=== PATIENT | female | born 1985 | race Caucasian/White ===

== ENCOUNTER → 2016-08-14 | Outpatient (CLI) | payer OTHER ==
[2016-08-14 07:10] LABS: Basophils # (A) 0.1 k/uL (0-0.2); Basophils % (A) 2 %; CH 30.2; CHCM 34.1; Eosinophils # (A) 0.1 k/uL (0-0.7); Eosinophils % (A) 2 %; HCT 41.4 % (34.0-46.0); HDW 2.63; HGB 13.7 gm/dL (11.4-16.0); Luc # (Auto) 0.15; Luc % (Auto) 3; Lymphocytes # (A) 2.1 k/uL (1.0-4.8); Lymphocytes % (A) 38 %; MCH 29.5 pg (25.0-35.0); MCHC 33.1 g/dL (31.0-37.0); Mean Platelet Volume 7.2; Monocytes # (A) 0.2 k/uL (0-1.0); Monocytes % (A) 4 %; Neutrophils # (A) 2.9 k/uL (1.3-7.7); Neutrophils % (A) 52 %; RBC 4.65 m/uL (3.80-5.40); RDW 12.5 % (11.5-15.5); WBC 5.5 k/uL (3.8-10.6); WBC (Perox) 5.61
[2016-08-14 07:45] LABS: ALT 35 U/L (9-52); AST 43 U/L (14-36); Alkaline Phosphatase 61 U/L (38-126); Anion Gap 7 mmol/L; Blood Urea Nitrogen 12 mg/dL (7-17); Calcium 8.6 mg/dL (8.4-10.2); Carbon Dioxide 29 mmol/L (22-30); Chloride 105 mmol/L (98-107); Cholesterol 153 mg/dL (<200); Glucose 92 mg/dL (74-99); HDL Cholesterol 48 mg/dL (40-60); Non-African American GFR(MDRD) >60 (>60 ml/min/1.73 sqM); Sodium 141 mmol/L (137-145); Total Bilirubin 0.7 mg/dL (0.2-1.3); Total Protein 6.1 g/dL (6.3-8.2); Triglycerides 324 mg/dL (<150)
== END | disposition home or self-care (01) ==
LOC: LABWHC1 06:42
PROVIDERS: ATTEND Family Medicine
DX: E03.9 Hypothyroidism, unspecified (principal)
CPT/HCPCS: 36415; 80053; 80061; 84439; 84443; 84481; 85025

== ENCOUNTER → 2016-08-15 | Outpatient (CLI) | payer OTHER ==
--- NOTE | 2016-08-15 15:07 | US ---
EXAMINATION TYPE: US thyroid st tissue head/neck DATE OF EXAM: 08/15/2016 2:54 PM COMPARISON: NONE CLINICAL HISTORY: Multinodular Goiter E04.2. Pt states h/o goiter/ pt previously on thyroid meds, cur rently not on them GLAND SIZE: Right Lobe: 4.5 x 1.3 x 1.7 cm Overall Parenchyma: heterogenous Left Lobe: 4.3 x 1.5 x 1.6 cm Overall Parenchyma: heterogeneous Isthmus Thickness: 0.3 cm NODULES RIGHT: # of nodules measured on right: 0 LEFT: # of nodules measured on left: 0 ISTHMUS: # of nodules measured in the isthmus: 0 TECHNOLOGIST IMPRESSION: Bilateral neck scanned, no abnormal lymphadenopathy noted/ Bilateral thyroi d gland grossly heterogeneous with increased blood flow/ No definite nodules visualized IMPRESSION: Thyroid goiter with increased vascularity. Discrete suspicious nodule is not otherwise identified.
== END | disposition home or self-care (01) ==
LOC: RADUSWWP 14:42
PROVIDERS: ATTEND Family Medicine
DX: E04.2 Nontoxic multinodular goiter (principal); Z88.1 Allergy status to other antibiotic agents
CPT/HCPCS: 76536

== ENCOUNTER → 2017-10-09 | Outpatient (CLI) | payer OTHER ==
--- NOTE | 2017-10-09 12:46 | US ---
EXAMINATION TYPE: US gallbladder DATE OF EXAM: 10/09/2017 COMPARISON: NONE CLINICAL HISTORY: 32-year-old female R10.9 ABD Pain. RUQ pain and diarrhea x 6-9 months TECHNIQUE: Multiple sonographic images of the right upper quadrant were obtained. FINDINGS: EXAM MEASUREMENTS: Liver Length: 18.5 cm Gallbladder Wall: 0.2 cm CBD: 0.5 cm Right Kidney: 10.2 x 4.7 x 5.1 cm Pancreas: wnl, tail obscured by overlying bowel gas Liver: Enlarged, heterogeneous Gallbladder: No abnormal gallbladder distention, wall thickening, pericholecystic fluid, or shadowin g calculi. Evidence for sonographic Borden's sign: No CBD: wnl Right Kidney: No hydronephrosis. Lower pole gassed out IMPRESSION: Mild hepatomegaly (18.5 cm). There is heterogeneous and echogenic appearance to the liver which could reflect hepatic steatosis or other nonspecific hepatocellular disease. Correlate with LFTs, profile, and patient risk factors.
== END | disposition home or self-care (01) ==
LOC: RADUSWWP 09:02
PROVIDERS: ATTEND Family Medicine
DX: R16.0 Hepatomegaly, not elsewhere classified (principal); Z88.1 Allergy status to other antibiotic agents
CPT/HCPCS: 76705

== ENCOUNTER 2018-12-12 16:35 | Emergency (ER) | payer OTHER ==
[2018-12-12 17:03] VITALS: BP 145/94; PULSE 112; RESP 18; TEMP 98.4
--- NOTE | 2018-12-12 17:42 | ED ---
General Adult HPI - General Chief complaint: Recheck/Abnormal Lab/Rx Stated complaint: Chest Pain, Anxiety Time Seen by Provider: 12/12/18 17:06 Source: patient Mode of arrival: ambulatory Limitations: no limitations - History of Present Illness Initial comments: She is a 33-year-old female presenting to emergency Department with anxiety. Patient reports a history of anxiety but over the past year she has developed increased symptoms along with occasional panic attacks that occur approximately 2-3 days prior to her menstrual periods. Patient reports these have been constant and only occurred during this period. Patient reports taking Xanax and smoked marijuana with mixed improvement. Patient reports over the last 6 months she also noticed intermittent chest pain that does not radiate. Patient reports chest pain is not exacerbated or alleviated with rest. Patient reports the anxiety symptoms last for approximately 2-3 days and resolve with the onset of the menstrual cycle. Patient denies taking any other medication to alleviate the symptoms. Patient reports that she has an appointment scheduled for an PAYROLL TAX ANALYST on Saturday. Patient also reports nausea, vomiting, and personality changes during this period. Patient is not currently taking Tian at this. Patient reports she is not . Patient has no previous cardiac history. - Related Data Previous Rx's Medication Instructions Recorded Clindamycin [Cleocin] 150 mg PO Q6H 7 Days capsule 05/21/16 HYDROcodone/APAP 5-325MG [[place] 1 tab PO Q6HR #12 tab 05/21/16 5-325] Allergies Allergy/AdvReac Type Severity Reaction Status Date / Time cefaclor [From Ceclor] Allergy Rash/Hives Verified 12/12/18 17:03 Iodinated Contrast- Oral and Allergy Rash/Hives Verified 12/12/18 17:04 IV Dye shellfish derived [Shellfish] Allergy Rash/Hives Verified 12/12/18 17:04 Review of Systems ROS Statement: Those systems with pertinent positive or pertinent negative responses have been documented in the HPI. ROS Other: All systems not noted in ROS Statement are negative. Past Medical History Past Medical History: No Reported History History of Any Multi-Drug Resistant Organisms: None Reported Additional Past Surgical History / Comment(s): ANKLE, ARM Past Psychological History: No Psychological Hx Reported Smoking Status: Never smoker Past Alcohol Use History: Daily Past Drug Use History: Marijuana General Exam Limitations: no limitations General appearance: alert, in no apparent distress Head exam: Present: atraumatic, normocephalic, normal inspection Eye exam: Present: normal appearance, PERRL, EOMI Pupils: Present: normal accommodation ENT exam: Present: normal exam, mucous membranes moist, normal external ear exam Neck exam: Present: normal inspection, full ROM Respiratory exam: Present: normal lung sounds bilaterally Cardiovascular Exam: Present: regular rate, normal rhythm, normal heart sounds GI/Abdominal exam: Present: soft. Absent: tenderness, guarding, rebound Extremities exam: Present: normal inspection, full ROM Back exam: Present: normal inspection, full ROM Neurological exam: Present: alert, oriented X3 Psychiatric exam: Present: normal affect, normal mood, anxious (Mild) Skin exam: Present: warm, intact, normal color Course Vital Signs 12/12/18 17:00 Temperature 98.4 F Pulse Rate 112 H Respiratory 18 Rate Blood Pressure 145/94 O2 Sat by Pulse 99 Oximetry EKG Findings - EKG Comments: EKG Findings:: Sinus tachycardia. Ventricular rate 106, TX interval 136, QRS duration 66, QT/QTc 334/456, PRT axes 49 44 -23 Medical Decision Making - Medical Decision Making Patient is a 33-year-old female presents emergency Department with anxiety. Based on history and physical examination and suspect the patient to be experiencing premenstrual symptoms which are consistent with the timing of onset prior to her menstrual cycle. Due to the previous history of anxiety, the patient appears to have exacerbated his symptoms. EKG is negative for an acute infarct. Patient advised to follow with PAY[employer] TAX ANALYST and psychiatrist would be able to better control her symptoms. Strict return parameters were thoroughly discussed with patient who is understanding and agreeable with the treatment plan. Case discussed with physician. Disposition Clinical Impression: Anxiety Disposition: HOME SELF-CARE Condition: Stable Instructions (If sedation given, give patient instructions): Premenstrual Syndrome (ED) Additional Instructions: Please follow-up with PAYROLL TAX ANALYST. Please return to emergency department if symptoms worsen. Is patient prescribed a controlled substance at d/c from ED?: No Referrals: Reynaldo Bateman MD [Primary Care Provider] - 1-2 days Time of Disposition: 17:41
== END 2018-12-12 18:22 | disposition home or self-care (01) ==
LOC: EC 16:35
DX: F41.9 Anxiety disorder, unspecified (principal); R07.9 Chest pain, unspecified; R11.2 Nausea with vomiting, unspecified; Z88.1 Allergy status to other antibiotic agents; Z91.041 Radiographic dye allergy status; Z91.013 Allergy to seafood
CPT/HCPCS: 99284

== ENCOUNTER 2019-04-29 17:30 | Emergency (ER) | payer OTHER ==
[2019-04-29 17:35] VITALS: RESP 18
[2019-04-29] MEDS ORDERED: LORazepam 1 MG TAB PO STA (18:17)
--- NOTE | 2019-04-29 19:06 | ED ---
General Adult HPI - General Chief complaint: Anxiety Stated complaint: PMDD/anxiety Time Seen by Provider: 04/29/19 17:41 Source: patient, RN notes reviewed Mode of arrival: ambulatory Limitations: no limitations - History of Present Illness Initial comments: 33-year-old female presents to the emergency department for a chief complaint of anxiety. Patient has a past medical history of PMD D. States that she gets very anxious during this time. Patient states that today her anxiety was causing her heart rate to be elevated and this in turn was causing more anxiety. States that she was feeling like her heart was beating quickly and it was scaring her. Patient denies any other symptoms. Denies chest pain or shortness of breath. Denies any radiating pain. States she has had these symptoms before with PMDD.Patient has no other complaints at this time including shortness of breath, chest pain, abdominal pain, nausea or vomiting, headache, or visual changes. - Related Data Previous Rx's Medication Instructions Recorded HYDROcodone/APAP 5-325MG [[place] 1 tab PO Q6HR #12 tab 05/21/16 5-325] RX: Clindamycin [Cleocin] 150 mg PO Q6H 7 Days capsule 05/21/16 Allergies Allergy/AdvReac Type Severity Reaction Status Date / Time cefaclor [From Ceclor] Allergy Rash/Hives Verified 04/29/19 17:34 Iodinated Contrast Media Allergy Rash/Hives Verified 04/29/19 17:34 [Iodinated Contrast- Oral and IV Dye] shellfish derived [Shellfish] Allergy Rash/Hives Verified 04/29/19 17:34 Review of Systems ROS Statement: Those systems with pertinent positive or pertinent negative responses have been documented in the HPI. ROS Other: All systems not noted in ROS Statement are negative. Past Medical History Past Medical History: Thyroid Disorder Additional Past Medical History / Comment(s): PMDD History of Any Multi-Drug Resistant Organisms: None Reported Past Surgical History: Orthopedic Surgery Additional Past Surgical History / Comment(s): ANKLE, ARM Past Psychological History: No Psychological Hx Reported Smoking Status: Never smoker Past Alcohol Use History: Occasional Past Drug Use History: Marijuana General Exam Limitations: no limitations General appearance: alert, in no apparent distress Head exam: Present: atraumatic, normocephalic, normal inspection Eye exam: Present: normal appearance, PERRL, EOMI. Absent: scleral icterus, conjunctival injection, periorbital swelling ENT exam: Present: normal exam, mucous membranes moist Neck exam: Present: normal inspection, full ROM. Absent: tenderness, meningismus, lymphadenopathy Respiratory exam: Present: normal lung sounds bilaterally. Absent: respiratory distress, wheezes, rales, rhonchi, stridor Cardiovascular Exam: Present: regular rate, normal rhythm, normal heart sounds. Absent: systolic murmur, diastolic murmur, rubs, gallop, clicks GI/Abdominal exam: Present: soft, normal bowel sounds. Absent: distended, tenderness, guarding, rebound, rigid Neurological exam: Present: alert Psychiatric exam: Present: normal affect, normal mood Course Vital Signs 04/29/19 17:32 Temperature 98.3 F Pulse Rate 102 H Respiratory 18 Rate Blood Pressure 144/102 O2 Sat by Pulse 96 Oximetry EKG Findings - EKG Comments: EKG Findings:: Normal sinus rhythm, ventricular rate 80, MS interval 126, QTc 470 Medical Decision Making - Medical Decision Making Patient has mild sinus tachycardia with a ventricular rate of 102. Negative hCG was verified. Patient was given Ativan and EKG was obtained. EKG shows a normal sinus rhythm with a ventricular rate of 80. Patient was reevaluated, feeling much better. States she just needed piece of mind and Ativan helped her anxiety. States she is ready to go home. Again she denies any suicidal thoughts or thoughts of harming herself. Patient will return if she has any worsening symptoms. - Lab Data Lab Results 04/29/19 Range/Units 18:15 Urine HCG, Qual Not Detected (Not Detectd) Disposition Clinical Impression: Acute anxiety Disposition: HOME SELF-CARE Condition: Good Instructions (If sedation given, give patient instructions): Generalized Anxiety Disorder (ED) Additional Instructions: Please follow up with primary care in 1-2 days. Return here to the emergency Department if you're having any worsening symptoms. Is patient prescribed a controlled substance at d/c from ED?: No Referrals: Reynaldo Bateman MD [Primary Care Provider] - 1-2 days Time of Disposition: 19:16
[2019-04-29 19:31] VITALS: BP 141/94; PULSE 88; TEMP 98.7
== END 2019-04-29 19:30 | disposition home or self-care (01) ==
LOC: EC 17:30
DX: F41.9 Anxiety disorder, unspecified (principal); Z88.1 Allergy status to other antibiotic agents; Z91.013 Allergy to seafood; Z91.041 Radiographic dye allergy status
CPT/HCPCS: 81025; 93005; 99283

== ENCOUNTER 2019-04-30 03:43 | Emergency (ER) | payer OTHER ==
[2019-04-30 03:50] VITALS: RESP 18
[2019-04-30] MEDS ORDERED: SODIUM CHLORIDE 0.9% 1,000 ML IV ONE (04:32)
--- NOTE | 2019-04-30 04:32 | ED ---
General Adult HPI - General Chief complaint: Anxiety Stated complaint: recheck PMDD/anxiety Time Seen by Provider: 04/30/19 03:45 Source: patient Mode of arrival: ambulatory Limitations: no limitations - History of Present Illness Initial comments: Riri is a 33-year-old female who presents to the ER today for reevaluation of persistent anxiety. Patient states that she suffers from PMDD, she states that approximately 1-2 weeks to months she feels very anxious and is unable to attend to her normal activities of daily living. She states that she is currently suffering from PMDD. She has been following with her enrobing machine operator about this and has been prescribed Prozac since November. 2 weeks ago for Prozac was increased. In addition she is followed with her primary care physician and found that her thyroid levels were low and her Synthroid dose was increased. She is scheduled to see an [employer] law clerk tomorrow for this. Patient states that she came to the ER yesterday evening feeling very anxious she was given Ativan and felt much better her heart rate improved is able to sleep. Patient reports that she woke from sleep feeling very anxious, her heart was racing. Patient states that she hasn't been able sleep lately, she is concerned that she has some type of cancer going to kill her. She states she just feels that something is wrong inside of her body and she is going to . Patient states she is overwhelmed by these thoughts. Patient denies any history of anxiety or depression she doesn't have any outpatient mental health care. She does state that sheneeds to see a mental health provider however she's been unable to do so. Patient states that in the 1-2 weeks a month that she suffers from PMDD she is unable to 10 to activities of daily living her to keep up with her cabin agent so the 2 weeks that she is functional she's always playing catch of therefore she hasn't had much time to establish care with a mental health provider. - Related Data Home Medications Medication Instructions Recorded Confirmed FLUoxetine HCL [PROzac] 40 mg PO DAILY 04/29/19 04/29/19 Ibuprofen [Advil] 400 mg PO Q6HR PRN 04/29/19 04/29/19 Levothyroxine Sodium [Synthroid] 75 mcg PO DAILY 04/29/19 04/29/19 Allergies Allergy/AdvReac Type Severity Reaction Status Date / Time cefaclor [From Ceclor] Allergy Rash/Hives Verified 04/30/19 03:50 Iodinated Contrast Media Allergy Rash/Hives Verified 04/30/19 03:50 [Iodinated Contrast- Oral and IV Dye] shellfish derived [Shellfish] Allergy Rash/Hives Verified 04/30/19 03:50 Review of Systems ROS Statement: Those systems with pertinent positive or pertinent negative responses have been documented in the HPI. ROS Other: All systems not noted in ROS Statement are negative. Past Medical History Past Medical History: Thyroid Disorder Additional Past Medical History / Comment(s): PMDD, History of Any Multi-Drug Resistant Organisms: None Reported Past Surgical History: Orthopedic Surgery Additional Past Surgical History / Comment(s): ANKLE, ARM, Past Psychological History: Anxiety Smoking Status: Former smoker Past Alcohol Use History: Occasional Past Drug Use History: Marijuana General Exam - General Exam Comments Initial Comments: Physical Exam GENERAL: Patient is well-developed and well-nourished. Patient is nontoxic and well-hydrated and is in no distress. HENT: Normocephalic, Atraumatic. EYES: PERRL, EOMI PULMONARY: Unlabored respirations. CARDIOVASCULAR: RRR Warm and well perfused extremities ABDOMEN: Non-distended SKIN: No rashes or bruising : Deferred NEUROLOGIC: Alert and oriented Normal speech Normal gait MUSCULOSKELETAL: Moving all extremities with no apparent injury PSYCHIATRIC: No SI/HI Limitations: no limitations Course Vital Signs 04/30/19 03:46 Temperature 97.7 F Pulse Rate 125 H Respiratory 18 Rate Blood Pressure 171/102 O2 Sat by Pulse 95 Oximetry Medical Decision Making - Medical Decision Making The patient was seen and evaluated, history is obtained from the patient and review of medical record History and physical exam are relatively unremarkable. Patient is very anxious. Patient is noted be tachycardic and hypertensive however she is not hypoxic has no shortness of breath. Given the patient's history of hyperthyroid and her recent visit we will obtained IV access, check labs and give her IV fluids. Labs resulted with a relatively low bicarb which is consistent with patient hyperventilating. Labs are otherwise unremarkable - Lab Data Result diagrams: 04/30/19 04:47 04/30/19 04:47 Lab Results 04/30/19 04/30/19 04/30/19 Range/Units 04:47 04:47 04:47 WBC 6.1 (3.8-10.6) k/uL RBC 4.57 (3.80-5.40) m/uL Hgb 14.5 (11.4-16.0) gm/dL Hct 41.3 (34.0-46.0) % MCV 90.4 (80.0-100.0) fL MCH 31.8 (25.0-35.0) pg MCHC 35.2 (31.0-37.0) g/dL RDW 12.8 (11.5-15.5) % Plt Count 163 (150-450) k/uL Neutrophils % 77 % Lymphocytes % 18 % Monocytes % 3 % Eosinophils % 1 % Basophils % 0 % Neutrophils # 4.7 (1.3-7.7) k/uL Lymphocytes # 1.1 (1.0-4.8) k/uL Monocytes # 0.2 (0-1.0) k/uL Eosinophils # 0.0 (0-0.7) k/uL Basophils # 0.0 (0-0.2) k/uL D-Dimer 0.30 (<0.60) mg/L FEU Sodium 139 (137-145) mmol/L Potassium 3.5 (3.5-5.1) mmol/L Chloride 103 (98-107) mmol/L Carbon Dioxide 21 L (22-30) mmol/L Anion Gap 15 mmol/L BUN 14 (7-17) mg/dL Creatinine 0.67 (0.52-1.04) mg/dL Est GFR (CKD-EPI)AfAm >90 (>60 ml/min/1.73 sqM) Est GFR (CKD-EPI)NonAf >90 (>60 ml/min/1.73 sqM) Glucose 89 (74-99) mg/dL Calcium 8.5 (8.4-10.2) mg/dL Total Bilirubin 1.5 H (0.2-1.3) mg/dL AST 84 H (14-36) U/L ALT 46 (9-52) U/L Alkaline Phosphatase 111 (38-126) U/L Total Protein 8.0 (6.3-8.2) g/dL Albumin 4.6 (3.5-5.0) g/dL TSH 4.920 H (0.465-4.680) mIU/L Disposition Clinical Impression: Acute anxiety Disposition: HOME SELF-CARE Condition: Stable Instructions (If sedation given, give patient instructions): Generalized Anxiety Disorder (ED) Additional Instructions: Contact community mental health to establish care with a counselor Is patient prescribed a controlled substance at d/c from ED?: No Referrals: Reynaldo Bateman MD [Primary Care Provider] - 1-2 days
[2019-04-30 04:52] LABS: Basophils % (A) 0 %; Eosinophils % (A) 1 %; HCT 41.3 % (34.0-46.0); HGB 14.5 gm/dL (11.4-16.0); Lymphocytes # (A) 1.1 k/uL (1.0-4.8); Lymphocytes % (A) 18 %; MCH 31.8 pg (25.0-35.0); MCHC 35.2 g/dL (31.0-37.0); MCV 90.4 fL (80.0-100.0); Mean Platelet Volume 5.6; Monocytes # (A) 0.2 k/uL (0-1.0); Monocytes % (A) 3 %; Neutrophils # (A) 4.7 k/uL (1.3-7.7); Neutrophils % (A) 77 %; Platelet Count 163 k/uL (150-450); RBC 4.57 m/uL (3.80-5.40); RDW 12.8 % (11.5-15.5); WBC 6.1 k/uL (3.8-10.6)
[2019-04-30 05:05] LABS: ALT 46 U/L (9-52); AST 84 U/L (14-36); African American GFR (CKD) >90 (>60 ml/min/1.73 sqM); Albumin 4.6 g/dL (3.5-5.0); Alkaline Phosphatase 111 U/L (38-126); Anion Gap 15 mmol/L; Blood Urea Nitrogen 14 mg/dL (7-17); Calcium 8.5 mg/dL (8.4-10.2); Carbon Dioxide 21 mmol/L (22-30); Chloride 103 mmol/L (98-107); Glucose 89 mg/dL (74-99); Non-African American GFR(CKD) >90 (>60 ml/min/1.73 sqM); Potassium 3.5 mmol/L (3.5-5.1); Sodium 139 mmol/L (137-145); Total Bilirubin 1.5 mg/dL (0.2-1.3)
[2019-04-30 05:59] VITALS: BP 129/74; PULSE 111; TEMP 98.4
[2019-04-30 06:45] LABS: T4, Free (Free Thyroxine) 1.21 ng/dL (0.78-2.19)
== END 2019-04-30 06:08 | disposition home or self-care (01) ==
LOC: EC 03:43
DX: F41.9 Anxiety disorder, unspecified (principal); F32.81 Premenstrual dysphoric disorder; E05.90 Thyrotoxicosis, unspecified without thyrotoxic crisis or storm; Z87.891 Personal history of nicotine dependence; Z88.1 Allergy status to other antibiotic agents; Z91.013 Allergy to seafood; Z91.041 Radiographic dye allergy status; Z79.890 Hormone replacement therapy; Z79.899 Other long term (current) drug therapy
CPT/HCPCS: 36415; 80053; 84439; 84443; 85025; 85379; 96360; 99283

== ENCOUNTER 2019-05-11 17:42 | Emergency (ER) | payer OTHER ==
[2019-05-11 17:51] VITALS: BP 142/88; PULSE 85; RESP 18; TEMP 98
[2019-05-11] MEDS ORDERED: ONDANSETRON ODT 4 MG TAB PO STA (18:02)
[2019-05-11] MEDS ORDERED: LORazepam 1 MG TAB PO STA (18:02)
--- NOTE | 2019-05-11 18:13 | ED ---
Anxiety HPI - General Chief Complaint: Anxiety Stated Complaint: PMDD Time Seen by Provider: 05/11/19 17:57 Source: patient, RN notes reviewed, old records reviewed Mode of arrival: ambulatory - History of Present Illness Initial Comments: Physical therapy 3-year-old female who admits to history of PMDD. Patient has history of depression related to her menstrual cycle. She states she just finished her menstrual cycle she gets feels coming out of them began to have anxiety. AR, and ended up into a situation of having severe stress and panic. Denies drugs or alcohol today. She occasionally does smoke marijuana occasionally drinks nothing significant. She does take psychiatric Lexapro as needed for the PMDD but does not take it daily. No other significant issues in the event in the house of the family. No Ki suicidal Complaint: anxiety, heart racing -: hour(s) Symptoms: dyspnea, palpitations Previous History of Same: Yes Severity: mild Quality: intermittent Provoking factors: emotional stress Improves With: medication Worsens With: thinking about event Associated symptoms: palpitations, diaphoresis, weakness - Related Data Home Medications: Home Medications Medication Instructions Recorded Confirmed FLUoxetine HCL [PROzac] 40 mg PO DAILY 04/29/19 04/29/19 Ibuprofen [Advil] 400 mg PO Q6HR PRN 04/29/19 04/29/19 Levothyroxine Sodium [Synthroid] 75 mcg PO DAILY 04/29/19 04/29/19 Allergies/Adverse Reactions: Allergies Allergy/AdvReac Type Severity Reaction Status Date / Time cefaclor [From Ceclor] Allergy Rash/Hives Verified 05/11/19 17:47 Iodinated Contrast Media Allergy Rash/Hives Verified 05/11/19 17:47 [Iodinated Contrast- Oral and IV Dye] shellfish derived [Shellfish] Allergy Rash/Hives Verified 05/11/19 17:47 Review of Systems ROS Statement: Those systems with pertinent positive or pertinent negative responses have been documented in the HPI. ROS Other: All systems not noted in ROS Statement are negative. Past Medical History Past Medical History: Thyroid Disorder Additional Past Medical History / Comment(s): PMDD, History of Any Multi-Drug Resistant Organisms: None Reported Past Surgical History: Orthopedic Surgery Additional Past Surgical History / Comment(s): ANKLE, ARM, Past Psychological History: Anxiety Smoking Status: Never smoker Past Alcohol Use History: Occasional Past Drug Use History: Marijuana General Exam Limitations: no limitations General appearance: alert, in no apparent distress, anxious Head exam: Present: atraumatic, normocephalic, normal inspection Eye exam: Present: normal appearance, PERRL, EOMI. Absent: scleral icterus, conjunctival injection, periorbital swelling ENT exam: Present: normal exam, mucous membranes moist Neck exam: Present: normal inspection. Absent: tenderness, meningismus, lymphadenopathy Respiratory exam: Present: normal lung sounds bilaterally. Absent: respiratory distress, wheezes, rales, rhonchi, stridor Cardiovascular Exam: Present: regular rate, normal rhythm, normal heart sounds. Absent: systolic murmur, diastolic murmur, rubs, gallop, clicks GI/Abdominal exam: Present: soft, normal bowel sounds. Absent: distended, tenderness, guarding, rebound, rigid Extremities exam: Present: normal inspection, full ROM, normal capillary refill. Absent: tenderness, pedal edema, joint swelling, calf tenderness Back exam: Present: normal inspection Neurological exam: Present: alert, oriented X3, CN II-XII intact Psychiatric exam: Present: normal affect, normal mood Skin exam: Present: warm, dry, intact, normal color. Absent: rash Course Vital Signs 05/11/19 17:47 Temperature 98 F Pulse Rate 85 Respiratory 18 Rate Blood Pressure 142/88 O2 Sat by Pulse 97 Oximetry - Reevaluation(s) Reevaluation #1: 05/11/19 18:45 Records reviewed Reevaluation #2: 05/11/19 18:45 Patient significantly improved Medical Decision Making - Medical Decision Making Form female here for evaluation of stress reaction examination PMD D. This time feeling better and can be discharged home Disposition Clinical Impression: Acute anxiety, Panic attack Disposition: HOME SELF-CARE Condition: Good Instructions (If sedation given, give patient instructions): Generalized Anxiety Disorder (ED) Is patient prescribed a controlled substance at d/c from ED?: No Referrals: Reynaldo Bateman MD [Primary Care Provider] - 1-2 days
[2019-05-11] MEDS ORDERED: DIAZEPAM 5 MG TAB PO STA (19:13)
== END 2019-05-11 19:35 | disposition home or self-care (01) ==
LOC: EC 17:42
DX: F41.0 Panic disorder [episodic paroxysmal anxiety] (principal); F32.81 Premenstrual dysphoric disorder; R53.1 Weakness; E07.9 Disorder of thyroid, unspecified; Z88.1 Allergy status to other antibiotic agents; Z91.013 Allergy to seafood; Z91.041 Radiographic dye allergy status; Z79.890 Hormone replacement therapy; Z79.899 Other long term (current) drug therapy
CPT/HCPCS: 99283

== ENCOUNTER 2019-06-05 06:27 | Emergency (ER) | payer OTHER ==
[2019-06-05 06:40] VITALS: RESP 20; TEMP 98
[2019-06-05] MEDS ORDERED: SODIUM CHLORIDE 0.9% 500 ML 500 ML IV ONE (06:40)
[2019-06-05] MEDS ORDERED: LORazepam 2 MG/ML INJ IV STA (06:40)
[2019-06-05] MEDS ORDERED: SODIUM CHLORIDE 0.9% 1,000 ML IV ONE (06:40)
--- NOTE | 2019-06-05 07:01 | ED ---
Nausea/Vomiting/Diarrhea HPI - General Chief complaint: Nausea/Vomiting/Diarrhea Stated complaint: near syncope Time Seen by Provider: 06/05/19 06:33 Source: patient Mode of arrival: ambulatory Limitations: no limitations - History of Present Illness Initial comments: 33-year-old female history of PMD D anxiety presents emergency department today for chief complaint of presyncopal episode. Patient states that with her PMDD she frequently has high anxiety that causes her to vomit. Patient states that she also has loose stools. Patient states this happens frequently. She states is been ongoing for the past few days and today when she went to wake up and sit up from her bed she felt as though she was going to pass out. Patient states she also has anxiety bedtime denies any chest pain shortness of breath fever, abdominal pain, back pain, pain with deep inspiration or leg swelling. Remaining ROS (-). Upon arrival patient appears well but anxious - Related Data Home Medications Medication Instructions Recorded Confirmed Albuterol Inhaler [Ventolin Hfa 1 - 2 puff INHALATION RT-Q6H PRN 06/05/19 06/05/19 Inhaler] Levothyroxine Sodium [Synthroid] 88 mcg PO DAILY 06/05/19 06/05/19 Seasonale 1 tab PO DAILY 06/05/19 06/05/19 Sertraline HCl [Zoloft] 50 mg PO DAILY@0900 06/05/19 06/05/19 Previous Rx's Medication Instructions Recorded LORazepam [Ativan] 1 mg PO HS 3 Days #3 tab 06/05/19 Ondansetron Odt [Zofran Odt] 4 mg PO Q8HR PRN 5 Days #15 tab 06/05/19 Allergies Allergy/AdvReac Type Severity Reaction Status Date / Time cefaclor [From Ceclor] Allergy Rash/Hives Verified 06/05/19 07:32 Iodinated Contrast Media Allergy Rash/Hives Verified 06/05/19 07:32 [Iodinated Contrast- Oral and IV Dye] shellfish derived [Shellfish] Allergy Rash/Hives Verified 06/05/19 07:32 Review of Systems ROS Statement: Those systems with pertinent positive or pertinent negative responses have been documented in the HPI. ROS Other: All systems not noted in ROS Statement are negative. Past Medical History Past Medical History: Thyroid Disorder Additional Past Medical History / Comment(s): PMDD, History of Any Multi-Drug Resistant Organisms: None Reported Past Surgical History: Orthopedic Surgery Additional Past Surgical History / Comment(s): ANKLE, ARM, Past Psychological History: Anxiety Smoking Status: Never smoker Past Alcohol Use History: Occasional Past Drug Use History: Marijuana General Exam - General Exam Comments Initial Comments: General: The patient is awake and alert, in no distress Eye: +3 mm pupils are equal, round and reactive to light, extra-ocular movements are intact. No nystagmus. There is normal conjunctiva bilaterally. No signs of icterus. Ears, nose, mouth and throat: There are moist mucous membranes and no oral lesions. Neck: The neck is supple, there is no tenderness or JVD. Cardiovascular: There is a regular rate and rhythm. No murmur, rub or gallop is appreciated. Respiratory: Lungs are clear to auscultation, respirations are non-labored, breath sounds are equal. No wheezes, stridor, rales, or rhonchi. Gastrointestinal: Soft, non-distended, non-tender abdomen without masses or organomegaly noted. There is no rebound or guarding present. Musculoskeletal: Normal ROM, no tenderness. Strength 5/5. Sensation intact. Radial and DP pulses equal bilaterally 2+. Neurological: A&O x 3. CN II-XII intact grossly, There are no obvious motor or sensory deficits. Coordination appears grossly intact. Speech is normal. Skin: Skin is warm and dry and no rashes or lesions are noted. No LE edema. Psychiatric: Cooperative, appropriate mood & affect, normal judgment. Limitations: no limitations Course Vital Signs 06/05/19 06/05/19 06/05/19 06:37 07:40 07:47 Temperature 98 F Pulse Rate 114 H Pulse Rate [ 80 Right Sitting Pulse Oximetery ] Pulse Rate [ 89 Right Standing Pulse Oximetery ] Pulse Rate [ 89 Right Supine Pulse Oximetery ] Respiratory 20 20 Rate Blood Pressure 130/91 Blood Pressure 126/84 [Left Arm Sitting] Blood Pressure 129/92 [Left Arm Standing] Blood Pressure 112/75 [Left Arm Supine] O2 Sat by Pulse 97 Oximetry 06/05/19 08:01 Temperature Pulse Rate Pulse Rate [ Right Sitting Pulse Oximetery ] Pulse Rate [ Right Standing Pulse Oximetery ] Pulse Rate [ Right Supine Pulse Oximetery ] Respiratory 20 Rate Blood Pressure Blood Pressure [Left Arm Sitting] Blood Pressure [Left Arm Standing] Blood Pressure [Left Arm Supine] O2 Sat by Pulse Oximetry Medical Decision Making - Medical Decision Making 33-year-old female presenting today for chief complaint of anxiety lack of sleep vomiting diarrhea. Patient states sterile symptoms or PMDD that she has been previously diagnosed. Patient states she felt presyncopal. Orthostatics negative patient states she believes she is dehydrated given IV hydration. Patient's EKG revealed no acute findings significant artifact. Laboratory studies stable patient appears well improvement after Ativan antibiotics. Patient requesting discharge at this time patient will be discharged with a [place] prescription for Ativan at night for anxiety and sleep aid. Return parameters and for the primary care follow-up were discussed patient was understanding of discharge. While discussing the case might any provider Dr. Cannon Ventricular rate 91 pad per minute [place] interval 124 ms due to administration 70 ms, QT/QTC 382/469 ms. Normal sinus. No ST elevation or depression noted. Significant artifact noted otherwise no acute findings. EKG personal interpr eted reviewed them attending provider - Lab Data Result diagrams: 06/05/19 06:52 06/05/19 06:52 Lab Results 06/05/19 06/05/19 Range/Units 06:52 06:52 WBC 5.2 (3.8-10.6) k/uL RBC 4.63 (3.80-5.40) m/uL Hgb 14.2 (11.4-16.0) gm/dL Hct 42.5 (34.0-46.0) % MCV 91.8 (80.0-100.0) fL MCH 30.6 (25.0-35.0) pg MCHC 33.3 (31.0-37.0) g/dL RDW 12.6 (11.5-15.5) % Plt Count 271 (150-450) k/uL Neutrophils % 69 % Lymphocytes % 23 % Monocytes % 5 % Eosinophils % 1 % Basophils % 1 % Neutrophils # 3.6 (1.3-7.7) k/uL Lymphocytes # 1.2 (1.0-4.8) k/uL Monocytes # 0.3 (0-1.0) k/uL Eosinophils # 0.1 (0-0.7) k/uL Basophils # 0.0 (0-0.2) k/uL Sodium 142 (137-145) mmol/L Potassium 4.0 (3.5-5.1) mmol/L Chloride 108 H (98-107) mmol/L Carbon Dioxide 18 L (22-30) mmol/L Anion Gap 16 mmol/L BUN 14 (7-17) mg/dL Creatinine 0.75 (0.52-1.04) mg/dL Est GFR (CKD-EPI)AfAm >90 (>60 ml/min/1.73 sqM) Est GFR (CKD-EPI)NonAf >90 (>60 ml/min/1.73 sqM) Glucose 110 H (74-99) mg/dL Calcium 8.6 (8.4-10.2) mg/dL Total Bilirubin 1.4 H (0.2-1.3) mg/dL AST 44 H (14-36) U/L ALT 23 (4-34) U/L Alkaline Phosphatase 67 (38-126) U/L Total Protein 7.5 (6.3-8.2) g/dL Albumin 4.4 (3.5-5.0) g/dL Disposition Clinical Impression: Diarrhea, Vomiting, Pre-syncope Disposition: HOME SELF-CARE Condition: Good Instructions (If sedation given, give patient instructions): Acute Nausea and Vomiting (ED), Acute Diarrhea (ED) Additional Instructions: Please use medication as discussed. Please follow-up with family doctor in the next 2 days, recommend holter monitor. Please return to emergency room if the symptoms increase or worsen or for any other concerns. Prescriptions: LORazepam [Ativan] 1 mg PO HS 3 Days #3 tab Ondansetron Odt [Zofran Odt] 4 mg PO Q8HR PRN 5 Days #15 tab PRN Reason: Nausea Is patient prescribed a controlled substance at d/c from ED?: No Referrals: Reynaldo Bateman MD [Primary Care Provider] - 1-2 days Time of Disposition: 07:37
[2019-06-05 07:10] LABS: Basophils % (A) 1 %; Eosinophils # (A) 0.1 k/uL (0-0.7); Eosinophils % (A) 1 %; HCT 42.5 % (34.0-46.0); HGB 14.2 gm/dL (11.4-16.0); Lymphocytes # (A) 1.2 k/uL (1.0-4.8); Lymphocytes % (A) 23 %; MCH 30.6 pg (25.0-35.0); MCHC 33.3 g/dL (31.0-37.0); MCV 91.8 fL (80.0-100.0); Mean Platelet Volume 7.2; Monocytes # (A) 0.3 k/uL (0-1.0); Monocytes % (A) 5 %; Neutrophils # (A) 3.6 k/uL (1.3-7.7); Neutrophils % (A) 69 %; Platelet Count 271 k/uL (150-450); RBC 4.63 m/uL (3.80-5.40); RDW 12.6 % (11.5-15.5); WBC 5.2 k/uL (3.8-10.6)
--- NOTE | 2019-06-05 07:12 | XR ---
EXAMINATION TYPE: XR chest 2V DATE OF EXAM: 06/05/2019 COMPARISON: NONE HISTORY: Syncope, weakness, and anxiety. TECHNIQUE: Frontal and lateral views of the chest are obtained. FINDINGS: There is no focal air space opacity, pleural effusion, or pneumothorax seen. The cardiac silhouette size is within normal limits. The osseous structures are intact. IMPRESSION: No acute cardiopulmonary process.
[2019-06-05 07:21] LABS: ALT 23 U/L (4-34); AST 44 U/L (14-36); African American GFR (CKD) >90 (>60 ml/min/1.73 sqM); Albumin 4.4 g/dL (3.5-5.0); Alkaline Phosphatase 67 U/L (38-126); Anion Gap 16 mmol/L; Blood Urea Nitrogen 14 mg/dL (7-17); Calcium 8.6 mg/dL (8.4-10.2); Carbon Dioxide 18 mmol/L (22-30); Chloride 108 mmol/L (98-107); Glucose 110 mg/dL (74-99); Non-African American GFR(CKD) >90 (>60 ml/min/1.73 sqM); Sodium 142 mmol/L (137-145); Total Bilirubin 1.4 mg/dL (0.2-1.3); Total Protein 7.5 g/dL (6.3-8.2)
[2019-06-05 07:49] VITALS: BP 112/75; PULSE 89
== END 2019-06-05 08:06 | disposition home or self-care (01) ==
LOC: EC 06:27
DX: R19.7 Diarrhea, unspecified (principal); R11.10 Vomiting, unspecified; R55 Syncope and collapse; F41.9 Anxiety disorder, unspecified; G47.30 Sleep apnea, unspecified; F32.81 Premenstrual dysphoric disorder; E07.9 Disorder of thyroid, unspecified; Z88.1 Allergy status to other antibiotic agents; Z91.013 Allergy to seafood; Z91.041 Radiographic dye allergy status; Z79.3 Long term (current) use of hormonal contraceptives; Z79.890 Hormone replacement therapy; Z79.899 Other long term (current) drug therapy
CPT/HCPCS: 36415; 93005; 80053; 85025; 71046; 99284; 96374; 96361; J2060

== ENCOUNTER 2019-06-16 18:48 | Emergency (ER) | payer OTHER ==
[2019-06-16] MEDS ORDERED: MORPHINE SULFATE 2 MG/ML SYRINGE IVP STA (20:51)
[2019-06-16] MEDS ORDERED: SODIUM CHLORIDE 0.9% 1,000 ML IV STA (20:51)
[2019-06-16] MEDS ORDERED: KETOROLAC 30 MG/ML 1 ML VIAL IVP STA (20:51)
[2019-06-16] MEDS ORDERED: ONDANSETRON 4 MG/2 ML VIAL IVP STA (20:51)
[2019-06-16 21:33] LABS: Basophils # (A) 0.1 k/uL (0-0.2); Basophils % (A) 1 %; Eosinophils # (A) 0.1 k/uL (0-0.7); Eosinophils % (A) 1 %; HCT 41.3 % (34.0-46.0); HGB 13.8 gm/dL (11.4-16.0); Lymphocytes # (A) 2.1 k/uL (1.0-4.8); Lymphocytes % (A) 22 %; MCH 30.8 pg (25.0-35.0); MCHC 33.5 g/dL (31.0-37.0); MCV 91.8 fL (80.0-100.0); Monocytes # (A) 0.3 k/uL (0-1.0); Monocytes % (A) 3 %; Neutrophils # (A) 6.8 k/uL (1.3-7.7); Neutrophils % (A) 72 %; Platelet Count 220 k/uL (150-450); RDW 12.5 % (11.5-15.5); WBC 9.4 k/uL (3.8-10.6)
[2019-06-16] MEDS ORDERED: methylPREDNISolone SOD SUCCI 125 MG/2 ML VIAL IV STA (21:37)
[2019-06-16] MEDS ORDERED: diphenhydrAMINE 50 MG/ML 1 ML VIAL IVP STA (21:37)
[2019-06-16] MEDS ORDERED: FAMOTIDINE 20 MG/2 ML VIAL IV STA (21:37)
[2019-06-16 21:48] LABS: Partial Thromboplastin Time 23.9 sec (22.0-30.0); Prothrombin Time 10.6 sec (9.0-12.0)
[2019-06-16 21:50] LABS: Amorphous Sediment,Urine Occasional /hpf; Appearance,Urine Turbid (Clear); Bilirubin,Urine Negative (Negative); Blood,Urine Negative (Negative); Calcium Oxalate Crystals,Urine Rare /hpf; Color,Urine Light Orange; Glucose,Urine (UA) Negative (Negative); Ketones,Urine Trace (Negative); Leukocyte Esterase,Urine Negative (Negative); Mucus,Urine Many /hpf; Nitrite,Urine Negative (Negative); PH, Urine 5.5 (5.0-8.0); Protein,Urine 1+ (Negative); RBC,Urine 1 /hpf (0-5); Squamous Epithelial Cell,Urine 2 /hpf (0-4); Urobilinogen,Urine <2.0 mg/dL (<2.0); WBC,Urine 2 /hpf (0-5)
[2019-06-16 22:06] LABS: ALT 23 U/L (4-34); AST 50 U/L (14-36); African American GFR (CKD) >90 (>60 ml/min/1.73 sqM); Albumin 4.3 g/dL (3.5-5.0); Alkaline Phosphatase 67 U/L (38-126); Amylase 60 U/L (30-110); Anion Gap 12 mmol/L; Blood Urea Nitrogen 10 mg/dL (7-17); Calcium 8.5 mg/dL (8.4-10.2); Carbon Dioxide 21 mmol/L (22-30); Chloride 104 mmol/L (98-107); Glucose 96 mg/dL (74-99); Non-African American GFR(CKD) >90 (>60 ml/min/1.73 sqM); Potassium 3.9 mmol/L (3.5-5.1); Sodium 137 mmol/L (137-145); Total Bilirubin 1.1 mg/dL (0.2-1.3); Total Protein 7.5 g/dL (6.3-8.2)
--- NOTE | 2019-06-16 22:24 | CT ---
EXAMINATION TYPE: CT abdomen pelvis w con DATE OF EXAM: 06/16/2019 COMPARISON: None HISTORY: RLQ pain CT DLP: 1140.6 mGycm Automated exposure control for dose reduction was used. CONTRAST: Performed with IV Contrast, patient injected with 100 mL of Isovue 300. Multiple axial sections were obtained from the diaphragm to the floor the pelvis with intravenous con trast. Lung bases are clear. There is no pleural effusion. Heart size is normal. Liver spleen stomach pancreas gallbladder appear normal. Bile ducts are not dilated. There is no adrenal mass. Kidneys show satisfactory contrast opacification. There is no hydronephrosi s. There is no retroperitoneal adenopathy. Bladder distends smoothly. There is no free fluid in the p vanessa. There is no inguinal hernia. There is no evidence of pelvic mass. The appendix is medial and appears normal. Lumbar spine is intact. Bony pelvis is intact. There is no mesenteric edema. There is no ascites or free air. There is no sign of a bowel obstructio n. IMPRESSION: Negative CT scan abdomen and pelvis.
--- NOTE | 2019-06-16 22:39 | ED ---
Abdominal Pain HPI - General Chief Complaint: Abdominal Pain Stated Complaint: poss appendicitis Time Seen by Provider: 06/16/19 20:30 Source: patient, RN notes reviewed, old records reviewed Mode of arrival: ambulatory Limitations: no limitations - History of Present Illness Initial Comments: 33 year old female presents with Right abdominal pain for 1 day. She went to [facility] whom sent her here to rule out appendicitis. She complains of nausea, d enies vomiting or fever. She has no sugical history. Patient reports history of ovarian cysts. She reports she is on depoprovera, and has started bleeding today. She denies flank pain. Denies dysuria. - Related Data Home Medications Medication Instructions Recorded Confirmed Albuterol Inhaler [Ventolin Hfa 1 - 2 puff INHALATION RT-Q6H PRN 06/05/19 06/05/19 Inhaler] Levothyroxine Sodium [Synthroid] 88 mcg PO DAILY 06/05/19 06/05/19 Seasonale 1 tab PO DAILY 06/05/19 06/05/19 Sertraline HCl [Zoloft] 50 mg PO DAILY@0900 06/05/19 06/05/19 Previous Rx's Medication Instructions Recorded LORazepam [Ativan] 1 mg PO HS 3 Days #3 tab 06/05/19 Ondansetron Odt [Zofran Odt] 4 mg PO Q8HR PRN 5 Days #15 tab 06/05/19 Allergies Allergy/AdvReac Type Severity Reaction Status Date / Time cefaclor [From Ceclor] Allergy Rash/Hives Verified 06/16/19 19:33 Iodinated Contrast Media Allergy Rash/Hives Verified 06/16/19 19:33 [Iodinated Contrast- Oral and IV Dye] shellfish derived [Shellfish] Allergy Rash/Hives Verified 06/16/19 19:33 Review of Systems ROS Statement: Those systems with pertinent positive or pertinent negative responses have been documented in the HPI. ROS Other: All systems not noted in ROS Statement are negative. Past Medical History Past Medical History: Thyroid Disorder Additional Past Medical History / Comment(s): PMDD, History of Any Multi-Drug Resistant Organisms: None Reported Past Surgical History: Orthopedic Surgery Additional Past Surgical History / Comment(s): ANKLE, ARM, Past Psychological History: Anxiety Smoking Status: Never smoker Past Alcohol Use History: Occasional Past Drug Use History: Marijuana General Exam - General Exam Comments Initial Comments: 33 year old female, no distress. Limitations: no limitations General appearance: alert, in no apparent distress Head exam: Present: atraumatic, normocephalic, normal inspection Eye exam: Present: normal appearance, PERRL, EOMI. Absent: scleral icterus, conjunctival injection, periorbital swelling ENT exam: Present: normal exam, mucous membranes moist Neck exam: Present: normal inspection. Absent: tenderness, meningismus, lymphadenopathy Respiratory exam: Present: normal lung sounds bilaterally. Absent: respiratory distress, wheezes, rales, rhonchi, stridor Cardiovascular Exam: Present: regular rate, normal rhythm, normal heart sounds. Absent: systolic murmur, diastolic murmur, rubs, gallop, clicks Extremities exam: Present: normal inspection, full ROM, normal capillary refill. Absent: tenderness, pedal edema, joint swelling, calf tenderness Back exam: Present: normal inspection Neurological exam: Present: alert (d), oriented X3, CN II-XII intact Psychiatric exam: Present: normal affect, normal mood Skin exam: Present: warm, dry, intact, normal color. Absent: rash Course Vital Signs 06/16/19 06/16/19 19:31 22:54 Temperature 98.6 F 98.0 F Pulse Rate 89 86 Respiratory 20 18 Rate Blood Pressure 152/100 130/89 O2 Sat by Pulse 97 98 Oximetry Medical Decision Making - Medical Decision Making 33 year female with abdominal pain. She denies fevers or chills. She has abdominal tendenress. Denies and on birthcontrol. She labs were normal. PAtient CT abdomen is negative for acute process. Labs were reviewed and unremarkable. Discussed follow up with PCP and return parameters discussed. - Lab Data Result diagrams: 06/16/19 21:22 06/16/19 21:22 Lab Results 06/16/19 06/16/19 06/16/19 Range/Units 21:22 21:22 21:22 WBC 9.4 (3.8-10.6) k/uL RBC 4.50 (3.80-5.40) m/uL Hgb 13.8 (11.4-16.0) gm/dL Hct 41.3 (34.0-46.0) % MCV 91.8 (80.0-100.0) fL MCH 30.8 (25.0-35.0) pg MCHC 33.5 (31.0-37.0) g/dL RDW 12.5 (11.5-15.5) % Plt Count 220 (150-450) k/uL Neutrophils % 72 % Lymphocytes % 22 % Monocytes % 3 % Eosinophils % 1 % Basophils % 1 % Neutrophils # 6.8 (1.3-7.7) k/uL Lymphocytes # 2.1 (1.0-4.8) k/uL Monocytes # 0.3 (0-1.0) k/uL Eosinophils # 0.1 (0-0.7) k/uL Basophils # 0.1 (0-0.2) k/uL PT (9.0-12.0) sec INR (<1.2) APTT (22.0-30.0) sec Sodium 137 (137-145) mmol/L Potassium 3.9 (3.5-5.1) mmol/L Chloride 104 (98-107) mmol/L Carbon Dioxide 21 L (22-30) mmol/L Anion Gap 12 mmol/L BUN 10 (7-17) mg/dL Creatinine 0.60 (0.52-1.04) mg/dL Est GFR (CKD-EPI)AfAm >90 (>60 ml/min/1.73 sqM) Est GFR (CKD-EPI)NonAf >90 (>60 ml/min/1.73 sqM) Glucose 96 (74-99) mg/dL Lactic Ac Sepsis Rflx Plasma Lactic Acid Shane 2.7 H* (0.7-2.0) mmol/L Calcium 8.5 (8.4-10.2) mg/dL Total Bilirubin 1.1 (0.2-1.3) mg/dL AST 50 H (14-36) U/L ALT 23 (4-34) U/L Alkaline Phosphatase 67 (38-126) U/L Total Protein 7.5 (6.3-8.2) g/dL Albumin 4.3 (3.5-5.0) g/dL Amylase 60 (30-110) U/L Lipase 101 (23-300) U/L Urine Color Urine Appearance (Clear) Urine pH (5.0-8.0) Ur Specific [place] (1.001-1.035) Urine Protein (Negative) Urine Glucose (UA) (Negative) Urine Ketones (Negative) Urine Blood (Negative) Urine Nitrite (Negative) Urine Bilirubin (Negative) Urine Urobilinogen (<2.0) mg/dL Ur Leukocyte Esterase (Negative) Urine RBC (0-5) /hpf Urine WBC (0-5) /hpf Ur Squamous Epith Cells (0-4) /hpf Calcium Oxalate Crystal (None) /hpf Amorphous Sediment (None) /hpf Urine Mucus (None) /hpf Blood Type Blood Type Confirm Blood Type Recheck Bld Type Recheck Status Antibody Screen Spec Expiration Date 06/16/19 06/16/19 06/16/19 Range/Units 21:22 21:22 21:22 WBC (3.8-10.6) k/uL RBC (3.80-5.40) m/uL Hgb (11.4-16.0) gm/dL Hct (34.0-46.0) % MCV (80.0-100.0) fL MCH (25.0-35.0) pg MCHC (31.0-37.0) g/dL RDW (11.5-15.5) % Plt Count (150-450) k/uL Neutrophils % % Lymphocytes % % Monocytes % % Eosinophils % % Basophils % % Neutrophils # (1.3-7.7) k/uL Lymphocytes # (1.0-4.8) k/uL Monocytes # (0-1.0) k/uL Eosinophils # (0-0.7) k/uL Basophils # (0-0.2) k/uL PT 10.6 (9.0-12.0) sec INR 1.0 (<1.2) APTT 23.9 (22.0-30.0) sec Sodium (137-145) mmol/L Potassium (3.5-5.1) mmol/L Chloride (98-107) mmol/L Carbon Dioxide (22-30) mmol/L Anion Gap mmol/L BUN (7-17) mg/dL Creatinine (0.52-1.04) mg/dL Est GFR (CKD-EPI)AfAm (>60 ml/min/1.73 sqM) Est GFR (CKD-EPI)NonAf (>60 ml/min/1.73 sqM) Glucose (74-99) mg/dL Lactic Ac Sepsis Rflx Plasma Lactic Acid Shane (0.7-2.0) mmol/L Calcium (8.4-10.2) mg/dL Total Bilirubin (0.2-1.3) mg/dL AST (14-36) U/L ALT (4-34) U/L Alkaline Phosphatase (38-126) U/L Total Protein (6.3-8.2) g/dL Albumin (3.5-5.0) g/dL Amylase (30-110) U/L Lipase (23-300) U/L Urine Color Light [place] Urine Appearance Turbid H (Clear) Urine pH 5.5 (5.0-8.0) Ur Specific [place] 1.030 (1.001-1.035) Urine Protein 1+ H (Negative) Urine Glucose (UA) Negative (Negative) Urine Ketones Trace H (Negative) Urine Blood Negative (Negative) Urine Nitrite Negative (Negative) Urine Bilirubin Negative (Negative) Urine Urobilinogen <2.0 (<2.0) mg/dL Ur Leukocyte Esterase Negative (Negative) Urine RBC 1 (0-5) /hpf Urine WBC 2 (0-5) /hpf Ur Squamous Epith Cells 2 (0-4) /hpf Calcium Oxalate Crystal Rare H (None) /hpf Amorphous Sediment Occasional H (None) /hpf Urine Mucus Many H (None) /hpf Blood Type O Positive Blood Type Confirm Blood Type Recheck No Previous Record Bld Type Recheck Status CABO Indicated Antibody Screen NEGATIVE Spec Expiration Date 06/19/2019 - 232306/16/19 06/16/19 Range/Units 21:23 22:16 WBC (3.8-10.6) k/uL RBC (3.80-5.40) m/uL Hgb (11.4-16.0) gm/dL Hct (34.0-46.0) % MCV (80.0-100.0) fL MCH (25.0-35.0) pg MCHC (31.0-37.0) g/dL RDW (11.5-15.5) % Plt Count (150-450) k/uL Neutrophils % % Lymphocytes % % Monocytes % % Eosinophils % % Basophils % % Neutrophils # (1.3-7.7) k/uL Lymphocytes # (1.0-4.8) k/uL Monocytes # (0-1.0) k/uL Eosinophils # (0-0.7) k/uL Basophils # (0-0.2) k/uL PT (9.0-12.0) sec INR (<1.2) APTT (22.0-30.0) sec Sodium (137-145) mmol/L Potassium (3.5-5.1) mmol/L Chloride (98-107) mmol/L Carbon Dioxide (22-30) mmol/L Anion Gap mmol/L BUN (7-17) mg/dL Creatinine (0.52-1.04) mg/dL Est GFR (CKD-EPI)AfAm (>60 ml/min/1.73 sqM) Est GFR (CKD-EPI)NonAf (>60 ml/min/1.73 sqM) Glucose (74-99) mg/dL Lactic Ac Sepsis Rflx Y Plasma Lactic Acid Shane (0.7-2.0) mmol/L Calcium (8.4-10.2) mg/dL Total Bilirubin (0.2-1.3) mg/dL AST (14-36) U/L ALT (4-34) U/L Alkaline Phosphatase (38-126) U/L Total Protein (6.3-8.2) g/dL Albumin (3.5-5.0) g/dL Amylase (30-110) U/L Lipase (23-300) U/L Urine Color Urine Appearance (Clear) Urine pH (5.0-8.0) Ur Specific [place] (1.001-1.035) Urine Protein (Negative) Urine Glucose (UA) (Negative) Urine Ketones (Negative) Urine Blood (Negative) Urine Nitrite (Negative) Urine Bilirubin (Negative) Urine Urobilinogen (<2.0) mg/dL Ur Leukocyte Esterase (Negative) Urine RBC (0-5) /hpf Urine WBC (0-5) /hpf Ur Squamous Epith Cells (0-4) /hpf Calcium Oxalate Crystal (None) /hpf Amorphous Sediment (None) /hpf Urine Mucus (None) /hpf Blood Type Blood Type Confirm O Positive Blood Type Recheck Bld Type Recheck Status Antibody Screen Spec Expiration Date - Radiology Data Radiology results: report reviewed CT is negative for acute process. Disposition Clinical Impression: Abdominal pain Disposition: HOME SELF-CARE Condition: Good Instructions (If sedation given, give patient instructions): Abdominal Pain (ED) Additional Instructions: Please use medication as discussed such as motrin or tylenol for pain. . Please follow up with family doctor if symptoms have not improved over the next two days. Please return to the emergency room if your symptoms increase or worsen or for any other concerns. Is patient prescribed a controlled substance at d/c from ED?: No Referrals: Reynaldo Bateman MD [Primary Care Provider] - 1-2 days Time of Disposition: 22:39
[2019-06-16 22:56] VITALS: BP 130/89; PULSE 86; RESP 18; TEMP 98
== END 2019-06-16 22:56 | disposition home or self-care (01) ==
LOC: EC 18:48
DX: R10.9 Unspecified abdominal pain (principal); R11.0 Nausea; E07.9 Disorder of thyroid, unspecified; F41.9 Anxiety disorder, unspecified; Z88.1 Allergy status to other antibiotic agents; Z91.013 Allergy to seafood; Z91.041 Radiographic dye allergy status; Z79.3 Long term (current) use of hormonal contraceptives; Z79.890 Hormone replacement therapy; Z79.899 Other long term (current) drug therapy; Z87.42 Personal history of other diseases of the female genital tract
CPT/HCPCS: 36415; 86900; 86901; 80053; 82150; 83605; 83690; 85025; 85610; 85730; 86850; 81001; 74177; 99285; 96374; 96375 ×5; 96361; J1200; J2930; J2405; J1885; J2270; Q9967

== ENCOUNTER 2019-06-19 09:26 | Emergency (ER) | payer OTHER ==
[2019-06-19 09:33] VITALS: TEMP 97.9
[2019-06-19] MEDS ORDERED: ONDANSETRON 4 MG/2 ML VIAL IVP STA (10:18)
[2019-06-19] MEDS ORDERED: KETOROLAC 30 MG/ML 1 ML VIAL IVP STA (10:18)
[2019-06-19] MEDS ORDERED: SODIUM CHLORIDE 0.9% 1,000 ML IV STA (10:18)
[2019-06-19] MEDS ORDERED: PANTOPRAZOLE 40 MG/10 ML VIAL IVP STA (10:18)
[2019-06-19] MEDS ORDERED: DICYCLOMINE 10 MG/ML 2 ML AMP IM STA (10:18)
--- NOTE | 2019-06-19 10:23 | ED ---
Abdominal Pain HPI - General Chief Complaint: Abdominal Pain Stated Complaint: Flank pain Source: patient Mode of arrival: ambulatory Limitations: no limitations - History of Present Illness Initial Comments: Patient is a 33-year-old female presenting to emergency Department with chief complaint of abdominal pain. She is states that she was in the ED 2 days ago with the same symptoms which have not resolved. Patient reports she went to her primary care this morning who advised her to come to the ED for recheck after she had right lower quadrant tenderness along with intermittent nausea and vomiting. Patient reports no changes in her appetite. She reports the pain is now sharp and rather than dull compared to last time. She states the pain comes and goes and is not related to by mouth intake. Denies any chest pain or back pain. She does report blood in the urine but states she is currently on her period. Denies constipation or diarrhea. Denies night sweats fever chills. - Related Data Home Medications Medication Instructions Recorded Confirmed Albuterol Inhaler [Ventolin Hfa 1 - 2 puff INHALATION RT-Q6H PRN 06/05/19 Inhaler] Levothyroxine Sodium [Synthroid] 88 mcg PO DAILY 06/05/19 06/19/19 Seasonale 1 tab PO DAILY 06/05/19 06/19/19 Sertraline HCl [Zoloft] 50 mg PO DAILY@0900 06/05/19 06/19/19 Previous Rx's Medication Instructions Recorded Ondansetron Odt [Zofran Odt] 4 mg PO Q8HR PRN 5 Days #15 tab 06/05/19 Allergies Allergy/AdvReac Type Severity Reaction Status Date / Time cefaclor [From Ceclor] Allergy Rash/Hives Verified 06/19/19 10:40 Iodinated Contrast Media Allergy Rash/Hives Verified 06/19/19 10:40 [Iodinated Contrast- Oral and IV Dye] shellfish derived [Shellfish] Allergy Rash/Hives Verified 06/19/19 10:40 Review of Systems ROS Statement: Those systems with pertinent positive or pertinent negative responses have been documented in the HPI. ROS Other: All systems not noted in ROS Statement are negative. Past Medical History Past Medical History: Thyroid Disorder Additional Past Medical History / Comment(s): PMDD, History of Any Multi-Drug Resistant Organisms: None Reported Past Surgical History: Orthopedic Surgery Additional Past Surgical History / Comment(s): ANKLE, ARM, Past Psychological History: Anxiety Smoking Status: Never smoker Past Alcohol Use History: Occasional Past Drug Use History: Marijuana General Exam Limitations: no limitations General appearance: alert, in no apparent distress Head exam: Present: atraumatic, normocephalic Eye exam: Present: normal appearance, PERRL, EOMI Pupils: Present: normal accommodation ENT exam: Present: normal exam, mucous membranes moist Neck exam: Present: normal inspection, full ROM Respiratory exam: Present: normal lung sounds bilaterally Cardiovascular Exam: Present: regular rate, normal rhythm, normal heart sounds GI/Abdominal exam: Present: soft, tenderness (Right lower quadrant tenderness. Positive McBurney point tenderness. Negative Rovsing, negative obturator, negative psoas.). Absent: distended, guarding, rebound, rigid, mass, bruit, p ulsatile mass, hernia Extremities exam: Present: normal inspection, full ROM Back exam: Present: normal inspection, full ROM Neurological exam: Present: alert, oriented X3 Psychiatric exam: Present: normal affect, normal mood Skin exam: Present: warm, dry, intact, normal color Course Vital Signs 06/19/19 09:30 Temperature 97.9 F Pulse Rate 74 Respiratory 18 Rate Blood Pressure 150/99 O2 Sat by Pulse 100 Oximetry Medical Decision Making - Medical Decision Making Patient is a 33-year-old female presenting to emergency Department with a chief complaint abdominal pain. Patient was sent to the ED from the primary care. Exam patient has right lower quadrant abdominal tenderness but negative Rovsing negative obturator negative so was. Pain is only mild to moderate. No acute abdomen. Patient's vitals are stable. No nausea vomiting at this time. No changes in appetite. Patient was given fluids, Bentyl, Protonix and Toradol. On reevaluation patient reports that she feels better. CBC CMP and UA are unremarkable. Patient had a right-sided ovarian cyst that is not able to visualize at this time with an ultrasound or 2 days ago with a CAT scan. I suspicion patient had a ruptured cyst which is causing her to symptoms. Otherwise there is very low suspicion for appendicitis considering no white count, no changes in appetite, all negative physical examination signs aside from right lower quadrant tenderness. Patient was offered a CAT scan but she declined. She states there is no probability for . Patient advised to alternate between Tylenol and ibuprofen for pain control. Strict return parameters were thoroughly discussed with patient was understanding and agreeable. Case discussed with physician. - Lab Data Result diagrams: 06/19/19 10:40 06/19/19 10:40 Lab Results 06/19/19 06/19/19 06/19/19 Range/Units 10:15 10:40 10:40 WBC 7.9 (3.8-10.6) k/uL RBC 4.26 (3.80-5.40) m/uL Hgb 13.1 (11.4-16.0) gm/dL Hct 39.3 (34.0-46.0) % MCV 92.2 (80.0-100.0) fL MCH 30.7 (25.0-35.0) pg MCHC 33.3 (31.0-37.0) g/dL RDW 12.4 (11.5-15.5) % Plt Count 198 (150-450) k/uL Neutrophils % 71 % Lymphocytes % 24 % Monocytes % 3 % Eosinophils % 1 % Basophils % 0 % Neutrophils # 5.5 (1.3-7.7) k/uL Lymphocytes # 1.9 (1.0-4.8) k/uL Monocytes # 0.2 (0-1.0) k/uL Eosinophils # 0.1 (0-0.7) k/uL Basophils # 0.0 (0-0.2) k/uL Sodium 137 (137-145) mmol/L Potassium 3.7 (3.5-5.1) mmol/L Chloride 103 (98-107) mmol/L Carbon Dioxide 24 (22-30) mmol/L Anion Gap 10 mmol/L BUN 14 (7-17) mg/dL Creatinine 0.67 (0.52-1.04) mg/dL Est GFR (CKD-EPI)AfAm >90 (>60 ml/min/1.73 sqM) Est GFR (CKD-EPI)NonAf >90 (>60 ml/min/1.73 sqM) Glucose 92 (74-99) mg/dL Calcium 9.3 (8.4-10.2) mg/dL Total Bilirubin 0.8 (0.2-1.3) mg/dL AST 27 (14-36) U/L ALT 15 (4-34) U/L Alkaline Phosphatase 64 (38-126) U/L Total Protein 7.4 (6.3-8.2) g/dL Albumin 4.3 (3.5-5.0) g/dL Amylase 62 (30-110) U/L Lipase 128 (23-300) U/L Urine Color Yellow Urine Appearance Clear (Clear) Urine pH 6.5 (5.0-8.0) Ur Specific [place] 1.010 (1.001-1.035) Urine Protein Negative (Negative) Urine Glucose (UA) Negative (Negative) Urine Ketones Negative (Negative) Urine Blood Negative (Negative) Urine Nitrite Negative (Negative) Urine Bilirubin Negative (Negative) Urine Urobilinogen <2.0 (<2.0) mg/dL Ur Leukocyte Esterase Negative (Negative) Disposition Clinical Impression: Abdominal pain, Nausea and vomiting Disposition: HOME SELF-CARE Condition: Stable Instructions (If sedation given, give patient instructions): Abdominal Pain (ED) Additional Instructions: Please follow up with primary care. Please return to emergency department if symptoms worsen. Alternate between Tylenol and ibuprofen for pain control. Is patient prescribed a controlled substance at d/c from ED?: No Referrals: Reynaldo Bateman MD [Primary Care Provider] - 1-2 days Time of Disposition: 12:01
[2019-06-19 10:49] LABS: Appearance,Urine Clear (Clear); Bilirubin,Urine Negative (Negative); Blood,Urine Negative (Negative); Color,Urine Yellow; Glucose,Urine (UA) Negative (Negative); Ketones,Urine Negative (Negative); Leukocyte Esterase,Urine Negative (Negative); Nitrite,Urine Negative (Negative); PH, Urine 6.5 (5.0-8.0); Protein,Urine Negative (Negative); Urobilinogen,Urine <2.0 mg/dL (<2.0)
[2019-06-19 10:56] LABS: Basophils % (A) 0 %; Eosinophils # (A) 0.1 k/uL (0-0.7); Eosinophils % (A) 1 %; HCT 39.3 % (34.0-46.0); HGB 13.1 gm/dL (11.4-16.0); Lymphocytes # (A) 1.9 k/uL (1.0-4.8); Lymphocytes % (A) 24 %; MCH 30.7 pg (25.0-35.0); MCHC 33.3 g/dL (31.0-37.0); MCV 92.2 fL (80.0-100.0); Mean Platelet Volume 7.1; Monocytes # (A) 0.2 k/uL (0-1.0); Monocytes % (A) 3 %; Neutrophils # (A) 5.5 k/uL (1.3-7.7); Neutrophils % (A) 71 %; Platelet Count 198 k/uL (150-450); RBC 4.26 m/uL (3.80-5.40); RDW 12.4 % (11.5-15.5); WBC 7.9 k/uL (3.8-10.6)
[2019-06-19 11:17] LABS: ALT 15 U/L (4-34); AST 27 U/L (14-36); African American GFR (CKD) >90 (>60 ml/min/1.73 sqM); Albumin 4.3 g/dL (3.5-5.0); Alkaline Phosphatase 64 U/L (38-126); Amylase 62 U/L (30-110); Anion Gap 10 mmol/L; Blood Urea Nitrogen 14 mg/dL (7-17); Calcium 9.3 mg/dL (8.4-10.2); Carbon Dioxide 24 mmol/L (22-30); Chloride 103 mmol/L (98-107); Glucose 92 mg/dL (74-99); Non-African American GFR(CKD) >90 (>60 ml/min/1.73 sqM); Potassium 3.7 mmol/L (3.5-5.1); Sodium 137 mmol/L (137-145); Total Bilirubin 0.8 mg/dL (0.2-1.3); Total Protein 7.4 g/dL (6.3-8.2)
--- NOTE | 2019-06-19 11:21 | US ---
EXAMINATION TYPE: US transvaginal DATE OF EXAM: 06/19/2019 COMPARISON: CT 3 days ago. CLINICAL HISTORY: rlq pain, poss ovarian cyst rupture. Pt states pelvic pain TECHNIQUE: Transvaginal (TV). Transvaginal sonographic images of the pelvis were acquired. Date of LMP: 06/15/2019 EXAM MEASUREMENTS: Uterus: 9.3 x 5.1 x 6.3 cm Endometrial Stripe: /cm Right Ovary: 2.5 x 1.1 x 1.9 cm Left Ovary: 2.4 x 1.5 x 2.5 cm 1. Uterus: Retroverted wnl 2. Endometrium: Heterogeneous ?thickened 3. Right Ovary: wnl 4. Left Ovary: wnl Spectral, color and waveform doppler imaging shows good arterial and venous flow within the ovaries ; . 5. Bilateral Adnexa: wnl 6. Posterior cul-de-sac: wnl Heterogeneous somewhat prominent uterus redemonstrated. Endometrium poorly defined, SuspecT thickened for active menstruation but this could reflect intraluminal blood products. No free fluid in pelvic cul-de-sac. Both ovaries seen with peripheral follicles throughout the right ovary. No concerning adnexal lesions bilaterally. IMPRESSION: No suspicious adnexal lesions or free fluid in pelvis, source of right pelvic pain not id entified.
[2019-06-19 12:07] VITALS: BP 124/76; PULSE 83; RESP 16
== END 2019-06-19 12:03 | disposition home or self-care (01) ==
LOC: EC 09:26
DX: R10.9 Unspecified abdominal pain (principal); R11.2 Nausea with vomiting, unspecified; E07.9 Disorder of thyroid, unspecified; F41.9 Anxiety disorder, unspecified; Z88.1 Allergy status to other antibiotic agents; Z91.013 Allergy to seafood; Z91.041 Radiographic dye allergy status; Z79.3 Long term (current) use of hormonal contraceptives; Z79.890 Hormone replacement therapy; Z79.899 Other long term (current) drug therapy; Z53.20 Procedure and treatment not carried out because of patient's decision for unspecified reasons
CPT/HCPCS: 36415; 80053; 82150; 83690; 85025; 81003; 93975; 76830; 99284; 96374; 96375 ×2; 96361 ×2; 96372; J0500; J2405; J1885; C9113

== ENCOUNTER 2019-07-07 19:00 | Emergency (ER) | payer OTHER ==
[2019-07-07 19:26] VITALS: RESP 18; TEMP 98.4
[2019-07-07] MEDS ORDERED: diphenhydrAMINE 25 MG CAP PO STA (20:36)
[2019-07-07] MEDS ORDERED: METOCLOPRAMIDE 5 MG/ML 2 ML VIAL IVP STA (20:36)
[2019-07-07] MEDS ORDERED: SODIUM CHLORIDE 0.9% 1,000 ML IV STA ×2 (20:36→22:27)
--- NOTE | 2019-07-07 20:39 | ED ---
General Adult HPI - General Chief complaint: Anxiety Stated complaint: PMDD Time Seen by Provider: 07/07/19 20:28 Source: patient Mode of arrival: ambulatory Limitations: no limitations - History of Present Illness Initial comments: 33-year-old female presents emergency room today for evaluation of nausea vomiting diarrhea and anxiety. Patient has diagnosis of PMDD. She relates the symptoms occur at the time of her menses each month. Patient states that she has had increased amount of symptoms over the past 3 days. She states she is unable to tolerate any food or fluids at home. She does report that she took 0.5 mg Ativan prior to coming into the emergency room today as well as Zofran without any relief. Patient denies any abdominal pain. She denies any fever chills sweats. She denies any headache dizziness or lightheadedness. No vision changes changes. No urinary symptoms. Denies . Nothing seems to make symptoms better or worse. Denies any vaginal discharge. Has seen doctors for this in the past. No other complaints or concerns. Additionally, patient does smoke marijuana occasionally. - Related Data Home Medications Medication Instructions Recorded Confirmed Albuterol Inhaler [Ventolin Hfa 1 - 2 puff INHALATION RT-Q6H PRN 06/05/19 06/19/19 Inhaler] Levothyroxine Sodium [Synthroid] 88 mcg PO DAILY 06/05/19 06/19/19 Seasonale 1 tab PO DAILY 06/05/19 06/19/19 Sertraline HCl [Zoloft] 50 mg PO DAILY@0900 06/05/19 06/19/19 Previous Rx's Medication Instructions Recorded Ondansetron Odt [Zofran Odt] 4 mg PO Q8HR PRN 5 Days #15 tab 06/05/19 Allergies Allergy/AdvReac Type Severity Reaction Status Date / Time cefaclor [From Ceclor] Allergy Rash/Hives Verified 06/19/19 10:40 Iodinated Contrast Media Allergy Rash/Hives Verified 06/19/19 10:40 [Iodinated Contrast- Oral and IV Dye] shellfish derived [Shellfish] Allergy Rash/Hives Verified 06/19/19 10:40 Review of Systems ROS Statement: Those systems with pertinent positive or pertinent negative responses have been documented in the HPI. ROS Other: All systems not noted in ROS Statement are negative. Past Medical History Past Medical History: Thyroid Disorder Additional Past Medical History / Comment(s): PMDD, History of Any Multi-Drug Resistant Organisms: None Reported Past Surgical History: Orthopedic Surgery Additional Past Surgical History / Comment(s): ANKLE, ARM, Past Psychological History: Anxiety Smoking Status: Never smoker Past Alcohol Use History: Occasional Past Drug Use History: Marijuana General Exam Limitations: no limitations General appearance: alert, in no apparent distress Head exam: Present: atraumatic, normocephalic Eye exam: Present: normal appearance ENT exam: Present: mucous membranes dry Respiratory exam: Present: normal lung sounds bilaterally. Absent: respiratory distress, wheezes, rhonchi Cardiovascular Exam: Present: regular rate, normal rhythm, normal heart sounds GI/Abdominal exam: Present: soft, distended, normal bowel sounds. Absent: tenderness, guarding Extremities exam: Present: normal inspection, full ROM Back exam: Present: full ROM Neurological exam: Present: alert, oriented X3 Psychiatric exam: Present: normal affect, normal mood Skin exam: Present: warm, dry, intact, normal color Course Vital Signs 07/07/19 07/07/19 07/07/19 19:24 22:16 23:17 Temperature 98.4 F Pulse Rate 102 H 79 87 Respiratory 18 18 18 Rate Blood Pressure 156/93 134/78 134/86 O2 Sat by Pulse 98 98 100 Oximetry - Reevaluation(s) Time: 20:40 (Patient up to the bathroom.) Time: 21:20 (Patient feeling improved. Waiting for labs.) Time: 22:30 (Second bolus infusing. Nausea remains controlled.) Time: 23:10 (Patient is feeling much improved. She states that she would like to go home. We discussed treatment plan a care at home. Discussed follow-up. Verbalized understanding and agreement) Medical Decision Making - Medical Decision Making 33-year-old female with PMD D the present emergency room today for evaluation nausea vomiting diarrhea. Unable to tolerate orals over the past couple of days. Was feeling increasingly anxious at home. Patient did take Ativan prior to arrival. Patient had laboratory completed. She does have 2+ ketones in the urine and a CO2 of 18. She is certainly dehydrated. Patient was given 2 L of fluids here in the emergency room. She is tolerating popsicles by mouth. I advised her to continue a clear liquid diet such as this or Jell-O. I discussed this will help to try ketones away. I advised Zofran as well as Phenergan suppositories as needed for nausea. I discussed follow-up care and return precautions. She verbalized understanding and agreement - Lab Data Result diagrams: 07/07/19 22:02 Lab Results 07/07/19 07/07/19 07/07/19 Range/Units 21:06 21:06 22:02 Sodium 136 L (137-145) mmol/L Potassium 3.8 (3.5-5.1) mmol/L Chloride 109 H (98-107) mmol/L Carbon Dioxide 18 L (22-30) mmol/L Anion Gap 9 mmol/L BUN 14 (7-17) mg/dL Creatinine 0.58 (0.52-1.04) mg/dL Est GFR (CKD-EPI)AfAm >90 (>60 ml/min/1.73 sqM) Est GFR (CKD-EPI)NonAf >90 (>60 ml/min/1.73 sqM) Glucose 88 (74-99) mg/dL Calcium 7.1 L (8.4-10.2) mg/dL Urine Color Yellow Urine Appearance Cloudy H (Clear) Urine pH 5.5 (5.0-8.0) Ur Specific [place] 1.030 (1.001-1.035) Urine Protein Trace H (Negative) Urine Glucose (UA) Negative (Negative) Urine Ketones 2+ H (Negative) Urine Blood Trace H (Negative) Urine Nitrite Negative (Negative) Urine Bilirubin Negative (Negative) Urine Urobilinogen <2.0 (<2.0) mg/dL Ur Leukocyte Esterase Negative (Negative) Urine RBC 2 (0-5) /hpf Urine WBC 1 (0-5) /hpf Ur Squamous Epith Cells 5 H (0-4) /hpf Urine Bacteria Rare H (None) /hpf Urine Mucus Many H (None) /hpf Urine HCG, Qual Not Detected (Not Detectd) Disposition Clinical Impression: Nausea and vomiting, Dehydration Disposition: HOME SELF-CARE Condition: Stable Instructions (If sedation given, give patient instructions): Dehydration (ED), Acute Nausea and Vomiting (ED) Additional Instructions: Rest and fluids. Clear liquid diet, advance as tolerated to bananas rice applesauce and toast. Zofran as needed for nausea. If The Zofran does not wor k, try Phenergan suppositories. Return to emergency room for any worsening or changing symptoms, including managed to fever greater than 101, abdominal pain, increasing nausea and vomiting, inability to tolerate fluids, or other concerns. Is patient prescribed a controlled substance at d/c from ED?: No When asked, does pt state using other controlled substances?: No Referrals: Reynaldo Bateman MD [Primary Care Provider] - 1-2 days
[2019-07-07 21:30] LABS: Appearance,Urine Cloudy (Clear); Bacteria,Urine Rare /hpf; Bilirubin,Urine Negative (Negative); Blood,Urine Trace (Negative); Color,Urine Yellow; Glucose,Urine (UA) Negative (Negative); Ketones,Urine 2+ (Negative); Leukocyte Esterase,Urine Negative (Negative); Mucus,Urine Many /hpf; Nitrite,Urine Negative (Negative); PH, Urine 5.5 (5.0-8.0); Protein,Urine Trace (Negative); RBC,Urine 2 /hpf (0-5); Squamous Epithelial Cell,Urine 5 /hpf (0-4); Urobilinogen,Urine <2.0 mg/dL (<2.0); WBC,Urine 1 /hpf (0-5)
[2019-07-07 22:21] LABS: African American GFR (CKD) >90 (>60 ml/min/1.73 sqM); Anion Gap 9 mmol/L; Blood Urea Nitrogen 14 mg/dL (7-17); Calcium 7.1 mg/dL (8.4-10.2); Carbon Dioxide 18 mmol/L (22-30); Chloride 109 mmol/L (98-107); Glucose 88 mg/dL (74-99); Non-African American GFR(CKD) >90 (>60 ml/min/1.73 sqM); Sodium 136 mmol/L (137-145)
[2019-07-07 22:23] LABS: Potassium 3.8 mmol/L (3.5-5.1)
[2019-07-07 23:17] VITALS: BP 134/86; PULSE 87
== END 2019-07-07 23:34 | disposition home or self-care (01) ==
LOC: EC 19:00
DX: E86.0 Dehydration (principal); R11.2 Nausea with vomiting, unspecified; R19.7 Diarrhea, unspecified; F41.9 Anxiety disorder, unspecified; F32.81 Premenstrual dysphoric disorder; E07.9 Disorder of thyroid, unspecified; Z79.890 Hormone replacement therapy; Z79.899 Other long term (current) drug therapy; Z88.1 Allergy status to other antibiotic agents; Z91.041 Radiographic dye allergy status; Z91.013 Allergy to seafood
CPT/HCPCS: 36415; 80048; 81001; 81025; 96374; 96361 ×2; 99284; J2765

== ENCOUNTER 2019-08-03 16:59 | Emergency (ER) | payer OTHER ==
[2019-08-03 17:11] VITALS: TEMP 97.8
[2019-08-03] MEDS ORDERED: PANTOPRAZOLE 40 MG/10 ML VIAL IVP STA (18:01)
[2019-08-03] MEDS ORDERED: SODIUM CHLORIDE 0.9% 2,000 ML IV STA (18:01)
[2019-08-03] MEDS ORDERED: ONDANSETRON 4 MG/2 ML VIAL IVP STA (18:01)
--- NOTE | 2019-08-03 18:05 | ED ---
Anxiety HPI - General Chief Complaint: Anxiety Stated Complaint: panic attack/vomiting Time Seen by Provider: 08/03/19 17:15 Source: patient Mode of arrival: ambulatory - History of Present Illness Initial Comments: Patient a 34-year-old female presenting to emergency Department with a chief complaint of nausea vomiting and diarrhea. States symptoms started yesterday with nonbloody diarrhea that has been persistent. Patient states she is also developed nausea with multiple episodes of nonbilious, nonbloody vomiting. Patient states she has not eaten any solid foods in 2 days. States she only Small amounts of fluids down. Denies any fever or chills. Denies any interna tional travels. Denies eating any food that has been sitting at at room temperature prolonged periods of time. Denies any abdominal pain, chest pain, back pain. States she developed slight anxiety due to dehydration. States typically takes Zofran for nausea but did not have any home. Denies any urinary or vaginal symptoms. Denies hematuria, hematochezia or melena. - Related Data Home Medications: Home Medications Medication Instructions Recorded Confirmed Albuterol Inhaler [Ventolin Hfa 1 - 2 puff INHALATION RT-Q6H PRN 06/05/19 06/19/19 Inhaler] Levothyroxine Sodium [Synthroid] 88 mcg PO DAILY 06/05/19 06/19/19 Seasonale 1 tab PO DAILY 06/05/19 06/19/19 Sertraline HCl [Zoloft] 50 mg PO DAILY@0900 06/05/19 06/19/19 Previous Rx's Medication Instructions Recorded Ondansetron Odt [Zofran Odt] 4 mg PO Q8HR PRN 5 Days #15 tab 06/05/19 Allergies/Adverse Reactions: Allergies Allergy/AdvReac Type Severity Reaction Status Date / Time cefaclor [From Ceclor] Allergy Rash/Hives Verified 08/03/19 17:11 Iodinated Contrast Media Allergy Rash/Hives Verified 08/03/19 17:11 [Iodinated Contrast- Oral and IV Dye] shellfish derived [Shellfish] Allergy Rash/Hives Verified 08/03/19 17:11 Review of Systems ROS Statement: Those systems with pertinent positive or pertinent negative responses have been documented in the HPI. ROS Other: All systems not noted in ROS Statement are negative. Past Medical History Past Medical History: Thyroid Disorder Additional Past Medical History / Comment(s): PMDD, History of Any Multi-Drug Resistant Organisms: None Reported Past Surgical History: Orthopedic Surgery Additional Past Surgical History / Comment(s): ANKLE, ARM, Past Psychological History: Anxiety Smoking Status: Never smoker Past Alcohol Use History: Occasional Past Drug Use History: Marijuana General Exam Limitations: no limitations General appearance: alert, in no apparent distress Head exam: Present: atraumatic, normocephalic, normal inspection Eye exam: Present: normal appearance Pupils: Present: normal accommodation ENT exam: Present: normal exam Neck exam: Present: normal inspection, full ROM Respiratory exam: Present: normal lung sounds bilaterally Cardiovascular Exam: Present: regular rate, normal rhythm, normal heart sounds GI/Abdominal exam: Present: soft. Absent: distended, tenderness, guarding Extremities exam: Present: normal inspection, full ROM Back exam: Present: normal inspection, full ROM Neurological exam: Present: alert, oriented X3 Psychiatric exam: Present: normal affect, normal mood Skin exam: Present: warm, dry, intact, normal color Course Vital Signs 08/03/19 17:05 Temperature 97.8 F Pulse Rate 103 H Respiratory 20 Rate Blood Pressure 151/98 O2 Sat by Pulse 97 Oximetry Medical Decision Making - Medical Decision Making Patient is a 34-year-old female presenting to the emergency room with a chief complaint of nausea vomiting diarrhea. Symptoms ongoing for the past 2 days. CBC CMP UA unremarkable. Patient given 2 L of IVF. Patient also given 4 mg Zofran. On reevaluation patient reports complete resolution of symptoms. She did not have any abdominal pain chest pain or back pain. Patient given a Zofran starter pack. Patient given a prescription for Zofran. I suspect the patient has fasciitis. Patient reports improvement of symptoms and is ready go home. Patient denies any anxiety. She was advised to follow with primary care. Return parameters thoroughly discussed the patient was understanding and agreeable. Case discussed with physician. - Lab Data Result diagrams: 08/03/19 18:26 08/03/19 18:26 Lab Results 08/03/19 08/03/19 08/03/19 Range/Units 18:26 18:26 18:45 WBC 4.8 (3.8-10.6) k/uL RBC 4.68 (3.80-5.40) m/uL Hgb 14.0 (11.4-16.0) gm/dL Hct 41.9 (34.0-46.0) % MCV 89.6 (80.0-100.0) fL MCH 29.9 (25.0-35.0) pg MCHC 33.3 (31.0-37.0) g/dL RDW 12.3 (11.5-15.5) % Plt Count 217 (150-450) k/uL Neutrophils % 53 % Lymphocytes % 38 % Monocytes % 6 % Eosinophils % 1 % Basophils % 1 % Neutrophils # 2.6 (1.3-7.7) k/uL Lymphocytes # 1.8 (1.0-4.8) k/uL Monocytes # 0.3 (0-1.0) k/uL Eosinophils # 0.1 (0-0.7) k/uL Basophils # 0.0 (0-0.2) k/uL Sodium 137 (137-145) mmol/L Potassium 4.0 (3.5-5.1) mmol/L Chloride 103 (98-107) mmol/L Carbon Dioxide 24 (22-30) mmol/L Anion Gap 10 mmol/L BUN 16 (7-17) mg/dL Creatinine 0.65 (0.52-1.04) mg/dL Est GFR (CKD-EPI)AfAm >90 (>60 ml/min/1.73 sqM) Est GFR (CKD-EPI)NonAf >90 (>60 ml/min/1.73 sqM) Glucose 97 (74-99) mg/dL Calcium 8.5 (8.4-10.2) mg/dL Total Bilirubin 0.7 (0.2-1.3) mg/dL AST 93 H (14-36) U/L ALT 62 H (4-34) U/L Alkaline Phosphatase 79 (38-126) U/L Total Protein 7.5 (6.3-8.2) g/dL Albumin 4.5 (3.5-5.0) g/dL Amylase 48 (30-110) U/L Lipase 68 (23-300) U/L Urine Color Yellow Urine Appearance Clear (Clear) Urine pH 8.5 H (5.0-8.0) Ur Specific [place] 1.032 (1.001-1.035) Urine Protein 1+ H (Negative) Urine Glucose (UA) Negative (Negative) Urine Ketones Negative (Negative) Urine Blood Negative (Negative) Urine Nitrite Negative (Negative) Urine Bilirubin Negative (Negative) Urine Urobilinogen <2.0 (<2.0) mg/dL Ur Leukocyte Esterase Small H (Negative) Urine RBC 3 (0-5) /hpf Urine WBC 6 H (0-5) /hpf Ur Squamous Epith Cells 7 H (0-4) /hpf Urine Bacteria Rare H (None) /hpf Urine Mucus Few H (None) /hpf Urine HCG, Qual (Not Detectd) 08/03/19 Range/Units 18:45 WBC (3.8-10.6) k/uL RBC (3.80-5.40) m/uL Hgb (11.4-16.0) gm/dL Hct (34.0-46.0) % MCV (80.0-100.0) fL MCH (25.0-35.0) pg MCHC (31.0-37.0) g/dL RDW (11.5-15.5) % Plt Count (150-450) k/uL Neutrophils % % Lymphocytes % % Monocytes % % Eosinophils % % Basophils % % Neutrophils # (1.3-7.7) k/uL Lymphocytes # (1.0-4.8) k/uL Monocytes # (0-1.0) k/uL Eosinophils # (0-0.7) k/uL Basophils # (0-0.2) k/uL Sodium (137-145) mmol/L Potassium (3.5-5.1) mmol/L Chloride (98-107) mmol/L Carbon Dioxide (22-30) mmol/L Anion Gap mmol/L BUN (7-17) mg/dL Creatinine (0.52-1.04) mg/dL Est GFR (CKD-EPI)AfAm (>60 ml/min/1.73 sqM) Est GFR (CKD-EPI)NonAf (>60 ml/min/1.73 sqM) Glucose (74-99) mg/dL Calcium (8.4-10.2) mg/dL Total Bilirubin (0.2-1.3) mg/dL AST (14-36) U/L ALT (4-34) U/L Alkaline Phosphatase (38-126) U/L Total Protein (6.3-8.2) g/dL Albumin (3.5-5.0) g/dL Amylase (30-110) U/L Lipase (23-300) U/L Urine Color Urine Appearance (Clear) Urine pH (5.0-8.0) Ur Specific [place] (1.001-1.035) Urine Protein (Negative) Urine Glucose (UA) (Negative) Urine Ketones (Negative) Urine Blood (Negative) Urine Nitrite (Negative) Urine Bilirubin (Negative) Urine Urobilinogen (<2.0) mg/dL Ur Leukocyte Esterase (Negative) Urine RBC (0-5) /hpf Urine WBC (0-5) /hpf Ur Squamous Epith Cells (0-4) /hpf Urine Bacteria (None) /hpf Urine Mucus (None) /hpf Urine HCG, Qual Not Detected (Not Detectd) Disposition Clinical Impression: Gastroenteritis Disposition: HOME SELF-CARE Condition: Stable Instructions (If sedation given, give patient instructions): Gastroenteritis (DC) Additional Instructions: Please see day bananas, rice, applesauce and toast diet. Take prescribed medication as directed. Follow with primary care. Return to emergency departm ent if symptoms worsen. Is patient prescribed a controlled substance at d/c from ED?: No Referrals: Reynaldo Bateman MD [Primary Care Provider] - 1-2 days Time of Disposition: 20:21
[2019-08-03 18:40] LABS: Basophils % (A) 1 %; Eosinophils # (A) 0.1 k/uL (0-0.7); Eosinophils % (A) 1 %; HCT 41.9 % (34.0-46.0); Lymphocytes # (A) 1.8 k/uL (1.0-4.8); Lymphocytes % (A) 38 %; MCH 29.9 pg (25.0-35.0); MCHC 33.3 g/dL (31.0-37.0); MCV 89.6 fL (80.0-100.0); Mean Platelet Volume 6.7; Monocytes # (A) 0.3 k/uL (0-1.0); Monocytes % (A) 6 %; Neutrophils # (A) 2.6 k/uL (1.3-7.7); Neutrophils % (A) 53 %; Platelet Count 217 k/uL (150-450); RBC 4.68 m/uL (3.80-5.40); RDW 12.3 % (11.5-15.5); WBC 4.8 k/uL (3.8-10.6)
[2019-08-03 18:49] LABS: ALT 62 U/L (4-34); AST 93 U/L (14-36); African American GFR (CKD) >90 (>60 ml/min/1.73 sqM); Albumin 4.5 g/dL (3.5-5.0); Alkaline Phosphatase 79 U/L (38-126); Amylase 48 U/L (30-110); Anion Gap 10 mmol/L; Blood Urea Nitrogen 16 mg/dL (7-17); Calcium 8.5 mg/dL (8.4-10.2); Carbon Dioxide 24 mmol/L (22-30); Chloride 103 mmol/L (98-107); Glucose 97 mg/dL (74-99); Non-African American GFR(CKD) >90 (>60 ml/min/1.73 sqM); Sodium 137 mmol/L (137-145); Total Bilirubin 0.7 mg/dL (0.2-1.3); Total Protein 7.5 g/dL (6.3-8.2)
[2019-08-03 19:53] LABS: Appearance,Urine Clear (Clear); Bacteria,Urine Rare /hpf; Bilirubin,Urine Negative (Negative); Blood,Urine Negative (Negative); Color,Urine Yellow; Glucose,Urine (UA) Negative (Negative); Ketones,Urine Negative (Negative); Leukocyte Esterase,Urine Small (Negative); Mucus,Urine Few /hpf; Nitrite,Urine Negative (Negative); PH, Urine 8.5 (5.0-8.0); Protein,Urine 1+ (Negative); RBC,Urine 3 /hpf (0-5); Specific Gravity,Urine 1.032 (1.001-1.035); Squamous Epithelial Cell,Urine 7 /hpf (0-4); Urobilinogen,Urine <2.0 mg/dL (<2.0); WBC,Urine 6 /hpf (0-5)
[2019-08-03] MEDS ORDERED: ONDANSETRON 4 MG ODT STARTER PACK 2 TAB BTL PO STA (20:21)
[2019-08-03 23:04] VITALS: BP 150/93; PULSE 77; RESP 18
== END 2019-08-03 20:35 | disposition home or self-care (01) ==
LOC: EC 16:59
DX: K52.9 Noninfective gastroenteritis and colitis, unspecified (principal); E07.9 Disorder of thyroid, unspecified; F41.9 Anxiety disorder, unspecified; Z88.1 Allergy status to other antibiotic agents; Z91.013 Allergy to seafood; Z91.041 Radiographic dye allergy status; Z79.3 Long term (current) use of hormonal contraceptives; Z79.890 Hormone replacement therapy; Z79.899 Other long term (current) drug therapy
CPT/HCPCS: 36415; 80053; 82150; 83690; 85025; 81001; 81025; 99283; 96374; 96375; 96361 ×2; J2405; C9113

== ENCOUNTER 2019-08-11 12:36 | Emergency (ER) | payer OTHER ==
[2019-08-11 12:45] VITALS: TEMP 97.9
[2019-08-11] MEDS ORDERED: diphenhydrAMINE 50 MG/ML 1 ML VIAL IVP STA (13:01)
[2019-08-11] MEDS ORDERED: METOCLOPRAMIDE 5 MG/ML 2 ML VIAL IVP STA (13:01)
[2019-08-11] MEDS ORDERED: SODIUM CHLORIDE 0.9% 2,000 ML IV STA (13:01)
[2019-08-11] MEDS ORDERED: SODIUM CHLORIDE 0.9% 1,000 ML IV STA (13:01)
[2019-08-11] MEDS ORDERED: LORazepam 2 MG/ML INJ IV STA (13:03)
--- NOTE | 2019-08-11 13:37 | ED ---
General Adult HPI - General Chief complaint: Nausea/Vomiting/Diarrhea Stated complaint: Vomiting Time Seen by Provider: 08/11/19 12:51 Source: patient, RN notes reviewed, old records reviewed Mode of arrival: ambulatory Limitations: no limitations - History of Present Illness Initial comments: Riri is a 34-year-old female presents emergency department today for evaluation for nausea and vomiting. Patient reports that she has a history of cyclic vomi ting syndrome. She states that she was seen in the emergency department one week ago for nausea vomiting anxiety. Patient states that she uses Zofran to help with her nausea at home. Patient reports that she's had no recent fevers or chills. She denies any specific abdominal pain. She does not see a GI doctor at this time. - Related Data Home Medications Medication Instructions Recorded Confirmed Albuterol Inhaler [Ventolin Hfa 1 - 2 puff INHALATION RT-Q6H PRN 06/05/19 08/03/19 Inhaler] Levothyroxine Sodium [Synthroid] 88 mcg PO DAILY 06/05/19 08/03/19 Sertraline HCl [Zoloft] 50 mg PO DAILY@0900 06/05/19 08/03/19 l-Norgest/E.estradiol-E.estrad 1 tab PO DAILY 08/03/19 08/03/19 [Seasonique 0.15-0.03-0.01 Tab] Previous Rx's Medication Instructions Recorded Ondansetron Odt [Zofran Odt] 4 mg PO Q8HR PRN #30 tab 08/03/19 Metoclopramide [Reglan] 10 mg PO ACHS #20 tab 08/11/19 Allergies Allergy/AdvReac Type Severity Reaction Status Date / Time cefaclor [From Ceclor] Allergy Rash/Hives Verified 08/11/19 12:41 Iodinated Contrast Media Allergy Anaphylaxis Verified 08/11/19 12:41 [Iodinated Contrast- Oral and IV Dye] shellfish derived [Shellfish] Allergy Anaphylaxis Verified 08/11/19 12:41 Review of Systems ROS Statement: Those systems with pertinent positive or pertinent negative responses have been documented in the HPI. ROS Other: All systems not noted in ROS Statement are negative. Past Medical History Past Medical History: Thyroid Disorder Additional Past Medical History / Comment(s): PMDD, History of Any Multi-Drug Resistant Organisms: None Reported Past Surgical History: Orthopedic Surgery Additional Past Surgical History / Comment(s): ANKLE, ARM, Past Psychological History: Anxiety Smoking Status: Never smoker Past Alcohol Use History: Occasional Past Drug Use History: Marijuana General Exam - General Exam Comments Initial Comments: 34 year old female, no distress. Limitations: no limitations General appearance: alert, in no apparent distress, anxious Head exam: Present: atraumatic, normocephalic, normal inspection Eye exam: Present: normal appearance, PERRL, EOMI. Absent: scleral icterus, conjunctival injection, periorbital swelling ENT exam: Present: normal exam, mucous membranes moist Neck exam: Present: normal inspection. Absent: tenderness, meningismus, lymphadenopathy Respiratory exam: Present: normal lung sounds bilaterally. Absent: respiratory distress, wheezes, rales, rhonchi, stridor Cardiovascular Exam: Present: regular rate, normal rhythm, normal heart sounds. Absent: systolic murmur, diastolic murmur, rubs, gallop, clicks GI/Abdominal exam: Present: soft, normal bowel sounds. Absent: distended, tenderness, guarding, rebound, rigid Extremities exam: Present: normal inspection, full ROM, normal capillary refill. Absent: tenderness, pedal edema, joint swelling, calf tenderness Back exam: Present: normal inspection Neurological exam: Present: alert, oriented X3, CN II-XII intact Psychiatric exam: Present: normal affect, normal mood Skin exam: Present: warm, dry, intact, normal color. Absent: rash Course Vital Signs 08/11/19 08/11/19 12:42 14:20 Temperature 97.9 F Pulse Rate 98 89 Respiratory 16 18 Rate Blood Pressure 156/102 146/89 O2 Sat by Pulse 97 100 Oximetry Medical Decision Making - Medical Decision Making 34 year old female with anxiety, nausea and vomiting. PAtient reports history of cyclic vomiting syndrome. Patient has no tenderness on exam. Patient labs are negative. Patient reelvaluated and resting in bed, reports feeling better with reglan. Discussed return parameters discussed. - Lab Data Result diagrams: 08/11/19 13:07 08/11/19 13:07 Lab Results 08/11/19 08/11/19 08/11/19 Range/Units 13:07 13:07 13:07 WBC 3.9 (3.8-10.6) k/uL RBC 4.30 (3.80-5.40) m/uL Hgb 13.3 (11.4-16.0) gm/dL Hct 38.5 (34.0-46.0) % MCV 89.5 (80.0-100.0) fL MCH 30.8 (25.0-35.0) pg MCHC 34.4 (31.0-37.0) g/dL RDW 12.5 (11.5-15.5) % Plt Count 193 (150-450) k/uL Neutrophils % 57 % Lymphocytes % 36 % Monocytes % 5 % Eosinophils % 1 % Basophils % 0 % Neutrophils # 2.2 (1.3-7.7) k/uL Lymphocytes # 1.4 (1.0-4.8) k/uL Monocytes # 0.2 (0-1.0) k/uL Eosinophils # 0.0 (0-0.7) k/uL Basophils # 0.0 (0-0.2) k/uL Sodium 138 (137-145) mmol/L Potassium 4.1 (3.5-5.1) mmol/L Chloride 104 (98-107) mmol/L Carbon Dioxide 20 L (22-30) mmol/L Anion Gap 14 mmol/L BUN 15 (7-17) mg/dL Creatinine 0.70 (0.52-1.04) mg/dL Est GFR (CKD-EPI)AfAm >90 (>60 ml/min/1.73 sqM) Est GFR (CKD-EPI)NonAf >90 (>60 ml/min/1.73 sqM) Glucose 101 H (74-99) mg/dL Calcium 8.7 (8.4-10.2) mg/dL Total Bilirubin 0.7 (0.2-1.3) mg/dL AST 74 H (14-36) U/L ALT 42 H (4-34) U/L Alkaline Phosphatase 75 (38-126) U/L Total Protein 7.6 (6.3-8.2) g/dL Albumin 4.5 (3.5-5.0) g/dL Amylase 54 (30-110) U/L Lipase 92 (23-300) U/L Urine Color Yellow Urine Appearance Cloudy H (Clear) Urine pH 6.0 (5.0-8.0) Ur Specific [place] 1.033 (1.001-1.035) Urine Protein 1+ H (Negative) Urine Glucose (UA) Negative (Negative) Urine Ketones 1+ H (Negative) Urine Blood Negative (Negative) Urine Nitrite Negative (Negative) Urine Bilirubin Negative (Negative) Urine Urobilinogen <2.0 (<2.0) mg/dL Ur Leukocyte Esterase Negative (Negative) Urine RBC 3 (0-5) /hpf Urine WBC 2 (0-5) /hpf Ur Squamous Epith Cells 8 H (0-4) /hpf Urine Bacteria Rare H (None) /hpf Urine Mucus Many H (None) /hpf Disposition Clinical Impression: Nausea & vomiting, Cyclical vomiting Disposition: HOME SELF-CARE Condition: Good Instructions (If sedation given, give patient instructions): Acute Nausea and Vomiting (ED) Additional Instructions: Patient advised to use Reglan as well as Zofran helped with nausea. Follow-up with your PCP. Return to the ED if any alarming signs or symptoms occur. Prescriptions: Metoclopramide [Reglan] 10 mg PO ACHS #20 tab Is patient prescribed a controlled substance at d/c from ED?: No Referrals: Reynaldo Bateman MD [Primary Care Provider] - 1-2 days Time of Disposition: 14:42
[2019-08-11 13:44] LABS: Basophils % (A) 0 %; Eosinophils % (A) 1 %; HCT 38.5 % (34.0-46.0); HGB 13.3 gm/dL (11.4-16.0); Lymphocytes # (A) 1.4 k/uL (1.0-4.8); Lymphocytes % (A) 36 %; MCH 30.8 pg (25.0-35.0); MCHC 34.4 g/dL (31.0-37.0); MCV 89.5 fL (80.0-100.0); Mean Platelet Volume 7.6; Monocytes # (A) 0.2 k/uL (0-1.0); Monocytes % (A) 5 %; Neutrophils # (A) 2.2 k/uL (1.3-7.7); Neutrophils % (A) 57 %; Platelet Count 193 k/uL (150-450); RDW 12.5 % (11.5-15.5); WBC 3.9 k/uL (3.8-10.6)
[2019-08-11 13:49] LABS: ALT 42 U/L (4-34); AST 74 U/L (14-36); African American GFR (CKD) >90 (>60 ml/min/1.73 sqM); Albumin 4.5 g/dL (3.5-5.0); Alkaline Phosphatase 75 U/L (38-126); Amylase 54 U/L (30-110); Anion Gap 14 mmol/L; Blood Urea Nitrogen 15 mg/dL (7-17); Calcium 8.7 mg/dL (8.4-10.2); Carbon Dioxide 20 mmol/L (22-30); Chloride 104 mmol/L (98-107); Glucose 101 mg/dL (74-99); Non-African American GFR(CKD) >90 (>60 ml/min/1.73 sqM); Potassium 4.1 mmol/L (3.5-5.1); Sodium 138 mmol/L (137-145); Total Bilirubin 0.7 mg/dL (0.2-1.3); Total Protein 7.6 g/dL (6.3-8.2)
[2019-08-11 13:57] LABS: Appearance,Urine Cloudy (Clear); Bacteria,Urine Rare /hpf; Bilirubin,Urine Negative (Negative); Blood,Urine Negative (Negative); Color,Urine Yellow; Glucose,Urine (UA) Negative (Negative); Ketones,Urine 1+ (Negative); Leukocyte Esterase,Urine Negative (Negative); Mucus,Urine Many /hpf; Nitrite,Urine Negative (Negative); Protein,Urine 1+ (Negative); RBC,Urine 3 /hpf (0-5); Specific Gravity,Urine 1.033 (1.001-1.035); Squamous Epithelial Cell,Urine 8 /hpf (0-4); Urobilinogen,Urine <2.0 mg/dL (<2.0); WBC,Urine 2 /hpf (0-5)
[2019-08-11 14:21] VITALS: BP 146/89; PULSE 89; RESP 18
== END 2019-08-11 14:58 | disposition home or self-care (01) ==
LOC: EC 12:36
DX: R11.15 Cyclical vomiting syndrome unrelated to migraine (principal); F41.9 Anxiety disorder, unspecified; E07.9 Disorder of thyroid, unspecified; F32.81 Premenstrual dysphoric disorder; Z79.890 Hormone replacement therapy; Z79.899 Other long term (current) drug therapy; Z79.3 Long term (current) use of hormonal contraceptives; Z91.041 Radiographic dye allergy status; Z88.1 Allergy status to other antibiotic agents; Z91.013 Allergy to seafood
CPT/HCPCS: 36415; 80053; 82150; 83690; 85025; 81001; 99284; 96374; 96375 ×2; 96361 ×2; J2060; J1200; J2765

== ENCOUNTER 2019-09-05 13:24 | Emergency (ER) | payer OTHER ==
[2019-09-05] MEDS ORDERED: SODIUM CHLORIDE 0.9% 2,000 ML IV STA (13:33)
[2019-09-05] MEDS ORDERED: KETOROLAC 30 MG/ML 1 ML VIAL IVP STA (13:33)
[2019-09-05] MEDS ORDERED: diphenhydrAMINE 50 MG/ML 1 ML VIAL IVP STA (13:33)
[2019-09-05] MEDS ORDERED: METOCLOPRAMIDE 5 MG/ML 2 ML VIAL IVP STA (13:33)
[2019-09-05] MEDS ORDERED: LORazepam 2 MG/ML INJ IV STA (13:34)
[2019-09-05 13:58] LABS: Basophils % (A) 0 %; Eosinophils % (A) 1 %; HCT 40.7 % (34.0-46.0); HGB 13.8 gm/dL (11.4-16.0); Lymphocytes # (A) 1.2 k/uL (1.0-4.8); Lymphocytes % (A) 25 %; MCH 30.6 pg (25.0-35.0); MCHC 33.8 g/dL (31.0-37.0); MCV 90.3 fL (80.0-100.0); Mean Platelet Volume 7.1; Monocytes # (A) 0.3 k/uL (0-1.0); Monocytes % (A) 5 %; Neutrophils # (A) 3.1 k/uL (1.3-7.7); Neutrophils % (A) 67 %; Platelet Count 212 k/uL (150-450); RBC 4.51 m/uL (3.80-5.40); WBC 4.7 k/uL (3.8-10.6)
--- NOTE | 2019-09-05 14:02 | ED ---
General Adult HPI - General Chief complaint: Nausea/Vomiting/Diarrhea Stated complaint: Vomiting Time Seen by Provider: 09/05/19 13:31 Source: patient, RN notes reviewed Mode of arrival: ambulatory Limitations: no limitations - History of Present Illness Initial comments: This a 34-year-old female presents emergency Department with chief complaint of nausea vomiting anxiety. Patient states she has associated cyclic vomiting with her anxiety. She states she's had increased stress, anxiety related to current situation with the patient family, her kids at home. Patient denies any significant pain. She denies fevers or chills she states that she has been having on and off symptoms since Saturday but states that symptoms have progressed. Patient denies any chest pain, shortness breath, headache or dizziness. - Related Data Home Medications Medication Instructions Recorded Confirmed Albuterol Inhaler [Ventolin Hfa 1 - 2 puff INHALATION RT-Q6H PRN 06/05/19 08/03/19 Inhaler] Levothyroxine Sodium [Synthroid] 88 mcg PO DAILY 06/05/19 08/03/19 Sertraline HCl [Zoloft] 50 mg PO DAILY@0900 06/05/19 08/03/19 l-Norgest/E.estradiol-E.estrad 1 tab PO DAILY 08/03/19 08/03/19 [Seasonique 0.15-0.03-0.01 Tab] Previous Rx's Medication Instructions Recorded Ondansetron Odt [Zofran Odt] 4 mg PO Q8HR PRN #30 tab 08/03/19 Metoclopramide [Reglan] 10 mg PO ACHS #20 tab 08/11/19 Prochlorperazine [Compazine] 10 mg PO Q8H #15 tab 09/05/19 Allergies Allergy/AdvReac Type Severity Reaction Status Date / Time cefaclor [From Ceclor] Allergy Rash/Hives Verified 09/05/19 13:31 Iodinated Contrast Media Allergy Anaphylaxis Verified 09/05/19 13:31 [Iodinated Contrast- Oral and IV Dye] shellfish derived [Shellfish] Allergy Anaphylaxis Verified 09/05/19 13:31 Review of Systems ROS Statement: Those systems with pertinent positive or pertinent negative responses have been documented in the HPI. ROS Other: All systems not noted in ROS Statement are negative. Past Medical History Past Medical History: Thyroid Disorder Additional Past Medical History / Comment(s): PMDD, History of Any Multi-Drug Resistant Organisms: None Reported Past Surgical History: Orthopedic Surgery Additional Past Surgical History / Comment(s): ANKLE, ARM, Past Psychological History: Anxiety Smoking Status: Never smoker Past Alcohol Use History: Occasional Past Drug Use History: Marijuana General Exam Limitations: no limitations General appearance: alert, in no apparent distress, anxious Head exam: Present: atraumatic, normocephalic, normal inspection Eye exam: Present: normal appearance, PERRL, EOMI. Absent: scleral icterus, conjunctival injection, periorbital swelling ENT exam: Present: normal oropharynx, mucous membranes dry. Absent: normal exam, mucous membranes moist Neck exam: Present: normal inspection, full ROM. Absent: tenderness, meningismus, lymphadenopathy Respiratory exam: Present: normal lung sounds bilaterally. Absent: respiratory distress, wheezes, rales, rhonchi, stridor Cardiovascular Exam: Present: normal rhythm, tachycardia, normal heart sounds. Absent: systolic murmur, diastolic murmur, rubs, gallop, clicks Neurological exam: Present: alert, oriented X3 Psychiatric exam: Present: anxious Skin exam: Present: warm, dry, intact, normal color. Absent: rash Course Vital Signs 09/05/19 09/05/19 13:28 14:50 Temperature 98.4 F Pulse Rate 103 H 87 Respiratory 18 20 Rate Blood Pressure 150/99 117/77 O2 Sat by Pulse 96 98 Oximetry Medical Decision Making - Medical Decision Making Patient presented for nausea vomiting she's greatly improved after antiemetics, IV fluids labs show mild transaminitis is chronic in nature she will follow-up with GI. Return parameters were discussed. - Lab Data Result diagrams: 09/05/19 13:45 09/05/19 13:45 Lab Results 09/05/19 09/05/19 09/05/19 Range/Units 13:45 13:45 14:00 WBC 4.7 (3.8-10.6) k/uL RBC 4.51 (3.80-5.40) m/uL Hgb 13.8 (11.4-16.0) gm/dL Hct 40.7 (34.0-46.0) % MCV 90.3 (80.0-100.0) fL MCH 30.6 (25.0-35.0) pg MCHC 33.8 (31.0-37.0) g/dL RDW 13.0 (11.5-15.5) % Plt Count 212 (150-450) k/uL Neutrophils % 67 % Lymphocytes % 25 % Monocytes % 5 % Eosinophils % 1 % Basophils % 0 % Neutrophils # 3.1 (1.3-7.7) k/uL Lymphocytes # 1.2 (1.0-4.8) k/uL Monocytes # 0.3 (0-1.0) k/uL Eosinophils # 0.0 (0-0.7) k/uL Basophils # 0.0 (0-0.2) k/uL Sodium 136 L (137-145) mmol/L Potassium 3.9 (3.5-5.1) mmol/L Chloride 102 (98-107) mmol/L Carbon Dioxide 21 L (22-30) mmol/L Anion Gap 13 mmol/L BUN 16 (7-17) mg/dL Creatinine 0.76 (0.52-1.04) mg/dL Est GFR (CKD-EPI)AfAm >90 (>60 ml/min/1.73 sqM) Est GFR (CKD-EPI)NonAf >90 (>60 ml/min/1.73 sqM) Glucose 99 (74-99) mg/dL Calcium 8.4 (8.4-10.2) mg/dL Total Bilirubin 1.5 H (0.2-1.3) mg/dL AST 79 H (14-36) U/L ALT 38 H (4-34) U/L Alkaline Phosphatase 74 (38-126) U/L Total Protein 7.5 (6.3-8.2) g/dL Albumin 4.6 (3.5-5.0) g/dL Lipase 107 (23-300) U/L Urine Color Yellow Urine Appearance Cloudy H (Clear) Urine pH 6.0 (5.0-8.0) Ur Specific [place] 1.037 H (1.001-1.035) Urine Protein 1+ H (Negative) Urine Glucose (UA) Negative (Negative) Urine Ketones 2+ H (Negative) Urine Blood Negative (Negative) Urine Nitrite Negative (Negative) Urine Bilirubin Negative (Negative) Urine Urobilinogen <2.0 (<2.0) mg/dL Ur Leukocyte Esterase Negative (Negative) Urine RBC 3 (0-5) /hpf Urine WBC 2 (0-5) /hpf Ur Squamous Epith Cells 4 (0-4) /hpf Urine Mucus Many H (None) /hpf Urine HCG, Qual (Not Detectd) 09/05/19 Range/Units 14:00 WBC (3.8-10.6) k/uL RBC (3.80-5.40) m/uL Hgb (11.4-16.0) gm/dL Hct (34.0-46.0) % MCV (80.0-100.0) fL MCH (25.0-35.0) pg MCHC (31.0-37.0) g/dL RDW (11.5-15.5) % Plt Count (150-450) k/uL Neutrophils % % Lymphocytes % % Monocytes % % Eosinophils % % Basophils % % Neutrophils # (1.3-7.7) k/uL Lymphocytes # (1.0-4.8) k/uL Monocytes # (0-1.0) k/uL Eosinophils # (0-0.7) k/uL Basophils # (0-0.2) k/uL Sodium (137-145) mmol/L Potassium (3.5-5.1) mmol/L Chloride (98-107) mmol/L Carbon Dioxide (22-30) mmol/L Anion Gap mmol/L BUN (7-17) mg/dL Creatinine (0.52-1.04) mg/dL Est GFR (CKD-EPI)AfAm (>60 ml/min/1.73 sqM) Est GFR (CKD-EPI)NonAf (>60 ml/min/1.73 sqM) Glucose (74-99) mg/dL Calcium (8.4-10.2) mg/dL Total Bilirubin (0.2-1.3) mg/dL AST (14-36) U/L ALT (4-34) U/L Alkaline Phosphatase (38-126) U/L Total Protein (6.3-8.2) g/dL Albumin (3.5-5.0) g/dL Lipase (23-300) U/L Urine Color Urine Appearance (Clear) Urine pH (5.0-8.0) Ur Specific [place] (1.001-1.035) Urine Protein (Negative) Urine Glucose (UA) (Negative) Urine Ketones (Negative) Urine Blood (Negative) Urine Nitrite (Negative) Urine Bilirubin (Negative) Urine Urobilinogen (<2.0) mg/dL Ur Leukocyte Esterase (Negative) Urine RBC (0-5) /hpf Urine WBC (0-5) /hpf Ur Squamous Epith Cells (0-4) /hpf Urine Mucus (None) /hpf Urine HCG, Qual Not Detected (Not Detectd) Disposition Clinical Impression: Nausea & vomiting Disposition: HOME SELF-CARE Condition: Stable Instructions (If sedation given, give patient instructions): Acute Nausea and Vomiting (ED) Additional Instructions: Please return to the Emergency Department if symptoms worsen or any other concerns. Prescriptions: Prochlorperazine [Compazine] 10 mg PO Q8H #15 tab Is patient prescribed a controlled substance at d/c from ED?: No Referrals: Reynaldo Bateman MD [Primary Care Provider] - 1-2 days Palma Nguyen MD [STAFF PHYSICIAN] - 1-2 days Time of Disposition: 15:02
[2019-09-05 14:07] LABS: ALT 38 U/L (4-34); AST 79 U/L (14-36); African American GFR (CKD) >90 (>60 ml/min/1.73 sqM); Albumin 4.6 g/dL (3.5-5.0); Alkaline Phosphatase 74 U/L (38-126); Anion Gap 13 mmol/L; Blood Urea Nitrogen 16 mg/dL (7-17); Calcium 8.4 mg/dL (8.4-10.2); Carbon Dioxide 21 mmol/L (22-30); Chloride 102 mmol/L (98-107); Glucose 99 mg/dL (74-99); Non-African American GFR(CKD) >90 (>60 ml/min/1.73 sqM); Potassium 3.9 mmol/L (3.5-5.1); Sodium 136 mmol/L (137-145); Total Bilirubin 1.5 mg/dL (0.2-1.3); Total Protein 7.5 g/dL (6.3-8.2)
[2019-09-05 14:25] LABS: Appearance,Urine Cloudy (Clear); Bilirubin,Urine Negative (Negative); Blood,Urine Negative (Negative); Color,Urine Yellow; Glucose,Urine (UA) Negative (Negative); Ketones,Urine 2+ (Negative); Leukocyte Esterase,Urine Negative (Negative); Mucus,Urine Many /hpf; Nitrite,Urine Negative (Negative); Protein,Urine 1+ (Negative); RBC,Urine 3 /hpf (0-5); Specific Gravity,Urine 1.037 (1.001-1.035); Squamous Epithelial Cell,Urine 4 /hpf (0-4); Urobilinogen,Urine <2.0 mg/dL (<2.0); WBC,Urine 2 /hpf (0-5)
[2019-09-05 15:24] VITALS: BP 118/78; PULSE 84; RESP 16; TEMP 98.2
== END 2019-09-05 15:24 | disposition home or self-care (01) ==
LOC: EC 13:24
DX: R11.2 Nausea with vomiting, unspecified (principal); E07.9 Disorder of thyroid, unspecified; F41.9 Anxiety disorder, unspecified; Z79.890 Hormone replacement therapy; Z79.899 Other long term (current) drug therapy; Z88.1 Allergy status to other antibiotic agents; Z91.013 Allergy to seafood; Z91.041 Radiographic dye allergy status
CPT/HCPCS: 36415; 80053; 83690; 85025; 81001; 81025; 99284; 96374; 96375 ×3; 96361; J2060; J1200; J2765; J1885

== ENCOUNTER 2019-09-18 07:40 | Emergency (ER) | payer OTHER ==
[2019-09-18 07:50] VITALS: RESP 18; TEMP 98
[2019-09-18] MEDS ORDERED: SODIUM CHLORIDE 0.9% 500 ML 500 ML IV STA (07:57)
[2019-09-18] MEDS ORDERED: ONDANSETRON 4 MG/2 ML VIAL IVP STA (07:57)
[2019-09-18] MEDS ORDERED: SODIUM CHLORIDE 0.9% 1,000 ML IV STA (07:57)
--- NOTE | 2019-09-18 08:06 | ED ---
General Adult HPI - General Chief complaint: Nausea/Vomiting/Diarrhea Stated complaint: vomiting Time Seen by Provider: 09/18/19 07:50 Source: patient, RN notes reviewed, old records reviewed Mode of arrival: ambulatory Limitations: no limitations - History of Present Illness Initial comments: This is a 34-year-old female has a 2 year history of cyclic vomiting. Patient states she started vomiting yesterday she cannot stop. Patient unable to keep any food or fluids down. Patient also states she has diarrhea. Patient states anytime she has a cyclic vomiting she has diarrhea as well this is not unusual for her. Patient denies any abdominal pain. Patient denies fever chills per patient denies any chest pain difficulty breathing or shortness of breath. Patient denies any lightheadedness or dizziness. Patient states Zofran usually is enough to help her out. - Related Data Home Medications Medication Instructions Recorded Confirmed Albuterol Inhaler (Bulk) [Ventolin 1 - 2 puff INHALATION RT-Q6H PRN 06/05/19 08/03/19 Hfa Inhaler] Levothyroxine Sodium [Synthroid] 88 mcg PO DAILY 06/05/19 08/03/19 Sertraline HCl [Zoloft] 50 mg PO DAILY@0900 06/05/19 08/03/19 l-Norgest/E.estradiol-E.estrad 1 tab PO DAILY 08/03/19 08/03/19 [Seasonique 0.15-0.03-0.01 Tab] Previous Rx's Medication Instructions Recorded Ondansetron Odt [Zofran Odt] 4 mg PO Q8HR PRN #30 tab 08/03/19 Metoclopramide [Reglan] 10 mg PO ACHS #20 tab 08/11/19 Prochlorperazine [Compazine] 10 mg PO Q8H #15 tab 09/05/19 Allergies Allergy/AdvReac Type Severity Reaction Status Date / Time cefaclor [From Ceclor] Allergy Rash/Hives Verified 09/05/19 13:31 Iodinated Contrast Media Allergy Anaphylaxis Verified 09/05/19 13:31 [Iodinated Contrast- Oral and IV Dye] shellfish derived [Shellfish] Allergy Anaphylaxis Verified 09/05/19 13:31 Review of Systems ROS Statement: Those systems with pertinent positive or pertinent negative responses have been documented in the HPI. ROS Other: All systems not noted in ROS Statement are negative. Past Medical History Past Medical History: Thyroid Disorder Additional Past Medical History / Comment(s): PMDD, History of Any Multi-Drug Resistant Organisms: None Reported Past Surgical History: Orthopedic Surgery Additional Past Surgical History / Comment(s): ANKLE, ARM, Past Psychological History: Anxiety Smoking Status: Never smoker Past Alcohol Use History: Occasional Past Drug Use History: Marijuana General Exam - General Exam Comments Initial Comments: GENERAL: Patient is well-developed and well-nourished. Patient is nontoxic and well- hydrated and is in mild distress. ENT: Neck is soft and supple. No significant lymphadenopathy is noted. Oropharynx is clear. Moist mucous membranes. Neck has full range of motion without eliciting any pain. EYES: The sclera were anicteric and conjunctiva were pink and moist. Extraocular movements were intact and pupils were equal round and reactive to light. Eye lids were unremarkable. PULMONARY: Unlabored respirations. Good breath sounds bilaterally. No audible rales rhonchi or wheezing was noted. CARDIOVASCULAR: There is a regular rate and rhythm without any murmurs gallops or rubs. ABDOMEN: Soft and nontender with normal bowel sounds. SKIN: Skin is clear with no lesions or rashes and otherwise unremarkable. NEUROLOGIC: Patient is alert and oriented x3. Cranial nerves II through XII are grossly intact. Motor and sensory are also intact. Normal speech, volume and content. Symmetrical smile. MUSCULOSKELETAL: Normal extremities with adequate strength and full range of motion. LYMPHATICS: No significant lymphadenopathy is noted PSYCHIATRIC: Normal psychiatric evaluation. Limitations: no limitations Course Vital Signs 09/18/19 07:48 Temperature 98 F Pulse Rate 112 H Respiratory 18 Rate Blood Pressure 146/89 O2 Sat by Pulse 97 Oximetry Medical Decision Making - Medical Decision Making Patient did not vomit while in the emergency department. I went back in the room after the patient received capsaicin cream and Zofran. Patient stated she was no longer nauseated and was feeling good enough to go home. - Lab Data Result diagrams: 09/18/19 08:03 09/18/19 08:03 Lab Results 09/18/19 09/18/19 Range/Units 08:03 08:03 WBC 6.0 (3.8-10.6) k/uL RBC 4.80 (3.80-5.40) m/uL Hgb 14.3 (11.4-16.0) gm/dL Hct 43.1 (34.0-46.0) % MCV 89.7 (80.0-100.0) fL MCH 29.8 (25.0-35.0) pg MCHC 33.2 (31.0-37.0) g/dL RDW 12.9 (11.5-15.5) % Plt Count 336 (150-450) k/uL Neutrophils % 70 % Lymphocytes % 24 % Monocytes % 3 % Eosinophils % 1 % Basophils % 1 % Neutrophils # 4.2 (1.3-7.7) k/uL Lymphocytes # 1.4 (1.0-4.8) k/uL Monocytes # 0.2 (0-1.0) k/uL Eosinophils # 0.1 (0-0.7) k/uL Basophils # 0.0 (0-0.2) k/uL Sodium 137 (137-145) mmol/L Potassium 4.5 (3.5-5.1) mmol/L Chloride 107 (98-107) mmol/L Carbon Dioxide 16 L (22-30) mmol/L Anion Gap 14 mmol/L BUN 14 (7-17) mg/dL Creatinine 0.73 (0.52-1.04) mg/dL Est GFR (CKD-EPI)AfAm >90 (>60 ml/min/1.73 sqM) Est GFR (CKD-EPI)NonAf >90 (>60 ml/min/1.73 sqM) Glucose 97 (74-99) mg/dL Calcium 8.4 (8.4-10.2) mg/dL Total Bilirubin 1.2 (0.2-1.3) mg/dL AST 87 H (14-36) U/L ALT 45 H (4-34) U/L Alkaline Phosphatase 66 (38-126) U/L Total Protein 7.7 (6.3-8.2) g/dL Albumin 4.5 (3.5-5.0) g/dL Amylase 46 (30-110) U/L Lipase 88 (23-300) U/L Disposition Clinical Impression: Cyclic vomiting syndrome Disposition: HOME SELF-CARE Condition: Good Instructions (If sedation given, give patient instructions): Acute Nausea and Vomiting (ED) Additional Instructions: Patient should stop smoking marijuana. Patient should try hot showers or hot baths when she starts her cyclic vomiting. Patient should continue at home Zofran that she states urine he has. Patient should try capsaicin cream on abdomen. Every 4-6 hours. Is patient prescribed a controlled substance at d/c from ED?: No Referrals: Reynaldo Bateman MD [Primary Care Provider] - 1-2 days Time of Disposition: 09:01
[2019-09-18] MEDS ORDERED: CAPSAICIN 0.025% CREAM 60 GM TUBE TOPICAL STA (08:11)
[2019-09-18 08:18] LABS: Basophils % (A) 1 %; Eosinophils # (A) 0.1 k/uL (0-0.7); Eosinophils % (A) 1 %; HCT 43.1 % (34.0-46.0); HGB 14.3 gm/dL (11.4-16.0); Lymphocytes # (A) 1.4 k/uL (1.0-4.8); Lymphocytes % (A) 24 %; MCH 29.8 pg (25.0-35.0); MCHC 33.2 g/dL (31.0-37.0); MCV 89.7 fL (80.0-100.0); Mean Platelet Volume 6.9; Monocytes # (A) 0.2 k/uL (0-1.0); Monocytes % (A) 3 %; Neutrophils # (A) 4.2 k/uL (1.3-7.7); Neutrophils % (A) 70 %; Platelet Count 336 k/uL (150-450); RDW 12.9 % (11.5-15.5)
[2019-09-18 08:26] LABS: ALT 45 U/L (4-34); AST 87 U/L (14-36); African American GFR (CKD) >90 (>60 ml/min/1.73 sqM); Albumin 4.5 g/dL (3.5-5.0); Alkaline Phosphatase 66 U/L (38-126); Amylase 46 U/L (30-110); Anion Gap 14 mmol/L; Blood Urea Nitrogen 14 mg/dL (7-17); Calcium 8.4 mg/dL (8.4-10.2); Carbon Dioxide 16 mmol/L (22-30); Chloride 107 mmol/L (98-107); Glucose 97 mg/dL (74-99); Non-African American GFR(CKD) >90 (>60 ml/min/1.73 sqM); Sodium 137 mmol/L (137-145); Total Bilirubin 1.2 mg/dL (0.2-1.3); Total Protein 7.7 g/dL (6.3-8.2)
[2019-09-18 08:42] LABS: Potassium 4.5 mmol/L (3.5-5.1)
[2019-09-18 09:10] VITALS: BP 137/92; PULSE 98
== END 2019-09-18 09:09 | disposition home or self-care (01) ==
LOC: EC 07:40
DX: R11.15 Cyclical vomiting syndrome unrelated to migraine (principal); E07.9 Disorder of thyroid, unspecified; F41.9 Anxiety disorder, unspecified; Z79.890 Hormone replacement therapy; Z79.899 Other long term (current) drug therapy; Z88.1 Allergy status to other antibiotic agents; Z91.013 Allergy to seafood; Z91.041 Radiographic dye allergy status
CPT/HCPCS: 36415; 80053; 82150; 83690; 85025; 99284; 96374; 96361; J2405

== ENCOUNTER 2019-09-25 05:32 | Emergency (ER) | payer OTHER ==
[2019-09-25 05:39] VITALS: RESP 18; TEMP 98.7
[2019-09-25] MEDS ORDERED: METOCLOPRAMIDE 5 MG/ML 2 ML VIAL IVP STA (06:07)
[2019-09-25] MEDS ORDERED: SODIUM CHLORIDE 0.9% 1,000 ML IV STA (06:07)
[2019-09-25 06:19] LABS: Basophils % (A) 0 %; Eosinophils % (A) 1 %; HCT 42.1 % (34.0-46.0); HGB 13.9 gm/dL (11.4-16.0); Lymphocytes # (A) 1.3 k/uL (1.0-4.8); Lymphocytes % (A) 24 %; MCH 29.9 pg (25.0-35.0); MCV 90.7 fL (80.0-100.0); Mean Platelet Volume 7.4; Monocytes # (A) 0.2 k/uL (0-1.0); Monocytes % (A) 3 %; Neutrophils # (A) 3.8 k/uL (1.3-7.7); Neutrophils % (A) 71 %; Platelet Count 181 k/uL (150-450); RBC 4.65 m/uL (3.80-5.40); RDW 13.5 % (11.5-15.5); WBC 5.4 k/uL (3.8-10.6)
[2019-09-25 06:26] LABS: ALT 43 U/L (4-34); AST 101 U/L (14-36); African American GFR (CKD) >90 (>60 ml/min/1.73 sqM); Albumin 4.6 g/dL (3.5-5.0); Alkaline Phosphatase 75 U/L (38-126); Anion Gap 13 mmol/L; Blood Urea Nitrogen 12 mg/dL (7-17); Calcium 8.7 mg/dL (8.4-10.2); Carbon Dioxide 21 mmol/L (22-30); Chloride 102 mmol/L (98-107); Glucose 108 mg/dL (74-99); Non-African American GFR(CKD) >90 (>60 ml/min/1.73 sqM); Potassium 3.5 mmol/L (3.5-5.1); Sodium 136 mmol/L (137-145); Total Bilirubin 1.3 mg/dL (0.2-1.3); Total Protein 7.7 g/dL (6.3-8.2)
--- NOTE | 2019-09-25 06:58 | ED ---
Nausea/Vomiting/Diarrhea HPI - General Chief complaint: Nausea/Vomiting/Diarrhea Stated complaint: Panic Attack Time Seen by Provider: 09/25/19 06:00 Source: patient Mode of arrival: ambulatory Limitations: no limitations - History of Present Illness Initial comments: Patient is a 34-year-old female presenting to the emergency Department with complaints of nausea, vomiting 3 days. Patient has history of cyclic vomiting and states when her symptoms increase she is a history of anxiety attacks. Patient is currently seeing Dr. George for this. Patient states she try to take Zofran and Ativan last night for her symptoms but was unable to keep them down secondary to vomiting. Patient denies having any abdominal pain, fever, chills, chest pain, shortness of breath. She has no other complaints today. Patient states this feels like her normal episodes. Upon arrival to the ER, patient was slightly tachycardia, otherwise vitals were normal. - Related Data Home Medications Medication Instructions Recorded Confirmed Albuterol Inhaler (Bulk) [Ventolin 1 - 2 puff INHALATION RT-Q6H PRN 06/05/19 08/03/19 Hfa Inhaler] Levothyroxine Sodium [Synthroid] 88 mcg PO DAILY 06/05/19 08/03/19 Sertraline HCl [Zoloft] 50 mg PO DAILY@0900 06/05/19 08/03/19 l-Norgest/E.estradiol-E.estrad 1 tab PO DAILY 08/03/19 08/03/19 [Seasonique 0.15-0.03-0.01 Tab] Previous Rx's Medication Instructions Recorded Ondansetron Odt [Zofran Odt] 4 mg PO Q8HR PRN #30 tab 08/03/19 Metoclopramide [Reglan] 10 mg PO ACHS #20 tab 08/11/19 Prochlorperazine [Compazine] 10 mg PO Q8H #15 tab 09/05/19 Allergies Allergy/AdvReac Type Severity Reaction Status Date / Time cefaclor [From Ceclor] Allergy Rash/Hives Verified 09/25/19 05:39 Iodinated Contrast Media Allergy Anaphylaxis Verified 09/25/19 05:39 [Iodinated Contrast- Oral and IV Dye] shellfish derived [Shellfish] Allergy Anaphylaxis Verified 09/25/19 05:39 Review of Systems ROS Statement: Those systems with pertinent positive or pertinent negative responses have been documented in the HPI. ROS Other: All systems not noted in ROS Statement are negative. Past Medical History Past Medical History: Thyroid Disorder Additional Past Medical History / Comment(s): PMDD, CVS History of Any Multi-Drug Resistant Organisms: None Reported Past Surgical History: Orthopedic Surgery Additional Past Surgical History / Comment(s): ANKLE, ARM, Past Psychological History: Anxiety Smoking Status: Never smoker Past Alcohol Use History: Occasional Past Drug Use History: Marijuana General Exam - General Exam Comments Initial Comments: GENERAL: Well-appearing, well-nourished and in no acute distress. HEAD: Atraumatic, normocephalic. EYES: Pupils equal round and reactive to light, extraocular movements intact, sclera anicteric, conjunctiva are normal. ENT: TMs normal, nares patent, oropharynx clear without exudates. Moist mucous membranes. NECK: Normal range of motion, supple without lymphadenopathy or JVD. LUNGS: Breath sounds clear to auscultation bilaterally and equal. No wheezes rales or rhonchi. HEART: Sightly tachycardia rate and rhythm without murmurs, rubs or gallops. ABDOMEN: Soft, nontender, normoactive bowel sounds. No guarding, no rebound. No masses appreciated. : Deferred EXTREMITIES: Normal range of motion, no pitting or edema. No clubbing or cyanosis. NEUROLOGICAL: Normal speech, normal gait. PSYCH: Normal mood, normal affect. SKIN: Warm, Dry, normal turgor, no rashes or lesions noted. Limitations: no limitations Course Vital Signs 09/25/19 09/25/19 05:37 07:28 Temperature 98.7 F Pulse Rate 114 H 92 Respiratory 18 18 Rate Blood Pressure 152/90 124/90 O2 Sat by Pulse 96 98 Oximetry Medical Decision Making - Medical Decision Making Patient is a 34-year-old female with history of cyclic vomiting syndrome presenting with nausea and vomiting 3 days. She is unable to keep down her medications last night. Patient arrives slightly tachycardia otherwise normal vitals. Exam is unremarkable. No abdominal pain. Her lab work shows no acute abnormalities. Patient was given a liter of fluids as well as Reglan. She has been resting comfortably in the ER. She states she feels well now to go home. She is stable for discharge. Return parameters were discussed with the patient she verbalized understanding. Case discussed with Dr. Mendoza. - Lab Data Result diagrams: 09/25/19 06:00 09/25/19 06:00 Lab Results 09/25/19 09/25/19 Range/Units 06:00 06:00 WBC 5.4 (3.8-10.6) k/uL RBC 4.65 (3.80-5.40) m/uL Hgb 13.9 (11.4-16.0) gm/dL Hct 42.1 (34.0-46.0) % MCV 90.7 (80.0-100.0) fL MCH 29.9 (25.0-35.0) pg MCHC 33.0 (31.0-37.0) g/dL RDW 13.5 (11.5-15.5) % Plt Count 181 (150-450) k/uL Neutrophils % 71 % Lymphocytes % 24 % Monocytes % 3 % Eosinophils % 1 % Basophils % 0 % Neutrophils # 3.8 (1.3-7.7) k/uL Lymphocytes # 1.3 (1.0-4.8) k/uL Monocytes # 0.2 (0-1.0) k/uL Eosinophils # 0.0 (0-0.7) k/uL Basophils # 0.0 (0-0.2) k/uL Sodium 136 L (137-145) mmol/L Potassium 3.5 (3.5-5.1) mmol/L Chloride 102 (98-107) mmol/L Carbon Dioxide 21 L (22-30) mmol/L Anion Gap 13 mmol/L BUN 12 (7-17) mg/dL Creatinine 0.77 (0.52-1.04) mg/dL Est GFR (CKD-EPI)AfAm >90 (>60 ml/min/1.73 sqM) Est GFR (CKD-EPI)NonAf >90 (>60 ml/min/1.73 sqM) Glucose 108 H (74-99) mg/dL Calcium 8.7 (8.4-10.2) mg/dL Total Bilirubin 1.3 (0.2-1.3) mg/dL AST 101 H (14-36) U/L ALT 43 H (4-34) U/L Alkaline Phosphatase 75 (38-126) U/L Total Protein 7.7 (6.3-8.2) g/dL Albumin 4.6 (3.5-5.0) g/dL Disposition Clinical Impression: Cyclic vomiting syndrome, Dehydration Disposition: HOME SELF-CARE Condition: Stable Instructions (If sedation given, give patient instructions): Acute Nausea and Vomiting (ED) Additional Instructions: Please return to the Emergency Department if symptoms worsen or any other concerns. Follow-up with PCP as needed. Is patient prescribed a controlled substance at d/c from ED?: No Referrals: Reynaldo Bateman MD [Primary Care Provider] - 1-2 days
[2019-09-25 07:30] VITALS: BP 124/90; PULSE 92
== END 2019-09-25 07:25 | disposition home or self-care (01) ==
LOC: EC 05:32
DX: R11.15 Cyclical vomiting syndrome unrelated to migraine (principal); E86.0 Dehydration; R00.0 Tachycardia, unspecified; F41.9 Anxiety disorder, unspecified; E07.9 Disorder of thyroid, unspecified; Z79.890 Hormone replacement therapy; Z79.899 Other long term (current) drug therapy; Z79.3 Long term (current) use of hormonal contraceptives; Z91.041 Radiographic dye allergy status; Z91.013 Allergy to seafood; Z88.1 Allergy status to other antibiotic agents
CPT/HCPCS: 36415; 80053; 85025; 99284; 96374; 96361; J2765

== ENCOUNTER → 2019-12-01 | Day surgery (SDC) | payer OTHER ==
[2019-11-30 08:46] VITALS: BMI 30.7
[~2019-12-01] MED LIST: LACTATED RINGERS 1,000 ML IV SCH; LIDOCAINE 1% INJ 10MG/ML (20 ML MDV) ONE; MIDAZOLAM 2 MG/2 ML VIAL ONE; PROPOFOL 10 MG/ML 20 ML VIAL IV ONE; fentaNYL (PF) 50 MCG/ML 2 ML AMP ONE
[2019-12-01 09:10] VITALS: TEMP 97.1
--- NOTE | 2019-12-01 09:55 | P.GSHP ---
History of Present Illness H&P Date: 12/01/19 Chief Complaint: Frequent vomiting 34-year-old female with cyclical vomiting. Last episode 1 week ago. Aggravated by stress. She has required multiple ER visits because of this. No significant pain. Past Medical History Past Medical History: Asthma, Thyroid Disorder Additional Past Medical History / Comment(s): PMDD, CVS (cyclic vomiting disorder) History of Any Multi-Drug Resistant Organisms: None Reported Past Surgical History: Orthopedic Surgery, Tonsillectomy Additional Past Surgical History / Comment(s): ANKLE, ARM, Past Anesthesia/Blood Transfusion Reactions: No Reported Reaction Smoking Status: Never smoker - Past Family History Mother Family Medical History: No Reported History Medications and Allergies Home Medications Medication Instructions Recorded Confirmed Type Albuterol Inhaler (Mhu) [Ventolin 1 - 2 puff INHALATION RT-Q6H PRN 06/05/19 12/01/19 History Hfa Inhaler] Levothyroxine Sodium [Synthroid] 88 mcg PO DAILY 06/05/19 11/30/19 History Sertraline HCl [Zoloft] 50 mg PO DAILY@0900 06/05/19 11/30/19 History Ondansetron Odt [Zofran Odt] 4 mg PO Q8HR PRN #30 tab 08/03/19 12/01/19 Rx l-Norgest/E.estradiol-E.estrad 1 tab PO DAILY 08/03/19 11/30/19 History [Seasonique 0.15-0.03-0.01 Tab] Metoclopramide [Reglan] 10 mg PO ACHS #20 tab 08/11/19 12/01/19 Rx LORazepam [Ativan] 0.5 mg PO DAILY PRN 11/30/19 12/01/19 History Prochlorperazine [Compazine] 10 mg PO Q8H PRN 11/30/19 12/01/19 History Allergies Allergy/AdvReac Type Severity Reaction Status Date / Time cefaclor [From Ceclor] Allergy Rash/Hives Verified 12/01/19 09:10 Iodinated Contrast Media Allergy Anaphylaxis Verified 12/01/19 09:10 [Iodinated Contrast- Oral and IV Dye] shellfish derived [Shellfish] Allergy Anaphylaxis Verified 12/01/19 09:10 Surgical - Exam Vital Signs Temp Pulse Resp BP Pulse Ox 97.1 F L 94 16 143/83 99 12/01/19 09:08 12/01/19 09:08 12/01/19 09:08 12/01/19 09:08 12/01/19 09:08 Physical exam: General: Well-developed, well-nourished HEENT: Normocephalic, sclerae nonicteric Abdomen: Nontender, nondistended Extremities: No edema Neuro: Alert and oriented Assessment and Plan (1) Intractable vomiting Narrative/Plan: Will proceed with upper endoscopy at this time. Current Visit: Yes Status: Acute Code(s): R11.10 - VOMITING, UNSPECIFIED SNOMED Code(s): 579371011
--- NOTE | 2019-12-01 10:04 | P.PCN ---
Date of Procedure: 12/01/19 Procedure(s) Performed: Preoperative Dx: Chronic vomiting Postoperative Dx: Gastritis Procedure: EGD with Bx Anesthesia: Sedation Endoscopist: Dr. Childress Specimens: Duodenum, antrum Endoscopic Procedure: The patient was on the endoscopy table in the left decubitus position. The Olympus gastroscope was inserted into the oropharynx and passed under direct visualization to the region of the third portion of the duodenum. From that point the scope was slowly withdrawn inspecting all surfaces carefully. There were no neoplastic inflammatory or polypoid lesions throughout the duodenum. Biopsy of the duodenum took place to rule out celiac disease. The pylorus was widely patent. The stomach was carefully inspected. There was gastritis present without erosions. A biopsy of the antrum took place to rule out H. pylori. Retroflexion revealed a normal hiatus. The esophagus was then carefully examined. There were no neoplastic inflammatory or polypoid lesions throughout the visualized esophagus. The patient was then taken to the recovery room in stable condition per anesthesia guidelines. Recommendations: Await biopsy results. Consider gastrology consult for cyclical vomiting syndrome and elevated LFTs.
[2019-12-01 10:29] VITALS: BP 134/91; PULSE 81; RESP 17
== END ==
LOC: ORWHC2ENDO 08:44
PROVIDERS: ATTEND Surgery
DX: K29.50 Unspecified chronic gastritis without bleeding (principal); J45.909 Unspecified asthma, uncomplicated; E07.9 Disorder of thyroid, unspecified; F32.81 Premenstrual dysphoric disorder; K21.9 Gastro-esophageal reflux disease without esophagitis; Z98.890 Other specified postprocedural states; Z90.89 Acquired absence of other organs; Z79.899 Other long term (current) drug therapy; Z79.890 Hormone replacement therapy; Z88.1 Allergy status to other antibiotic agents; Z91.041 Radiographic dye allergy status; Z91.013 Allergy to seafood
CPT/HCPCS: 81025; 88305; 43239; J2250; J2001; J3010; J2704

== ENCOUNTER 2020-03-14 14:48 | Emergency (ER) | payer OTHER ==
[2020-03-14 15:02] VITALS: RESP 18
[2020-03-14] MEDS ORDERED: ONDANSETRON 4 MG/2 ML VIAL IVP STA (15:17)
[2020-03-14] MEDS ORDERED: PANTOPRAZOLE 40 MG/10 ML VIAL IVP STA (15:17)
[2020-03-14] MEDS ORDERED: SODIUM CHLORIDE 0.9% 1,000 ML IV STA (15:17)
--- NOTE | 2020-03-14 15:35 | ED ---
Nausea/Vomiting/Diarrhea HPI - General Chief complaint: Nausea/Vomiting/Diarrhea Stated complaint: fever/headache/vomiting blood Time Seen by Provider: 03/14/20 15:10 Source: patient Mode of arrival: ambulatory Limitations: no limitations - History of Present Illness Initial comments: Patient is a 34-year-old female presenting to the emergency department with nausea, vomiting, diarrhea, body aches and fever. Patient reports her symptoms started about 3 days ago along with nausea and multiple episodes of nonbilious vomiting. Patient states today she said 2 episodes of hematemesis. States she contacted her primary Care Physician who advised to go to emergency department for further evaluation. Patient denies any cough, chest pain or any shortness of breath. States she did have a fever today it was only up to 100.3. Does report taking [id number] Tylenol with some improvement in symptoms. States she was in contact with a person tested positive for Covid about 3 weeks ago but she was not symptomatic then. - Related Data Home Medications Medication Instructions Recorded Confirmed Albuterol Inhaler (Mhu) [Ventolin 1 - 2 puff INHALATION RT-Q6H PRN 06/05/19 12/01/19 Hfa Inhaler] Levothyroxine Sodium [Synthroid] 88 mcg PO DAILY 06/05/19 11/30/19 Sertraline HCl [Zoloft] 50 mg PO DAILY@0900 06/05/19 11/30/19 l-Norgest/E.estradiol-E.estrad 1 tab PO DAILY 08/03/19 11/30/19 [Seasonique 0.15-0.03-0.01 Tab] LORazepam [Ativan] 0.5 mg PO DAILY PRN 11/30/19 12/01/19 Prochlorperazine [Compazine] 10 mg PO Q8H PRN 11/30/19 12/01/19 Previous Rx's Medication Instructions Recorded Ondansetron Odt [Zofran Odt] 4 mg PO Q8HR PRN #30 tab 08/03/19 Metoclopramide [Reglan] 10 mg PO ACHS #20 tab 08/11/19 Allergies Allergy/AdvReac Type Severity Reaction Status Date / Time [facility] Allergy Rash/Hives Verified 03/14/20 15:02 Iodinated Contrast Media Allergy Anaphylaxis Verified 03/14/20 15:02 [Iodinated Contrast- Oral and IV Dye] shellfish derived [Shellfish] Allergy Anaphylaxis Verified 03/14/20 15:02 Review of Systems ROS Statement: Those systems with pertinent positive or pertinent negative responses have been documented in the HPI. ROS Other: All systems not noted in ROS Statement are negative. Past Medical History Past Medical History: Asthma, Thyroid Disorder Additional Past Medical History / Comment(s): PMDD, CVS (cyclic vomiting diso rder) History of Any Multi-Drug Resistant Organisms: None Reported Past Surgical History: Orthopedic Surgery, Tonsillectomy Additional Past Surgical History / Comment(s): ANKLE, ARM, Past Anesthesia/Blood Transfusion Reactions: No Reported Reaction Past Psychological History: Anxiety Smoking Status: Never smoker Past Alcohol Use History: Occasional Past Drug Use History: Marijuana - Past Family History Mother Family Medical History: No Reported History General Exam Limitations: no limitations Course Vital Signs 03/14/20 03/14/20 14:57 17:12 Temperature 98.2 F 98.0 F Pulse Rate 105 H 80 Respiratory 18 18 Rate Blood Pressure 153/98 130/82 O2 Sat by Pulse 96 97 Oximetry Medical Decision Making - Medical Decision Making Patient is a 34-year-old female presenting to the emergency department with nausea, vomiting, diarrhea, body aches and fever. Physical examination shows so me dry mucous membranes but is otherwise unremarkable. Patient is afebrile in the ED. Patient was given Protonix, antiemetics and IV fluids. UA reveals trace amount of ketones suggesting slight dehydration. CBC is a unremarkable. CMP reveals transaminitis which appears to be chronically elevated in this patient. On reevaluation, patient reports improvement in his symptoms and is comfortable going home. I suspect the 2 episodes of hematemesis or likely related to repeated vomiting episodes causing possible Gabrielle-Yee tears in the esophagus. Her vitals are stable. C covid-19i testing pending. She was advised to take, she develops a fever. She was advised to self quarantined until results are received of the c covid-19 testing. Strict return parameters were thoroughly discussed the patient is standing and agreeable. Case discussed with physician. - Lab Data Result diagrams: 03/14/20 15:37 03/14/20 15:37 Lab Results 03/14/20 03/14/20 03/14/20 Range/Units 15:37 15:37 15:37 WBC 4.5 (3.8-10.6) k/uL RBC 4.78 (3.80-5.40) m/uL Hgb 14.7 (11.4-16.0) gm/dL Hct 44.1 (34.0-46.0) % MCV 92.3 (80.0-100.0) fL MCH 30.8 (25.0-35.0) pg MCHC 33.4 (31.0-37.0) g/dL RDW 13.5 (11.5-15.5) % Plt Count 232 (150-450) k/uL Neutrophils % 38 % Lymphocytes % 55 % Monocytes % 3 % Eosinophils % 1 % Basophils % 1 % Neutrophils # 1.7 (1.3-7.7) k/uL Lymphocytes # 2.5 (1.0-4.8) k/uL Monocytes # 0.1 (0-1.0) k/uL Eosinophils # 0.1 (0-0.7) k/uL Basophils # 0.0 (0-0.2) k/uL Sodium (137-145) mmol/L Potassium (3.5-5.1) mmol/L Chloride (98-107) mmol/L Carbon Dioxide (22-30) mmol/L Anion Gap mmol/L BUN (7-17) mg/dL Creatinine (0.52-1.04) mg/dL Est GFR (CKD-EPI)AfAm (>60 ml/min/1.73 sqM) Est GFR (CKD-EPI)NonAf (>60 ml/min/1.73 sqM) Glucose (74-99) mg/dL Calcium (8.4-10.2) mg/dL Total Bilirubin (0.2-1.3) mg/dL AST (14-36) U/L ALT (4-34) U/L Alkaline Phosphatase (38-126) U/L Total Protein (6.3-8.2) g/dL Albumin (3.5-5.0) g/dL Lipase (23-300) U/L Urine Color Yellow Urine Appearance Clear (Clear) Urine pH 6.0 (5.0-8.0) Ur Specific [place] 1.020 (1.001-1.035) Urine Protein Trace H (Negative) Urine Glucose (UA) Negative (Negative) Urine Ketones Trace H (Negative) Urine Blood Negative (Negative) Urine Nitrite Negative (Negative) Urine Bilirubin Negative (Negative) Urine Urobilinogen <2.0 (<2.0) mg/dL Ur Leukocyte Esterase Negative (Negative) Urine HCG, Qual Not Detected (Not Detectd) 03/14/20 Range/Units 15:37 WBC (3.8-10.6) k/uL RBC (3.80-5.40) m/uL Hgb (11.4-16.0) gm/dL Hct (34.0-46.0) % MCV (80.0-100.0) fL MCH (25.0-35.0) pg MCHC (31.0-37.0) g/dL RDW (11.5-15.5) % Plt Count (150-450) k/uL Neutrophils % % Lymphocytes % % Monocytes % % Eosinophils % % Basophils % % Neutrophils # (1.3-7.7) k/uL Lymphocytes # (1.0-4.8) k/uL Monocytes # (0-1.0) k/uL Eosinophils # (0-0.7) k/uL Basophils # (0-0.2) k/uL Sodium 140 (137-145) mmol/L Potassium 4.0 (3.5-5.1) mmol/L Chloride 106 (98-107) mmol/L Carbon Dioxide 23 (22-30) mmol/L Anion Gap 11 mmol/L BUN 13 (7-17) mg/dL Creatinine 0.77 (0.52-1.04) mg/dL Est GFR (CKD-EPI)AfAm >90 (>60 ml/min/1.73 sqM) Est GFR (CKD-EPI)NonAf >90 (>60 ml/min/1.73 sqM) Glucose 98 (74-99) mg/dL Calcium 8.3 L (8.4-10.2) mg/dL Total Bilirubin 0.8 (0.2-1.3) mg/dL AST 133 H (14-36) U/L ALT 44 H (4-34) U/L Alkaline Phosphatase 88 (38-126) U/L Total Protein 7.5 (6.3-8.2) g/dL Albumin 4.5 (3.5-5.0) g/dL Lipase 104 (23-300) U/L Urine Color Urine Appearance (Clear) Urine pH (5.0-8.0) Ur Specific [place] (1.001-1.035) Urine Protein (Negative) Urine Glucose (UA) (Negative) Urine Ketones (Negative) Urine Blood (Negative) Urine Nitrite (Negative) Urine Bilirubin (Negative) Urine Urobilinogen (<2.0) mg/dL Ur Leukocyte Esterase (Negative) Urine HCG, Qual (Not Detectd) Disposition Clinical Impression: Nausea vomiting and diarrhea Disposition: HOME SELF-CARE Condition: Stable Instructions (If sedation given, give patient instructions): Acute Nausea and Vomiting (ED) Additional Instructions: Take Zofran as prescribed. Follow up with your primary care physician. Return to emergency department if symptoms worsen. Is patient prescribed a controlled substance at d/c from ED?: No Referrals: Reynaldo Bateman MD [Primary Care Provider] - 1-2 days Time of Disposition: 16:52
[2020-03-14 15:51] LABS: Appearance,Urine Clear (Clear); Basophils % (A) 1 %; Bilirubin,Urine Negative (Negative); Blood,Urine Negative (Negative); Color,Urine Yellow; Eosinophils # (A) 0.1 k/uL (0-0.7); Eosinophils % (A) 1 %; Glucose,Urine (UA) Negative (Negative); HCT 44.1 % (34.0-46.0); HGB 14.7 gm/dL (11.4-16.0); Ketones,Urine Trace (Negative); Leukocyte Esterase,Urine Negative (Negative); Lymphocytes # (A) 2.5 k/uL (1.0-4.8); Lymphocytes % (A) 55 %; MCH 30.8 pg (25.0-35.0); MCHC 33.4 g/dL (31.0-37.0); MCV 92.3 fL (80.0-100.0); Mean Platelet Volume 6.6; Monocytes # (A) 0.1 k/uL (0-1.0); Monocytes % (A) 3 %; Neutrophils # (A) 1.7 k/uL (1.3-7.7); Neutrophils % (A) 38 %; Nitrite,Urine Negative (Negative); Platelet Count 232 k/uL (150-450); Protein,Urine Trace (Negative); RBC 4.78 m/uL (3.80-5.40); RDW 13.5 % (11.5-15.5); Urobilinogen,Urine <2.0 mg/dL (<2.0); WBC 4.5 k/uL (3.8-10.6)
[2020-03-14 15:58] LABS: ALT 44 U/L (4-34); AST 133 U/L (14-36); African American GFR (CKD) >90 (>60 ml/min/1.73 sqM); Albumin 4.5 g/dL (3.5-5.0); Alkaline Phosphatase 88 U/L (38-126); Anion Gap 11 mmol/L; Blood Urea Nitrogen 13 mg/dL (7-17); Calcium 8.3 mg/dL (8.4-10.2); Carbon Dioxide 23 mmol/L (22-30); Chloride 106 mmol/L (98-107); Glucose 98 mg/dL (74-99); Lipase 104 U/L (23-300); Non-African American GFR(CKD) >90 (>60 ml/min/1.73 sqM); Sodium 140 mmol/L (137-145); Total Bilirubin 0.8 mg/dL (0.2-1.3); Total Protein 7.5 g/dL (6.3-8.2)
--- NOTE | 2020-03-14 16:11 | XR ---
EXAMINATION TYPE: XR chest 2V DATE OF EXAM: 03/14/2020 COMPARISON: 06/05/2019 HISTORY: Chest pain TECHNIQUE: Frontal and lateral views of the chest are obtained. FINDINGS: There is no focal air space opacity. No evidence for pneumothorax. No pleural effusion. The cardiac silhouette size is within normal limits. The osseous structures are grossly intact. IMPRESSION: 1. No acute cardiopulmonary process.
[2020-03-14 17:13] VITALS: BP 130/82; PULSE 80; TEMP 98
== END 2020-03-14 17:13 | disposition home or self-care (01) ==
LOC: EC 14:48
DX: R11.2 Nausea with vomiting, unspecified (principal); R19.7 Diarrhea, unspecified; J45.909 Unspecified asthma, uncomplicated; F41.9 Anxiety disorder, unspecified; E07.9 Disorder of thyroid, unspecified; Z79.890 Hormone replacement therapy; Z79.899 Other long term (current) drug therapy; Z88.1 Allergy status to other antibiotic agents; Z91.013 Allergy to seafood; Z91.041 Radiographic dye allergy status; Z20.828 Contact with and (suspected) exposure to other viral communicable diseases
CPT/HCPCS: 36415; 80053; 83690; 85025; 81003; 81025; 71046; 99284; 96374; 96375; 96361 ×2; J2405; C9113

== ENCOUNTER 2020-03-17 11:35 | Observation (INO) | payer OTHER ==
[2020-03-17] MEDS ORDERED: ASPIRIN 81 MG PO STA (12:29)
[2020-03-17] MEDS ORDERED: SODIUM CHLORIDE 0.9% 1,000 ML IV STA (12:29)
[2020-03-17] MEDS: SODIUM CHLORIDE 0.9% 1,000 ML IV STA ×2 (12:59→15:31)
--- NOTE | 2020-03-17 13:12 | ED ---
General Adult HPI - General Chief complaint: Chest Pain Stated complaint: revisit-blurry vision-arm tingling Time Seen by Provider: 03/17/20 12:08 Source: patient, RN notes reviewed, old records reviewed Mode of arrival: ambulatory Limitations: no limitations - History of Present Illness Initial comments: Riri Murillo is a 34-year-old female presents to the ER today for evaluation with complaints of chest pain,dehydration nausea, vomiting. is complaining that today chest pain started this morning and is now radiating towards her left arm. Patient reports she was seen emergency Department earlier this week for similar complaints. She states that she feels off, complains of blurred vision and has had palpitation periods. Patient fever or chills. She was seen a few weeks ago and instructed for Covid. She denies any cough. - Related Data Home Medications Medication Instructions Recorded Confirmed Albuterol Inhaler (Mhu) [Ventolin 1 - 2 puff INHALATION RT-Q6H PRN 06/05/19 12/01/19 Hfa Inhaler] Levothyroxine Sodium [Synthroid] 88 mcg PO DAILY 06/05/19 11/30/19 Sertraline HCl [Zoloft] 50 mg PO DAILY@0900 06/05/19 11/30/19 l-Norgest/E.estradiol-E.estrad 1 tab PO DAILY 08/03/19 11/30/19 [Seasonique 0.15-0.03-0.01 Tab] LORazepam [Ativan] 0.5 mg PO DAILY PRN 11/30/19 12/01/19 Prochlorperazine [Compazine] 10 mg PO Q8H PRN 11/30/19 12/01/19 Previous Rx's Medication Instructions Recorded Ondansetron Odt [Zofran Odt] 4 mg PO Q8HR PRN #30 tab 08/03/19 Metoclopramide [Reglan] 10 mg PO ACHS #20 tab 08/11/19 Allergies Allergy/AdvReac Type Severity Reaction Status Date / Time cefaclor [From Ceclor] Allergy Rash/Hives Verified 03/17/20 11:47 Iodinated Contrast Media Allergy Anaphylaxis Verified 03/17/20 11:47 [Iodinated Contrast- Oral and IV Dye] shellfish derived [Shellfish] Allergy Anaphylaxis Verified 03/17/20 11:47 Review of Systems ROS Statement: Those systems with pertinent positive or pertinent negative responses have been documented in the HPI. ROS Other: All systems not noted in ROS Statement are negative. Past Medical History Past Medical History: Asthma, Thyroid Disorder Additional Past Medical History / Comment(s): PMDD, CVS (cyclic vomiting disorder) History of Any Multi-Drug Resistant Organisms: None Reported Past Surgical History: Orthopedic Surgery, Tonsillectomy Additional Past Surgical History / Comment(s): ANKLE, ARM, Past Anesthesia/Blood Transfusion Reactions: No Reported Reaction Past Psychological History: Anxiety Smoking Status: Never smoker Past Alcohol Use History: Occasional Past Drug Use History: Marijuana - Past Family History Mother Family Medical History: No Reported History General Exam - General Exam Comments Initial Comments: Alert and oriented 34-year-old female. No distress. Limitations: no limitations General appearance: alert, in no apparent distress Head exam: Present: atraumatic, normocephalic, normal inspection Eye exam: Present: normal appearance, PERRL, EOMI. Absent: scleral icterus, conjunctival injection, periorbital swelling ENT exam: Present: normal exam, mucous membranes moist Neck exam: Present: normal inspection Respiratory exam: Present: normal lung sounds bilaterally. Absent: respiratory distress, wheezes, rales, rhonchi, stridor Cardiovascular Exam: Present: regular rate, normal rhythm, normal heart sounds. Absent: systolic murmur, diastolic murmur, rubs, gallop, clicks GI/Abdominal exam: Present: soft, normal bowel sounds. Absent: distended, tenderness, guarding, rebound, rigid Extremities exam: Present: normal inspection, full ROM, normal capillary refill. Absent: tenderness, pedal edema, joint swelling, calf tenderness Back exam: Present: normal inspection Neurological exam: Present: alert, oriented X3, CN II-XII intact Psychiatric exam: Present: normal affect, normal mood Course Vital Signs 03/17/20 03/17/20 11:41 14:00 Temperature 98.6 F 99.8 F H Pulse Rate 105 H 97 Respiratory 18 17 Rate Blood Pressure 160/103 141/94 O2 Sat by Pulse 96 100 Oximetry Medical Decision Making - Medical Decision Making 34-year-old feel presents the ER today for evaluation of complaints of chest pain rating on the left arm. She reports she's been having nausea and vomiting for the past 2 days as well. Patient main complaint today is chest discomfort. Patient is given IV fluids labwork obtained. EKG was reviewed and negative for any acute ST changes. This Patient second visit in the ER this week for similar complaints. Pt is found to have mild elevated bilirubin. Pt will have US gallbladder, but will be admitted for Chest pain obs. - Lab Data Result diagrams: 03/17/20 12:54 03/17/20 12:54 Lab Results 03/17/20 03/17/20 03/17/20 Range/Units 12:54 12:54 12:54 WBC 3.9 (3.8-10.6) k/uL RBC 4.44 (3.80-5.40) m/uL Hgb 14.3 (11.4-16.0) gm/dL Hct 42.9 (34.0-46.0) % MCV 96.7 (80.0-100.0) fL MCH 32.2 (25.0-35.0) pg MCHC 33.4 (31.0-37.0) g/dL RDW 13.3 (11.5-15.5) % Plt Count 139 L (150-450) k/uL Neutrophils % 63 % Lymphocytes % 30 % Monocytes % 4 % Eosinophils % 1 % Basophils % 1 % Neutrophils # 2.4 (1.3-7.7) k/uL Lymphocytes # 1.2 (1.0-4.8) k/uL Monocytes # 0.1 (0-1.0) k/uL Eosinophils # 0.0 (0-0.7) k/uL Basophils # 0.0 (0-0.2) k/uL PT 11.0 (9.0-12.0) sec INR 1.1 (<1.2) APTT 23.0 (22.0-30.0) sec Sodium 139 (137-145) mmol/L Potassium 4.0 (3.5-5.1) mmol/L Chloride 104 (98-107) mmol/L Carbon Dioxide 25 (22-30) mmol/L Anion Gap 10 mmol/L BUN 13 (7-17) mg/dL Creatinine 0.78 (0.52-1.04) mg/dL Est GFR (CKD-EPI)AfAm >90 (>60 ml/min/1.73 sqM) Est GFR (CKD-EPI)NonAf >90 (>60 ml/min/1.73 sqM) Glucose 103 H (74-99) mg/dL Calcium 8.4 (8.4-10.2) mg/dL Magnesium 1.6 (1.6-2.3) mg/dL Total Bilirubin 1.6 H (0.2-1.3) mg/dL AST 130 H (14-36) U/L ALT 48 H (4-34) U/L Alkaline Phosphatase 81 (38-126) U/L Troponin I (0.000-0.034) ng/mL NT-Pro-B Natriuret Pep pg/mL Total Protein 7.4 (6.3-8.2) g/dL Albumin 4.4 (3.5-5.0) g/dL Lipase 296 (23-300) U/L 03/17/20 03/17/20 Range/Units 12:54 12:54 WBC (3.8-10.6) k/uL RBC (3.80-5.40) m/uL Hgb (11.4-16.0) gm/dL Hct (34.0-46.0) % MCV (80.0-100.0) fL MCH (25.0-35.0) pg MCHC (31.0-37.0) g/dL RDW (11.5-15.5) % Plt Count (150-450) k/uL Neutrophils % % Lymphocytes % % Monocytes % % Eosinophils % % Basophils % % Neutrophils # (1.3-7.7) k/uL Lymphocytes # (1.0-4.8) k/uL Monocytes # (0-1.0) k/uL Eosinophils # (0-0.7) k/uL Basophils # (0-0.2) k/uL PT (9.0-12.0) sec INR (<1.2) APTT (22.0-30.0) sec Sodium (137-145) mmol/L Potassium (3.5-5.1) mmol/L Chloride (98-107) mmol/L Carbon Dioxide (22-30) mmol/L Anion Gap mmol/L BUN (7-17) mg/dL Creatinine (0.52-1.04) mg/dL Est GFR (CKD-EPI)AfAm (>60 ml/min/1.73 sqM) Est GFR (CKD-EPI)NonAf (>60 ml/min/1.73 sqM) Glucose (74-99) mg/dL Calcium (8.4-10.2) mg/dL Magnesium (1.6-2.3) mg/dL Total Bilirubin (0.2-1.3) mg/dL AST (14-36) U/L ALT (4-34) U/L Alkaline Phosphatase (38-126) U/L Troponin I <0.012 (0.000-0.034) ng/mL NT-Pro-B Natriuret Pep 27 pg/mL Total Protein (6.3-8.2) g/dL Albumin (3.5-5.0) g/dL Lipase (23-300) U/L 03/17/20 13:50 EKG shows normal sinus rhythm low voltage QRS. Septal infarct age and turning. Abnormal EKG. Ventricular rate 93 beats were minute. Intervals 120 ms. QS duration 64 ms. QT QTc is 358/445 ms. - Radiology Data Radiology results: report reviewed Chest x-ray shows no acute crit upon my process. No significant change from prior. Disposition Clinical Impression: Chest pain, Nausea Disposition: ADMITTED IP TO THIS HOSP Condition: Stable Is patient prescribed a controlled substance at d/c from ED?: No Referrals: Reynaldo Bateman MD [Primary Care Provider] - 1-2 days Time of Disposition: 15:02
[2020-03-17 13:13] LABS: Basophils % (A) 1 %; Eosinophils % (A) 1 %; HCT 42.9 % (34.0-46.0); HGB 14.3 gm/dL (11.4-16.0); Lymphocytes # (A) 1.2 k/uL (1.0-4.8); Lymphocytes % (A) 30 %; MCH 32.2 pg (25.0-35.0); MCHC 33.4 g/dL (31.0-37.0); MCV 96.7 fL (80.0-100.0); Mean Platelet Volume 7.3; Monocytes # (A) 0.1 k/uL (0-1.0); Monocytes % (A) 4 %; Neutrophils # (A) 2.4 k/uL (1.3-7.7); Neutrophils % (A) 63 %; Platelet Count 139 k/uL (150-450); RBC 4.44 m/uL (3.80-5.40); RDW 13.3 % (11.5-15.5); WBC 3.9 k/uL (3.8-10.6)
--- NOTE | 2020-03-17 13:17 | XR ---
EXAMINATION TYPE: XR chest 2V DATE OF EXAM: 03/17/2020 COMPARISON: Chest x-ray 3 days ago. HISTORY: Chest pain. TECHNIQUE: Frontal and lateral views of the chest are obtained. FINDINGS: There is no focal air space opacity, pleural effusion, or pneumothorax seen. The cardiac silhouette size is within normal limits. The osseous structures are intact. Overlying EKG leads on current study. IMPRESSION: No acute cardiopulmonary process. No significant change from prior.
[2020-03-17 13:24] LABS: ALT 48 U/L (4-34); AST 130 U/L (14-36); African American GFR (CKD) >90 (>60 ml/min/1.73 sqM); Albumin 4.4 g/dL (3.5-5.0); Alkaline Phosphatase 81 U/L (38-126); Anion Gap 10 mmol/L; Blood Urea Nitrogen 13 mg/dL (7-17); Calcium 8.4 mg/dL (8.4-10.2); Carbon Dioxide 25 mmol/L (22-30); Chloride 104 mmol/L (98-107); Glucose 103 mg/dL (74-99); Lipase 296 U/L (23-300); Magnesium 1.6 mg/dL (1.6-2.3); Non-African American GFR(CKD) >90 (>60 ml/min/1.73 sqM); Sodium 139 mmol/L (137-145); Total Bilirubin 1.6 mg/dL (0.2-1.3); Total Protein 7.4 g/dL (6.3-8.2)
[2020-03-17 13:30] LABS: INR 1.1 (<1.2)
[2020-03-17] MEDS ORDERED: ONDANSETRON 4 MG/2 ML VIAL IVP STA (14:54)
[2020-03-17] MEDS ORDERED: KETOROLAC 15 MG/ML 1 ML VIAL IVP STA (14:54)
[2020-03-17] MEDS ORDERED: PANTOPRAZOLE 40 MG/10 ML VIAL IVP STA (14:54)
[2020-03-17] MEDS ORDERED: ACETAMINOPHEN TAB 325 MG TAB PO PRN (15:02)
[2020-03-17] MEDS ORDERED: KETOROLAC 15 MG/ML 1 ML VIAL IVP PRN (15:02)
[2020-03-17] MEDS ORDERED: IBUPROFEN 400 MG TAB PO PRN (15:02)
[2020-03-17] MEDS ORDERED: NALOXONE 0.4 MG/ML 1 ML VIAL IV PRN (15:02)
[2020-03-17] MEDS ORDERED: MORPHINE SULFATE 4 MG/ML SYRINGE IV PRN (15:02)
[2020-03-17] MEDS ORDERED: ONDANSETRON 4 MG/2 ML VIAL IVP PRN (15:02)
[2020-03-17] MEDS ORDERED: SODIUM CHLORIDE 0.9% 1,000 ML IV SCH (15:15)
--- NOTE | 2020-03-17 16:00 | US ---
EXAMINATION TYPE: US gallbladder DATE OF EXAM: 03/17/2020 COMPARISON: NONE CLINICAL HISTORY: elevated bili. RUQ pain with vomiting EXAM MEASUREMENTS: Liver Length: 17.3 cm Gallbladder Wall: 0.2 cm CBD: 0.4 cm Right Kidney: 9.3 x 4.9 x 5.0 cm *bowel gas limits exam, patient vomiting just prior to exam Pancreas: wnl Liver: wnl Gallbladder: wnl Evidence for sonographic Borden's sign: no CBD: wnl Right Kidney: wnl IMPRESSION: 1. Normal right upper quadrant ultrasound
[2020-03-18 01:17] VITALS: RESP 18
[2020-03-18 08:14] VITALS: BP 143/91; PULSE 94; TEMP 98.8
[2020-03-18] MEDS ORDERED: PANTOPRAZOLE 40 MG/10 ML VIAL IV SCH (09:00)
--- NOTE | 2020-03-18 16:34 | P.HPIM ---
History of Present Illness This is a pleasant 34-year-old female came in with compensative nausea vomiting dehydration and the was also coming of some chest pain nonspecific and some radiation to the left arm no associated shortness of breath. Patient had a EKG that showed some nonspecific ST-T wave changes in the inferior leads. Patient has history of cyclical nausea vomiting syndrome. Patient has not certain of the gallbladder which did not show any significant abnormality. Patient was started on proton from inhibitor with improvement in symptoms and patient is insisting on discharge patient is hypomagnesemia and I wanted to give IV magnesium but patient wanted to go home because of which patient will be given oral magnesium supplementation. Patient denied any fever chills did as patient is insisting discharge patient will be referred to cardiology and will be discharged today Review of Systems REVIEW OF SYSTEMS: CONSTITUTIONAL: No fever, no malaise, no fatigue. HEENT: No recent visual problems or hearing problems. Denied any sore throat. CARDIOVASCULAR: No orthopnea, PND, no palpitations, no syncope. PULMONARY: No shortness of breath, no cough, no hemoptysis. GASTROINTESTINAL: As mentioned in HPI NEUROLOGICAL: No headaches, no weakness, no numbness. HEMATOLOGICAL: Denies any bleeding or petechiae. GENITOURINARY: Denies any burning micturition, frequency, or urgency. MUSCULOSKELETAL/RHEUMATOLOGICAL: Denies any joint pain, swelling, or any muscle pain. ENDOCRINE: Denies any polyuria or polydipsia. The rest of the 14-point review of systems is negative. Past Medical History Past Medical History: Asthma, Thyroid Disorder Additional Past Medical History / Comment(s): PMDD, CVS (cyclic vomiting disorder) History of Any Multi-Drug Resistant Organisms: None Reported Past Surgical History: Orthopedic Surgery, Tonsillectomy Additional Past Surgical History / Comment(s): ANKLE, ARM, Past Anesthesia/Blood Transfusion Reactions: No Reported Reaction Past Psychological History: Anxiety Smoking Status: Never smoker Past Alcohol Use History: Occasional Past Drug Use History: Marijuana - Past Family History Mother Family Medical History: No Reported History Medications and Allergies Home Medications Medication Instructions Recorded Confirmed Type Levothyroxine Sodium [Synthroid] 88 mcg PO DAILY@0845 06/05/19 03/17/20 History Sertraline HCl [Zoloft] 50 mg PO DAILY@0700 06/05/19 03/17/20 History LORazepam [Ativan] 0.5 mg PO DAILY PRN 11/30/19 03/17/20 History Albuterol Inhaler [Ventolin Hfa 2 puff INHALATION RT-Q6H PRN 03/17/20 03/17/20 History Inhaler] Camrese 0.15-0.03-0.01 1 tab PO DAILY@0845 03/17/20 03/17/20 History Ondansetron Odt [Zofran Odt] 8 mg PO DAILY PRN 03/17/20 03/17/20 History Magnesium Oxide 400 mg PO BID #10 tablet 03/18/20 Rx Omeprazole [PriLOSEC] 40 mg PO AC-BRKFST #14 capsule. 03/18/20 Rx Allergies Allergy/AdvReac Type Severity Reaction Status Date / Time cefaclor [From [facility]] Allergy Rash/Hives Verified 03/17/20 11:47 Iodinated Contrast Media Allergy Anaphylaxis Verified 03/17/20 11:47 [Iodinated Contrast- Oral and IV Dye] shellfish derived [Shellfish] Allergy Anaphylaxis Verified 03/17/20 11:47 Physical Exam Vitals: Vital Signs Temp Pulse Resp BP BP BP BP 03/18/20 08:07 98.8 F 94 16 143/91 03/18/20 02:58 98.7 F 65 18 139/88 03/17/20 20:38 97.6 F 84 18 149/72 151/95 138/87 153/97 03/17/20 16:48 99.1 F 84 16 133/87 Pulse Ox 03/18/20 08:07 94 L 03/18/20 02:58 97 03/17/20 20:38 97 03/17/20 16:48 98 Intake and Output 03/18/20 03/18/20 03/18/20 06:59 14:59 22:59 Output Total 0 Balance 0 Output: Urine 0 Other: Voiding Method Toilet Toilet # Voids 1 1 # Bowel Movements 2 1 # Emeses 0 PHYSICAL EXAMINATION: GENERAL: The patient is alert and oriented x3, not in any acute distress. Well developed, well nourished. HEENT: Pupils are round and equally reacting to light. EOMI. No scleral icterus. No conjunctival pallor. Normocephalic, atraumatic. No pharyngeal erythema. No thyromegaly. CARDIOVASCULAR: S1 and S2 present. No murmurs, rubs, or gallops. PULMONARY: Chest is clear to auscultation, no wheezing or crackles. ABDOMEN: Soft, nontender, nondistended, normoactive bowel sounds. No palpable organomegaly. MUSCULOSKELETAL: No joint swelling or deformity. EXTREMITIES: No cyanosis, clubbing, or pedal edema. NEUROLOGICAL: Gross neurological examination did not reveal any focal deficits. SKIN: No rashes. Results CBC & Chem 7: 03/17/20 12:54 03/17/20 12:54 Thrombosis Risk Factor Assmnt - Choose All That Apply Any of the Below Risk Factors Present?: No Other Risk Factors: No Other congenital or acquired thrombophilia - If yes, enter type in comment: No Thrombosis Risk Factor Assessment Level: Very Low Risk Assessment and Plan Plan: -Epigastric abdominal pain nausea vomiting: Rule out acute coronary syndromes patient will follow with cardiology as an outpatient this is secondary to gastritis or a cyclical vomiting syndrome patient the will be discharged on Protonix for 14 days patient can continue her present medications at uses cyclical vomiting syndrome Have an asthma without any acute exacerbation -hypothyroidism -Marijuana use patient uses marijuana for cyclical vomiting syndrome. Hypomagnesemia: Magnesium prescription will be provided Patient will be discharged today
--- NOTE | 2020-03-18 16:34 | P.DS ---
Providers Date of admission: 03/17/20 15:01 Attending physician: Abby Dominguez Primary care physician: Reynaldo Bateman [facility] Course: As mentioned in HPI Patient Condition at Discharge: Stable Plan - Discharge Summary New Discharge Prescriptions: New Magnesium Oxide 400 mg PO BID #10 tablet Omeprazole [PriLOSEC] 40 mg PO AC-BRKFST #14 capsule. No Action Sertraline HCl [Zoloft] 50 mg PO DAILY@0700 Levothyroxine Sodium [Synthroid] 88 mcg PO DAILY@0845 LORazepam [Ativan] 0.5 mg PO DAILY PRN PRN Reason: Anxiety Ondansetron Odt [Zofran Odt] 8 mg PO DAILY PRN PRN Reason: Nausea And Vomiting Camrese 0.15-0.03-0.01 1 tab PO DAILY@0845 Albuterol Inhaler [Ventolin Hfa Inhaler] 2 puff INHALATION RT-Q6H PRN PRN Reason: Shortness Of Breath Discharge Medication List Levothyroxine Sodium [Synthroid] 88 mcg PO DAILY@0845 06/05/19 [History] Sertraline HCl [Zoloft] 50 mg PO DAILY@0700 06/05/19 [History] LORazepam [Ativan] 0.5 mg PO DAILY PRN 11/30/19 [History] Albuterol Inhaler [Ventolin Hfa Inhaler] 2 puff INHALATION RT-Q6H PRN 03/17/20 [History] Camrese 0.15-0.03-0.01 1 tab PO DAILY@0845 03/17/20 [History] Ondansetron Odt [Zofran Odt] 8 mg PO DAILY PRN 03/17/20 [History] Magnesium Oxide 400 mg PO BID #10 tablet 03/18/20 [Rx] Omeprazole [PriLOSEC] 40 mg PO AC-BRKFST #14 capsule. 03/18/20 [Rx] Follow up Appointment(s)/Referral(s): Reynaldo Bateman MD [Primary Care Provider] - 03/21/20 9:00 am Sincere Garcai MD [STAFF PHYSICIAN] - 1 Week Ambulatory/Diagnostic Orders: Comprehensive Metabolic Panel [LAB.AMB] Time Frame: 3 Days, Location: None Selected Patient Instructions/Handouts: Chest Pain (DC), Acute Nausea and Vomiting (DC) Discharge Disposition: HOME SELF-CARE
== END 2020-03-18 11:10 | disposition home or self-care (01) ==
LOC: EC 11:35 → 3NCARDOBS 15:01
PROVIDERS: ADMIT Internal Medicine; ATTEND Internal Medicine
DX: R07.89 Other chest pain (principal); R10.13 Epigastric pain; E03.9 Hypothyroidism, unspecified; H53.8 Other visual disturbances; R00.2 Palpitations; R17 Unspecified jaundice; R94.31 Abnormal electrocardiogram [ECG] [EKG]; F41.9 Anxiety disorder, unspecified; R11.15 Cyclical vomiting syndrome unrelated to migraine; E83.42 Hypomagnesemia; J45.909 Unspecified asthma, uncomplicated; F32.81 Premenstrual dysphoric disorder; E86.0 Dehydration; Z79.890 Hormone replacement therapy; Z79.899 Other long term (current) drug therapy; Z88.1 Allergy status to other antibiotic agents; Z91.041 Radiographic dye allergy status; Z91.013 Allergy to seafood
CPT/HCPCS: 96376; 96361; 96374; 96375; 99285; 36415; 93005; 83880; 80053; 83690; 83735; 84484; 85025; 85610; 85730; 87324; 71046; 76705; G0378 ×2; J2405; J1885; C9113 ×2

== ENCOUNTER 2020-04-21 14:46 | Emergency (ER) | payer OTHER ==
[2020-04-21 15:01] VITALS: TEMP 98.2
[2020-04-21] MEDS ORDERED: METOCLOPRAMIDE 5 MG/ML 2 ML VIAL IVP STA (15:43)
[2020-04-21] MEDS ORDERED: diphenhydrAMINE 50 MG/ML 1 ML VIAL IVP STA (15:43)
[2020-04-21] MEDS ORDERED: SODIUM CHLORIDE 0.9% 2,000 ML IV STA (15:43)
--- NOTE | 2020-04-21 16:10 | ED ---
General Adult HPI - General Chief complaint: Nausea/Vomiting/Diarrhea Stated complaint: poss dehydration Time Seen by Provider: 04/21/20 15:27 Source: patient, RN notes reviewed Mode of arrival: ambulatory Limitations: no limitations - History of Present Illness Initial comments: 34-year-old female with a past medical history of cyclic vomiting syndrome Presents to the emergency department for nausea vomiting. Patient reports this has been ongoing for 4 days. States that it is actually improving by her doctor thought she would need fluids as it has not completely resolved. She is having difficulty keeping down liquids. She did try Zofran earlier today but threw it up. Patient denies any abdominal pain. Denies fevers or chills.Patient has no other complaints at this time including shortness of breath, chest pain, abdominal pain, headache, or visual changes. - Related Data Home Medications Medication Instructions Recorded Confirmed Levothyroxine Sodium [Synthroid] 88 mcg PO DAILY 06/05/19 04/21/20 Sertraline HCl [Zoloft] 50 mg PO DAILY 06/05/19 04/21/20 LORazepam [Ativan] 0.5 mg PO DAILY PRN 11/30/19 04/21/20 Albuterol Inhaler [Ventolin Hfa 2 puff INHALATION RT-Q6H PRN 03/17/20 04/21/20 Inhaler] Camrese 0.15-0.03-0.01 1 tab PO DAILY 03/17/20 04/21/20 Ondansetron Odt [Zofran Odt] 8 mg PO DAILY PRN 03/17/20 04/21/20 EPINEPHrine (Auto Inject) [Epipen] 0.3 mg IM ONCE PRN 04/21/20 04/21/20 Omeprazole [PriLOSEC] 40 mg PO AC-BRKFST PRN 04/21/20 04/21/20 Previous Rx's Medication Instructions Recorded Ondansetron [Zofran ODT] 4 mg PO Q8HR PRN #15 tab 04/21/20 Allergies Allergy/AdvReac Type Severity Reaction Status Date / Time cefaclor [From Ceclor] Allergy Rash/Hives Verified 04/21/20 17:14 Iodinated Contrast Media Allergy Anaphylaxis Verified 04/21/20 17:14 [Iodinated Contrast- Oral and IV Dye] shellfish derived [Shellfish] Allergy Anaphylaxis Verified 04/21/20 17:14 Review of Systems ROS Statement: Those systems with pertinent positive or pertinent negative responses have been documented in the HPI. ROS Other: All systems not noted in ROS Statement are negative. Past Medical History Past Medical History: Asthma, Thyroid Disorder Additional Past Medical History / Comment(s): PMDD, CVS (cyclic vomiting disorder) History of Any Multi-Drug Resistant Organisms: None Reported Past Surgical History: Orthopedic Surgery, Tonsillectomy Additional Past Surgical History / Comment(s): ANKLE, ARM, Past Anesthesia/Blood Transfusion Reactions: No Reported Reaction Past Psychological History: Anxiety Smoking Status: Never smoker Past Alcohol Use History: Occasional Past Drug Use History: Marijuana - Past Family History Mother Family Medical History: No Reported History General Exam Limitations: no limitations General appearance: alert, in no apparent distress Head exam: Present: atraumatic, normocephalic, normal inspection Eye exam: Present: normal appearance, PERRL, EOMI. Absent: scleral icterus, conjunctival injection, periorbital swelling ENT exam: Present: normal exam, mucous membranes moist Neck exam: Present: normal inspection, full ROM. Absent: tenderness, meningismus, lymphadenopathy Respiratory exam: Present: normal lung sounds bilaterally. Absent: respiratory distress, wheezes, rales, rhonchi, stridor Cardiovascular Exam: Present: regular rate, normal rhythm, normal heart sounds. Absent: systolic murmur, diastolic murmur, rubs, gallop, clicks GI/Abdominal exam: Present: soft, normal bowel sounds. Absent: distended, tenderness, guarding, rebound, rigid Neurological exam: Present: alert Course Vital Signs 04/21/20 14:58 Temperature 98.2 F Pulse Rate 97 Respiratory 18 Rate Blood Pressure 132/95 O2 Sat by Pulse 99 Oximetry Medical Decision Making - Medical Decision Making Vitals are stable. CBC CMP unremarkable. Patient does have some evidence of dehydration however and was given fluids. 2+ ketones are likely secondary to starvation ketosis as well. Patient denies any urinary symptoms, culture pending for 10 white blood cells in the urine. However 8 swimming cells likelier making this contaminated. Patient was given fluids and antiemetics and is feeling much better. At this time patient will be discharged home to follow up with primary care. She will return here for any worsening symptoms. - Lab Data Result diagrams: 04/21/20 15:43 04/21/20 15:43 Lab Results 04/21/20 04/21/20 04/21/20 Range/Units 15:43 15:43 15:43 WBC 5.3 (3.8-10.6) k/uL RBC 4.56 (3.80-5.40) m/uL Hgb 14.3 (11.4-16.0) gm/dL Hct 42.3 (34.0-46.0) % MCV 92.9 (80.0-100.0) fL MCH 31.5 (25.0-35.0) pg MCHC 33.9 (31.0-37.0) g/dL RDW 14.1 (11.5-15.5) % Plt Count 257 (150-450) k/uL MPV 7.0 Neutrophils % 64 % Lymphocytes % 29 % Monocytes % 4 % Eosinophils % 1 % Basophils % 1 % Neutrophils # 3.4 (1.3-7.7) k/uL Lymphocytes # 1.6 (1.0-4.8) k/uL Monocytes # 0.2 (0-1.0) k/uL Eosinophils # 0.1 (0-0.7) k/uL Basophils # 0.0 (0-0.2) k/uL Sodium (137-145) mmol/L Potassium (3.5-5.1) mmol/L Chloride (98-107) mmol/L Carbon Dioxide (22-30) mmol/L Anion Gap mmol/L BUN (7-17) mg/dL Creatinine (0.52-1.04) mg/dL Est GFR (CKD-EPI)AfAm (>60 ml/min/1.73 sqM) Est GFR (CKD-EPI)NonAf (>60 ml/min/1.73 sqM) Glucose (74-99) mg/dL Calcium (8.4-10.2) mg/dL Total Bilirubin (0.2-1.3) mg/dL AST (14-36) U/L ALT (4-34) U/L Alkaline Phosphatase (38-126) U/L Total Protein (6.3-8.2) g/dL Albumin (3.5-5.0) g/dL Lipase (23-300) U/L Urine Color Yellow Urine Appearance Cloudy H (Clear) Urine pH 5.5 (5.0-8.0) Ur Specific [place] 1.038 H (1.001-1.035) Urine Protein 1+ H (Negative) Urine Glucose (UA) Negative (Negative) Urine Ketones 2+ H (Negative) Urine Blood Small H (Negative) Urine Nitrite Negative (Negative) Urine Bilirubin Negative (Negative) Urine Urobilinogen <2.0 (<2.0) mg/dL Ur Leukocyte Esterase Negative (Negative) Urine RBC 4 (0-5) /hpf Urine WBC 10 H (0-5) /hpf Ur Squamous Epith Cells 8 H (0-4) /hpf Urine Bacteria Rare H (None) /hpf Urine Mucus Many H (None) /hpf Urine HCG, Qual Not Detected (Not Detectd) 04/21/20 Range/Units 15:43 WBC (3.8-10.6) k/uL RBC (3.80-5.40) m/uL Hgb (11.4-16.0) gm/dL Hct (34.0-46.0) % MCV (80.0-100.0) fL MCH (25.0-35.0) pg MCHC (31.0-37.0) g/dL RDW (11.5-15.5) % Plt Count (150-450) k/uL MPV Neutrophils % % Lymphocytes % % Monocytes % % Eosinophils % % Basophils % % Neutrophils # (1.3-7.7) k/uL Lymphocytes # (1.0-4.8) k/uL Monocytes # (0-1.0) k/uL Eosinophils # (0-0.7) k/uL Basophils # (0-0.2) k/uL Sodium 135 L (137-145) mmol/L Potassium 4.6 (3.5-5.1) mmol/L Chloride 104 (98-107) mmol/L Carbon Dioxide 17 L (22-30) mmol/L Anion Gap 14 mmol/L BUN 18 H (7-17) mg/dL Creatinine 0.80 (0.52-1.04) mg/dL Est GFR (CKD-EPI)AfAm >90 (>60 ml/min/1.73 sqM) Est GFR (CKD-EPI)NonAf >90 (>60 ml/min/1.73 sqM) Glucose 93 (74-99) mg/dL Calcium 8.2 L (8.4-10.2) mg/dL Total Bilirubin 1.3 (0.2-1.3) mg/dL AST 124 H (14-36) U/L ALT 54 H (4-34) U/L Alkaline Phosphatase 97 (38-126) U/L Total Protein 7.5 (6.3-8.2) g/dL Albumin 4.3 (3.5-5.0) g/dL Lipase 115 (23-300) U/L Urine Color Urine Appearance (Clear) Urine pH (5.0-8.0) Ur Specific [place] (1.001-1.035) Urine Protein (Negative) Urine Glucose (UA) (Negative) Urine Ketones (Negative) Urine Blood (Negative) Urine Nitrite (Negative) Urine Bilirubin (Negative) Urine Urobilinogen (<2.0) mg/dL Ur Leukocyte Esterase (Negative) Urine RBC (0-5) /hpf Urine WBC (0-5) /hpf Ur Squamous Epith Cells (0-4) /hpf Urine Bacteria (None) /hpf Urine Mucus (None) /hpf Urine HCG, Qual (Not Detectd) Disposition Clinical Impression: Nausea, Vomiting Disposition: HOME SELF-CARE Condition: Good Instructions (If sedation given, give patient instructions): Acute Nausea and Vomiting (ED) Additional Instructions: Please take Zofran as needed for nausea. Drink plenty of fluids. If you develop worsening symptoms such as fevers return to the emergency room. Prescriptions: Ondansetron [Zofran ODT] 4 mg PO Q8HR PRN #15 tab PRN Reason: Nausea Is patient prescribed a controlled substance at d/c from ED?: No Referrals: Reynaldo Bateman MD [Primary Care Provider] - 1-2 days Time of Disposition: 17:28
[2020-04-21 16:20] LABS: Basophils % (A) 1 %; Eosinophils # (A) 0.1 k/uL (0-0.7); Eosinophils % (A) 1 %; HCT 42.3 % (34.0-46.0); HGB 14.3 gm/dL (11.4-16.0); Lymphocytes # (A) 1.6 k/uL (1.0-4.8); Lymphocytes % (A) 29 %; MCH 31.5 pg (25.0-35.0); MCHC 33.9 g/dL (31.0-37.0); MCV 92.9 fL (80.0-100.0); Monocytes # (A) 0.2 k/uL (0-1.0); Monocytes % (A) 4 %; Neutrophils # (A) 3.4 k/uL (1.3-7.7); Neutrophils % (A) 64 %; Platelet Count 257 k/uL (150-450); RBC 4.56 m/uL (3.80-5.40); RDW 14.1 % (11.5-15.5); WBC 5.3 k/uL (3.8-10.6)
[2020-04-21 16:24] LABS: Appearance,Urine Cloudy (Clear); Bacteria,Urine Rare /hpf; Bilirubin,Urine Negative (Negative); Blood,Urine Small (Negative); Color,Urine Yellow; Glucose,Urine (UA) Negative (Negative); Ketones,Urine 2+ (Negative); Leukocyte Esterase,Urine Negative (Negative); Mucus,Urine Many /hpf; Nitrite,Urine Negative (Negative); PH, Urine 5.5 (5.0-8.0); Protein,Urine 1+ (Negative); RBC,Urine 4 /hpf (0-5); Specific Gravity,Urine 1.038 (1.001-1.035); Squamous Epithelial Cell,Urine 8 /hpf (0-4); Urobilinogen,Urine <2.0 mg/dL (<2.0); WBC,Urine 10 /hpf (0-5)
[2020-04-21 16:28] LABS: ALT 54 U/L (4-34); AST 124 U/L (14-36); African American GFR (CKD) >90 (>60 ml/min/1.73 sqM); Albumin 4.3 g/dL (3.5-5.0); Alkaline Phosphatase 97 U/L (38-126); Anion Gap 14 mmol/L; Blood Urea Nitrogen 18 mg/dL (7-17); Calcium 8.2 mg/dL (8.4-10.2); Carbon Dioxide 17 mmol/L (22-30); Chloride 104 mmol/L (98-107); Glucose 93 mg/dL (74-99); Lipase 115 U/L (23-300); Non-African American GFR(CKD) >90 (>60 ml/min/1.73 sqM); Sodium 135 mmol/L (137-145); Total Bilirubin 1.3 mg/dL (0.2-1.3); Total Protein 7.5 g/dL (6.3-8.2)
[2020-04-21 16:30] LABS: Potassium 4.6 mmol/L (3.5-5.1)
[2020-04-21 17:54] VITALS: BP 148/94; PULSE 101; RESP 16
== END 2020-04-21 17:55 | disposition home or self-care (01) ==
LOC: EC 14:46
DX: R11.2 Nausea with vomiting, unspecified (principal); F41.9 Anxiety disorder, unspecified; E07.9 Disorder of thyroid, unspecified; J45.909 Unspecified asthma, uncomplicated; Z79.890 Hormone replacement therapy; Z79.899 Other long term (current) drug therapy; Z88.8 Allergy status to other drugs, medicaments and biological substances; Z91.013 Allergy to seafood; Z91.041 Radiographic dye allergy status; Z20.828 Contact with and (suspected) exposure to other viral communicable diseases
CPT/HCPCS: 99284; 96374; 96375; 96361 ×2; 36415; 80053; 83690; 85025; 81001; 81025; U0003; J1200; J2765

== ENCOUNTER 2020-06-08 16:50 | Emergency (ER) | payer OTHER ==
[2020-06-08] MEDS ORDERED: METOCLOPRAMIDE 5 MG/ML 2 ML VIAL IVP STA (17:07)
[2020-06-08] MEDS ORDERED: diphenhydrAMINE 50 MG/ML 1 ML VIAL IVP STA (17:07)
[2020-06-08] MEDS: SODIUM CHLORIDE 0.9% 1,000 ML IV STA ×2 (17:30→18:02)
[2020-06-08 17:36] LABS: Basophils % (A) 1 %; Eosinophils % (A) 1 %; HCT 38.9 % (34.0-46.0); HGB 13.7 gm/dL (11.4-16.0); Lymphocytes # (A) 1.4 k/uL (1.0-4.8); Lymphocytes % (A) 27 %; MCH 33.2 pg (25.0-35.0); MCHC 35.3 g/dL (31.0-37.0); MCV 93.9 fL (80.0-100.0); Mean Platelet Volume 8.1; Monocytes # (A) 0.2 k/uL (0-1.0); Monocytes % (A) 4 %; Neutrophils # (A) 3.3 k/uL (1.3-7.7); Neutrophils % (A) 67 %; RBC 4.15 m/uL (3.80-5.40); RDW 14.6 % (11.5-15.5)
[2020-06-08 17:37] LABS: Platelet Count 73 k/uL (150-450)
[2020-06-08 17:39] LABS: Appearance,Urine Cloudy (Clear); Bacteria,Urine Rare /hpf; Bilirubin,Urine Negative (Negative); Blood,Urine Moderate (Negative); Color,Urine Light Orange; Glucose,Urine (UA) Negative (Negative); Hyaline Casts,Urine 3 /lpf (0-2); Ketones,Urine 1+ (Negative); Leukocyte Esterase,Urine Negative (Negative); Mucus,Urine Many /hpf; Nitrite,Urine Negative (Negative); Protein,Urine 2+ (Negative); RBC,Urine 6 /hpf (0-5); Specific Gravity,Urine 1.032 (1.001-1.035); Squamous Epithelial Cell,Urine 5 /hpf (0-4); Urobilinogen,Urine <2.0 mg/dL (<2.0); WBC,Urine 14 /hpf (0-5)
[2020-06-08 17:45] LABS: ALT 64 U/L (4-34); AST 226 U/L (14-36); African American GFR (CKD) >90 (>60 ml/min/1.73 sqM); Albumin 4.6 g/dL (3.5-5.0); Alkaline Phosphatase 86 U/L (38-126); Anion Gap 16 mmol/L; Blood Urea Nitrogen 12 mg/dL (7-17); Calcium 8.5 mg/dL (8.4-10.2); Carbon Dioxide 19 mmol/L (22-30); Chloride 102 mmol/L (98-107); Glucose 117 mg/dL (74-99); Non-African American GFR(CKD) >90 (>60 ml/min/1.73 sqM); Potassium 3.3 mmol/L (3.5-5.1); Sodium 137 mmol/L (137-145); Total Bilirubin 1.6 mg/dL (0.2-1.3); Total Protein 7.6 g/dL (6.3-8.2)
[2020-06-08] MEDS ORDERED: SODIUM CHLORIDE 0.9% 1,000 ML IV STA (17:59)
--- NOTE | 2020-06-08 18:27 | ED ---
Nausea/Vomiting/Diarrhea HPI - General Chief complaint: Nausea/Vomiting/Diarrhea Stated complaint: dehydration Time Seen by Provider: 06/08/20 16:58 Source: patient Mode of arrival: wheelchair Limitations: no limitations - History of Present Illness Initial comments: Patient is a 34-year-old female, with history of cyclic vomiting disorder, presenting to the emergency Department with complaints of vomiting and dehydration. Patient states she has been vomiting since yesterday and feels like she is dehydrated, she is admitting to some mild lightheadedness. Patient arrived to the ER actively vomiting. She admits to some abdominal cramping but no significant pain. She denies any chest pain or shortness of breath. She denies any recent fever or chills. Patient states she did try some Zofran at home without improvement in her symptoms. Patient states she gets this way a lot. She does have an appointment with her PCP on Saturday. She has no further complaints at this time. Upon arrival to the ER, her vitals are stable. - Related Data Home Medications Medication Instructions Recorded Confirmed Levothyroxine Sodium [Synthroid] 88 mcg PO DAILY 06/05/19 06/08/20 Sertraline HCl [Zoloft] 50 mg PO DAILY 06/05/19 06/08/20 LORazepam [Ativan] 0.5 mg PO DAILY PRN 11/30/19 06/08/20 Camrese 0.15-0.03-0.01 1 tab PO DAILY 03/17/20 06/08/20 Ondansetron Odt [Zofran Odt] 8 mg PO DAILY PRN 03/17/20 06/08/20 EPINEPHrine (Auto Inject) [Epipen] 0.3 mg IM ONCE PRN 04/21/20 06/08/20 Omeprazole [PriLOSEC] 40 mg PO AC-BRKFST 04/21/20 06/08/20 Previous Rx's Medication Instructions Recorded Ondansetron [Zofran ODT] 4 mg PO Q8HR PRN #15 tab 04/21/20 Allergies Allergy/AdvReac Type Severity Reaction Status Date / Time cefaclor [From Ceclor] Allergy Rash/Hives Verified 06/08/20 18:06 Iodinated Contrast Media Allergy Anaphylaxis Verified 06/08/20 18:06 [Iodinated Contrast- Oral and IV Dye] shellfish derived [Shellfish] Allergy Anaphylaxis Verified 06/08/20 18:06 Review of Systems ROS Statement: Those systems with pertinent positive or pertinent negative responses have been documented in the HPI. ROS Other: All systems not noted in ROS Statement are negative. Past Medical History Past Medical History: Asthma, Thyroid Disorder Additional Past Medical History / Comment(s): PMDD, CVS (cyclic vomiting disorder) History of Any Multi-Drug Resistant Organisms: None Reported Past Surgical History: Orthopedic Surgery, Tonsillectomy Additional Past Surgical History / Comment(s): ANKLE, ARM, Past Anesthesia/Blood Transfusion Reactions: No Reported Reaction Past Psychological History: Anxiety Smoking Status: Never smoker Past Alcohol Use History: Occasional Past Drug Use History: Marijuana - Past Family History Mother Family Medical History: No Reported History General Exam - General Exam Comments Initial Comments: GENERAL: Patient is well-developed and well-nourished. Patient is nontoxic, in mild distress, actively vomiting in the ER. HEAD: Atraumatic, normocephalic. EYES: Pupils equal round and reactive to light, extraocular movements intact, sclera anicteric, conjunctiva are normal. Eyelids were unremarkable. ENT: TMs normal, nares patent, oropharynx clear without exudates. Moist mucous membranes. NECK: Normal range of motion, supple without lymphadenopathy or JVD. LUNGS: Unlabored respirations. Breath sounds clear to auscultation bilaterally and equal. No wheezes rales or rhonchi. HEART: Regular rate and rhythm without murmurs, rubs or gallops. ABDOMEN: Soft, nontender, normoactive bowel sounds. No guarding, no rebound. No masses appreciated. : Deferred MUSCULOSKELETAL: Normal extremities with adequate strength and normal range of motion, no pitting or edema. No clubbing or cyanosis. NEUROLOGICAL: Patient is alert and oriented x 3. Motor and sensory are also intact. Cranial nerves II through XII grossly intact. Symmetrical smile. Normal speech, normal gait. PSYCH: Normal mood, normal affect. SKIN: Warm, Dry, normal turgor, no rashes or lesions noted. Limitations: no limitations Course Vital Signs 06/08/20 06/08/20 16:51 18:57 Temperature 98.2 F 98.3 F Pulse Rate 105 H 84 Respiratory 18 16 Rate Blood Pressure 163/107 140/90 O2 Sat by Pulse 98 99 Oximetry Procedures - [place] Protocol (Time Out) Nurse: Georgia Ornelas Medical Decision Making - Medical Decision Making Patient is a 34-year-old female with history of cyclical vomiting presenting with vomiting, dehydration 2 days. She did arrive slightly tachycardia, rest of vitals are normal. Abdomen showed normal white count, platelets are low at 73, lactic acid elevated at 4.4, this is most likely reactive, no signs of active infection. She does have some liver enzymes elevation. Urine shows no evidence of infection, hCG is negative. Patient was given 2 L of fluids as well as Reglan and has been resting completely the ER. No active vomiting. She is stable for discharge. She'll follow-up with her regular doctor. Return parameters were discussed with the patient she verbalized understanding. Case discussed Dr. Cannon. - Lab Data Result diagrams: 06/08/20 17:11 06/08/20 17:11 Lab Results 06/08/20 06/08/20 06/08/20 Range/Units 17:11 17:11 17:11 WBC 5.0 (3.8-10.6) k/uL RBC 4.15 (3.80-5.40) m/uL Hgb 13.7 (11.4-16.0) gm/dL Hct 38.9 (34.0-46.0) % MCV 93.9 (80.0-100.0) fL MCH 33.2 (25.0-35.0) pg MCHC 35.3 (31.0-37.0) g/dL RDW 14.6 (11.5-15.5) % Plt Count 73 L D (150-450) k/uL MPV 8.1 Neutrophils % 67 % Lymphocytes % 27 % Monocytes % 4 % Eosinophils % 1 % Basophils % 1 % Neutrophils # 3.3 (1.3-7.7) k/uL Lymphocytes # 1.4 (1.0-4.8) k/uL Monocytes # 0.2 (0-1.0) k/uL Eosinophils # 0.0 (0-0.7) k/uL Basophils # 0.0 (0-0.2) k/uL Sodium 137 (137-145) mmol/L Potassium 3.3 L (3.5-5.1) mmol/L Chloride 102 (98-107) mmol/L Carbon Dioxide 19 L (22-30) mmol/L Anion Gap 16 mmol/L BUN 12 (7-17) mg/dL Creatinine 0.67 (0.52-1.04) mg/dL Est GFR (CKD-EPI)AfAm >90 (>60 ml/min/1.73 sqM) Est GFR (CKD-EPI)NonAf >90 (>60 ml/min/1.73 sqM) Glucose 117 H (74-99) mg/dL Lactic Ac Sepsis Rflx Plasma Lactic Acid Shane (0.7-2.0) mmol/L Calcium 8.5 (8.4-10.2) mg/dL Total Bilirubin 1.6 H (0.2-1.3) mg/dL AST 226 H (14-36) U/L ALT 64 H (4-34) U/L Alkaline Phosphatase 86 (38-126) U/L Total Protein 7.6 (6.3-8.2) g/dL Albumin 4.6 (3.5-5.0) g/dL Urine Color Light [place] Urine Appearance Cloudy H (Clear) Urine pH 6.0 (5.0-8.0) Ur Specific [place] 1.032 (1.001-1.035) Urine Protein 2+ H (Negative) Urine Glucose (UA) Negative (Negative) Urine Ketones 1+ H (Negative) Urine Blood Moderate H (Negative) Urine Nitrite Negative (Negative) Urine Bilirubin Negative (Negative) Urine Urobilinogen <2.0 (<2.0) mg/dL Ur Leukocyte Esterase Negative (Negative) Urine RBC 6 H (0-5) /hpf Urine WBC 14 H (0-5) /hpf Ur Squamous Epith Cells 5 H (0-4) /hpf Urine Bacteria Rare H (None) /hpf Hyaline Casts 3 H (0-2) /lpf Urine Mucus Many H (None) /hpf Urine HCG, Qual (Not Detectd) 06/08/20 06/08/20 06/08/20 Range/Units 17:11 17:11 17:50 WBC (3.8-10.6) k/uL RBC (3.80-5.40) m/uL Hgb (11.4-16.0) gm/dL Hct (34.0-46.0) % MCV (80.0-100.0) fL MCH (25.0-35.0) pg MCHC (31.0-37.0) g/dL RDW (11.5-15.5) % Plt Count (150-450) k/uL MPV Neutrophils % % Lymphocytes % % Monocytes % % Eosinophils % % Basophils % % Neutrophils # (1.3-7.7) k/uL Lymphocytes # (1.0-4.8) k/uL Monocytes # (0-1.0) k/uL Eosinophils # (0-0.7) k/uL Basophils # (0-0.2) k/uL Sodium (137-145) mmol/L Potassium (3.5-5.1) mmol/L Chloride (98-107) mmol/L Carbon Dioxide (22-30) mmol/L Anion Gap mmol/L BUN (7-17) mg/dL Creatinine (0.52-1.04) mg/dL Est GFR (CKD-EPI)AfAm (>60 ml/min/1.73 sqM) Est GFR (CKD-EPI)NonAf (>60 ml/min/1.73 sqM) Glucose (74-99) mg/dL Lactic Ac Sepsis Rflx Y Plasma Lactic Acid Shane 4.4 H* (0.7-2.0) mmol/L Calcium (8.4-10.2) mg/dL Total Bilirubin (0.2-1.3) mg/dL AST (14-36) U/L ALT (4-34) U/L Alkaline Phosphatase (38-126) U/L Total Protein (6.3-8.2) g/dL Albumin (3.5-5.0) g/dL Urine Color Urine Appearance (Clear) Urine pH (5.0-8.0) Ur Specific [place] (1.001-1.035) Urine Protein (Negative) Urine Glucose (UA) (Negative) Urine Ketones (Negative) Urine Blood (Negative) Urine Nitrite (Negative) Urine Bilirubin (Negative) Urine Urobilinogen (<2.0) mg/dL Ur Leukocyte Esterase (Negative) Urine RBC (0-5) /hpf Urine WBC (0-5) /hpf Ur Squamous Epith Cells (0-4) /hpf Urine Bacteria (None) /hpf Hyaline Casts (0-2) /lpf Urine Mucus (None) /hpf Urine HCG, Qual Not Detected (Not Detectd) Disposition Clinical Impression: Cyclical vomiting, Dehydration Disposition: HOME SELF-CARE Condition: Stable Instructions (If sedation given, give patient instructions): Acute Nausea and Vomiting (ED) Additional Instructions: Please return to the Emergency Department if symptoms worsen or any other conc erns. Continue with her already prescribed medications. Please follow-up with your PCP regarding the low platelets, please have these rechecked. Is patient prescribed a controlled substance at d/c from ED?: No Referrals: Reynaldo Bateman MD [Primary Care Provider] - 1-2 days
[2020-06-08 18:58] VITALS: BP 140/90; PULSE 84; RESP 16; TEMP 98.3
== END 2020-06-08 20:06 | disposition home or self-care (01) ==
LOC: EC 16:50
DX: R11.15 Cyclical vomiting syndrome unrelated to migraine (principal); E86.0 Dehydration; R74.02 Elevation of levels of lactic acid dehydrogenase [LDH]; R00.0 Tachycardia, unspecified; Z88.1 Allergy status to other antibiotic agents; Z91.013 Allergy to seafood; Z91.041 Radiographic dye allergy status; E07.9 Disorder of thyroid, unspecified; F41.9 Anxiety disorder, unspecified; Z79.890 Hormone replacement therapy; Z79.899 Other long term (current) drug therapy
CPT/HCPCS: 36415; 80053; 83605; 85025; 81001; 81025; 87086; 99284; 96374; 96375; 96361 ×2; J1200; J2765

== ENCOUNTER 2020-06-10 09:49 | Emergency (ER) | payer OTHER ==
[2020-06-10] MEDS ORDERED: SODIUM CHLORIDE 0.9% 500 ML 500 ML IV STA (10:11)
[2020-06-10] MEDS ORDERED: LORazepam 2 MG/ML INJ IV STA (10:12)
--- NOTE | 2020-06-10 10:20 | ED ---
General Adult HPI - General Source: patient Mode of arrival: ambulatory Limitations: no limitations <Tish Freeman - Last Filed: 06/10/20 15:03> <Angelia Pablo - Last Filed: 06/11/20 12:16> - General Chief complaint: Seizure Stated complaint: ? seizure last night Time Seen by Provider: 06/10/20 10:02 - History of Present Illness Initial comments: 34yo female with history of anxiety, cyclic vomiting syndrome presenting today for cc of possible seizure. pt states yesterday evening she was inbed with her son who states she just started shaking while talking and couldnt wake her up. her kids called 911 and the neighbor who is EMT came over. She states she woke up to them calling her name. She denies headache, loss of bowel/bladder control, nausea, vomiting, visual changes, chest pain SOB or other symptoms prior. pt states she was drinking yesterday evening. pt states she refused to come to the hospital. pt states this morning she was concerned she possibly did have a seizure and thus came to the ER. Patient denies current symptoms. pt states that 3 days ago she did have some nausea vomiting. she states she had "brain fog' no headaches, no neck pain. No other identified symptoms. pt appear anxious on arrival, however nontoxic in no acute distress. no hx of seizures or familial history. (Tish Freeman) - Related Data Home Medications Medication Instructions Recorded Confirmed Levothyroxine Sodium [Synthroid] 88 mcg PO DAILY 06/05/19 06/10/20 Sertraline HCl [Zoloft] 50 mg PO DAILY 06/05/19 06/10/20 LORazepam [Ativan] 0.5 mg PO DAILY PRN 11/30/19 06/10/20 Camrese 0.15-0.03-0.01 1 tab PO DAILY 03/17/20 06/10/20 EPINEPHrine (Auto Inject) [Epipen] 0.3 mg IM ONCE PRN 04/21/20 06/10/20 Omeprazole [PriLOSEC] 40 mg PO AC-BRKFST 04/21/20 06/10/20 Previous Rx's Medication Instructions Recorded Ondansetron [Zofran ODT] 4 mg PO Q8HR PRN #15 tab 04/21/20 Allergies Allergy/AdvReac Type Severity Reaction Status Date / Time cefaclor [From Ceclor] Allergy Rash/Hives Verified 06/10/20 10:22 Iodinated Contrast Media Allergy Anaphylaxis Verified 06/10/20 10:22 [Iodinated Contrast- Oral and IV Dye] shellfish derived [Shellfish] Allergy Anaphylaxis Verified 06/10/20 10:22 Review of Systems ROS Other: All systems not noted in ROS Statement are negative. <Tish Freeman - Last Filed: 06/10/20 15:03> ROS Other: All systems not noted in ROS Statement are negative. <Angelia Pablo Jessie - Last Filed: 06/11/20 12:16> ROS Statement: Those systems with pertinent positive or pertinent negative responses have been documented in the HPI. Past Medical History Past Medical History: Asthma, Seizure Disorder, Thyroid Disorder Additional Past Medical History / Comment(s): PMDD, CVS (cyclic vomiting disorder) History of Any Multi-Drug Resistant Organisms: None Reported Past Surgical History: Orthopedic Surgery, Tonsillectomy Additional Past Surgical History / Comment(s): ANKLE, ARM, Past Anesthesia/Blood Transfusion Reactions: No Reported Reaction Past Psychological History: Anxiety Smoking Status: Never smoker Past Alcohol Use History: Occasional Past Drug Use History: Marijuana - Past Family History Mother Family Medical History: No Reported History <Tish Freeman - Last Filed: 06/10/20 15:03> General Exam Limitations: no limitations <Tish Freeman - Last Filed: 06/10/20 15:03> - General Exam Comments Initial Comments: General: The patient is awake and alert, in no distress Eye: +3 mm pupils are equal, round and reactive to light, extra-ocular movements are intact. No nystagmus. There is normal conjunctiva bilaterally. No signs of icterus. Ears, nose, mouth and throat: There are moist mucous membranes and no oral lesions. Neck: The neck is supple, there is no tenderness or JVD. Cardiovascular: There is a regular rate and rhythm. No murmur, rub or gallop is appreciated. Respiratory: Lungs are clear to auscultation, respirations are non-labored, breath sounds are equal. No wheezes, stridor, rales, or rhonchi. Gastrointestinal: Soft, non-distended, non-tender abdomen without masses or organomegaly noted. There is no rebound or guarding present. Musculoskeletal: Normal ROM, no tenderness. Strength 5/5. Sensation intact. Pulses equal bilaterally 2+. Neurological: A&O x 3. CN II-XII intact, memory intact to immediately, int ermediate and care home recall. Able to follow simple verbal. Able to name a common object. High quality, labial (pa) and lingual (la) speech. Low quality posterior pharynx/larynx (ga) voice sounds. Able to express general knowledge. No hemineglect or inattention noted. Finger agnosia (-) and spatially oriented. Light touch sensation present over the face, chest, abdomen, back, UE bilaterally, and LE bilaterally. Able to localize point during point localization b/l and extinction. No visible bulk atrophy, hypertrophy, fasciculations, or myoclonus of the UE or LE b/l. Full PROM in UE and LE b/l. Bilateral muscle strength 5/5 for the following muscles: deltoid, biceps, triceps, brachioradialis, wrist extensors/flexor, hip flexor, hip abductors/adductors, hamstrings, quadriceps, feet dorsiflexors/plantar flexors. Finger to nose, finger to the examiners finger, and heel to jacobsen coordinated and accurate b/l. Coordinated and even demonstration of hand flip, finger to thumb, and toe tap b/l.Gait is coordinated and even in stride. (-) pronator drift. No nuchal rigidity. Skin: Skin is warm and dry and no rashes or lesions are noted. Psychiatric: Cooperative, appropriate mood & affect, normal judgment. (Tish Freeman) Course Vital Signs 06/10/20 06/10/20 06/10/20 09:51 11:08 11:19 Temperature 98.4 F 98.1 F 98.2 F Pulse Rate 132 H 92 95 Respiratory 18 18 16 Rate Blood Pressure 147/100 137/99 137/99 O2 Sat by Pulse 99 99 99 Oximetry 06/10/20 06/10/20 13:02 14:48 Temperature 99.1 F Pulse Rate 86 100 Respiratory 18 18 Rate Blood Pressure 148/105 145/107 O2 Sat by Pulse 98 96 Oximetry Medical Decision Making - Lab Data Result diagrams: 06/10/20 10:39 06/10/20 10:39 <Tish Freeman - Last Filed: 06/10/20 15:03> - Lab Data Result diagrams: 06/10/20 10:39 06/10/20 10:39 <Angelia Pablo - Last Filed: 06/11/20 12:16> - Medical Decision Making Hx of possible seizure. CK increased could be from seizure activity. potassium low. replaced orally and IV. pt refused admission OR transfer to [facility] for neurological evaluation. discussed importance of EEG/MRI. Pt states that she does not want to stay. pt states she cannto stay secnodary to her children. I discussed potassium levels-risks of low potassium. pt denies vomiting after treatment yesterday. After discussing case with Dr. Pablo who advise patient to be transferred to [facility] or stay in this hospital for further monitoring/treatment. pt refused, left AMA after discussed of , disability. pt able to recite risks. pt states she will figure out someone to watch kids then return to the ER tomorrow or later today, (Tish Freeman) I was available for consultation in the emergency department. The history and physical exam were done by the midlevel provider. I was consulted for this patients care. I reviewed the case with the midlevel provider and based on their presentation of the patient, I agree with the assessment, medical decision making and plan of care as documented. Chart was dictated using [employer] dictation software. Attempts were made to correct any dictation errors however some typographical errors may persist. Patient was seen during a national state of emergency due to the Covid-19 pandemic. (Angelia Pablo) - Lab Data Lab Results 06/10/20 06/10/20 06/10/20 Range/Units 10:39 10:39 10:39 WBC 3.8 (3.8-10.6) k/uL RBC 4.02 (3.80-5.40) m/uL Hgb 12.6 (11.4-16.0) gm/dL Hct 37.9 (34.0-46.0) % MCV 94.3 (80.0-100.0) fL MCH 31.4 (25.0-35.0) pg MCHC 33.3 (31.0-37.0) g/dL RDW 15.5 (11.5-15.5) % Plt Count 83 L (150-450) k/uL MPV 8.1 Neutrophils % 66 % Lymphocytes % 27 % Monocytes % 4 % Eosinophils % 2 % Basophils % 0 % Neutrophils # 2.5 (1.3-7.7) k/uL Lymphocytes # 1.0 (1.0-4.8) k/uL Monocytes # 0.1 (0-1.0) k/uL Eosinophils # 0.1 (0-0.7) k/uL Basophils # 0.0 (0-0.2) k/uL Manual Slide Review Performed Sodium 133 L (137-145) mmol/L Potassium 2.6 L* (3.5-5.1) mmol/L Chloride 98 (98-107) mmol/L Carbon Dioxide 27 (22-30) mmol/L Anion Gap 8 mmol/L BUN 5 L (7-17) mg/dL Creatinine 0.68 (0.52-1.04) mg/dL Est GFR (CKD-EPI)AfAm >90 (>60 ml/min/1.73 sqM) Est GFR (CKD-EPI)NonAf >90 (>60 ml/min/1.73 sqM) Glucose 108 H (74-99) mg/dL Calcium 8.6 (8.4-10.2) mg/dL Magnesium (1.6-2.3) mg/dL Total Bilirubin 2.1 H (0.2-1.3) mg/dL AST 136 H (14-36) U/L ALT 48 H (4-34) U/L Alkaline Phosphatase 70 (38-126) U/L Creatine Kinase 987 H (30-135) U/L Total Protein 6.9 (6.3-8.2) g/dL Albumin 4.1 (3.5-5.0) g/dL Urine Color Light Yellow Urine Appearance Clear (Clear) Urine pH 6.5 (5.0-8.0) Ur Specific [place] 1.003 (1.001-1.035) Urine Protein Negative (Negative) Urine Glucose (UA) Negative (Negative) Urine Ketones Negative (Negative) Urine Blood Small H (Negative) Urine Nitrite Negative (Negative) Urine Bilirubin Negative (Negative) Urine Urobilinogen <2.0 (<2.0) mg/dL Ur Leukocyte Esterase Negative (Negative) Urine RBC 1 (0-5) /hpf Urine WBC 1 (0-5) /hpf Ur Squamous Epith Cells 1 (0-4) /hpf Urine Bacteria Rare H (None) /hpf Urine Opiates Screen Not Detected (NotDetected) Ur Oxycodone Screen Not Detected (NotDetected) Urine Methadone Screen Not Detected (NotDetected) Ur Propoxyphene Screen Not Detected (NotDetected) Ur Barbiturates Screen Not Detected (NotDetected) U Tricyclic Antidepress Not Detected (NotDetected) Ur Phencyclidine Scrn Not Detected (NotDetected) Ur Amphetamines Screen Not Detected (NotDetected) U Methamphetamines Scrn Not Detected (NotDetected) U Benzodiazepines Scrn Not Detected (NotDetected) Urine Cocaine Screen Not Detected (NotDetected) U Marijuana (THC) Screen Detected H (NotDetected) Serum Alcohol <10 mg/dL 06/10/20 Range/Units 14:22 WBC (3.8-10.6) k/uL RBC (3.80-5.40) m/uL Hgb (11.4-16.0) gm/dL Hct (34.0-46.0) % MCV (80.0-100.0) fL MCH (25.0-35.0) pg MCHC (31.0-37.0) g/dL RDW (11.5-15.5) % Plt Count (150-450) k/uL MPV Neutrophils % % Lymphocytes % % Monocytes % % Eosinophils % % Basophils % % Neutrophils # (1.3-7.7) k/uL Lymphocytes # (1.0-4.8) k/uL Monocytes # (0-1.0) k/uL Eosinophils # (0-0.7) k/uL Basophils # (0-0.2) k/uL Manual Slide Review Sodium (137-145) mmol/L Potassium (3.5-5.1) mmol/L Chloride (98-107) mmol/L Carbon Dioxide (22-30) mmol/L Anion Gap mmol/L BUN (7-17) mg/dL Creatinine (0.52-1.04) mg/dL Est GFR (CKD-EPI)AfAm (>60 ml/min/1.73 sqM) Est GFR (CKD-EPI)NonAf (>60 ml/min/1.73 sqM) Glucose (74-99) mg/dL Calcium (8.4-10.2) mg/dL Magnesium 1.4 L (1.6-2.3) mg/dL Total Bilirubin (0.2-1.3) mg/dL AST (14-36) U/L ALT (4-34) U/L Alkaline Phosphatase (38-126) U/L Creatine Kinase (30-135) U/L Total Protein (6.3-8.2) g/dL Albumin (3.5-5.0) g/dL Urine Color Urine Appearance (Clear) Urine pH (5.0-8.0) Ur Specific [place] (1.001-1.035) Urine Protein (Negative) Urine Glucose (UA) (Negative) Urine Ketones (Negative) Urine Blood (Negative) Urine Nitrite (Negative) Urine Bilirubin (Negative) Urine Urobilinogen (<2.0) mg/dL Ur Leukocyte Esterase (Negative) Urine RBC (0-5) /hpf Urine WBC (0-5) /hpf Ur Squamous Epith Cells (0-4) /hpf Urine Bacteria (None) /hpf Urine Opiates Screen (NotDetected) Ur Oxycodone Screen (NotDetected) Urine Methadone Screen (NotDetected) Ur Propoxyphene Screen (NotDetected) Ur Barbiturates Screen (NotDetected) U Tricyclic Antidepress (NotDetected) Ur Phencyclidine Scrn (NotDetected) Ur Amphetamines Screen (NotDetected) U Methamphetamines Scrn (NotDetected) U Benzodiazepines Scrn (NotDetected) Urine Cocaine Screen (NotDetected) U Marijuana (THC) Screen (NotDetected) Serum Alcohol mg/dL Disposition Is patient prescribed a controlled substance at d/c from ED?: No Time of Disposition: 15:12 <Tish Freeman - Last Filed: 06/10/20 15:03> <Angelia Pablo - Last Filed: 06/11/20 12:16> Clinical Impression: Hypokalemia, Hypomagnesemia, Seizure Disposition: Left Against Medical Advice Condition: Undetermined Referrals: Reynaldo Bateman MD [Primary Care Provider] - 1-2 days
[2020-06-10 11:01] LABS: Basophils % (A) 0 %; Eosinophils # (A) 0.1 k/uL (0-0.7); Eosinophils % (A) 2 %; HCT 37.9 % (34.0-46.0); HGB 12.6 gm/dL (11.4-16.0); Lymphocytes % (A) 27 %; MCH 31.4 pg (25.0-35.0); MCHC 33.3 g/dL (31.0-37.0); MCV 94.3 fL (80.0-100.0); Mean Platelet Volume 8.1; Monocytes # (A) 0.1 k/uL (0-1.0); Monocytes % (A) 4 %; Neutrophils # (A) 2.5 k/uL (1.3-7.7); Neutrophils % (A) 66 %; RBC 4.02 m/uL (3.80-5.40); RDW 15.5 % (11.5-15.5); WBC 3.8 k/uL (3.8-10.6)
[2020-06-10 11:02] LABS: Appearance,Urine Clear (Clear); Bacteria,Urine Rare /hpf; Bilirubin,Urine Negative (Negative); Blood,Urine Small (Negative); Color,Urine Light Yellow; Glucose,Urine (UA) Negative (Negative); Ketones,Urine Negative (Negative); Leukocyte Esterase,Urine Negative (Negative); Nitrite,Urine Negative (Negative); PH, Urine 6.5 (5.0-8.0); Protein,Urine Negative (Negative); RBC,Urine 1 /hpf (0-5); Specific Gravity,Urine 1.003 (1.001-1.035); Squamous Epithelial Cell,Urine 1 /hpf (0-4); Urobilinogen,Urine <2.0 mg/dL (<2.0); WBC,Urine 1 /hpf (0-5)
[2020-06-10 11:04] LABS: ALT 48 U/L (4-34); AST 136 U/L (14-36); African American GFR (CKD) >90 (>60 ml/min/1.73 sqM); Albumin 4.1 g/dL (3.5-5.0); Alcohol <10 mg/dL; Alkaline Phosphatase 70 U/L (38-126); Anion Gap 8 mmol/L; Blood Urea Nitrogen 5 mg/dL (7-17); Calcium 8.6 mg/dL (8.4-10.2); Carbon Dioxide 27 mmol/L (22-30); Chloride 98 mmol/L (98-107); Creatine Kinase 987 U/L (30-135); Glucose 108 mg/dL (74-99); Non-African American GFR(CKD) >90 (>60 ml/min/1.73 sqM); Sodium 133 mmol/L (137-145); Total Bilirubin 2.1 mg/dL (0.2-1.3); Total Protein 6.9 g/dL (6.3-8.2)
[2020-06-10 11:07] LABS: Amphetamine Screen,Urine Not Detected (NotDetected); Benzodiazepines Screen,Urine Not Detected (NotDetected); Cocaine Screen,Urine Not Detected (NotDetected); Methadone Screen, Urine Not Detected (NotDetected); Opiate Screen,Urine Not Detected (NotDetected); Phencyclidine Screen,Urine Not Detected (NotDetected); Tricyclic Antidepressant,Urine Not Detected (NotDetected); Urn Cannabinoid Scrn Detected (NotDetected)
[2020-06-10 11:08] LABS: Barbiturate Screen,Urine Not Detected (NotDetected); Oxycodone Screen, Urine Not Detected (NotDetected)
[2020-06-10 11:19] LABS: Potassium 2.6 mmol/L (3.5-5.1)
[2020-06-10] MEDS ORDERED: POTASSIUM CHLORIDE ER 20 MEQ TAB.ER PO STA (11:21)
[2020-06-10] MEDS ORDERED: POTASSIUM CHLORIDE 20 MEQ in WATER FOR INJECTION 1 100ML.BAG IVPB STA (11:21)
[2020-06-10 11:24] LABS: Platelet Count 83 k/uL (150-450)
--- NOTE | 2020-06-10 11:36 | CT ---
EXAMINATION TYPE: CT brain wo con DATE OF EXAM: 06/10/2020 COMPARISON: None. HISTORY: Seizure CT DLP: 1118.4 mGycm. Automated Exposure Control for Dose Reduction was Utilized. TECHNIQUE: CT scan of the head is performed without contrast. FINDINGS: There is no acute intracranial hemorrhage, mass effect, or midline shift identified. The ventricles and sulci are within normal limits in size. [place]-white matter differentiation is maintain ed. The globes are intact and the visualized sinuses are clear. IMPRESSION: No acute intracranial hemorrhage or midline shift is seen.
[2020-06-10 13:03] VITALS: RESP 18
[2020-06-10 14:49] VITALS: BP 145/107; PULSE 100; TEMP 99.1
== END 2020-06-10 14:49 | disposition left against medical advice (07) ==
LOC: EC 09:49
DX: R56.9 Unspecified convulsions (principal); E87.6 Hypokalemia; E83.42 Hypomagnesemia; E07.9 Disorder of thyroid, unspecified; J45.909 Unspecified asthma, uncomplicated; F41.9 Anxiety disorder, unspecified; Z79.3 Long term (current) use of hormonal contraceptives; Z79.899 Other long term (current) drug therapy; Z79.890 Hormone replacement therapy; Z88.1 Allergy status to other antibiotic agents; Z91.041 Radiographic dye allergy status; Z91.013 Allergy to seafood; Z53.29 Procedure and treatment not carried out because of patient's decision for other reasons
CPT/HCPCS: 36415; 93005; 80053; 82550; 83735; 85025; 81001; 80306; 70450; 99284; 96365; 96366; 96375; 96361; G0480; J2060; J3480; 80320

== ENCOUNTER 2020-06-12 10:28 | Emergency (ER) | payer OTHER ==
[2020-06-12 10:39] VITALS: TEMP 98.6
--- NOTE | 2020-06-12 10:49 | ED ---
Recheck HPI - General Chief Complaint: Recheck/Abnormal Lab/Rx Stated Complaint: revisit - abn labs Time Seen by Provider: 06/12/20 10:39 Source: patient Mode of arrival: ambulatory Limitations: no limitations - History of Present Illness Initial Comments: 34yo female presenting for lab recheck. pt states that her potassium was low last visit but she did not want to stay inpatient for neurological evaluation/potassium monitoring after initially presenting for new onset seizure. pt left against medical advice. pt states she came back to have her lab rechecked. denies additional seizure like activity, denies fatigue, weakness, nausea, vomiting, chest pain, palpitations or additional complaints. patient tearful during history stating she doesnt want to be admitted but only wants to make sure her labs are ok. patient other cole appears well nontoxic in no acute distress. - Related Data Home Medications Medication Instructions Recorded Confirmed Levothyroxine Sodium [Synthroid] 88 mcg PO DAILY 06/05/19 06/12/20 Sertraline HCl [Zoloft] 50 mg PO DAILY 06/05/19 06/12/20 LORazepam [Ativan] 0.5 mg PO DAILY PRN 11/30/19 06/12/20 Camrese 0.15-0.03-0.01 1 tab PO DAILY 03/17/20 06/12/20 EPINEPHrine (Auto Inject) [Epipen] 0.3 mg IM ONCE PRN 04/21/20 06/12/20 Omeprazole [PriLOSEC] 40 mg PO AC-BRKFST 04/21/20 06/12/20 Previous Rx's Medication Instructions Recorded Ondansetron [Zofran ODT] 4 mg PO Q8HR PRN #15 tab 04/21/20 Allergies Allergy/AdvReac Type Severity Reaction Status Date / Time cefaclor [From Ceclor] Allergy Rash/Hives Verified 06/12/20 11:34 Iodinated Contrast Media Allergy Anaphylaxis Verified 06/12/20 11:34 [Iodinated Contrast- Oral and IV Dye] shellfish derived [Shellfish] Allergy Anaphylaxis Verified 06/12/20 11:34 Review of Systems ROS Statement: Those systems with pertinent positive or pertinent negative responses have been documented in the HPI. ROS Other: All systems not noted in ROS Statement are negative. Past Medical History Past Medical History: Asthma, Seizure Disorder, Thyroid Disorder Additional Past Medical History / Comment(s): PMDD, CVS (cyclic vomiting disorder) History of Any Multi-Drug Resistant Organisms: None Reported Past Surgical History: Orthopedic Surgery, Tonsillectomy Additional Past Surgical History / Comment(s): ANKLE, ARM, Past Anesthesia/Blood Transfusion Reactions: No Reported Reaction Past Psychological History: Anxiety Smoking Status: Never smoker Past Alcohol Use History: Occasional Past Drug Use History: Marijuana - Past Family History Mother Family Medical History: No Reported History General Exam - General Exam Comments Initial Comments: General: The patient is awake and alert, in no distress Eye: Pupils are equal, round and reactive to light, extra-ocular movements are intact. No nystagmus. There is normal conjunctiva bilaterally. No signs of ic terus. Ears, nose, mouth and throat: There are moist mucous membranes and no oral lesions. Neck: The neck is supple, there is no tenderness or JVD. Cardiovascular: There is a regular rate and rhythm. No murmur, rub or gallop is appreciated. Respiratory: Lungs are clear to auscultation, respirations are non-labored, breath sounds are equal. No wheezes, stridor, rales, or rhonchi. Gastrointestinal: [Soft, non-distended, non-tender abdomen without masses or organomegaly noted. There is no rebound or guarding present. Musculoskeletal: Normal ROM, no tenderness. Strength 5/5. Sensation intact. Radial pulses equal bilaterally 2+. Neurological: A&O x 3. CN II-XII intact grossly, There are no obvious motor or sensory deficits. Coordination appears grossly intact. Speech is normal. Skin: Skin is warm and dry and no rashes or lesions are noted. Psychiatric: Cooperative, appropriate mood & affect, normal judgment. Limitations: no limitations Course Vital Signs 06/12/20 06/12/20 10:37 11:16 Temperature 98.6 F Pulse Rate 98 84 Respiratory 18 16 Rate Blood Pressure 143/99 144/97 O2 Sat by Pulse 99 99 Oximetry Medical Decision Making - Medical Decision Making K+ increased to 3. magnesium dropped .2 to 1.2. Magensium replaced orally as well as potassium. pt states she has no symptoms. pt denies additional seizures. pt states she has outpatient PCP appointment tomorrow. pt case discussed wtih > Davis. pt discharged appearing well Ventricular rate 81 bpm, MD interval 124 ms, QRS ration 74 ms, QT/QTC 390/453 ms. There is no ST elevation or depression. There is significant artifact. no QT prolongation. - Lab Data Result diagrams: 06/12/20 11:16 06/12/20 11:16 Lab Results 06/12/20 06/12/20 Range/Units 11:16 11:16 WBC 3.6 L (3.8-10.6) k/uL RBC 3.68 L (3.80-5.40) m/uL Hgb 11.9 (11.4-16.0) gm/dL Hct 35.3 (34.0-46.0) % MCV 95.9 (80.0-100.0) fL MCH 32.4 (25.0-35.0) pg MCHC 33.8 (31.0-37.0) g/dL RDW 16.2 H (11.5-15.5) % Plt Count 114 L (150-450) k/uL MPV 7.8 Neutrophils % 62 % Lymphocytes % 27 % Monocytes % 7 % Eosinophils % 2 % Basophils % 1 % Neutrophils # 2.2 (1.3-7.7) k/uL Lymphocytes # 1.0 (1.0-4.8) k/uL Monocytes # 0.3 (0-1.0) k/uL Eosinophils # 0.1 (0-0.7) k/uL Basophils # 0.0 (0-0.2) k/uL Anisocytosis Slight Sodium 137 (137-145) mmol/L Potassium 3.0 L (3.5-5.1) mmol/L Chloride 102 (98-107) mmol/L Carbon Dioxide 26 (22-30) mmol/L Anion Gap 9 mmol/L BUN 6 L (7-17) mg/dL Creatinine 0.64 (0.52-1.04) mg/dL Est GFR (CKD-EPI)AfAm >90 (>60 ml/min/1.73 sqM) Est GFR (CKD-EPI)NonAf >90 (>60 ml/min/1.73 sqM) Glucose 111 H (74-99) mg/dL Calcium 9.1 (8.4-10.2) mg/dL Magnesium 1.2 L (1.6-2.3) mg/dL Total Bilirubin 0.6 (0.2-1.3) mg/dL AST 89 H (14-36) U/L ALT 47 H (4-34) U/L Alkaline Phosphatase 46 (38-126) U/L Total Protein 6.7 (6.3-8.2) g/dL Albumin 4.0 (3.5-5.0) g/dL Disposition Clinical Impression: Hypomagnesemia, Hypokalemia, Asymptomatic Disposition: HOME SELF-CARE Condition: Good Instructions (If sedation given, give patient instructions): Hypokalemia (ED), Hypomagnesemia (ED) Additional Instructions: Please use medication as discussed. Please follow-up with family doctor on Saturday as scheduled. Take your magnesium supplements as prescribed. Have labs rechecked next week by primary care provider. Return to ER for palpitations, chest pain, fatigue, shortness of breath, muscle cramping. Please return to emergency room if the symptoms increase or worsen or for any other concerns. Is patient prescribed a controlled substance at d/c from ED?: No Referrals: Reynaldo Bateman MD [Primary Care Provider] - 1-2 days Time of Disposition: 11:44
[2020-06-12 11:17] VITALS: BP 144/97; PULSE 84; RESP 16
[2020-06-12 11:24] LABS: Anisocytosis Slight; Basophils % (A) 1 %; Eosinophils # (A) 0.1 k/uL (0-0.7); Eosinophils % (A) 2 %; HCT 35.3 % (34.0-46.0); HGB 11.9 gm/dL (11.4-16.0); Lymphocytes % (A) 27 %; MCH 32.4 pg (25.0-35.0); MCHC 33.8 g/dL (31.0-37.0); MCV 95.9 fL (80.0-100.0); Mean Platelet Volume 7.8; Monocytes # (A) 0.3 k/uL (0-1.0); Monocytes % (A) 7 %; Neutrophils # (A) 2.2 k/uL (1.3-7.7); Neutrophils % (A) 62 %; Platelet Count 114 k/uL (150-450); RBC 3.68 m/uL (3.80-5.40); RDW 16.2 % (11.5-15.5); WBC 3.6 k/uL (3.8-10.6)
[2020-06-12 11:33] LABS: ALT 47 U/L (4-34); AST 89 U/L (14-36); African American GFR (CKD) >90 (>60 ml/min/1.73 sqM); Alkaline Phosphatase 46 U/L (38-126); Anion Gap 9 mmol/L; Blood Urea Nitrogen 6 mg/dL (7-17); Calcium 9.1 mg/dL (8.4-10.2); Carbon Dioxide 26 mmol/L (22-30); Chloride 102 mmol/L (98-107); Glucose 111 mg/dL (74-99); Magnesium 1.2 mg/dL (1.6-2.3); Non-African American GFR(CKD) >90 (>60 ml/min/1.73 sqM); Sodium 137 mmol/L (137-145); Total Bilirubin 0.6 mg/dL (0.2-1.3); Total Protein 6.7 g/dL (6.3-8.2)
[2020-06-12] MEDS ORDERED: MAGNESIUM OXIDE 400 MG TAB PO STA (11:33)
[2020-06-12] MEDS ORDERED: POTASSIUM CHLORIDE ER 20 MEQ TAB.ER PO STA (11:37)
== END 2020-06-12 12:13 | disposition home or self-care (01) ==
LOC: EC 10:28
DX: E87.6 Hypokalemia (principal); E83.42 Hypomagnesemia; E07.9 Disorder of thyroid, unspecified; J45.909 Unspecified asthma, uncomplicated; F41.9 Anxiety disorder, unspecified; Z79.890 Hormone replacement therapy; Z79.899 Other long term (current) drug therapy; Z88.1 Allergy status to other antibiotic agents; Z91.013 Allergy to seafood; Z91.041 Radiographic dye allergy status
CPT/HCPCS: 36415; 80053; 83735; 85025; 93005; 99285

== ENCOUNTER → 2020-06-20 | Outpatient (CLI) | payer OTHER ==
--- NOTE | 2020-06-20 14:35 | MR ---
EXAMINATION TYPE: MR knee RT wo con DATE OF EXAM: 06/20/2020 COMPARISON: Outside right knee x-ray May 25, 2020 HISTORY: Right knee pain TECHNIQUE: Multiplanar, multisequence imaging of the right knee is performed without IV contrast. FINDINGS: MEDIAL MENISCUS: Anterior and posterior horns are intact without tear. LATERAL MENISCUS: Anterior and posterior horns are intact without tear. CRUCIATE LIGAMENTS: The anterior and posterior cruciate ligaments are intact and unremarkable. COLLATERAL LIGAMENTS: The lateral collateral ligament complex is intact and unremarkable. Medial shahla ateral ligament shows increased signal with areas of clearing and adjacent surrounding fluid, focal f ull-thickness defect mid substance seen axial image 13 EXTENSOR MECHANISM: Visualized quadriceps and patellar tendons are intact. EFFUSION: Eiohw-dw-ovjesorw size suprapatellar joint effusion. POPLITEAL CYST: No popliteal/pool cyst. TRICOMPARTMENT SPACES: Tricompartment joint space is maintained. No significant spurring. CARTILAGE: Tricompartment articular cartilage preserved. BONE MARROW SIGNAL: Focus of increased T2 signal measuring 1.6 cm AP diameter posterior aspect of the distal posterior lateral femoral condyle. OTHER: No additional significant abnormality is appreciated. IMPRESSION: 1. Significant partial tear/focal full-thickness tear of portion of the medial collateral ligament wi th surrounding sprain injury. 2. No meniscal tear. 3. Small to moderate-sized joint effusion. 4. Small focus of abnormal bone marrow edema involving posterior aspect of the distal lateral femoral condyle.
== END | disposition home or self-care (01) ==
LOC: RADMRIMAIN 13:35
PROVIDERS: ATTEND Orthopaedic Surgery
DX: S83.411A Sprain of medial collateral ligament of right knee, initial encounter (principal)

== ENCOUNTER 2020-06-30 16:33 | Emergency (ER) | payer OTHER ==
--- NOTE | 2020-06-30 17:36 | ED ---
General Adult HPI - General Chief complaint: Seizure Stated complaint: Syncope, LV Time Seen by Provider: 06/30/20 16:50 Source: patient, RN notes reviewed, old records reviewed Mode of arrival: wheelchair Limitations: no limitations - History of Present Illness Initial comments: This is a 34-year-old female who states she had her first seizure at the beginning of year. Patient states she had a CAT scan done and an MRI she's not sure what the MRI showed but she stated that the CAT scan was normal. Patient states she had another seizure today when she was just sitting with her son. Family states probably lasted about 5 minutes she was confused for about 5 minutes. Patient states she is not doing any alcohol denies any drug use. Patient denies any recent fever chills or cough per patient denies headache patient denies numbness weakness per patient denies abdominal pain patient denies nausea vomiting diarrhea. Patient states that she's feeling pretty much back to her baseline at this time. Patient states she's followed up with Dr. Alexander was not prescribed any antiseizure medication yet. - Related Data Home Medications Medication Instructions Recorded Confirmed Levothyroxine Sodium [Synthroid] 88 mcg PO DAILY 06/05/19 06/12/20 Sertraline HCl [Zoloft] 50 mg PO DAILY 06/05/19 06/12/20 LORazepam [Ativan] 0.5 mg PO DAILY PRN 11/30/19 06/12/20 Camrese 0.15-0.03-0.01 1 tab PO DAILY 03/17/20 06/12/20 EPINEPHrine (Auto Inject) [Epipen] 0.3 mg IM ONCE PRN 04/21/20 06/12/20 Omeprazole [PriLOSEC] 40 mg PO AC-BRKFST 04/21/20 06/12/20 Previous Rx's Medication Instructions Recorded Ondansetron [Zofran ODT] 4 mg PO Q8HR PRN #15 tab 04/21/20 Allergies Allergy/AdvReac Type Severity Reaction Status Date / Time cefaclor [From Ceclor] Allergy Rash/Hives Verified 06/30/20 16:54 Iodinated Contrast Media Allergy Anaphylaxis Verified 06/30/20 16:54 [Iodinated Contrast- Oral and IV Dye] shellfish derived [Shellfish] Allergy Anaphylaxis Verified 01/21/21 16:54 Review of Systems ROS Statement: Those systems with pertinent positive or pertinent negative responses have been documented in the HPI. ROS Other: All systems not noted in ROS Statement are negative. Past Medical History Past Medical History: Asthma, Seizure Disorder, Thyroid Disorder Additional Past Medical History / Comment(s): PMDD, CVS (cyclic vomiting disorder) History of Any Multi-Drug Resistant Organisms: None Reported Past Surgical History: Orthopedic Surgery, Tonsillectomy Additional Past Surgical History / Comment(s): ANKLE, ARM, Past Anesthesia/Blood Transfusion Reactions: No Reported Reaction Past Psychological History: Anxiety Smoking Status: Never smoker Past Alcohol Use History: None Reported Past Drug Use History: Marijuana - Past Family History Mother Family Medical History: No Reported History General Exam - General Exam Comments Initial Comments: GENERAL: Patient is well-developed and well-nourished. Patient is nontoxic and well- hydrated and is in mild distress. ENT: Neck is soft and supple. No significant lymphadenopathy is noted. Oropharynx is clear. Moist mucous membranes. Neck has full range of motion without eliciting any pain. EYES: The sclera were anicteric and conjunctiva were pink and moist. Extraocular movements were intact and pupils were equal round and reactive to light. Eyelids were unremarkable. PULMONARY: Unlabored respirations. Good breath sounds bilaterally. No audible rales rhonchi or wheezing was noted. CARDIOVASCULAR: There is a regular rate and rhythm without any murmurs gallops or rubs. ABDOMEN: Soft and nontender with normal bowel sounds. SKIN: Skin is clear with no lesions or rashes and otherwise unremarkable. NEUROLOGIC: Patient is alert and oriented x3. Cranial nerves II through XII are grossly intact. Motor and sensory are also intact. Normal speech, volume and content. Symmetrical smile. MUSCULOSKELETAL: Normal extremities with adequate strength and full range of motion. No lower extremity swelling or edema. No calf tenderness. LYMPHATICS: No significant lymphadenopathy is noted PSYCHIATRIC: Normal psychiatric evaluation. Limitations: no limitations Course Vital Signs 06/30/20 16:52 Temperature 98.2 F Pulse Rate 114 H Respiratory 18 Rate Blood Pressure 148/96 O2 Sat by Pulse 96 Oximetry Medical Decision Making - Medical Decision Making I reviewed the CT of the brain which showed no acute normalities. I had [facility], [place] MRI of the patient and neck showed no acute normalities. I try to contact Dr. Alexander but he did not respond. I told the patient to follow up Dr. Alexander tomorrow and return if he wanted her on any antiseizure medication. Patient was told not to drive or operate any heavy machinery - Lab Data Result diagrams: 06/30/20 17:48 06/30/20 17:48 Lab Results 06/30/20 06/30/20 06/30/20 Range/Units 17:48 17:48 17:48 WBC 5.4 (3.8-10.6) k/uL RBC 4.07 (3.80-5.40) m/uL Hgb 13.0 (11.4-16.0) gm/dL Hct 39.7 (34.0-46.0) % MCV 97.5 (80.0-100.0) fL MCH 31.9 (25.0-35.0) pg MCHC 32.7 (31.0-37.0) g/dL RDW 16.5 H (11.5-15.5) % Plt Count 98 L (150-450) k/uL MPV 8.1 Neutrophils % 86 % Lymphocytes % 11 % Monocytes % 2 % Eosinophils % 1 % Basophils % 0 % Neutrophils # 4.6 (1.3-7.7) k/uL Lymphocytes # 0.6 L (1.0-4.8) k/uL Monocytes # 0.1 (0-1.0) k/uL Eosinophils # 0.0 (0-0.7) k/uL Basophils # 0.0 (0-0.2) k/uL Manual Slide Review Performed Anisocytosis Slight Macrocytosis Slight Stomatocytes Present Sodium 136 L (137-145) mmol/L Potassium 3.6 (3.5-5.1) mmol/L Chloride 102 (98-107) mmol/L Carbon Dioxide 25 (22-30) mmol/L Anion Gap 9 mmol/L BUN 13 (7-17) mg/dL Creatinine 0.69 (0.52-1.04) mg/dL Est GFR (CKD-EPI)AfAm >90 (>60 ml/min/1.73 sqM) Est GFR (CKD-EPI)NonAf >90 (>60 ml/min/1.73 sqM) Glucose 165 H (74-99) mg/dL Calcium 9.2 (8.4-10.2) mg/dL Magnesium 1.6 (1.6-2.3) mg/dL Total Bilirubin 1.0 (0.2-1.3) mg/dL AST 67 H (14-36) U/L ALT 39 H (4-34) U/L Alkaline Phosphatase 76 (38-126) U/L Total Protein 7.5 (6.3-8.2) g/dL Albumin 4.4 (3.5-5.0) g/dL Urine Opiates Screen Not Detected (NotDetected) Ur Oxycodone Screen Not Detected (NotDetected) Urine Methadone Screen Not Detected (NotDetected) Ur Propoxyphene Screen Not Detected (NotDetected) Ur Barbiturates Screen Not Detected (NotDetected) U Tricyclic Antidepress Not Detected (NotDetected) Ur Phencyclidine Scrn Not Detected (NotDetected) Ur Amphetamines Screen Not Detected (NotDetected) U Methamphetamines Scrn Not Detected (NotDetected) U Benzodiazepines Scrn Detected H (NotDetected) Urine Cocaine Screen Not Detected (NotDetected) U Marijuana (THC) Screen Detected H (NotDetected) Disposition Clinical Impression: Generalized seizure Disposition: HOME SELF-CARE Condition: Good Instructions (If sedation given, give patient instructions): Recurrent Seizures in Adults (ED) Additional Instructions: Patient should contact her neurologist tomorrow. Patient should not drive or operate any heavy machinery. Patient should be with an adult who can observe her until she follows up. Is patient prescribed a controlled substance at d/c from ED?: No Referrals: Mishel Werner MD [REFERRING] - 1-2 days Time of Disposition: 18:35
[2020-06-30 17:57] LABS: Anisocytosis Slight; Basophils % (A) 0 %; Eosinophils % (A) 1 %; HCT 39.7 % (34.0-46.0); Lymphocytes # (A) 0.6 k/uL (1.0-4.8); Lymphocytes % (A) 11 %; MCH 31.9 pg (25.0-35.0); MCHC 32.7 g/dL (31.0-37.0); MCV 97.5 fL (80.0-100.0); Macrocytosis Slight; Mean Platelet Volume 8.1; Monocytes # (A) 0.1 k/uL (0-1.0); Monocytes % (A) 2 %; Neutrophils # (A) 4.6 k/uL (1.3-7.7); Neutrophils % (A) 86 %; RBC 4.07 m/uL (3.80-5.40); RDW 16.5 % (11.5-15.5); WBC 5.4 k/uL (3.8-10.6)
[2020-06-30 18:05] LABS: ALT 39 U/L (4-34); AST 67 U/L (14-36); African American GFR (CKD) >90 (>60 ml/min/1.73 sqM); Albumin 4.4 g/dL (3.5-5.0); Alkaline Phosphatase 76 U/L (38-126); Anion Gap 9 mmol/L; Blood Urea Nitrogen 13 mg/dL (7-17); Calcium 9.2 mg/dL (8.4-10.2); Carbon Dioxide 25 mmol/L (22-30); Chloride 102 mmol/L (98-107); Glucose 165 mg/dL (74-99); Magnesium 1.6 mg/dL (1.6-2.3); Non-African American GFR(CKD) >90 (>60 ml/min/1.73 sqM); Potassium 3.6 mmol/L (3.5-5.1); Sodium 136 mmol/L (137-145); Total Protein 7.5 g/dL (6.3-8.2)
[2020-06-30 18:12] LABS: Amphetamine Screen,Urine Not Detected (NotDetected); Barbiturate Screen,Urine Not Detected (NotDetected); Benzodiazepines Screen,Urine Detected (NotDetected); Cocaine Screen,Urine Not Detected (NotDetected); Methadone Screen, Urine Not Detected (NotDetected); Opiate Screen,Urine Not Detected (NotDetected); Oxycodone Screen, Urine Not Detected (NotDetected); Phencyclidine Screen,Urine Not Detected (NotDetected); Tricyclic Antidepressant,Urine Not Detected (NotDetected); Urn Cannabinoid Scrn Detected (NotDetected)
[2020-06-30 18:31] LABS: Platelet Count 98 k/uL (150-450); Stomatocytes Present
[2020-06-30 18:52] VITALS: BP 143/94; PULSE 90; RESP 16; TEMP 97.5
== END 2020-06-30 18:52 | disposition home or self-care (01) ==
LOC: EC 16:33
DX: G40.909 Epilepsy, unspecified, not intractable, without status epilepticus (principal); E07.9 Disorder of thyroid, unspecified; J45.909 Unspecified asthma, uncomplicated; F41.9 Anxiety disorder, unspecified; Z79.890 Hormone replacement therapy; Z79.899 Other long term (current) drug therapy; Z79.3 Long term (current) use of hormonal contraceptives; Z88.1 Allergy status to other antibiotic agents; Z91.041 Radiographic dye allergy status; Z91.013 Allergy to seafood
CPT/HCPCS: 36415; 80053; 80306; 83735; 85025; 99285

== ENCOUNTER 2020-07-19 12:47 | Observation (INO) | payer OTHER ==
--- NOTE | 2020-07-19 13:53 | ED ---
General Adult HPI - General Chief complaint: Neuro Symptoms/Deficit Stated complaint: seizure Time Seen by Provider: 07/19/20 13:00 Source: patient, RN notes reviewed, old records reviewed Mode of arrival: ambulatory Limitations: no limitations - History of Present Illness Initial comments: This is a 35-year-old female who has a recent history of seizures new onset about a month ago. Patient comes in today stating for about 5 days now she has had diarrhea and also been extremely off balance and has had some speech irregularities according to her father. Patient's been having a hard time finding the words to express himself and seems a little confused according to the dad. Patient denies any drug or alcohol use. Patient denies any headache patient denies numbness weakness. Patient states she doesn't feel dizzy or so pending patient states it's just her inability to walk without feeling like she is given a fall over. Patient denies any chest pain or palpitations. Patient denies any shortness of breath or difficulty breathing. Patient denies any recent fever chills or cough. Patient states these are new symptoms completely different than her previous symptoms of seizure. - Related Data Home Medications Medication Instructions Recorded Confirmed Levothyroxine Sodium [Synthroid] 88 mcg PO DAILY 06/05/19 06/12/20 Sertraline HCl [Zoloft] 50 mg PO DAILY 06/05/19 06/12/20 LORazepam [Ativan] 0.5 mg PO DAILY PRN 11/30/19 06/12/20 Camrese 0.15-0.03-0.01 1 tab PO DAILY 03/17/20 06/12/20 EPINEPHrine (Auto Inject) [Epipen] 0.3 mg IM ONCE PRN 04/21/20 06/12/20 Omeprazole [PriLOSEC] 40 mg PO AC-BRKFST 04/21/20 06/12/20 Previous Rx's Medication Instructions Recorded Ondansetron [Zofran ODT] 4 mg PO Q8HR PRN #15 tab 04/21/20 Allergies Allergy/AdvReac Type Severity Reaction Status Date / Time cefaclor [From Ceclor] Allergy Rash/Hives Verified 07/19/20 13:00 Iodinated Contrast Media Allergy Anaphylaxis Verified 07/19/20 13:00 [Iodinated Contrast- Oral and IV Dye] shellfish derived [Shellfish] Allergy Anaphylaxis Verified 07/19/20 13:00 Review of Systems ROS Statement: Those systems with pertinent positive or pertinent negative responses have been documented in the HPI. ROS Other: All systems not noted in ROS Statement are negative. Past Medical History Past Medical History: Asthma, Seizure Disorder, Thyroid Disorder Additional Past Medical History / Comment(s): PMDD, CVS (cyclic vomiting disorder) History of Any Multi-Drug Resistant Organisms: None Reported Past Surgical History: Orthopedic Surgery, Tonsillectomy Additional Past Surgical History / Comment(s): ANKLE, ARM, Past Anesthesia/Blood Transfusion Reactions: No Reported Reaction Past Psychological History: Anxiety Smoking Status: Never smoker Past Alcohol Use History: None Reported Past Drug Use History: Marijuana - Past Family History Mother Family Medical History: No Reported History General Exam - General Exam Comments Initial Comments: GENERAL: Patient is well-developed and well-nourished. Patient is nontoxic and well- hydrated and is in mild distress. ENT: Neck is soft and supple. No significant lymphadenopathy is noted. Oropharynx is clear. Moist mucous membranes. Neck has full range of motion without eliciting any pain. EYES: Patient has nystagmus when looking to the right. The sclera were anicteric and conjunctiva were pink and moist. Extraocular movements were intact and pupils were equal round and reactive to light. Eyelids were unremarkable. PULMONARY: Unlabored respirations. Good breath sounds bilaterally. No audible rales rh onchi or wheezing was noted. CARDIOVASCULAR: There is a regular rate and rhythm without any murmurs gallops or rubs. Femoral pulses are equal bilaterally ABDOMEN: Soft and nontender with normal bowel sounds. No palpable organomegaly was noted. There is no palpable pulsatile mass. SKIN: Skin is clear with no lesions or rashes and otherwise unremarkable. NEUROLOGIC: Patient is alert and oriented x3. Cranial nerves II through XII are grossly intact. Motor and sensory are also intact. Normal speech, volume and content. Symmetrical smile. Cerebellar testing finger to nose is normal bilaterally. MUSCULOSKELETAL: Normal extremities with adequate strength and full range of motion. LYMPHATICS: No significant lymphadenopathy is noted PSYCHIATRIC: Normal psychiatric evaluation. Limitations: no limitations Course Vital Signs 07/19/20 07/19/20 12:56 14:00 Temperature 98.5 F Pulse Rate 115 H 88 Respiratory 18 18 Rate Blood Pressure 145/116 142/88 O2 Sat by Pulse 97 96 Oximetry Medical Decision Making - Medical Decision Making EKG shows normal sinus rhythm at 90 bpm LA interval 128 QRS is 68 QT interval 380 QTC is 45 per patient's EKG shows no ST segment elevation or depression. CT of the brain showed no acute abnormality. Patient was still having some difficulty speaking she was able to get all her words out but she just seems slower than normal per the father. Patient also states when she tried to get up she still felt off-balance. I spoke with Zane from her Fransico's office Dr. Bateman's office and he agreed to admit the patient admitted the patient wrote admitting orders. - Lab Data Result diagrams: 07/19/20 14:05 07/19/20 14:05 Lab Results 07/19/20 07/19/20 07/19/20 Range/Units 14:04 14:05 14:05 WBC 3.9 (3.8-10.6) k/uL RBC 4.62 (3.80-5.40) m/uL Hgb 14.9 (11.4-16.0) gm/dL Hct 44.0 (34.0-46.0) % MCV 95.2 (80.0-100.0) fL MCH 32.4 (25.0-35.0) pg MCHC 34.0 (31.0-37.0) g/dL RDW 15.8 H (11.5-15.5) % Plt Count 179 D (150-450) k/uL MPV 6.9 Neutrophils % 37 % Lymphocytes % 55 % Monocytes % 3 % Eosinophils % 2 % Basophils % 1 % Neutrophils # 1.4 (1.3-7.7) k/uL Lymphocytes # 2.1 (1.0-4.8) k/uL Monocytes # 0.1 (0-1.0) k/uL Eosinophils # 0.1 (0-0.7) k/uL Basophils # 0.1 (0-0.2) k/uL PT 11.8 (9.0-12.0) sec INR 1.1 (<1.2) APTT 25.0 (22.0-30.0) sec Sodium (137-145) mmol/L Potassium (3.5-5.1) mmol/L Chloride (98-107) mmol/L Carbon Dioxide (22-30) mmol/L Anion Gap mmol/L BUN (7-17) mg/dL Creatinine (0.52-1.04) mg/dL Est GFR (CKD-EPI)AfAm (>60 ml/min/1.73 sqM) Est GFR (CKD-EPI)NonAf (>60 ml/min/1.73 sqM) Glucose (74-99) mg/dL POC Glucose (mg/dL) 126 H (75-99) mg/dL POC Glu Strike Plate Attacher ID Raquel Rincon Calcium (8.4-10.2) mg/dL Total Bilirubin (0.2-1.3) mg/dL AST (14-36) U/L ALT (4-34) U/L Alkaline Phosphatase (38-126) U/L Troponin I (0.000-0.034) ng/mL Total Protein (6.3-8.2) g/dL Albumin (3.5-5.0) g/dL Urine Color Urine Appearance (Clear) Urine pH (5.0-8.0) Ur Specific [place] (1.001-1.035) Urine Protein (Negative) Urine Glucose (UA) (Negative) Urine Ketones (Negative) Urine Blood (Negative) Urine Nitrite (Negative) Urine Bilirubin (Negative) Urine Urobilinogen (<2.0) mg/dL Ur Leukocyte Esterase (Negative) Urine Opiates Screen (NotDetected) Ur Oxycodone Screen (NotDetected) Urine Methadone Screen (NotDetected) Ur Propoxyphene Screen (NotDetected) Ur Barbiturates Screen (NotDetected) U Tricyclic Antidepress (NotDetected) Ur Phencyclidine Scrn (NotDetected) Ur Amphetamines Screen (NotDetected) U Methamphetamines Scrn (NotDetected) U Benzodiazepines Scrn (NotDetected) Urine Cocaine Screen (NotDetected) U Marijuana (THC) Screen (NotDetected) 07/19/20 07/19/20 07/19/20 Range/Units 14:05 14:05 14:05 WBC (3.8-10.6) k/uL RBC (3.80-5.40) m/uL Hgb (11.4-16.0) gm/dL Hct (34.0-46.0) % MCV (80.0-100.0) fL MCH (25.0-35.0) pg MCHC (31.0-37.0) g/dL RDW (11.5-15.5) % Plt Count (150-450) k/uL MPV Neutrophils % % Lymphocytes % % Monocytes % % Eosinophils % % Basophils % % Neutrophils # (1.3-7.7) k/uL Lymphocytes # (1.0-4.8) k/uL Monocytes # (0-1.0) k/uL Eosinophils # (0-0.7) k/uL Basophils # (0-0.2) k/uL PT (9.0-12.0) sec INR (<1.2) APTT (22.0-30.0) sec Sodium 143 (137-145) mmol/L Potassium 4.4 (3.5-5.1) mmol/L Chloride 105 (98-107) mmol/L Carbon Dioxide 25 (22-30) mmol/L Anion Gap 13 mmol/L BUN 9 (7-17) mg/dL Creatinine 0.76 (0.52-1.04) mg/dL Est GFR (CKD-EPI)AfAm >90 (>60 ml/min/1.73 sqM) Est GFR (CKD-EPI)NonAf >90 (>60 ml/min/1.73 sqM) Glucose 117 H (74-99) mg/dL POC Glucose (mg/dL) (75-99) mg/dL POC Glu Strike Plate Attacher ID Calcium 8.5 (8.4-10.2) mg/dL Total Bilirubin 0.7 (0.2-1.3) mg/dL AST 136 H (14-36) U/L ALT 72 H (4-34) U/L Alkaline Phosphatase 111 (38-126) U/L Troponin I <0.012 (0.000-0.034) ng/mL Total Protein 7.7 (6.3-8.2) g/dL Albumin 4.6 (3.5-5.0) g/dL Urine Color Yellow Urine Appearance Clear (Clear) Urine pH 6.5 (5.0-8.0) Ur Specific [place] 1.012 (1.001-1.035) Urine Protein Trace H (Negative) Urine Glucose (UA) Negative (Negative) Urine Ketones Negative (Negative) Urine Blood Negative (Negative) Urine Nitrite Negative (Negative) Urine Bilirubin Negative (Negative) Urine Urobilinogen <2.0 (<2.0) mg/dL Ur Leukocyte Esterase Negative (Negative) Urine Opiates Screen Not Detected (NotDetected) Ur Oxycodone Screen Not Detected (NotDetected) Urine Methadone Screen Not Detected (NotDetected) Ur Propoxyphene Screen Not Detected (NotDetected) Ur Barbiturates Screen Not Detected (NotDetected) U Tricyclic Antidepress Not Detected (NotDetected) Ur Phencyclidine Scrn Not Detected (NotDetected) Ur Amphetamines Screen Not Detected (NotDetected) U Methamphetamines Scrn Not Detected (NotDetected) U Benzodiazepines Scrn Not Detected (NotDetected) Urine Cocaine Screen Not Detected (NotDetected) U Marijuana (THC) Screen Not Detected (NotDetected) Disposition Clinical Impression: Ataxia, Slurred speech, Nystagmus Disposition: ADMITTED IP TO THIS [facility] Referrals: Reynaldo Bateman MD [Primary Care Provider] - 1-2 days Time of Disposition: 15:15
[2020-07-19 14:09] LABS: Glucose,Whole Blood 126 mg/dL (75-99)
[2020-07-19 14:21] LABS: Basophils # (A) 0.1 k/uL (0-0.2); Basophils % (A) 1 %; Eosinophils # (A) 0.1 k/uL (0-0.7); Eosinophils % (A) 2 %; HGB 14.9 gm/dL (11.4-16.0); Lymphocytes # (A) 2.1 k/uL (1.0-4.8); Lymphocytes % (A) 55 %; MCH 32.4 pg (25.0-35.0); MCV 95.2 fL (80.0-100.0); Mean Platelet Volume 6.9; Monocytes # (A) 0.1 k/uL (0-1.0); Monocytes % (A) 3 %; Neutrophils # (A) 1.4 k/uL (1.3-7.7); Neutrophils % (A) 37 %; RBC 4.62 m/uL (3.80-5.40); RDW 15.8 % (11.5-15.5); WBC 3.9 k/uL (3.8-10.6)
[2020-07-19 14:23] LABS: Appearance,Urine Clear (Clear); Bilirubin,Urine Negative (Negative); Blood,Urine Negative (Negative); Color,Urine Yellow; Glucose,Urine (UA) Negative (Negative); Ketones,Urine Negative (Negative); Leukocyte Esterase,Urine Negative (Negative); Nitrite,Urine Negative (Negative); PH, Urine 6.5 (5.0-8.0); Protein,Urine Trace (Negative); Specific Gravity,Urine 1.012 (1.001-1.035); Urobilinogen,Urine <2.0 mg/dL (<2.0)
[2020-07-19 14:26] LABS: Platelet Count 179 k/uL (150-450)
[2020-07-19 14:33] LABS: Amphetamine Screen,Urine Not Detected (NotDetected); Barbiturate Screen,Urine Not Detected (NotDetected); Benzodiazepines Screen,Urine Not Detected (NotDetected); Cocaine Screen,Urine Not Detected (NotDetected); Methadone Screen, Urine Not Detected (NotDetected); Opiate Screen,Urine Not Detected (NotDetected); Oxycodone Screen, Urine Not Detected (NotDetected); Phencyclidine Screen,Urine Not Detected (NotDetected); Tricyclic Antidepressant,Urine Not Detected (NotDetected); Urn Cannabinoid Scrn Not Detected (NotDetected)
[2020-07-19 14:35] LABS: INR 1.1 (<1.2); Prothrombin Time 11.8 sec (9.0-12.0)
[2020-07-19 14:40] LABS: ALT 72 U/L (4-34); AST 136 U/L (14-36); African American GFR (CKD) >90 (>60 ml/min/1.73 sqM); Albumin 4.6 g/dL (3.5-5.0); Alkaline Phosphatase 111 U/L (38-126); Anion Gap 13 mmol/L; Blood Urea Nitrogen 9 mg/dL (7-17); Calcium 8.5 mg/dL (8.4-10.2); Carbon Dioxide 25 mmol/L (22-30); Chloride 105 mmol/L (98-107); Glucose 117 mg/dL (74-99); Non-African American GFR(CKD) >90 (>60 ml/min/1.73 sqM); Potassium 4.4 mmol/L (3.5-5.1); Sodium 143 mmol/L (137-145); Total Bilirubin 0.7 mg/dL (0.2-1.3); Total Protein 7.7 g/dL (6.3-8.2)
--- NOTE | 2020-07-19 14:46 | XR ---
EXAMINATION TYPE: XR chest 2V DATE OF EXAM: 07/19/2020 COMPARISON: Chest x-ray March 17, 2020 HISTORY: History of asthma with weakness. TECHNIQUE: Frontal and lateral views of the chest are obtained. FINDINGS: Low lung volumes redemonstrated. There is no new suspicious focal air space opacity, pleura l effusion, or pneumothorax seen. The cardiac silhouette size is stable and within normal limits. The osseous structures are intact. IMPRESSION: No acute cardiopulmonary process. No significant change from prior.
--- NOTE | 2020-07-19 14:51 | CT ---
EXAMINATION TYPE: CT brain wo con DATE OF EXAM: 07/19/2020 COMPARISON: CT brain 06/10/2020 HISTORY: altered mental status post seizure CT DLP: 1098.4 mGycm. Automated Exposure Control for Dose Reduction was Utilized. TECHNIQUE: CT scan of the head is performed without contrast. FINDINGS: There is no acute intracranial hemorrhage, mass effect, or midline shift identified. The ventricles and sulci are within normal limits in size. The globes are intact and the visualized sin uses are clear. IMPRESSION: No acute intracranial hemorrhage, mass effect, or midline shift is seen.
[2020-07-19] MEDS ORDERED: ASPIRIN 325 MG TAB PO STA (15:16)
[2020-07-19] MEDS ORDERED: THIAMINE 100 MG/ML 2 ML VIAL IM STA (19:12)
[2020-07-19] MEDS ORDERED: LORazepam 2 MG/ML INJ IV PRN ×3 (19:12)
--- NOTE | 2020-07-19 19:37 | P.HPIM ---
History of Present Illness H&P Date: 07/19/20 Chief Complaint: Seizures 35-year-old female presented to the emergency department with possible seizure- like activity prior to arrival, per family. Extensive diagnostic workup was performed in emergency room revealing no acute signs of stroke or no obvious signs of seizure activity. Patient states over the last 5 days she's had intermittent diarrhea, extremely off-balance, and some slurred speech at times. Patient recently diagnosed with new-onset seizures within the last month patient placed on Lamictal per neurology. Patient denies headache, blurred vision, numbness, tingling, and no difficulty moving extremities. Patient denies fever, chills, chest discomfort, palpitations, shortness of breath, abdominal pain, nausea or vomiting. Patient endorses generalized weakness and intermittent diarrhea. Review of Systems Constitutional: Reports weakness Gastrointestinal: Reports diarrhea, Reports nausea Musculoskeletal: Reports frequent falls, Reports muscle weakness Neurological: Reports balance difficulties, Reports weakness Psychiatric: Reports anxiety Past Medical History Past Medical History: Asthma, Seizure Disorder, Thyroid Disorder Additional Past Medical History / Comment(s): PMDD, CVS (cyclic vomiting disorder), cortisone shots in knee History of Any Multi-Drug Resistant Organisms: None Reported Past Surgical History: Orthopedic Surgery, Tonsillectomy Additional Past Surgical History / Comment(s): ANKLE, ARM, Past Anesthesia/Blood Transfusion Reactions: No Reported Reaction Past Psychological History: Anxiety Smoking Status: Never smoker Past Alcohol Use History: Daily Additional Past Alcohol Use History / Comment(s): Patient states intermittent 1 pint a day of vodka Past Drug Use History: Marijuana Additional Drug Use History / Comment(s): past marijuana use - Past Family History Mother Family Medical History: No Reported History Medications and Allergies Home Medications and Allergies Comment(s): Medications and ALLERGIES reviewed Home Medications Medication Instructions Recorded Confirmed Type Levothyroxine Sodium [Synthroid] 88 mcg PO DAILY 06/05/19 07/19/20 History Sertraline HCl [Zoloft] 50 mg PO DAILY 06/05/19 07/19/20 History LORazepam [Ativan] 0.5 mg PO DAILY PRN 11/30/19 07/19/20 History Camrese 0.15-0.03-0.01 1 tab PO DAILY 03/17/20 07/19/20 History EPINEPHrine (Auto Inject) [Epipen] 0.3 mg IM ONCE PRN 04/21/20 07/19/20 History Omeprazole [PriLOSEC] 40 mg PO AC-BRKFST 04/21/20 07/19/20 History Ondansetron Odt [Zofran Odt] 8 mg PO DAILY PRN 07/19/20 07/19/20 History lamoTRIgine [LaMICtal] See Taper PO DIRECTED 07/19/20 07/19/20 History Allergies Allergy/AdvReac Type Severity Reaction Status Date / Time cefaclor [From Ceclor] Allergy Rash/Hives Verified 07/19/20 15:27 Iodinated Contrast Media Allergy Anaphylaxis Verified 07/19/20 15:27 [Iodinated Contrast- Oral and IV Dye] shellfish derived [Shellfish] Allergy Anaphylaxis Verified 07/19/20 15:27 Physical Exam Vitals: Vital Signs Temp Pulse Pulse Resp BP BP Pulse Ox 07/19/20 17:12 98.0 F 109 H 18 149/102 97 07/19/20 17:00 98.5 F 100 18 142/88 96 07/19/20 14:00 88 18 142/88 96 07/19/20 12:56 98.5 F 115 H 18 145/116 97 Intake and Output 07/19/20 07/19/20 07/19/20 06:59 14:59 22:59 Other: Weight 87.997 kg 87.997 kg - Constitutional General appearance: cooperative - EENT Eyes: EOMI, PERRLA ENT: normal oropharynx Ears: bilateral: normal - Neck Neck: normal ROM Carotids: bilateral: upstroke normal Thyroid: bilateral: normal size - Respiratory Respiratory: bilateral: CTA (Anterior and posterior lung marc) - Cardiovascular Sinus rhythm pattern Heart rate: 98 Rhythm: regular Heart sounds: normal: S1, S2 radial pulse Peripheral Pulses: bilateral: Normal dorsalis pedis Peripheral Pulses: bilateral: Normal - Gastrointestinal General gastrointestinal: normal bowel sounds - Integumentary Integumentary: normal - Neurologic Neurologic: CNII-XII intact - Musculoskeletal Musculoskeletal: generalized weakness - Psychiatric Psychiatric: A&O x's 3, appropriate affect, intact judgment & insight Results CBC & Chem 7: 07/19/20 14:05 07/19/20 14:05 Labs: Abnormal Lab Results - Last 24 Hours (Table) 02/02/2807/19/20 07/19/20 Range/Units 14:04 14:05 14:05 RDW 15.8 H (11.5-15.5) % Glucose (74-99) mg/dL POC Glucose (mg/dL) 126 H (75-99) mg/dL AST (14-36) U/L ALT (4-34) U/L Urine Protein Trace H (Negative) 07/19/20 Range/Units 14:05 RDW (11.5-15.5) % Glucose 117 H (74-99) mg/dL POC Glucose (mg/dL) (75-99) mg/dL AST 136 H (14-36) U/L ALT 72 H (4-34) U/L Urine Protein (Negative) Chest x-ray: report reviewed CT Scan - head: report reviewed Thrombosis Risk Factor Assmnt - Choose All That Apply Any of the Below Risk Factors Present?: No Other Risk Factors: No Other congenital or acquired thrombophilia - If yes, enter type in comment: No Thrombosis Risk Factor Assessment Level: Very Low Risk Assessment and Plan Assessment: Seizure disorder-unknown etiology, consultation with neurology for recommendations and treatment plan Mixed anxiety and depressioncontinue SSRI Hypothyroidismcontinue home medications Marijuana dependenceconsultation with social work Alcohol dependencealcohol withdrawal protocol, consult social work Seizure precautions Continue home medications Continue medical management Time with Patient: Greater than 30
[2020-07-19] MEDS: METOCLOPRAMIDE 5 MG/ML 2 ML VIAL IM PRN (23:01)
[2020-07-20] MEDS: LEVOTHYROXINE 88 MCG TAB PO SCH (06:22)
[2020-07-20] MEDS: PANTOPRAZOLE 40 MG TABLET PO SCH (06:22)
[2020-07-20] MEDS: THIAMINE 100 MG TAB PO SCH ×2 (06:23→15:03)
[2020-07-20 06:29] LABS: Folate, Serum 8.6 ng/mL
[2020-07-20] MEDS: ASPIRIN 325 MG TAB PO SCH (07:48)
[2020-07-20] MEDS: lamoTRIgine 25 MG TAB PO SCH (07:49)
[2020-07-20] MEDS: SERTRALINE 50 MG TAB PO SCH (07:49)
[2020-07-20] MEDS: METOCLOPRAMIDE 5 MG/ML 2 ML VIAL IM PRN ×2 (07:49→15:17)
[2020-07-20 10:44] LABS: Anisocytosis Slight; Basophils % (A) 1 %; Eosinophils % (A) 0 %; HCT 41.9 % (34.0-46.0); HGB 13.6 gm/dL (11.4-16.0); Lymphocytes # (A) 0.7 k/uL (1.0-4.8); Lymphocytes % (A) 15 %; MCH 31.5 pg (25.0-35.0); MCHC 32.6 g/dL (31.0-37.0); MCV 96.7 fL (80.0-100.0); Macrocytosis Slight; Mean Platelet Volume 7.7; Monocytes # (A) 0.1 k/uL (0-1.0); Monocytes % (A) 3 %; Neutrophils # (A) 3.6 k/uL (1.3-7.7); Neutrophils % (A) 80 %; Platelet Count 139 k/uL (150-450); RBC 4.34 m/uL (3.80-5.40); RDW 16.4 % (11.5-15.5); WBC 4.5 k/uL (3.8-10.6)
[2020-07-20 11:15] LABS: ALT 71 U/L (4-34); AST 140 U/L (14-36); African American GFR (CKD) >90 (>60 ml/min/1.73 sqM); Albumin 4.6 g/dL (3.5-5.0); Alkaline Phosphatase 109 U/L (38-126); Anion Gap 16 mmol/L; Blood Urea Nitrogen 14 mg/dL (7-17); Calcium 8.8 mg/dL (8.4-10.2); Carbon Dioxide 21 mmol/L (22-30); Chloride 99 mmol/L (98-107); Glucose 106 mg/dL (74-99); Magnesium 1.4 mg/dL (1.6-2.3); Non-African American GFR(CKD) >90 (>60 ml/min/1.73 sqM); Potassium 3.9 mmol/L (3.5-5.1); Sodium 136 mmol/L (137-145); Total Bilirubin 1.4 mg/dL (0.2-1.3); Total Protein 7.5 g/dL (6.3-8.2)
[2020-07-20] MEDS: amLODIPine 10 MG TAB PO SCH (11:50)
[2020-07-20 13:13] LABS: Cholesterol 158 mg/dL (<200); HDL Cholesterol 30 mg/dL (40-60)
[2020-07-20 13:29] LABS: Triglycerides 1100 mg/dL (<150)
[2020-07-20] MEDS ORDERED: Magnesium Replacement Protocol 1 EACH MISC MISCELLANE PRN (14:36)
[2020-07-20 14:56] VITALS: BMI 31.3
[2020-07-20] MEDS: MAGNESIUM SULFATE-D5W PMX 1 GM in DEXTROSE/WATER 1 100ML.BAG IVPB SCH ×2 (15:14→18:00)
[2020-07-20] MEDS ORDERED: CYANOCOBALAMIN 1,000 MCG/ML 1 ML VIAL IM ONE (17:36)
--- NOTE | 2020-07-20 17:36 | P.CNNES ---
History of Present Illness Consult date: 07/20/20 Requesting physician: Michael Cannon Reason for Consult: Ataxia, slurred speech History of Present Illness: Patient is a 35-year-old female with recent history of new onset seizure about a month ago, started on Lamictal came to the hospital yesterday at 12:47 PM for feeling "out of it", blurred vision, knees feeling weak, brain fog and some slurred speech. Patient states that symptoms started slightly the day before in the evening, but yesterday got worse therefore she came to the hospital. She was also having nausea and vomiting. Denied any facial droop. Denied any focal weakness. She also had history of diarrhea extremely off balance, sometimes slurred speech. Patient states that she has new onset seizure on 06/10/2020, when she came to [facility], but there was no neurologist available. She was recommended to go to [facility], but she declined, and signed out AGAINST MEDICAL ADVICE. Patient saw Dr. Werner but was not placed on any seizure medication. Patient had another seizure on 06/30/2020. After the second seizure Dr. Werner placed her on Lamictal 25 mg bedtime. Patient says that she had 2 MRIs performed at [facility], which according to her report was normal. CT head showed no acute intracranial hemorrhage mass effect or midline shift. EKG shows normal sinus rhythm. Septal infarct, age undetermined. Chest x-ray showed no acute card a process. CBC is normal. PT/PTT normal. Chem-20 with normal renal panel, but AST is elevated 136, ALT 72. Patient does have chronically elevated liver panel since 2017 UA negative, urine drug screen negative. Looney virus PCR negative. B12 is borderline 303, folate 8.6. Patient says that she has been given B12 injection last night and this morning. Patient takes Zoloft 50 mg, lorazepam 0.5 mg when necessary, Lamictal 25 mg at bedtime and Zofran. Patient does have history of alcoholism. She states that she quit drinking alcohol yesterday. She states that she drinks 1 pint of vodka a day about 3-4 days a week. He has been drinking like this not even for a year. Prior to that she is to drink only off and on. Patient denies tobacco use. Patient states that she has cyclic vomiting for a few years. It was diagnosed last year. She does get nausea vomiting diarrhea Review of Systems As above in detail. Patient complains of some shakiness. Denies any weight loss, abdominal pain nausea vomiting. She did have some diarrhea. Denies any double vision. She does have some blurred vision. No hoarseness, sore throat, dysphagia. Denies any problem with bowel or bladder control. All other review of systems noncontributory. Past Medical History Past Medical History: Asthma, Seizure Disorder, Thyroid Disorder Additional Past Medical History / Comment(s): PMDD, CVS (cyclic vomiting disorder), cortisone shots in knee History of Any Multi-Drug Resistant Organisms: None Reported Past Surgical History: Orthopedic Surgery, Tonsillectomy Additional Past Surgical History / Comment(s): ANKLE, ARM, Past Anesthesia/Blood Transfusion Reactions: No Reported Reaction Past Psychological History: Anxiety Smoking Status: Never smoker Past Alcohol Use History: Daily Additional Past Alcohol Use History / Comment(s): Patient states intermittent 1 pint a day of vodka Past Drug Use History: Marijuana Additional Drug Use History / Comment(s): past marijuana use - Past Family History Mother Family Medical History: No Reported History Medications and Allergies Home Medications Medication Instructions Recorded Confirmed Type Levothyroxine Sodium [Synthroid] 88 mcg PO DAILY 06/05/19 07/19/20 History Sertraline HCl [Zoloft] 50 mg PO DAILY 06/05/19 07/19/20 History LORazepam [Ativan] 0.5 mg PO DAILY PRN 11/30/19 07/19/20 History Camrese 0.15-0.03-0.01 1 tab PO DAILY 03/17/20 07/19/20 History EPINEPHrine (Auto Inject) [Epipen] 0.3 mg IM ONCE PRN 04/21/20 07/19/20 History Omeprazole [PriLOSEC] 40 mg PO AC-BRKFST 04/21/20 07/19/20 History Ondansetron Odt [Zofran Odt] 8 mg PO DAILY PRN 07/19/20 07/19/20 History lamoTRIgine [LaMICtal] See Taper PO DIRECTED 07/19/20 07/19/20 History Allergies Allergy/AdvReac Type Severity Reaction Status Date / Time cefaclor [From [facility]] Allergy Rash/Hives Verified 07/19/20 15:27 Iodinated Contrast Media Allergy Anaphylaxis Verified 07/19/20 15:27 [Iodinated Contrast- Oral and IV Dye] shellfish derived [Shellfish] Allergy Anaphylaxis Verified 07/19/20 15:27 Physical Examination - Vital Signs Vital Signs: Vital Signs Temp Pulse Pulse Resp BP BP Pulse Ox 07/20/20 11:05 98.4 F 112 H 18 166/109 97 07/20/20 07:48 98.1 F 103 H 18 154/109 96 07/20/20 03:37 98.6 F 112 H 18 139/90 96 07/20/20 00:00 98.1 F 103 H 20 140/100 97 07/19/20 20:00 97.6 F 116 H 19 144/104 96 07/19/20 17:12 98.0 F 109 H 18 149/102 97 07/19/20 17:00 98.5 F 100 18 142/88 96 07/19/20 14:00 88 18 142/88 96 Intake and Output 07/19/20 07/20/20 07/20/20 22:59 06:59 14:59 Intake Total 540 Balance 540 Intake: Oral 540 Other: Voiding Method Toilet Toilet # Voids 1 1 # Bowel Movements 1 Weight 87.997 kg 88.1 kg On examination patient is a young female, very pleasant, in no acute distress. Patient is alert awake oriented to time place and person. Speech and language functions are normal. Attention, concentration and fund of knowledge is adequate. On cranial nerve exam. Pupils are round and reactive to light, visual marc are full on confrontation, extraocular muscles are intact with no nystagmus. Face is symmetric, tongue protrudes to the midline. Palatal elevation and sensation normal, hearing and shoulder shrug normal. Facial sensation normal. On muscle strength testing there is no pronator drift and the strength is normal in arms and legs distally and proximally reflexes are 2 in the upper limbs, 3 at the knees to ankles and plantars downgoing. Patient has mild ataxia for [id number] and [id number] testing. Tone and bulk of muscles normal. Patient does appear slightly tremulous. Gait was normal, although patient appears slightly imbalance, but was able to perform tandem walking. On general exam she is no carotid bruit or murmur, chest is clear, abdomen soft nontender, peripheral pulses present, no edema. Results - Laboratory Findings CBC and BMP: 07/20/20 09:16 07/20/20 09:16 Abnormal Lab Findings: Abnormal Labs 07/19/20 07/19/20 07/19/20 14:04 14:05 14:05 RDW 15.8 H Plt Count Lymphocytes # Sodium Carbon Dioxide Glucose POC Glucose (mg/dL) 126 H Magnesium Total Bilirubin AST ALT Urine Protein Trace H 07/19/20 07/20/20 07/20/20 14:05 09:16 09:16 RDW 16.4 H Plt Count 139 L Lymphocytes # 0.7 L Sodium 136 L Carbon Dioxide 21 L Glucose 117 H 106 H POC Glucose (mg/dL) Magnesium 1.4 L Total Bilirubin 1.4 H AST 136 H 140 H ALT 72 H 71 H Urine Protein Assessment and Plan Assessment: * Altered mental status with blurred vision, brain fog, generalized weakness, possibly related to alcoholism versus withdrawals. Patient's mentation has much improved. Doubt side effect of Lamictal, as she is on very low-dose Lamictal 25 mg at bedtime. His examination is nonfocal. * History of alcoholism for the last several months. * New onset seizures since 06/09/2020. Patient states that she had 2 seizures, follows up with Dr. Alexander. * B12 deficiency * Folate deficiency Plan: * B12 1000 g IM now and then weekly for one month and then once a month. * Folic acid 1 mg daily. * Continue thiamine and multivitamins. * Patient counseled about abstinence from alcohol. * 2-D echo, rule out any embolic source. * Continue aspirin.
[2020-07-20] MEDS ORDERED: ONDANSETRON 4 MG/2 ML VIAL IVP PRN (17:51)
[2020-07-20] MEDS: FOLIC ACID 1 MG TAB PO SCH (18:04)
[2020-07-20] MEDS: IBUPROFEN 600 MG TAB PO PRN (18:05)
--- NOTE | 2020-07-20 19:04 | P.PN ---
Subjective Progress Note Date: 07/20/20 Principal diagnosis: Seizure with prolonged weakness and lethargy This pleasant 35 her old female is well known to the practice she descended emergency room after having possible seizure-like activity prior to arrival per family. She was admitted to the hospital for workup from the emergency department after complaints of the last 5 days feeling off balance since her speech at times and intermittent diarrhea. She had evaluation from neurology and she states she was drinking 1 pint of vodka a day 3-4 days a week and felt that she was able to stop drinking on her own she is a history of cyclical vomiting syndrome and she's had it for many years she had a recent bout of na usea, vomiting, and diarrhea. She reports some shakiness but feels some improvement from yesterday she did have a small amount of emesis after taking a bite of pineapple, she does reports lower back and tailbone pain from laying in bed and ibuprofen ordered for pain management, Lamictal continued for seizure prevention E 12 given her neurology recommendation she was counseled about absence from alcohol. Objective - Vital Signs Vital signs: Vital Signs Temp 97.9 F 07/20/20 15:18 Pulse 109 H 07/20/20 15:03 Resp 18 07/20/20 15:18 BP 165/109 07/20/20 15:03 Pulse Ox 99 07/20/20 15:18 Intake & Output 07/19/20 07/20/20 07/20/20 18:59 06:59 18:59 Intake Total 540 560 Balance 540 560 Weight 87.997 kg 88.1 kg 88.1 kg Intake: Oral 540 560 Other: Voiding Method Toilet # Voids 1 # Bowel Movements 1 - Constitutional General appearance: Present: average body habitus, cooperative, mild distress - EENT Eyes: Present: PERRLA ENT: Present: hearing grossly normal Ears: bilateral: normal - Neck Neck: Present: normal ROM - Respiratory Respiratory: bilateral: CTA - Cardiovascular Rhythm: regular Heart sounds: normal: S1, S2 - Gastrointestinal General gastrointestinal: Present: normal bowel sounds, soft - Psychiatric Psychiatric: Present: A&O x's 3, appropriate affect, intact judgment & insight - Labs CBC & Chem 7: 07/20/20 09:16 07/20/20 09:16 Labs: Abnormal Lab Results - Last 24 Hours (Table) 07/20/20 07/20/20 Range/Units 09:16 09:16 RDW 16.4 H (11.5-15.5) % Plt Count 139 L (150-450) k/uL Lymphocytes # 0.7 L (1.0-4.8) k/uL Sodium 136 L (137-145) mmol/L Carbon Dioxide 21 L (22-30) mmol/L Glucose 106 H (74-99) mg/dL Magnesium 1.4 L (1.6-2.3) mg/dL Total Bilirubin 1.4 H (0.2-1.3) mg/dL AST 140 H (14-36) U/L ALT 71 H (4-34) U/L Triglycerides 1100 H (<150) mg/dL HDL Cholesterol 30 L (40-60) mg/dL Assessment and Plan Assessment: Seizure disorder known etiology Next anxiety depression Hypothyroidism Marijuana use Alcohol use History of cyclic vomiting syndrome Plan: Continue consultation with neurology fragmentations and treatment plan Continue medications as prescribed Social work consultation for occult dependence and/or marijuana use Continue medical management Maintain seizure precautions Plan for discharge tomorrow after cleared by neurology Time with Patient: Greater than 30
[2020-07-21] MEDS: PANTOPRAZOLE 40 MG TABLET PO SCH (06:41)
[2020-07-21] MEDS: LEVOTHYROXINE 88 MCG TAB PO SCH (06:41)
[2020-07-21] MEDS: THIAMINE 100 MG TAB PO SCH (06:41)
[2020-07-21] MEDS: FOLIC ACID 1 MG TAB PO SCH (09:13)
[2020-07-21] MEDS: SERTRALINE 50 MG TAB PO SCH (09:13)
[2020-07-21] MEDS: lamoTRIgine 25 MG TAB PO SCH (09:13)
[2020-07-21] MEDS: ASPIRIN 325 MG TAB PO SCH (09:13)
[2020-07-21] MEDS: amLODIPine 10 MG TAB PO SCH (09:13)
[2020-07-21 10:04] LABS: Basophils % (A) 1 %; Eosinophils # (A) 0.1 k/uL (0-0.7); Eosinophils % (A) 3 %; HCT 42.7 % (34.0-46.0); HGB 14.1 gm/dL (11.4-16.0); Lymphocytes # (A) 0.6 k/uL (1.0-4.8); Lymphocytes % (A) 14 %; MCH 31.7 pg (25.0-35.0); MCHC 33.1 g/dL (31.0-37.0); MCV 95.9 fL (80.0-100.0); Mean Platelet Volume 9.1; Monocytes # (A) 0.1 k/uL (0-1.0); Monocytes % (A) 3 %; Neutrophils # (A) 3.1 k/uL (1.3-7.7); Neutrophils % (A) 78 %; RBC 4.45 m/uL (3.80-5.40); RDW 15.5 % (11.5-15.5)
[2020-07-21 10:23] LABS: ALT 70 U/L (4-34); AST 132 U/L (14-36); African American GFR (CKD) >90 (>60 ml/min/1.73 sqM); Albumin 4.6 g/dL (3.5-5.0); Alkaline Phosphatase 106 U/L (38-126); Anion Gap 12 mmol/L; Blood Urea Nitrogen 11 mg/dL (7-17); Calcium 8.9 mg/dL (8.4-10.2); Carbon Dioxide 25 mmol/L (22-30); Chloride 95 mmol/L (98-107); Glucose 119 mg/dL (74-99); Magnesium 2.4 mg/dL (1.6-2.3); Non-African American GFR(CKD) >90 (>60 ml/min/1.73 sqM); Potassium 3.6 mmol/L (3.5-5.1); Sodium 132 mmol/L (137-145); Total Protein 7.7 g/dL (6.3-8.2)
[2020-07-21 11:16] VITALS: PULSE 112; RESP 16; TEMP 98.1
[2020-07-21 11:59] LABS: Platelet Count 99 k/uL (150-450)
[2020-07-21 12:00] LABS: Poikilocytosis (M) Present
[2020-07-21] MEDS ORDERED: CYANOCOBALAMIN 1,000 MCG/ML 1 ML VIAL IM ONE (12:06)
[2020-07-21] MEDS: IBUPROFEN 600 MG TAB PO PRN (12:15)
--- NOTE | 2020-07-21 12:59 | ECHOF ---
Referral Reason:Blurred vision, weakness, rule out TIA MEASUREMENTS -------- HEIGHT: 167.6 cm WEIGHT: 87.5 kg BP: 151/103 RVIDd: 2.6 cm (< 3.3) IVSd: 1.1 cm (0.6 - 1.1) LVIDd: 4.5 cm (3.9 - 5.3) LVPWd: 1.2 cm (0.6 - 1.1) IVSs: 1.8 cm LVIDs: 2.6 cm LVPWs: 1.7 cm Ao Diam: 3.1 cm (2.0 - 3.7) AV Cusp: 2.1 cm (1.5 - 2.6) LA Diam: 2.9 cm (2.7 - 3.8) MV EXCURSION: 23.254 mm (> 18.000) MV EF SLOPE: 130 mm/s (70 - 150) EPSS: 0.8 cm MV E Doigo: 0.53 m/s MV DecT: 121 ms MV A Diogo: 0.48 m/s MV E/A Ratio: 1.09 AR PHT: 441 ms RAP: 5.00 mmHg RVSP: 15.39 mmHg FINDINGS -------- Sinus rhythm. This was a technically adequate study. The left ventricular size is normal. There is mild concentric left ventricular hypertrophy. Overa ll left ventricular systolic function is normal with, an EF between 55 - 60 %. The right ventricle is normal in size. The left atrial size is normal. The right atrial size is normal. The aortic valve is trileaflet and appears structurally normal. There is mild aortic regurgitation. The mitral valve is normal. There is trace mitral regurgitation. The tricuspid valve appears structurally normal. Trace tricuspid regurgitation present. Right aurelia tricular systolic pressure is normal at < 35 mmHg. There is no pulmonic regurgitation present. The aortic root size is normal. Normal inferior vena cava with normal inspiratory collapse consistent with estimated right atrial pre ssure of 5 mmHg. There is no pericardial effusion. CONCLUSIONS -------- 1. There is mild concentric left ventricular hypertrophy. 2. Overall left ventricular systolic function is normal with, an EF between 55 - 60 %. 3. There is mild aortic regurgitation. 4. There is trace mitral regurgitation. 5. Trace tricuspid regurgitation present. 6. There is no pericardial effusion. TUB PULLER: Uma Greenberg RDCS
[2020-07-21] MEDS ORDERED: PROPRANOLOL LA 80 MG CAP.SA.24H PO SCH (13:00)
[2020-07-21 15:25] VITALS: BP 149/104
--- NOTE | 2020-07-21 18:33 | P.DS ---
Providers Date of admission: 07/19/20 15:16 Expected date of discharge: 07/21/20 Attending physician: Reynaldo Bateman Consults: 07/19/20 15:17 Consult Physician Routine Consulting Provider: Jair Lobo Consult Reason/Comments: ATAXIA, SLURRED SPEECH Do you want consulting provider notified?: Yes Primary care physician: Reynaldo Bateman Hospital Course: 35-year-old female presented to the emergency department with possible seizure- like activity prior to arrival per family; extensive diagnostic workup was performed in the emergency department revealing no acute signs of stroke or obvious signs of seizure activity. Per patient over the last 5 days prior to hospital stay she had intermittent nausea vomiting and diarrhea and been extremely off-balance with slurred speech. Upon obtaining subjective data and objective data patient found to have suffering from alcoholism with 1 pint of vodka a daypatient was without alcohol consumption one day prior to presenting to the emergency room possible etiology of seizure event and confusion. Patient found to be elevated blood pressure started Norvasc 10 mg by mouth daily and Inderal 80 mg LA by mouth daily. for, alcohol withdrawal patient was given a 3 day dose of Librium for alcohol withdrawal symptomsclose follow-up with our services Saturday. Neurology was consulted recommendations and treatment plan were considered. Electrolytes were replaced, and essential vitamins due to chronic alcoholism.patient discharged on a guarded prognosis due to multiple comorbidities and poor compliance with medical treatment plan. Assessment: Seizure disorderunknown etiology, possibly induced by alcohol withdrawal Mixed anxiety and depressioncontinue SSRI Hypothyroidism continue home medications Marijuana dependenceeducated patient regarding illicit drug use with induced nausea and vomiting Alcohol dependencepatient sent home on a three-day dose of Librium for alcohol withdrawal symptoms, Inderal and Norvasc for blood pressure control and with alcohol withdrawal symptoms. Patient to follow-up in office Saturday to reassess Health Concerns: Significant health concerns with discharge Alcoholism Nicotine dependence Noncompliance with medical treatment plan Pertinent Studies: Chest x-rayno acute cardiopulmonary process noted on chest x-ray CT of the head without contrastno acute abnormalities noted\ Echocardiogramejection fraction noted to be 55-60% Procedures: No procedures performed during admission Patient Condition at Discharge: Fair Plan - Discharge Summary Discharge Rx Participant: No New Discharge Prescriptions: New Propranolol LA [Inderal LA] 80 mg PO DAILY #10 cap.sa.24h lamoTRIgine [LaMICtal] 25 mg PO DAILY #10 tab amLODIPine [Norvasc] 5 mg PO DAILY #10 tab Continue Sertraline HCl [Zoloft] 50 mg PO DAILY Levothyroxine Sodium [Synthroid] 88 mcg PO DAILY Camrese 0.15-0.03-0.01 1 tab PO DAILY EPINEPHrine (Auto Inject) [Epipen] 0.3 mg IM ONCE PRN PRN Reason: Anaphylaxis Omeprazole [PriLOSEC] 40 mg PO AC-BRKFST Discontinued LORazepam [Ativan] 0.5 mg PO DAILY PRN PRN Reason: Anxiety lamoTRIgine [LaMICtal] See Taper PO DIRECTED Ondansetron Odt [Zofran Odt] 8 mg PO DAILY PRN PRN Reason: Nausea Discharge Medication List Levothyroxine Sodium [Synthroid] 88 mcg PO DAILY 06/05/19 [History] Sertraline HCl [Zoloft] 50 mg PO DAILY 06/05/19 [History] Camrese 0.15-0.03-0.01 1 tab PO DAILY 03/17/20 [History] EPINEPHrine (Auto Inject) [Epipen] 0.3 mg IM ONCE PRN 04/21/20 [History] Omeprazole [PriLOSEC] 40 mg PO AC-KFST 04/21/20 [History] Propranolol LA [Inderal LA] 80 mg PO DAILY #10 cap.sa.24h 07/21/20 [Rx] amLODIPine [Norvasc] 5 mg PO DAILY #10 tab 07/21/20 [Rx] lamoTRIgine [LaMICtal] 25 mg PO DAILY #10 tab 07/21/20 [Rx] Follow up Appointment(s)/Referral(s): Reynaldo Bateman MD [Primary Care Provider] - 07/25/20 9:00 am (Appointment with Zane Ambrose NP ) Discharge Disposition: HOME SELF-CARE
--- NOTE | 2020-07-21 18:48 | P.PN ---
Subjective Progress Note Date: 07/21/20 Patient was seen earlier this morning, entry is late. Patient states she is feeling much better. Her tremors are gone. Her balance is better. Objective - Vital Signs Vital signs: Vital Signs Temp 98.1 F 07/21/20 09:00 Pulse 112 H 07/21/20 14:00 Resp 16 07/21/20 15:00 BP 149/104 07/21/20 12:00 Pulse Ox 99 07/21/20 12:00 Intake & Output 07/20/20 07/21/20 07/21/20 18:59 06:59 18:59 Intake Total 560 600 Balance 560 600 Weight 88.1 kg 87.7 kg Intake: Oral 560 600 Other: Voiding Method Toilet Toilet # Voids 1 1 - Exam Mental status, speech and language functions are normal. Muscle strength is normal. Patient has no ataxia for [id number] or bcnb-ge-mtal testing. No tremors noted of outstretched hands. Gait is normal. - Labs CBC & Chem 7: 07/21/20 08:33 07/21/20 08:33 Labs: Abnormal Lab Results - Last 24 Hours (Table) 07/19/20 07/21/20 07/21/20 Range/Units 14:05 08:33 08:33 Plt Count 99 L (150-450) k/uL Lymphocytes # 0.6 L (1.0-4.8) k/uL Sodium 132 L (137-145) mmol/L Chloride 95 L (98-107) mmol/L Glucose 119 H (74-99) mg/dL Magnesium 2.4 H (1.6-2.3) mg/dL Total Bilirubin 2.0 H (0.2-1.3) mg/dL AST 132 H (14-36) U/L ALT 70 H (4-34) U/L Lamotrigine 0.9 L (2.0-15.0) ug/mL Assessment and Plan Assessment: * Altered mental status with blurred vision, brain fog, generalized weakness, possibly related to alcoholism versus withdrawals. Patient's mentation has much improved. Doubt side effect of Lamictal, as she is on very low-dose Lamictal 25 mg at bedtime. Her examination is nonfocal. * History of alcoholism for the last several months. * New onset seizures since 06/09/2020. Patient states that she had 2 seizures, follows up with Dr. Alexander. * B12 deficiency * Folate deficiency Plan: * B12 1000 g IM yesterday and today. She should receive it weekly for one month and then once a month. * Folic acid 1 mg daily. * Continue thiamine and multivitamins. * Patient counseled about abstinence from alcohol. * 2-D echo revealed mild concentric LVH, EF is 55-60%. Mild aortic regurgitation. No embolic source. * Continue aspirin. * Neurologically clear for discharge.
== END 2020-07-21 17:11 | disposition home or self-care (01) ==
LOC: EC 12:47 → 3SCARD 15:16 → INTOOBSV 15:16 → 3SCARD 17:20 → UNDODISIN 07-21 17:11
PROVIDERS: ADMIT Family Medicine; ATTEND Family Medicine
DX: G40.909 Epilepsy, unspecified, not intractable, without status epilepticus (principal); F41.3 Other mixed anxiety disorders; E03.9 Hypothyroidism, unspecified; F12.20 Cannabis dependence, uncomplicated; Z91.19 Patient's noncompliance with other medical treatment and regimen; F10.239 Alcohol dependence with withdrawal, unspecified; H55.00 Unspecified nystagmus; R27.0 Ataxia, unspecified; R47.81 Slurred speech; J45.909 Unspecified asthma, uncomplicated; F17.210 Nicotine dependence, cigarettes, uncomplicated; R03.0 Elevated blood-pressure reading, without diagnosis of hypertension; F32.9 Major depressive disorder, single episode, unspecified; E53.8 Deficiency of other specified B group vitamins; R11.15 Cyclical vomiting syndrome unrelated to migraine; Z79.890 Hormone replacement therapy; Z79.899 Other long term (current) drug therapy; Z88.1 Allergy status to other antibiotic agents; Z91.041 Radiographic dye allergy status; Z91.013 Allergy to seafood; Z20.822 Contact with and (suspected) exposure to COVID-19; Z90.89 Acquired absence of other organs
CPT/HCPCS: 96365; 96366; 96372 ×3; 96375; 99285; 36415; 93005; 93306; 97161; 97530; 97535; 97166; 80061; 80053 ×3; 80175; 82607; 82746; 83735 ×3; 84484; 85025 ×3; 85610; 85730; 81003; 80306; 87635; 71046; 70450; G0378 ×3; J2060; J3420 ×2; J2765 ×2; J3411; J3475

== ENCOUNTER → 2020-08-12 | Outpatient (CLI) | payer OTHER | END | disposition home or self-care (01) | LOC: LABWHC1 15:39 | PROVIDERS: ATTEND Family Medicine | DX: Z20.822 Contact with and (suspected) exposure to COVID-19 (principal) | CPT/HCPCS: U0003; U0005 ==

== ENCOUNTER 2020-12-30 20:13 | Emergency (ER) | payer OTHER ==
[2020-12-30 20:40] VITALS: RESP 18; TEMP 98.6
[2020-12-30] MEDS ORDERED: SODIUM CHLORIDE 0.9% 1,000 ML IV STA (20:52)
[2020-12-30] MEDS ORDERED: ORPHENADRINE 30 MG/ML 2 ML VIAL IM STA (21:02)
[2020-12-30] MEDS ORDERED: IBUPROFEN 600 MG TAB PO STA (21:02)
--- NOTE | 2020-12-30 21:09 | ED ---
Seizure HPI - General Chief Complaint: Seizure Stated Complaint: Seizure Source: patient, family, RN notes reviewed, old records reviewed Mode of arrival: ambulatory Limitations: physical limitation - History of Present Illness Initial Comments: 35-year-old well-appearing, well-nourished white female, alert and oriented 4, presents to the emergency room with complaints of having a seizure today around 19:30. Patient's states that she was stopped at the drive through window at [employer], and her mother states that she had a seizure lasting probably 2 minutes. The mother states that she became very stiff and was pressing the gas peddle but the mother put the car in park so the car did not go anywhere. She states that when she awoke after the seizure she was able to drive the car over to a parking space on her own. Patient denies incontinence. She did not bite her tongue. She denies headache. She does have a known history of seizures and takes Lamictal. She states that she was recently released by her neurologist 6 months ago and allowed to drive since she was seizure free for 6 months. Patient states she has no complaints at this time but came to the ER because her mother made her come. She states that she did strain her back a couple of days ago and that's the only pain she has. Complaint: seizure -: minutes(s) (90) Description of Episode: tonic-clonic movement -: minutes(s) (2) Witnessed: yes - by bystander Trauma: No (Mother) Seizure History: known seizure disorder, compliant with medication Place: street/outdoors (While driving stopped at the drive through window) Associated Symptoms: denies other symptoms Treatments Prior to Arrival: none - Related Data Home Medications Medication Instructions Recorded Confirmed Levothyroxine Sodium [Synthroid] 88 mcg PO DAILY 06/05/19 07/19/20 Sertraline HCl [Zoloft] 50 mg PO DAILY 06/05/19 07/19/20 Camrese 0.15-0.03-0.01 1 tab PO DAILY 03/17/20 07/19/20 EPINEPHrine (Auto Inject) [Epipen] 0.3 mg IM ONCE PRN 04/21/20 07/19/20 Omeprazole [PriLOSEC] 40 mg PO AC-BRKFST 04/21/20 07/19/20 Previous Rx's Medication Instructions Recorded Propranolol LA [Inderal LA] 80 mg PO DAILY #10 cap.sa.24h 07/21/20 amLODIPine [Norvasc] 5 mg PO DAILY #10 tab 07/21/20 lamoTRIgine [LaMICtal] 25 mg PO DAILY #10 tab 07/21/20 Allergies Allergy/AdvReac Type Severity Reaction Status Date / Time cefaclor [From Ceclor] Allergy Rash/Hives Verified 12/30/20 20:40 Iodinated Contrast Media Allergy Anaphylaxis Verified 12/30/20 20:40 [Iodinated Contrast- Oral and IV Dye] shellfish derived [Shellfish] Allergy Anaphylaxis Verified 12/30/20 20:40 Review of Systems ROS Statement: Those systems with pertinent positive or pertinent negative responses have been documented in the HPI. ROS Other: All systems not noted in ROS Statement are negative. Past Medical History Past Medical History: Asthma, Seizure Disorder, Thyroid Disorder Additional Past Medical History / Comment(s): PMDD, CVS (cyclic vomiting disorder), cortisone shots in knee History of Any Multi-Drug Resistant Organisms: None Reported Past Surgical History: Orthopedic Surgery, Tonsillectomy Additional Past Surgical History / Comment(s): ANKLE, ARM, Past Anesthesia/Blood Transfusion Reactions: No Reported Reaction Past Psychological History: Anxiety Smoking Status: Never smoker Past Alcohol Use History: Daily Past Drug Use History: Marijuana - Past Family History Mother Family Medical History: No Reported History General Exam Limitations: physical limitation General appearance: alert, in no apparent distress Head exam: Present: atraumatic, normocephalic, normal inspection Eye exam: Present: normal appearance, PERRL, EOMI. Absent: scleral icterus, co njunctival injection, periorbital swelling Pupils: Present: normal accommodation ENT exam: Present: normal exam, normal oropharynx, mucous membranes moist Neck exam: Present: normal inspection, full ROM. Absent: tenderness, meningismus, lymphadenopathy, thyromegaly Respiratory exam: Present: normal lung sounds bilaterally. Absent: respiratory distress, wheezes, rales, rhonchi, stridor, chest wall tenderness, accessory muscle use, decreased breath sounds, prolonged expiratory Cardiovascular Exam: Present: tachycardia GI/Abdominal exam: Present: soft, normal bowel sounds. Absent: distended, tenderness, guarding, rebound, rigid Extremities exam: Present: normal inspection, full ROM, normal capillary refill. Absent: tenderness, pedal edema, joint swelling, calf tenderness Back exam: Present: normal inspection, full ROM, tenderness (Lumbar), paraspinal tenderness. Absent: CVA tenderness (R), CVA tenderness (L), muscle spasm, vertebral tenderness, rash noted Neurological exam: Present: alert, oriented X3, CN II-XII intact. Absent: motor sensory deficit Expanded Patient oriented to: Present: person, place, time Speech: Present: fluid speech Cranial nerves: EOM's Intact: Normal, Gag Reflex: Normal, Tongue Deviation: Normal Cerebellar function: Finger to Nose: Normal, Heel to Morales: Normal Motor strength exam: RUE: 5, LUE: 5, RLE: 5, LLE: 5 Eye Response: (4) open spontaneously Motor Response: (6) obeys commands Verbal Response: (5) oriented Trevor Total: 15 Psychiatric exam: Present: normal affect, normal mood. Absent: anxious Skin exam: Present: warm, dry, intact, normal color. Absent: rash, cyanosis, diaphoretic, erythema, petechiae, pallor, mottled Course Vital Signs 12/30/20 12/30/20 20:35 22:07 Temperature 98.6 F Pulse Rate 108 H 93 Respiratory 18 18 Rate Blood Pressure 143/94 110/79 O2 Sat by Pulse 100 99 Oximetry Medical Decision Making - Medical Decision Making Patient is well-appearing with a history of seizures. She is currently on Lamictal. Directed to follow up with her neurologist for continuation of care. She has no focal neurological deficits at this time. She denies any headache at this time. She is afebrile. Vital signs are stable, heart rate of 93, blood pressure 110/79, oxygen saturation 99%. Patient is with mother who will return patient with any worsening symptoms. Case discussed with Dr. Schumacher. Disposition Clinical Impression: Seizure Disposition: HOME SELF-CARE Condition: Good Instructions (If sedation given, give patient instructions): Recurrent Seizures in Adults (ED) Additional Instructions: Return if any complications including severe headache, high fever, persistent vomiting or changes in vision or any other new concerning symptoms. Follow-up with the primary care doctor this week. Do not drive until released by a neurologist. Is patient prescribed a controlled substance at d/c from ED?: No Referrals: Reynaldo Bateman MD [Primary Care Provider] - 1-2 days Time of Disposition: 22:19
[2020-12-30 22:10] VITALS: BP 110/79; PULSE 93
== END 2020-12-30 22:42 | disposition home or self-care (01) ==
LOC: EC 20:13
DX: R56.9 Unspecified convulsions (principal); J45.909 Unspecified asthma, uncomplicated; F41.9 Anxiety disorder, unspecified; F12.90 Cannabis use, unspecified, uncomplicated
CPT/HCPCS: 99283; 96360; 96372; J2360

== ENCOUNTER → 2021-04-14 | Outpatient (CLI) | payer OTHER ==
[2021-04-17 10:38] LABS: Aspergillus fumagatus IgE <0.10 kU/L; Birch IgE <0.10 kU/L; Cat Epith & Dander IgE <0.10 kU/L; Cladosporian herbarum IgE <0.10 kU/L; Ragweed,Common IgE <0.10 kU/L
[2021-04-17 10:39] LABS: Dermato. farinae IgE <0.10 kU/L
== END | disposition home or self-care (01) ==
LOC: LABWHC1 09:59
PROVIDERS: ATTEND Internal Medicine
DX: J30.9 Allergic rhinitis, unspecified (principal)
CPT/HCPCS: 36415; 86003

== ENCOUNTER 2021-05-20 07:56 | Emergency (ER) | payer OTHER ==
[2021-05-20 08:05] VITALS: RESP 18; TEMP 99.1
[2021-05-20] MEDS ORDERED: SODIUM CHLORIDE 0.9% 1,000 ML IV STA (08:12)
[2021-05-20] MEDS ORDERED: LORazepam 2 MG/ML INJ IV STA (08:12)
[2021-05-20] MEDS ORDERED: DIPH,PERTUS(ACELL)TETVAC-LF 0.5 ML VIAL IM ONE (08:13)
--- NOTE | 2021-05-20 08:15 | ED ---
General Adult HPI - General Chief complaint: Seizure Stated complaint: possible seizure Time Seen by Provider: 05/20/21 08:06 Source: patient, EMS, RN notes reviewed Mode of arrival: EMS Limitations: no limitations - History of Present Illness Initial comments: Patient is a pleasant 35-year-old female presenting to the emergency department with complaints of possible seizure. Patient has had 2 seizures previously. Patient has not been on any medication recently. Patient does have history of cyclic vomiting and has been vomiting some over the past couple of days however this seems to be improving. Patient previously was on Lamictal. Patient was confused however states this is resolving. Patient did sustain laceration to the scalp. No other area of injury or concern. - Related Data Home Medications Medication Instructions Recorded Confirmed Sertraline HCl [Zoloft] 50 mg PO DAILY 06/05/19 05/20/21 LORazepam [Ativan] 0.5 mg PO DAILY PRN 05/20/21 05/20/21 Ondansetron Odt [Zofran Odt] 8 mg PO DAILY PRN 05/20/21 05/20/21 norgestimate-ethinyl estradioL 1 tab PO DAILY 05/20/21 05/20/21 [Nymyo 0.25-0.035 mg (28) Tab] Previous Rx's Medication Instructions Recorded Magnesium Oxide [Mag-Ox] 400 mg PO BID #6 tablet 05/20/21 Ondansetron Odt [Zofran Odt] 4 mg PO Q8HR PRN #10 tab 05/20/21 Potassium Chloride ER [K-Dur 20] 20 meq PO TID #10 tab 05/20/21 lamoTRIgine [LaMICtal] 25 mg PO DAILY #7 tab 05/20/21 Allergies Allergy/AdvReac Type Severity Reaction Status Date / Time cefaclor [From Ceclor] Allergy Rash/Hives Verified 05/20/21 10:54 Iodinated Contrast Media Allergy Anaphylaxis Verified 05/20/21 10:54 [Iodinated Contrast- Oral and IV Dye] shellfish derived [Shellfish] Allergy Anaphylaxis Verified 05/20/21 10:54 Review of Systems ROS Statement: Those systems with pertinent positive or pertinent negative responses have been documented in the HPI. ROS Other: All systems not noted in ROS Statement are negative. Constitutional: Denies: fever Eyes: Denies: eye pain ENT: Denies: ear pain Respiratory: Denies: cough Cardiovascular: Denies: chest pain Endocrine: Denies: fatigue Gastrointestinal: Denies: abdominal pain Genitourinary: Denies: dysuria Musculoskeletal: Denies: back pain Skin: Denies: rash Neurological: Reports: as per HPI, headache, confusion Past Medical History Past Medical History: Asthma, Seizure Disorder, Thyroid Disorder Additional Past Medical History / Comment(s): PMDD, CVS (cyclic vomiting disorder), cortisone shots in knee History of Any Multi-Drug Resistant Organisms: None Reported Past Surgical History: Orthopedic Surgery, Tonsillectomy Additional Past Surgical History / Comment(s): ANKLE, ARM, Past Anesthesia/Blood Transfusion Reactions: No Reported Reaction Past Psychological History: Anxiety Smoking Status: Never smoker Past Alcohol Use History: Occasional Past Drug Use History: Marijuana - Past Family History Mother Family Medical History: No Reported History General Exam Limitations: no limitations General appearance: alert, in no apparent distress Head exam: Present: normocephalic Eye exam: Present: normal appearance, PERRL, EOMI ENT exam: Present: normal exam, normal oropharynx Neck exam: Present: normal inspection. Absent: tenderness Respiratory exam: Present: normal lung sounds bilaterally Cardiovascular Exam: Present: regular rate, normal rhythm GI/Abdominal exam: Present: soft. Absent: tenderness Extremities exam: Present: normal inspection Neurological exam: Present: alert, CN II-XII intact. Absent: motor sensory deficit Expanded Neurological exam: Present: protecting the airway Patient oriented to: Present: person, place. Absent: time Speech: Present: fluid speech Cranial nerves: EOM's Intact: Normal Sensory exam: Upper Extremity Light Touch: Normal, Lower Extremity Light Touch: Normal Motor strength exam: RUE: 5, LUE: 5, RLE: 5, LLE: 5 Eye Response: (4) open spontaneously Motor Response: (6) obeys commands Verbal Response: (4) confused conversation Psychiatric exam: Present: normal affect, normal mood Skin exam: Present: normal color Course Vital Signs 05/20/21 08:00 Temperature 99.1 F Pulse Rate 102 H Respiratory 18 Rate Blood Pressure 129/91 O2 Sat by Pulse 98 Oximetry EKG Findings - EKG Comments: EKG Findings:: Normal sinus rhythm with rate of 87. RI 126. QRS 84. QT 434. QTC 522. Normal axis. Q waves V1 and V2. No acute ST change. Procedures - Laceration Laceration #1 Consent Obtained: verbal consent Indication: laceration Site: scalp Size (cm): 2 Description: linear Depth: simple, single layer Pre-repair: wound explored, irrigated extensively Type of Sutures: other (micah) Number of Sutures: 5 Medical Decision Making - Medical Decision Making Patient reevaluated and resting comfortably in bed requesting discharge. Patient originally didn't vomit her medications and emergency department however feels it was secondary to trying to take them all at once. Patient was given Zofran and able to tolerate medications with the second try. Patient is feeling good at this time and would like to try to go home. Case was earlier discussed with Dr. rosales who felt the patient was tolerating medications could likely go home. Patient is offered recheck fluctuates prior to discharge however does not want to do that. Patient is agreeable to take prescription and follow-up being the week for repeat blood draw. - Lab Data Result diagrams: 05/20/21 08:27 05/20/21 08:27 Lab Results 05/20/21 05/20/21 05/20/21 Range/Units 08:27 08:27 08:30 WBC 7.0 (3.8-10.6) k/uL RBC 3.35 L (3.80-5.40) m/uL Hgb 12.0 (11.4-16.0) gm/dL Hct 34.4 (34.0-46.0) % MCV 102.6 H (80.0-100.0) fL MCH 35.7 H (25.0-35.0) pg MCHC 34.8 (31.0-37.0) g/dL RDW 15.8 H (11.5-15.5) % Plt Count 81 L (150-450) k/uL MPV 9.1 Neutrophils % 75 % Lymphocytes % 20 % Monocytes % 3 % Eosinophils % 1 % Basophils % 0 % Neutrophils # 5.2 (1.3-7.7) k/uL Lymphocytes # 1.4 (1.0-4.8) k/uL Monocytes # 0.2 (0-1.0) k/uL Eosinophils # 0.1 (0-0.7) k/uL Basophils # 0.0 (0-0.2) k/uL Manual Slide Review Performed Macrocytosis Slight Sodium 132 L (137-145) mmol/L Potassium 2.8 L (3.5-5.1) mmol/L Chloride 96 L (98-107) mmol/L Carbon Dioxide 23 (22-30) mmol/L Anion Gap 13 mmol/L BUN 14 (7-17) mg/dL Creatinine 0.70 (0.52-1.04) mg/dL Est GFR (CKD-EPI)AfAm >90 (>60 ml/min/1.73 sqM) Est GFR (CKD-EPI)NonAf >90 (>60 ml/min/1.73 sqM) Glucose 126 H (74-99) mg/dL Calcium 8.5 (8.4-10.2) mg/dL Magnesium 1.1 L (1.6-2.3) mg/dL Total Bilirubin 2.0 H (0.2-1.3) mg/dL AST 199 H (14-36) U/L ALT 45 H (4-34) U/L Alkaline Phosphatase 103 (38-126) U/L Total Protein 6.7 (6.3-8.2) g/dL Albumin 3.9 (3.5-5.0) g/dL Urine Color Light Brown Urine Appearance Cloudy H (Clear) Urine pH 6.0 (5.0-8.0) Ur Specific Carlton 1.028 (1.001-1.035) Urine Protein 1+ H (Negative) Urine Glucose (UA) Negative (Negative) Urine Ketones Negative (Negative) Urine Blood Small H (Negative) Urine Nitrite Negative (Negative) Urine Bilirubin 1+ H (Negative) Urine Urobilinogen 2.0 (<2.0) mg/dL Ur Leukocyte Esterase Moderate H (Negative) Urine RBC 1 (0-5) /hpf Urine WBC 9 H (0-5) /hpf Ur Squamous Epith Cells 16 H (0-4) /hpf Urine Bacteria Rare H (None) /hpf Hyaline Casts 2 (0-2) /lpf Urine Mucus Many H (None) /hpf Urine Opiates Screen Not Detected (NotDetected) Ur Oxycodone Screen Not Detected (NotDetected) Urine Methadone Screen Not Detected (NotDetected) Ur Propoxyphene Screen Not Detected (NotDetected) Ur Barbiturates Screen Not Detected (NotDetected) U Tricyclic Antidepress Not Detected (NotDetected) Ur Phencyclidine Scrn Not Detected (NotDetected) Ur Amphetamines Screen Not Detected (NotDetected) U Methamphetamines Scrn Not Detected (NotDetected) U Benzodiazepines Scrn Detected H (NotDetected) Urine Cocaine Screen Not Detected (NotDetected) U Marijuana (THC) Screen Not Detected (NotDetected) Serum Alcohol <10 mg/dL - Radiology Data Radiology results: report reviewed (Computed tomography scan of brain shows no acute process. Scalp laceration) Disposition Clinical Impression: Scalp laceration, Generalized seizure, Hypokalemia, Hypomagnesemia Disposition: HOME SELF-CARE Condition: Stable Instructions (If sedation given, give patient instructions): Seizure/Epilepsy Discharge Instructions & Follow-Up, Laceration (ED), Recurrent Seizures in Adults (ED) Additional Instructions: Staple removal in 7-10 days. Prescriptions have been sent to pharmacy. Start medications today. Please have electrolytes rechecked in the beginning of the week. Lamictal also restarted. This will need to be reevaluated through neurology or your primary care physician. Return for vomiting, not tolerating prescription medications, seizures, worsening symptoms or any other concerns. Prescriptions: Potassium Chloride ER [K-Dur 20] 20 meq PO TID #10 tab lamoTRIgine [LaMICtal] 25 mg PO DAILY #7 tab Magnesium Oxide [Mag-Ox] 400 mg PO BID #6 tablet Ondansetron Odt [Zofran Odt] 4 mg PO Q8HR PRN #10 tab PRN Reason: Nausea Is patient prescribed a controlled substance at d/c from ED?: No Referrals: Reynaldo Bateman MD [Primary Care Provider] - 1-2 days Time of Disposition: 11:55
[2021-05-20 08:41] LABS: Basophils % (A) 0 %; Eosinophils # (A) 0.1 k/uL (0-0.7); Eosinophils % (A) 1 %; HCT 34.4 % (34.0-46.0); Lymphocytes # (A) 1.4 k/uL (1.0-4.8); Lymphocytes % (A) 20 %; MCH 35.7 pg (25.0-35.0); MCHC 34.8 g/dL (31.0-37.0); MCV 102.6 fL (80.0-100.0); Macrocytosis Slight; Mean Platelet Volume 9.1; Monocytes # (A) 0.2 k/uL (0-1.0); Monocytes % (A) 3 %; Neutrophils # (A) 5.2 k/uL (1.3-7.7); Neutrophils % (A) 75 %; RBC 3.35 m/uL (3.80-5.40); RDW 15.8 % (11.5-15.5)
[2021-05-20 08:49] LABS: ALT 45 U/L (4-34); AST 199 U/L (14-36); African American GFR (CKD) >90 (>60 ml/min/1.73 sqM); Albumin 3.9 g/dL (3.5-5.0); Alcohol <10 mg/dL; Alkaline Phosphatase 103 U/L (38-126); Anion Gap 13 mmol/L; Blood Urea Nitrogen 14 mg/dL (7-17); Calcium 8.5 mg/dL (8.4-10.2); Carbon Dioxide 23 mmol/L (22-30); Chloride 96 mmol/L (98-107); Glucose 126 mg/dL (74-99); Magnesium 1.1 mg/dL (1.6-2.3); Non-African American GFR(CKD) >90 (>60 ml/min/1.73 sqM); Potassium 2.8 mmol/L (3.5-5.1); Sodium 132 mmol/L (137-145); Total Protein 6.7 g/dL (6.3-8.2)
[2021-05-20] MEDS ORDERED: POTASSIUM CHLORIDE 10 MEQ in WATER FOR INJECTION 1 100ML.BAG IVPB STA (08:50)
[2021-05-20] MEDS ORDERED: POTASSIUM CHLORIDE ER 20 MEQ TAB.ER PO STA ×2 (08:50→09:45)
[2021-05-20] MEDS ORDERED: MAGNESIUM SULFATE-D5W PMX 1 GM in DEXTROSE/WATER 1 100ML.BAG IVPB ONE (08:50)
[2021-05-20] MEDS ORDERED: MAGNESIUM OXIDE 400 MG TAB PO STA ×2 (08:50→09:45)
[2021-05-20] MEDS ORDERED: ONDANSETRON 4 MG/2 ML VIAL IVP STA (08:51)
[2021-05-20] MEDS ORDERED: FAMOTIDINE 20 MG/2 ML VIAL IV STA (08:51)
[2021-05-20 09:10] LABS: Appearance,Urine Cloudy (Clear); Bacteria,Urine Rare /hpf; Bilirubin,Urine 1+ (Negative); Blood,Urine Small (Negative); Color,Urine Light Brown; Glucose,Urine (UA) Negative (Negative); Hyaline Casts,Urine 2 /lpf (0-2); Ketones,Urine Negative (Negative); Leukocyte Esterase,Urine Moderate (Negative); Mucus,Urine Many /hpf; Nitrite,Urine Negative (Negative); Protein,Urine 1+ (Negative); RBC,Urine 1 /hpf (0-5); Specific Gravity,Urine 1.028 (1.001-1.035); Squamous Epithelial Cell,Urine 16 /hpf (0-4); WBC,Urine 9 /hpf (0-5)
[2021-05-20 09:16] LABS: Platelet Count 81 k/uL (150-450)
[2021-05-20 09:37] LABS: Amphetamine Screen,Urine Not Detected (NotDetected); Barbiturate Screen,Urine Not Detected (NotDetected); Benzodiazepines Screen,Urine Detected (NotDetected); Cocaine Screen,Urine Not Detected (NotDetected); Methadone Screen, Urine Not Detected (NotDetected); Opiate Screen,Urine Not Detected (NotDetected); Oxycodone Screen, Urine Not Detected (NotDetected); Phencyclidine Screen,Urine Not Detected (NotDetected); Tricyclic Antidepressant,Urine Not Detected (NotDetected); Urn Cannabinoid Scrn Not Detected (NotDetected)
--- NOTE | 2021-05-20 09:57 | CT ---
EXAMINATION TYPE: CT brain wo con DATE OF EXAM: 05/20/2021 COMPARISON: Head CT 07/19/2020 HISTORY: Fall, possible seizure, trauma and pain CT DLP: 1099.4 mGycm. Automated Exposure Control for Dose Reduction was Utilized. TECHNIQUE: CT scan of the head is performed without contrast. FINDINGS: There is no acute intracranial hemorrhage, mass effect, or midline shift identified. The ventricles and sulci are within normal limits in size. The globes are intact and the visualized sin uses are clear. Cephalohematoma is noted over the convexity on the left. Lucency in the soft tissues consistent with laceration. IMPRESSION: No acute intracranial hemorrhage, mass effect, or midline shift is seen. Scalp wound.
[2021-05-20 12:14] VITALS: BP 115/77; PULSE 82
== END 2021-05-20 12:24 | disposition home or self-care (01) ==
LOC: EC 07:56
DX: S01.01XA Laceration without foreign body of scalp, initial encounter (principal); G40.909 Epilepsy, unspecified, not intractable, without status epilepticus; E87.6 Hypokalemia; E83.42 Hypomagnesemia; J45.909 Unspecified asthma, uncomplicated; F41.9 Anxiety disorder, unspecified; F12.90 Cannabis use, unspecified, uncomplicated; Z79.899 Other long term (current) drug therapy; X58.XXXA Exposure to other specified factors, initial encounter
CPT/HCPCS: 36415; 93005; 80053; 83735; 85025; 81001; 80306; 70450; 90715; 12001; 99284; 96365; 96366; 96368; 96375 ×3; 96361; 90471; G0480; J2060; J2405; J3475; J3480; 80320

== ENCOUNTER 2021-10-08 08:36 | Emergency (ER) | payer OTHER ==
[2021-10-08 08:40] VITALS: RESP 18
[2021-10-08] MEDS ORDERED: SODIUM CHLORIDE 0.9% 1,000 ML IV STA (08:42)
[2021-10-08 08:45] LABS: Glucose,Whole Blood 135 mg/dL (75-99)
[2021-10-08] MEDS ORDERED: ONDANSETRON 4 MG/2 ML VIAL IVP STA (08:52)
--- NOTE | 2021-10-08 08:58 | ED ---
General Adult HPI - General Chief complaint: Seizure Stated complaint: Seizure Time Seen by Provider: 10/08/21 08:41 Source: patient, EMS Mode of arrival: EMS Limitations: no limitations - History of Present Illness Initial comments: Dictation was produced using avolution dictation software. please excuse any grammatical, word or spelling errors. Chief Complaint: 36-year-old female past history of seizure presents with seizure. History of Present Illness: 36-year-old female she has past medical history of seizures. She supposed be taking Lamictal. She does not know the doses. Has not had limited on several months. She is not follow-up with her seizure doctors in several months. Patient was at [facility] today where she started to feel little dizzy. Next thing she remembers is that she is with an open ambulance. Report from EMS was that patient suffered a seizure. EMS states that patient was postictal for several minutes. Unclear how long patients seizure lasted. Patient states she has some mild dizziness. She has no complaints today. She has some bruising around her eyes and her forehead from 4-5 days ago after she struck her head. The ROS documented in this emergency department record has been reviewed and co nfirmed by me. Those systems with pertinent positive or negative responses have been documented in the HPI. All other systems are other negative and/or noncontributory. PHYSICAL EXAM: General Impression: Alert and oriented x3, not in acute distress HEENT: Bilateral periorbital ecchymoses that appear old and Cerner resorb, extra-ocular movements intact, pupils equal and reactive to light bilaterally, mucous membranes moist. Cardiovascular: Heart regular rate and rhythm Chest: Able to complete full sentences, no retractions, no tachypnea Abdomen: abdomen soft, non-tender, non-distended, no organomegaly Musculoskeletal: Pulses present and equal in all extremities, no peripheral edema Motor: no focal deficits noted Neurological: CN II-XII grossly intact, no focal motor or sensory deficits noted Skin: Intact with no visualized rashes Psych: Normal affect and mood ED course: 36-year-old female presents to emergency department for seizure. She has history of seizure has not been compliant with seizure medications for several months. Vital signs upon arrival shows her to 118. EKG is unremarkable. Laboratory evaluation obtained. CBC unremarkable. Metabolic panel shows potassium 2.8., Magnesium 1.0. Mild gap in no acidosis. AST 389. EKG interpretation: Ventricular rate 106, sinus tachycardia,. Interval 127, care 89, QTc 439. No TX prolongation, no QTC prolongation, no ST or T-wave changes noted. Overall, this EKG is unremarkable Patient reevaluated at bedside states she does feel still a little nauseated. Family is also at the bedside. Patient reports that she is supposed to be on magnesium and potassium supplementation that she also has not been compliant with. Patient has been having intermittent episodes of vomiting for the last several days. Disposition options were discussed with patient. Patient did not want to be admitted to the hospital. Patient given parenterally potassium and magnesium. She is notified of her abnormal liver enzyme results. Still that is important that she follows up with her primary care doctor and neurologist for outpatient management of her seizures, electrolyte derangement and elevated liver enzymes. Return precautions discussed. Patient is agreeable to disposition. - Related Data Home Medications Medication Instructions Recorded Confirmed Sertraline HCl [Zoloft] 50 mg PO DAILY 06/05/19 05/20/21 LORazepam [Ativan] 0.5 mg PO DAILY PRN 05/20/21 05/20/21 Ondansetron Odt [Zofran Odt] 8 mg PO DAILY PRN 05/20/21 05/20/21 norgestimate-ethinyl estradioL 1 tab PO DAILY 05/20/21 05/20/21 [Nymyo 0.25-0.035 mg (28) Tab] Previous Rx's Medication Instructions Recorded Magnesium Oxide [Mag-Ox] 400 mg PO BID #6 tablet 05/20/21 Ondansetron Odt [Zofran Odt] 4 mg PO Q8HR PRN #10 tab 05/20/21 Potassium Chloride ER [K-Dur 20] 20 meq PO TID #10 tab 05/20/21 lamoTRIgine [LaMICtal] 25 mg PO DAILY #7 tab 05/20/21 Allergies Allergy/AdvReac Type Severity Reaction Status Date / Time cefaclor [From Ceclor] Allergy Rash/Hives Verified 10/08/21 08:56 Iodinated Contrast Media Allergy Anaphylaxis Verified 10/08/21 08:56 [Iodinated Contrast- Oral and IV Dye] shellfish derived [Shellfish] Allergy Anaphylaxis Verified 10/08/21 08:56 Review of Systems ROS Statement: Those systems with pertinent positive or pertinent negative responses have been documented in the HPI. ROS Other: All systems not noted in ROS Statement are negative. Past Medical History Past Medical History: Asthma, Seizure Disorder, Thyroid Disorder Additional Past Medical History / Comment(s): PMDD, CVS (cyclic vomiting disorder), cortisone shots in knee History of Any Multi-Drug Resistant Organisms: None Reported Past Surgical History: Orthopedic Surgery, Tonsillectomy Additional Past Surgical History / Comment(s): ANKLE, ARM, Past Anesthesia/Blood Transfusion Reactions: No Reported Reaction Past Psychological History: Anxiety Smoking Status: Never smoker Past Alcohol Use History: Occasional Past Drug Use History: Marijuana - Past Family History Mother Family Medical History: No Reported History General Exam Limitations: no limitations Course Vital Signs 10/08/21 08:37 Pulse Rate 118 H Respiratory 18 Rate Blood Pressure 129/93 O2 Sat by Pulse 98 Oximetry Medical Decision Making - Lab Data Result diagrams: 10/08/21 08:51 10/08/21 08:51 Lab Results 10/08/21 10/08/21 10/08/21 Range/Units 08:42 08:51 08:51 WBC 7.6 (3.8-10.6) k/uL RBC 4.22 (3.80-5.40) m/uL Hgb 13.1 (11.4-16.0) gm/dL Hct 40.7 (34.0-46.0) % MCV 96.6 (80.0-100.0) fL MCH 31.0 (25.0-35.0) pg MCHC 32.1 (31.0-37.0) g/dL RDW 18.5 H (11.5-15.5) % Plt Count 199 (150-450) k/uL MPV 8.2 Neutrophils % 71 % Lymphocytes % 22 % Monocytes % 4 % Eosinophils % 2 % Basophils % 1 % Neutrophils # 5.3 (1.3-7.7) k/uL Lymphocytes # 1.7 (1.0-4.8) k/uL Monocytes # 0.3 (0-1.0) k/uL Eosinophils # 0.1 (0-0.7) k/uL Basophils # 0.1 (0-0.2) k/uL Anisocytosis Slight Macrocytosis Slight Sodium 134 L (137-145) mmol/L Potassium 2.8 L (3.5-5.1) mmol/L Chloride 96 L (98-107) mmol/L Carbon Dioxide 22 (22-30) mmol/L Anion Gap 16 mmol/L BUN 11 (7-17) mg/dL Creatinine 0.77 (0.52-1.04) mg/dL Est GFR (CKD-EPI)AfAm >90 (>60 ml/min/1.73 sqM) Est GFR (CKD-EPI)NonAf >90 (>60 ml/min/1.73 sqM) Glucose 117 H (74-99) mg/dL POC Glucose (mg/dL) 135 H (75-99) mg/dL POC Glu [employer] ID Nina Aquino Calcium 9.1 (8.4-10.2) mg/dL Magnesium 1.0 L (1.6-2.3) mg/dL Total Bilirubin 2.8 H (0.2-1.3) mg/dL Conjugated Bilirubin (0.0-0.3) mg/dL Unconjugated Bilirubin (0.0-1.1) mg/dL Delta Bilirubin (0.0-0.2) mg/dL AST 389 H (14-36) U/L ALT 70 H (4-34) U/L Alkaline Phosphatase 197 H (38-126) U/L Total Protein 8.1 (6.3-8.2) g/dL Albumin 4.8 (3.5-5.0) g/dL HCG, Quant <2.4 mIU/mL 10/08/21 Range/Units 08:51 WBC (3.8-10.6) k/uL RBC (3.80-5.40) m/uL Hgb (11.4-16.0) gm/dL Hct (34.0-46.0) % MCV (80.0-100.0) fL MCH (25.0-35.0) pg MCHC (31.0-37.0) g/dL RDW (11.5-15.5) % Plt Count (150-450) k/uL MPV Neutrophils % % Lymphocytes % % Monocytes % % Eosinophils % % Basophils % % Neutrophils # (1.3-7.7) k/uL Lymphocytes # (1.0-4.8) k/uL Monocytes # (0-1.0) k/uL Eosinophils # (0-0.7) k/uL Basophils # (0-0.2) k/uL Anisocytosis Macrocytosis Sodium (137-145) mmol/L Potassium (3.5-5.1) mmol/L Chloride (98-107) mmol/L Carbon Dioxide (22-30) mmol/L Anion Gap mmol/L BUN (7-17) mg/dL Creatinine (0.52-1.04) mg/dL Est GFR (CKD-EPI)AfAm (>60 ml/min/1.73 sqM) Est GFR (CKD-EPI)NonAf (>60 ml/min/1.73 sqM) Glucose (74-99) mg/dL POC Glucose (mg/dL) (75-99) mg/dL POC Glu Marine Oiler ID Calcium (8.4-10.2) mg/dL Magnesium (1.6-2.3) mg/dL Total Bilirubin 2.8 H (0.2-1.3) mg/dL Conjugated Bilirubin 0.0 (0.0-0.3) mg/dL Unconjugated Bilirubin 2.1 H (0.0-1.1) mg/dL Delta Bilirubin 0.7 H (0.0-0.2) mg/dL AST (14-36) U/L ALT (4-34) U/L Alkaline Phosphatase (38-126) U/L Total Protein (6.3-8.2) g/dL Albumin (3.5-5.0) g/dL HCG, Quant mIU/mL Disposition Clinical Impression: Hepatitis, Electrolyte abnormality, Seizure Disposition: HOME SELF-CARE Condition: Fair Instructions (If sedation given, give patient instructions): Recurrent Seizures in Adults (ED), Hypokalemia (ED), Hypomagnesemia (ED) Additional Instructions: Is important that you follow-up with primary care doctor. We have low elec trolyte levels that if get worse could cause severe life-threatening issues. Furthermore, you had elevated liver enzymes that need to be monitored by primary care doctor. Also suggested you follow up with neurologist for outpatient management of seizures. Is patient prescribed a controlled substance at d/c from ED?: No Referrals: Reynaldo Bateman MD [Primary Care Provider] - 1-2 days Time of Disposition: 11:32
[2021-10-08 09:07] LABS: ALT 70 U/L (4-34); AST 389 U/L (14-36); African American GFR (CKD) >90 (>60 ml/min/1.73 sqM); Albumin 4.8 g/dL (3.5-5.0); Alkaline Phosphatase 197 U/L (38-126); Anion Gap 16 mmol/L; Blood Urea Nitrogen 11 mg/dL (7-17); Calcium 9.1 mg/dL (8.4-10.2); Carbon Dioxide 22 mmol/L (22-30); Chloride 96 mmol/L (98-107); Glucose 117 mg/dL (74-99); Non-African American GFR(CKD) >90 (>60 ml/min/1.73 sqM); Potassium 2.8 mmol/L (3.5-5.1); Sodium 134 mmol/L (137-145); Total Bilirubin 2.8 mg/dL (0.2-1.3); Total Protein 8.1 g/dL (6.3-8.2)
[2021-10-08 09:19] LABS: Anisocytosis Slight; Basophils # (A) 0.1 k/uL (0-0.2); Basophils % (A) 1 %; Eosinophils # (A) 0.1 k/uL (0-0.7); Eosinophils % (A) 2 %; HCT 40.7 % (34.0-46.0); HGB 13.1 gm/dL (11.4-16.0); Lymphocytes # (A) 1.7 k/uL (1.0-4.8); Lymphocytes % (A) 22 %; MCHC 32.1 g/dL (31.0-37.0); MCV 96.6 fL (80.0-100.0); Macrocytosis Slight; Mean Platelet Volume 8.2; Monocytes # (A) 0.3 k/uL (0-1.0); Monocytes % (A) 4 %; Neutrophils # (A) 5.3 k/uL (1.3-7.7); Neutrophils % (A) 71 %; Platelet Count 199 k/uL (150-450); RBC 4.22 m/uL (3.80-5.40); RDW 18.5 % (11.5-15.5); WBC 7.6 k/uL (3.8-10.6)
[2021-10-08 09:24] LABS: HCG,Quantitative Serum <2.4 mIU/mL
[2021-10-08] MEDS ORDERED: MAGNESIUM OXIDE 400 MG TAB PO STA (09:29)
[2021-10-08] MEDS ORDERED: POTASSIUM CHLORIDE ER 20 MEQ TAB.ER PO STA (09:29)
[2021-10-08] MEDS ORDERED: POTASSIUM CHLORIDE 20 MEQ in WATER FOR INJECTION 1 100ML.BAG IVPB STA (09:33)
[2021-10-08 09:41] LABS: Bilirubin, Delta 0.7 mg/dL (0.0-0.2); Bilirubin,Unconjugated 2.1 mg/dL (0.0-1.1); Total Bilirubin 2.8 mg/dL (0.2-1.3)
[2021-10-08] MEDS: MAGNESIUM SULFATE-D5W PMX 1 GM in DEXTROSE/WATER 1 100ML.BAG IVPB SCH ×2 (09:46→10:51)
[2021-10-08] MEDS ORDERED: KETOROLAC 15 MG/ML 1 ML VIAL IVP STA (10:25)
[2021-10-08 11:58] VITALS: BP 126/90; PULSE 83; TEMP 98.6
== END 2021-10-08 11:58 | disposition home or self-care (01) ==
LOC: EC 08:36
DX: G40.909 Epilepsy, unspecified, not intractable, without status epilepticus (principal); K75.9 Inflammatory liver disease, unspecified; E87.8 Other disorders of electrolyte and fluid balance, not elsewhere classified; S00.83XA Contusion of other part of head, initial encounter; J45.909 Unspecified asthma, uncomplicated; F41.9 Anxiety disorder, unspecified; F12.90 Cannabis use, unspecified, uncomplicated; Z79.899 Other long term (current) drug therapy; X58.XXXA Exposure to other specified factors, initial encounter
CPT/HCPCS: 36415; 93005; 80053; 82248; 83735; 85025; 84702; 99284; 96365; 96375 ×2; 96361 ×3; J3480; J2405; J3475; J1885

== ENCOUNTER 2022-02-21 19:40 | Emergency (ER) | payer OTHER ==
[2022-02-21] MEDS ORDERED: SODIUM CHLORIDE 0.9% 500 ML 500 ML IV STA (19:56)
[2022-02-21 20:06] VITALS: RESP 15; TEMP 98.5
[2022-02-21 20:12] LABS: Basophils # (A) 0.1 k/uL (0-0.2); Basophils % (A) 1 %; Eosinophils # (A) 0.1 k/uL (0-0.7); Eosinophils % (A) 1 %; HCT 39.8 % (34.0-46.0); Lymphocytes # (A) 1.5 k/uL (1.0-4.8); Lymphocytes % (A) 15 %; MCH 34.9 pg (25.0-35.0); MCHC 32.6 g/dL (31.0-37.0); Macrocytosis Moderate; Mean Platelet Volume 8.5; Monocytes # (A) 0.3 k/uL (0-1.0); Monocytes % (A) 3 %; Neutrophils # (A) 8.5 k/uL (1.3-7.7); Neutrophils % (A) 80 %; Platelet Count 149 k/uL (150-450); RBC 3.73 m/uL (3.80-5.40); RDW 14.4 % (11.5-15.5); WBC 10.6 k/uL (3.8-10.6)
[2022-02-21 20:24] LABS: ALT 36 U/L (4-34); AST 255 U/L (14-36); African American GFR (CKD) >90 (>60 ml/min/1.73 sqM); Albumin 4.1 g/dL (3.5-5.0); Alkaline Phosphatase 248 U/L (38-126); Anion Gap 16 mmol/L; Blood Urea Nitrogen 9 mg/dL (7-17); Calcium 8.5 mg/dL (8.4-10.2); Carbon Dioxide 22 mmol/L (22-30); Chloride 95 mmol/L (98-107); Glucose 132 mg/dL (74-99); Non-African American GFR(CKD) >90 (>60 ml/min/1.73 sqM); Potassium 3.3 mmol/L (3.5-5.1); Sodium 133 mmol/L (137-145); Total Bilirubin 3.3 mg/dL (0.2-1.3); Total Protein 7.1 g/dL (6.3-8.2)
--- NOTE | 2022-02-21 21:08 | ED ---
Seizure HPI - General Stated Complaint: Seizure Time Seen by Provider: 02/21/22 19:47 Source: EMS Mode of arrival: EMS Limitations: no limitations - History of Present Illness MD Complaint: seizure -: minutes(s) Description of Episode: loss of consciousness, tonic-clonic movement -: second(s) Trauma: No Seizure History: known seizure disorder Place: home Possible Precipitating Event: lack of sleep Associated Symptoms: denies other symptoms Treatments Prior to Arrival: none - Related Data Home Medications Medication Instructions Recorded Confirmed Sertraline HCl [Zoloft] 50 mg PO DAILY 06/05/19 05/20/21 LORazepam [Ativan] 0.5 mg PO DAILY PRN 05/20/21 05/20/21 Ondansetron Odt [Zofran Odt] 8 mg PO DAILY PRN 05/20/21 05/20/21 norgestimate-ethinyl estradioL 1 tab PO DAILY 05/20/21 05/20/21 [Nymyo 0.25-0.035 mg (28) Tab] Previous Rx's Medication Instructions Recorded Magnesium Oxide [Mag-Ox] 400 mg PO BID #6 tablet 05/20/21 Ondansetron Odt [Zofran Odt] 4 mg PO Q8HR PRN #10 tab 05/20/21 Potassium Chloride ER [K-Dur 20] 20 meq PO TID #10 tab 05/20/21 lamoTRIgine [LaMICtal] 25 mg PO DAILY #7 tab 05/20/21 Allergies Allergy/AdvReac Type Severity Reaction Status Date / Time cefaclor [From Ceclor] Allergy Rash/Hives Verified 02/21/22 20:00 Iodinated Contrast Media Allergy Anaphylaxis Verified 02/21/22 20:00 [Iodinated Contrast- Oral and IV Dye] shellfish derived [Shellfish] Allergy Anaphylaxis Verified 02/21/22 20:00 Review of Systems ROS Statement: Those systems with pertinent positive or pertinent negative responses have been documented in the HPI. ROS Other: All systems not noted in ROS Statement are negative. Constitutional: Denies: fever, chills Eyes: Denies: vision change Respiratory: Denies: cough, dyspnea Cardiovascular: Denies: chest pain, palpitations Gastrointestinal: Denies: abdominal pain, vomiting Genitourinary: Denies: dysuria Musculoskeletal: Denies: back pain Skin: Denies: rash Neurological: Denies: headache, weakness, numbness Past Medical History Past Medical History: Asthma, Seizure Disorder, Thyroid Disorder Additional Past Medical History / Comment(s): PMDD, CVS (cyclic vomiting disorder), cortisone shots in knee History of Any Multi-Drug Resistant Organisms: None Reported Past Surgical History: Orthopedic Surgery, Tonsillectomy Additional Past Surgical History / Comment(s): ANKLE, ARM, Past Anesthesia/Blood Transfusion Reactions: No Reported Reaction Past Psychological History: Anxiety Smoking Status: Never smoker Past Alcohol Use History: Occasional Past Drug Use History: Marijuana - Past Family History Mother Family Medical History: No Reported History General Exam General appearance: alert, in no apparent distress Head exam: Present: atraumatic, normocephalic Eye exam: Present: normal appearance, PERRL, EOMI. Absent: scleral icterus, conjunctival injection, nystagmus Neck exam: Present: normal inspection, full ROM. Absent: tenderness Respiratory exam: Present: normal lung sounds bilaterally. Absent: respiratory distress, wheezes, rales, rhonchi, stridor Cardiovascular Exam: Present: regular rate, normal rhythm, normal heart sounds. Absent: systolic murmur, diastolic murmur, rubs, gallop GI/Abdominal exam: Present: soft. Absent: distended, tenderness, guarding, rebound, rigid, mass Extremities exam: Present: normal inspection, normal capillary refill. Absent: pedal edema, calf tenderness Back exam: Present: normal inspection. Absent: CVA tenderness (R), CVA tenderness (L) Neurological exam: Present: alert, oriented X3, CN II-XII intact. Absent: motor sensory deficit Skin exam: Present: warm, dry, intact, normal color. Absent: rash Course Vital Signs 02/21/22 20:00 Temperature 98.5 F Pulse Rate 110 H Respiratory 15 Rate Blood Pressure 124/100 O2 Sat by Pulse 96 Oximetry Medical Decision Making - Lab Data Result diagrams: 02/21/22 19:42 02/21/22 19:42 Lab Results 02/21/22 02/21/22 Range/Units 19:42 19:42 WBC 10.6 (3.8-10.6) k/uL RBC 3.73 L (3.80-5.40) m/uL Hgb 13.0 (11.4-16.0) gm/dL Hct 39.8 (34.0-46.0) % MCV 107.0 H (80.0-100.0) fL MCH 34.9 (25.0-35.0) pg MCHC 32.6 (31.0-37.0) g/dL RDW 14.4 (11.5-15.5) % Plt Count 149 L (150-450) k/uL MPV 8.5 Neutrophils % 80 % Lymphocytes % 15 % Monocytes % 3 % Eosinophils % 1 % Basophils % 1 % Neutrophils # 8.5 H (1.3-7.7) k/uL Lymphocytes # 1.5 (1.0-4.8) k/uL Monocytes # 0.3 (0-1.0) k/uL Eosinophils # 0.1 (0-0.7) k/uL Basophils # 0.1 (0-0.2) k/uL Macrocytosis Moderate Sodium 133 L (137-145) mmol/L Potassium 3.3 L (3.5-5.1) mmol/L Chloride 95 L (98-107) mmol/L Carbon Dioxide 22 (22-30) mmol/L Anion Gap 16 mmol/L BUN 9 (7-17) mg/dL Creatinine 0.58 (0.52-1.04) mg/dL Est GFR (CKD-EPI)AfAm >90 (>60 ml/min/1.73 sqM) Est GFR (CKD-EPI)NonAf >90 (>60 ml/min/1.73 sqM) Glucose 132 H (74-99) mg/dL Calcium 8.5 (8.4-10.2) mg/dL Total Bilirubin 3.3 H (0.2-1.3) mg/dL AST 255 H (14-36) U/L ALT 36 H (4-34) U/L Alkaline Phosphatase 248 H (38-126) U/L Total Protein 7.1 (6.3-8.2) g/dL Albumin 4.1 (3.5-5.0) g/dL Disposition Clinical Impression: Seizure Disposition: HOME SELF-CARE Condition: Good Instructions (If sedation given, give patient instructions): Seizure/Epilepsy Discharge Instructions & Follow-Up Is patient prescribed a controlled substance at d/c from ED?: No Referrals: Reynaldo Bateman MD [Primary Care Provider] - 1-2 days
[2022-02-21 21:50] VITALS: BP 128/67; PULSE 77
== END 2022-02-21 21:54 | disposition home or self-care (01) ==
LOC: EC 19:40
DX: G40.909 Epilepsy, unspecified, not intractable, without status epilepticus (principal); Z88.8 Allergy status to other drugs, medicaments and biological substances; Z91.013 Allergy to seafood; Z91.041 Radiographic dye allergy status
CPT/HCPCS: 36415; 80053; 85025; 96360; 99284

== ENCOUNTER → 2022-03-15 | Outpatient (CLI) | payer OTHER ==
--- NOTE | 2022-03-16 04:09 | MR ---
EXAMINATION TYPE: MR brain wo con DATE OF EXAM: 03/15/2022 COMPARISON: None HISTORY: Hx of Epilepsy Multiplanar multiecho imaging of the brain performed without contrast. Diffusion images show no evidence of an acute infarct. Ventricles have normal size. There is no mass effect or midline shift. No sign of intracranial hemorrhage. The delvalle-white matter structures have fa irly normal signal pattern. No evidence of cerebral edema. Brainstem is intact. Corpus callosum is intact. Sella turcica appears normal. No evidence of orbital mass. IMPRESSION: Normal MRI scan of the brain.
== END | disposition home or self-care (01) ==
LOC: RADMRIMAIN 15:13
PROVIDERS: ATTEND Psychiatry & Neurology Neurology
DX: G40.909 Epilepsy, unspecified, not intractable, without status epilepticus (principal)
CPT/HCPCS: 70551

== ENCOUNTER 2022-06-10 17:34 | Emergency (ER) | payer OTHER ==
[2022-06-10 17:45] VITALS: RESP 18; TEMP 98.7
[2022-06-10 18:34] LABS: Basophils % (A) 1 %; Eosinophils % (A) 0 %; HGB 14.1 gm/dL (11.4-16.0); Lymphocytes # (A) 0.8 k/uL (1.0-4.8); Lymphocytes % (A) 19 %; MCH 33.2 pg (25.0-35.0); MCV 92.1 fL (80.0-100.0); Mean Platelet Volume 11.4; Monocytes # (A) 0.2 k/uL (0-1.0); Monocytes % (A) 4 %; Neutrophils # (A) 3.3 k/uL (1.3-7.7); Neutrophils % (A) 75 %; RBC 4.24 m/uL (3.80-5.40); RDW 14.7 % (11.5-15.5); WBC 4.4 k/uL (3.8-10.6)
[2022-06-10 18:41] LABS: Appearance,Urine Turbid (Clear); Bacteria,Urine Many /hpf; Bilirubin,Urine 2+ (Negative); Blood,Urine Small (Negative); Color,Urine Orange; Glucose,Urine (UA) Negative (Negative); Hyaline Casts,Urine 2 /lpf (0-2); Ketones,Urine Trace (Negative); Leukocyte Esterase,Urine Moderate (Negative); Mucus,Urine Rare /hpf; Nitrite,Urine Negative (Negative); PH, Urine 7.5 (5.0-8.0); Protein,Urine 2+ (Negative); RBC,Urine 3 /hpf (0-5); Specific Gravity,Urine 1.027 (1.001-1.035); Squamous Epithelial Cell,Urine 14 /hpf (0-4); WBC,Urine 19 /hpf (0-5)
--- NOTE | 2022-06-10 19:09 | ED ---
Seizure HPI - General Chief Complaint: Seizure Stated Complaint: seizure Time Seen by Provider: 06/10/22 17:45 Source: patient, EMS Mode of arrival: EMS Limitations: no limitations - History of Present Illness Initial Comments: 36-year-old female past mental history of cyclic vomiting syndrome, seizure disorder who presents to the emergency department reporting seizure. States that she has a breakthrough seizure approximately every 6 months. It has been 6 months since her last one. She states that she was sitting on the couch when she saw a red on the TV. She then looked down and looked at her phone and saw the same red discoloration on her phone. This is when she went into a full tonic-clonic seizure that lasted approximately 2 minutes and spontaneously stopped. She did not suffer any trauma. She did not bite her tongue. No urinary or bowel incontinence. She has been taking her medications as directed. Missed 2 doses last week. No recent medication changes. Follows with Dr. Alexander from neurology. She admits to occasional alcohol use to me. Reports to a recent upper respiratory infection with nausea and vomiting. States that her appetite has been significantly diminished. Denies concern for . No abdominal pain. She has had multiple sick contacts with similar symptoms. No other alleviating, precipitating or modifying factors - Related Data Home Medications Medication Instructions Recorded Confirmed Sertraline HCl [Zoloft] 50 mg PO DAILY 06/05/19 05/20/21 LORazepam [Ativan] 0.5 mg PO DAILY PRN 05/20/21 05/20/21 Ondansetron Odt [Zofran Odt] 8 mg PO DAILY PRN 05/20/21 05/20/21 norgestimate-ethinyl estradioL 1 tab PO DAILY 05/20/21 05/20/21 [Nymyo 0.25-0.035 mg (28) Tab] Previous Rx's Medication Instructions Recorded Magnesium Oxide [Mag-Ox] 400 mg PO BID #6 tablet 05/20/21 Ondansetron Odt [Zofran Odt] 4 mg PO Q8HR PRN #10 tab 05/20/21 Potassium Chloride ER [K-Dur 20] 20 meq PO TID #10 tab 05/20/21 lamoTRIgine [LaMICtal] 25 mg PO DAILY #7 tab 05/20/21 Allergies Allergy/AdvReac Type Severity Reaction Status Date / Time cefaclor [From [facility]] Allergy Rash/Hives Verified 02/21/22 20:00 Iodinated Contrast Media Allergy Anaphylaxis Verified 02/21/22 20:00 [Iodinated Contrast- Oral and IV Dye] shellfish derived [Shellfish] Allergy Anaphylaxis Verified 02/21/22 20:00 Review of Systems ROS Statement: Those systems with pertinent positive or pertinent negative responses have been documented in the HPI. ROS Other: All systems not noted in ROS Statement are negative. Past Medical History Past Medical History: Asthma, Seizure Disorder, Thyroid Disorder Additional Past Medical History / Comment(s): PMDD, CVS (cyclic vomiting disorder), cortisone shots in knee History of Any Multi-Drug Resistant Organisms: None Reported Past Surgical History: Orthopedic Surgery, Tonsillectomy Additional Past Surgical History / Comment(s): ANKLE, ARM, Past Anesthesia/Blood Transfusion Reactions: No Reported Reaction Past Psychological History: Anxiety Smoking Status: Never smoker Past Alcohol Use History: Occasional Past Drug Use History: Marijuana - Past Family History Mother Family Medical History: No Reported History General Exam Limitations: no limitations General appearance: alert, in no apparent distress Head exam: Present: atraumatic, normocephalic, normal inspection Eye exam: Present: normal appearance, PERRL, EOMI. Absent: scleral icterus, conjunctival injection, periorbital swelling ENT exam: Present: normal exam, mucous membranes moist Neck exam: Present: normal inspection. Absent: tenderness, meningismus, lymphadenopathy Respiratory exam: Present: normal lung sounds bilaterally. Absent: respiratory distress, wheezes, rales, rhonchi, stridor Cardiovascular Exam: Present: regular rate, normal rhythm, normal heart sounds. Absent: systolic murmur, diastolic murmur, rubs, gallop, clicks GI/Abdominal exam: Present: soft, normal bowel sounds. Absent: distended, tenderness, guarding, rebound, rigid Extremities exam: Present: normal inspection, full ROM, normal capillary refill. Absent: tenderness, pedal edema, joint swelling, calf tenderness Back exam: Present: normal inspection Neurological exam: Present: alert, oriented X3, CN II-XII intact Psychiatric exam: Present: normal affect, normal mood Skin exam: Present: warm, dry, intact, normal color. Absent: rash Course Vital Signs 06/10/22 06/10/22 17:37 22:36 Temperature 98.7 F Pulse Rate 94 83 Respiratory 18 18 Rate Blood Pressure 138/93 128/79 O2 Sat by Pulse 95 97 Oximetry Medical Decision Making - Medical Decision Making Was pt. sent in by a medical professional or institution? @ -No Did you speak to anyone other than the patient for history? @ -Patient's Did you review nursing and triage notes? @ Yes and I agree with note Were old charts reviewed? @ -No Differential Diagnosis? @ -Differential Seizure: Recurrent seizure disorder, febrile seizure, alcohol withdrawal, stimulants, meningitis, encephalitis, intercranial hemorrhage, intracranial tumor, stroke, eclampsia, thyrotoxicosis, hypocalcemia, hyponatremia, hypernatremia, hypomagnesemia, psychogenic, this is not meant to be an all-inclusive list. EKG interpreted by me (3pts min.)? @ -Yes X-rays interpreted by me (1pt min.)? @ -Not completed CT interpreted by me (1pt min.)? @ -Not completed U/S interpreted by me (1pt. min.)? @ -Not completed What testing was considered but not performed? (CT, X-rays, U/S, labs)? Why? @ CT brain however not completed as patient does have history of seizure disorder without trauma What meds were considered but not given? Why? @ -Benzodiazepines however patient has no further seizure-like activity in the emergency department Did you discuss the management of the patient with other professionals? @ -No Did you reconcile home meds? @ -No Was smoking cessation discussed for >3mins.? @ -No Was critical care preformed (if so, how long)? @ -No Were there social determinants of health that impacted care today? How? (Homelessness, low income, unemployed, alcoholism, drug addiction, transpor tation, low edu. Level, literacy, decrease access to med. care, residential, rehab)? @ -No social determinants Was there de-escalation of care discussed even if they declined? (Discuss DNR or withdrawal of care, Hospice)? @ -No What co-morbidities impacted this encounter? (DM, HTN, Smoking, COPD, CAD, Cancer, CVA, Hep., AIDS, mental health diagnosis, sleep apnea, morbid obesity)? @ -Cyclic vomiting Was patient admitted / discharged? @ -Discharged Undiagnosed new problem with uncertain prognosis? @ -No Drug Therapy requiring intensive monitoring for toxicity (Heparin, Nitro, Insulin, Cardizem)? @ -No Were any procedures done? @ -No Diagnosis/symptom? @ -Acute breakthrough seizure with history of seizure disorder. Upon arrival patient was placed into room 12. Thorough history and physical exam was performed. IV access was established and laboratory studies were conducted. Patient does provide a urine sample. I did review the patient's laboratory studies which demonstrated hypomagnesemia and hypokalemia. This is discussed with the patient. Did recommend admission for electrolyte replacement as they are significantly low. Patient refused. Stating that she wants to go home. She is aware of the risks of leaving without hospitalization. She is of sound mind and capable of making her own decision. She has returned to her baseline with no further seizure-like activity. Patient is informed that she needs to follow-up with her primary care doctor and have her laboratory studies redrawn. She is to continue taking her home replacement of magnesium and potassium. Patient has not cleared to drive. He is to follow-up with her neurologist for her seizures and return for any new or worsening symptoms. Acute, or Chronic, or Acute on Chronic? @ -Acute on chronic Uncomplicated (without systemic symptoms) or Complicated (systemic symptoms)? @ -Complicated Side effects of treatment? @ -None Exacerbation, Progression, Severe Exacerbation] @Exacerbation of chronic hypokalemia/hypomag Poses a threat to life or bodily function? @ Yes - Lab Data Result diagrams: 06/10/22 18:19 06/10/22 18:19 Lab Results 06/10/22 06/10/22 06/10/22 Range/Units 18:19 18:19 18:19 WBC 4.4 (3.8-10.6) k/uL RBC 4.24 (3.80-5.40) m/uL Hgb 14.1 (11.4-16.0) gm/dL Hct 39.0 (34.0-46.0) % MCV 92.1 (80.0-100.0) fL MCH 33.2 (25.0-35.0) pg MCHC 36.0 (31.0-37.0) g/dL RDW 14.7 (11.5-15.5) % Plt Count 55 L (150-450) k/uL MPV 11.4 Neutrophils % 75 % Lymphocytes % 19 % Monocytes % 4 % Eosinophils % 0 % Basophils % 1 % Neutrophils # 3.3 (1.3-7.7) k/uL Lymphocytes # 0.8 L (1.0-4.8) k/uL Monocytes # 0.2 (0-1.0) k/uL Eosinophils # 0.0 (0-0.7) k/uL Basophils # 0.0 (0-0.2) k/uL Manual Slide Review Performed Sodium 134 L (137-145) mmol/L Potassium 2.4 L* (3.5-5.1) mmol/L Chloride 88 L (98-107) mmol/L Carbon Dioxide 30 (22-30) mmol/L Anion Gap 16 mmol/L BUN 9 (7-17) mg/dL Creatinine 0.69 (0.52-1.04) mg/dL Est GFR (CKD-EPI)AfAm >90 (>60 ml/min/1.73 sqM) Est GFR (CKD-EPI)NonAf >90 (>60 ml/min/1.73 sqM) Glucose 163 H (74-99) mg/dL Calcium 8.9 (8.4-10.2) mg/dL Magnesium 1.2 L (1.6-2.3) mg/dL Total Bilirubin 4.5 H (0.2-1.3) mg/dL AST 283 H (14-36) U/L ALT 68 H (4-34) U/L Alkaline Phosphatase 239 H (38-126) U/L Total Protein 7.4 (6.3-8.2) g/dL Albumin 4.5 (3.5-5.0) g/dL Urine Color [place] Urine Appearance Turbid H (Clear) Urine pH 7.5 (5.0-8.0) Ur Specific [place] 1.027 (1.001-1.035) Urine Protein 2+ H (Negative) Urine Glucose (UA) Negative (Negative) Urine Ketones Trace H (Negative) Urine Blood Small H (Negative) Urine Nitrite Negative (Negative) Urine Bilirubin 2+ H (Negative) Urine Urobilinogen 12.0 (<2.0) mg/dL Ur Leukocyte Esterase Moderate H (Negative) Urine RBC 3 (0-5) /hpf Urine WBC 19 H (0-5) /hpf Ur Squamous Epith Cells 14 H (0-4) /hpf Urine Bacteria Many H (None) /hpf Hyaline Casts 2 (0-2) /lpf Urine Mucus Rare H (None) /hpf Urine HCG, Qual (Not Detectd) 06/10/22 Range/Units 18:19 WBC (3.8-10.6) k/uL RBC (3.80-5.40) m/uL Hgb (11.4-16.0) gm/dL Hct (34.0-46.0) % MCV (80.0-100.0) fL MCH (25.0-35.0) pg MCHC (31.0-37.0) g/dL RDW (11.5-15.5) % Plt Count (150-450) k/uL MPV Neutrophils % % Lymphocytes % % Monocytes % % Eosinophils % % Basophils % % Neutrophils # (1.3-7.7) k/uL Lymphocytes # (1.0-4.8) k/uL Monocytes # (0-1.0) k/uL Eosinophils # (0-0.7) k/uL Basophils # (0-0.2) k/uL Manual Slide Review Sodium (137-145) mmol/L Potassium (3.5-5.1) mmol/L Chloride (98-107) mmol/L Carbon Dioxide (22-30) mmol/L Anion Gap mmol/L BUN (7-17) mg/dL Creatinine (0.52-1.04) mg/dL Est GFR (CKD-EPI)AfAm (>60 ml/min/1.73 sqM) Est GFR (CKD-EPI)NonAf (>60 ml/min/1.73 sqM) Glucose (74-99) mg/dL Calcium (8.4-10.2) mg/dL Magnesium (1.6-2.3) mg/dL Total Bilirubin (0.2-1.3) mg/dL AST (14-36) U/L ALT (4-34) U/L Alkaline Phosphatase (38-126) U/L Total Protein (6.3-8.2) g/dL Albumin (3.5-5.0) g/dL Urine Color Urine Appearance (Clear) Urine pH (5.0-8.0) Ur Specific [place] (1.001-1.035) Urine Protein (Negative) Urine Glucose (UA) (Negative) Urine Ketones (Negative) Urine Blood (Negative) Urine Nitrite (Negative) Urine Bilirubin (Negative) Urine Urobilinogen (<2.0) mg/dL Ur Leukocyte Esterase (Negative) Urine RBC (0-5) /hpf Urine WBC (0-5) /hpf Ur Squamous Epith Cells (0-4) /hpf Urine Bacteria (None) /hpf Hyaline Casts (0-2) /lpf Urine Mucus (None) /hpf Urine HCG, Qual Not Detected (Not Detectd) - EKG Data EKG Comments: EKG demonstrates sinus tachycardia with a rate of 113. Pr interval 126. QRS 85. QTC of 416. No acute ST segment elevations or depressions. PVC present. EKG interpreted by myself Disposition Clinical Impression: Breakthrough seizure, Hypomagnesemia, Hypokalemia Disposition: HOME SELF-CARE Condition: Stable Instructions (If sedation given, give patient instructions): Seizure/Epilepsy Discharge Instructions & Follow-Up Additional Instructions: Please have your labs rechecked by her primary care doctor next week. Specifically this includes your potassium and magnesium levels. Follow-up with your neurologist. Return for any new or worsening symptoms Is patient prescribed a controlled substance at d/c from ED?: No Referrals: Reynaldo Bateman MD [Primary Care Provider] - 1-2 days Time of Disposition: 20:34
[2022-06-10 19:11] LABS: Platelet Count 55 k/uL (150-450)
[2022-06-10 19:18] LABS: AST 283 U/L (14-36); African American GFR (CKD) >90 (>60 ml/min/1.73 sqM); Albumin 4.5 g/dL (3.5-5.0); Alkaline Phosphatase 239 U/L (38-126); Anion Gap 16 mmol/L; Blood Urea Nitrogen 9 mg/dL (7-17); Calcium 8.9 mg/dL (8.4-10.2); Carbon Dioxide 30 mmol/L (22-30); Chloride 88 mmol/L (98-107); Glucose 163 mg/dL (74-99); Magnesium 1.2 mg/dL (1.6-2.3); Non-African American GFR(CKD) >90 (>60 ml/min/1.73 sqM); Sodium 134 mmol/L (137-145); Total Bilirubin 4.5 mg/dL (0.2-1.3); Total Protein 7.4 g/dL (6.3-8.2)
[2022-06-10 19:46] LABS: ALT 68 U/L (4-34); Potassium 2.4 mmol/L (3.5-5.1)
[2022-06-10] MEDS ORDERED: POTASSIUM CHLORIDE ER 20 MEQ TAB.ER PO STA (19:48)
[2022-06-10] MEDS ORDERED: POTASSIUM CHLORIDE 20 MEQ in WATER FOR INJECTION 1 100ML.BAG IVPB STA (19:48)
[2022-06-10] MEDS: MAGNESIUM SULFATE-D5W PMX 1 GM in DEXTROSE/WATER 1 100ML.BAG IVPB SCH ×2 (20:13→21:24)
[2022-06-10] MEDS ORDERED: NITROFURANTOIN MONOHYD/M-CRYST 100 MG CAP PO STA (20:31)
[2022-06-10 22:37] VITALS: BP 128/79; PULSE 83
== END 2022-06-10 22:37 | disposition home or self-care (01) ==
LOC: EC 17:34
DX: G40.909 Epilepsy, unspecified, not intractable, without status epilepticus (principal); E83.42 Hypomagnesemia; E87.6 Hypokalemia; J45.909 Unspecified asthma, uncomplicated; F41.9 Anxiety disorder, unspecified; F12.90 Cannabis use, unspecified, uncomplicated; Z91.013 Allergy to seafood; Z91.041 Radiographic dye allergy status; Z88.1 Allergy status to other antibiotic agents; Z79.899 Other long term (current) drug therapy
CPT/HCPCS: 99284; 96365; 96366; 96367; 36415; 93005; 80053; 80175; 83735; 85025; 81001; 81025; 87086; J3480; J3475; 87077; 87186

== ENCOUNTER 2022-06-11 04:45 | Emergency (ER) | payer OTHER ==
[2022-06-11 04:51] VITALS: TEMP 98
[2022-06-11] MEDS ORDERED: SODIUM CHLORIDE 0.9% 1,000 ML IV STA (05:05)
[2022-06-11] MEDS ORDERED: LORazepam 2 MG/ML INJ IV STA (05:05)
--- NOTE | 2022-06-11 05:15 | ED ---
Seizure HPI - General Chief Complaint: Seizure Stated Complaint: Seizure Time Seen by Provider: 06/11/22 05:06 Source: patient, RN notes reviewed, old records reviewed Mode of arrival: wheelchair - History of Present Illness Initial Comments: This is a 36-year-old female to the emergency department for evaluation of seizures is recurrent seizure versus patient recurrent seizure within this one day. Patient is taking no medication home denies head injury denies significant complaints states she feels well currently. Patient is preferring discharge home to follow-up with her own neurologist MD Complaint: seizure -: hour(s) Description of Episode: loss of consciousness -: second(s) Witnessed: yes - by bystander Trauma: Yes Seizure History: none, known seizure disorder Place: home Possible Precipitating Event: none Associated Symptoms: denies other symptoms Treatments Prior to Arrival: none, benzodiazepines - Related Data Home Medications Medication Instructions Recorded Confirmed Sertraline HCl [Zoloft] 50 mg PO DAILY 06/05/19 05/20/21 LORazepam [Ativan] 0.5 mg PO DAILY PRN 05/20/21 05/20/21 Ondansetron Odt [Zofran Odt] 8 mg PO DAILY PRN 05/20/21 05/20/21 norgestimate-ethinyl estradioL 1 tab PO DAILY 05/20/21 05/20/21 [Nymyo 0.25-0.035 mg (28) Tab] Previous Rx's Medication Instructions Recorded Magnesium Oxide [Mag-Ox] 400 mg PO BID #6 tablet 05/20/21 Ondansetron Odt [Zofran Odt] 4 mg PO Q8HR PRN #10 tab 05/20/21 Potassium Chloride ER [K-Dur 20] 20 meq PO TID #10 tab 05/20/21 lamoTRIgine [LaMICtal] 25 mg PO DAILY #7 tab 05/20/21 Allergies Allergy/AdvReac Type Severity Reaction Status Date / Time cefaclor [From Ceclor] Allergy Rash/Hives Verified 06/11/22 04:51 Iodinated Contrast Media Allergy Anaphylaxis Verified 06/11/22 04:51 [Iodinated Contrast- Oral and IV Dye] shellfish derived [Shellfish] Allergy Anaphylaxis Verified 06/11/22 04:51 Review of Systems ROS Statement: Those systems with pertinent positive or pertinent negative responses have been documented in the HPI. ROS Other: All systems not noted in ROS Statement are negative. Past Medical History Past Medical History: Asthma, Seizure Disorder, Thyroid Disorder Additional Past Medical History / Comment(s): PMDD, CVS (cyclic vomiting d isorder), cortisone shots in knee History of Any Multi-Drug Resistant Organisms: None Reported Past Surgical History: Orthopedic Surgery, Tonsillectomy Additional Past Surgical History / Comment(s): ANKLE, ARM, Past Anesthesia/Blood Transfusion Reactions: No Reported Reaction Past Psychological History: Anxiety Smoking Status: Never smoker Past Alcohol Use History: Occasional Past Drug Use History: Marijuana - Past Family History Mother Family Medical History: No Reported History General Exam General appearance: alert, in no apparent distress, anxious Head exam: Present: atraumatic, normocephalic, normal inspection Eye exam: Present: normal appearance, PERRL, EOMI. Absent: scleral icterus, conjunctival injection, periorbital swelling ENT exam: Present: normal exam, mucous membranes moist Neck exam: Present: normal inspection. Absent: tenderness, meningismus, lymphadenopathy Respiratory exam: Present: normal lung sounds bilaterally. Absent: respiratory distress, wheezes, rales, rhonchi, stridor Cardiovascular Exam: Present: normal rhythm, tachycardia, normal heart sounds. Absent: systolic murmur, diastolic murmur, rubs, gallop, clicks GI/Abdominal exam: Present: soft, normal bowel sounds. Absent: distended, tenderness, guarding, rebound, rigid Extremities exam: Present: normal inspection, full ROM, normal capillary refill. Absent: tenderness, pedal edema, joint swelling, calf tenderness Back exam: Present: normal inspection Neurological exam: Present: alert, oriented X3, CN II-XII intact Psychiatric exam: Present: normal affect, normal mood Skin exam: Present: warm, dry, intact, normal color. Absent: rash Course Vital Signs 06/11/22 06/11/22 06/11/22 04:47 05:30 07:41 Temperature 98 F Pulse Rate 115 H 98 88 Respiratory 18 18 17 Rate Blood Pressure 127/93 138/106 131/96 O2 Sat by Pulse 96 97 100 Oximetry - Reevaluation(s) Reevaluation #1: 06/11/22 06:55 Medical records reviewed Reevaluation #2: 06/11/22 06:55 Patient informed results questions answered Reevaluation #3: 06/11/22 06:56 No recurrent seizure activity here in the Reevaluation #4: 06/11/22 06:55 Differential Seizure: Recurrent seizure disorder, febrile seizure, alcohol withdrawal, stimulants, meningitis, encephalitis, intercranial hemorrhage, intracranial tumor, stroke, eclampsia, thyrotoxicosis, hypocalcemia, hyponatremia, hypernatremia, hypomagnesemia, psychogenic, this is not meant to be an all-inclusive list. Reevaluation #5: 06/11/22 06:55 Was pt. sent in by a medical professional or institution? @ -no Did you speak to anyone other than the patient for history? @ -parent Did you review nursing and triage notes? @ -agree Were old charts reviewed? @ -no Differential Diagnosis? @ -no EKG interpreted by me (3pts min.)? @ -[none] X-rays interpreted by me (1pt min.)? @ -[none] CT interpreted by me (1pt min.)? @ -[none] U/S interpreted by me (1pt. min.)? @ -[none] What testing was considered but not performed? (CT, X-rays, U/S, labs)? Why? @ no What meds were considered but not given? Why? @ -[none] Did you discuss the management of the patient with other professionals? @ -no Did you reconcile home meds? @ -[none] Was smoking cessation discussed for >3mins.? @ -[none] Was critical care preformed (if so, how long)? @ -[none] Were there social determinants of health that impacted care today? How? (Homelessness, low income, unemployed, alcoholism, drug addiction, transportation, low edu. Level, literacy, decrease access to med. care, shelter, rehab)? @ -no Was there de-escalation of care discussed even if they declined? (Discuss DNR or withdrawal of care, Hospice)? @ -no What co-morbidities impacted this encounter? (DM, HTN, Smoking, COPD, CAD, Cancer, CVA, Hep., AIDS, mental health diagnosis, sleep apnea, morbid obesity)? @ -no Was patient admitted / discharged? @ -dc Undiagnosed new problem with uncertain prognosis? @ -[none] Drug Therapy requiring intensive monitoring for toxicity (Heparin, Nitro, Insulin, Cardizem)? @ -[none] Were any procedures done? @ -[none] Diagnosis/symptom? @ -[default] Acute, or Chronic, or Acute on Chronic? @ -[default] Uncomplicated (without systemic symptoms) or Complicated (systemic symptoms)? @ -[default] Side effects of treatment? @ -[none] Exacerbation, Progression, or Severe Exacerbation] @ -[no] Poses a threat to life or bodily function? @ -[no] Medical Decision Making - Medical Decision Making 36 female to the emergency department for evaluation patient does suffer from seizures recurrent seizures take seizure medication home. Patient can be dis charged home - Lab Data Result diagrams: 06/11/22 05:13 06/11/22 05:13 Lab Results 06/11/22 06/11/22 06/11/22 Range/Units 05:13 05:13 05:19 WBC 4.9 (3.8-10.6) k/uL RBC 4.19 (3.80-5.40) m/uL Hgb 13.8 (11.4-16.0) gm/dL Hct 39.1 (34.0-46.0) % MCV 93.2 (80.0-100.0) fL MCH 32.9 (25.0-35.0) pg MCHC 35.3 (31.0-37.0) g/dL RDW 14.2 (11.5-15.5) % Plt Count 61 L (150-450) k/uL MPV 10.4 Neutrophils % 66 % Lymphocytes % 26 % Monocytes % 5 % Eosinophils % 1 % Basophils % 1 % Neutrophils # 3.2 (1.3-7.7) k/uL Lymphocytes # 1.3 (1.0-4.8) k/uL Monocytes # 0.3 (0-1.0) k/uL Eosinophils # 0.0 (0-0.7) k/uL Basophils # 0.0 (0-0.2) k/uL Manual Slide Review Performed Sodium 134 L (137-145) mmol/L Potassium 3.0 L (3.5-5.1) mmol/L Chloride 89 L (98-107) mmol/L Carbon Dioxide 29 (22-30) mmol/L Anion Gap 16 mmol/L BUN 8 (7-17) mg/dL Creatinine 0.72 (0.52-1.04) mg/dL Est GFR (CKD-EPI)AfAm >90 (>60 ml/min/1.73 sqM) Est GFR (CKD-EPI)NonAf >90 (>60 ml/min/1.73 sqM) Glucose 120 H (74-99) mg/dL Calcium 8.9 (8.4-10.2) mg/dL Phosphorus 1.4 L (2.5-4.5) mg/dL Magnesium 2.1 (1.6-2.3) mg/dL Total Bilirubin 4.7 H (0.2-1.3) mg/dL AST 256 H (14-36) U/L ALT 64 H (4-34) U/L Alkaline Phosphatase 246 H (38-126) U/L Total Protein 7.8 (6.3-8.2) g/dL Albumin 4.7 (3.5-5.0) g/dL Urine Color Dark Brown Urine Appearance Cloudy H (Clear) Urine pH 7.0 (5.0-8.0) Ur Specific [place] 1.021 (1.001-1.035) Urine Protein 1+ H (Negative) Urine Glucose (UA) Negative (Negative) Urine Ketones 2+ H (Negative) Urine Blood Negative (Negative) Urine Nitrite Negative (Negative) Urine Bilirubin 2+ H (Negative) Urine Urobilinogen 6.0 (<2.0) mg/dL Ur Leukocyte Esterase Small H (Negative) Urine RBC 5 (0-5) /hpf Urine WBC 31 H (0-5) /hpf Ur Squamous Epith Cells 3 (0-4) /hpf Hyaline Casts 9 H (0-2) /lpf Urine Mucus Rare H (None) /hpf Salicylates <1.0 mg/dL Urine Opiates Screen Not Detected (NotDetected) Ur Oxycodone Screen Not Detected (NotDetected) Urine Methadone Screen Not Detected (NotDetected) Ur Propoxyphene Screen Not Detected (NotDetected) Acetaminophen <10.0 ug/mL Ur Barbiturates Screen Not Detected (NotDetected) U Tricyclic Antidepress Not Detected (NotDetected) Ur Phencyclidine Scrn Not Detected (NotDetected) Ur Amphetamines Screen Not Detected (NotDetected) U Methamphetamines Scrn Not Detected (NotDetected) U Benzodiazepines Scrn Not Detected (NotDetected) Urine Cocaine Screen Not Detected (NotDetected) U Marijuana (THC) Screen Detected H (NotDetected) Serum Alcohol <10 mg/dL - EKG Data -: EKG Interpreted by Me (EKG is sinus tachycardia 104 MA 144 QRS 92 QTC 473) Disposition Clinical Impression: Breakthrough seizure, Epileptic seizure, generalized Disposition: HOME SELF-CARE Condition: Fair Instructions (If sedation given, give patient instructions): Seizure/Epilepsy Discharge Instructions & Follow-Up, Recurrent Seizures in Adults (ED) Is patient prescribed a controlled substance at d/c from ED?: No Referrals: Reynaldo Bateman MD [Primary Care Provider] - 1-2 days Time of Disposition: 07:00
[2022-06-11 05:34] LABS: Basophils % (A) 1 %; Eosinophils % (A) 1 %; HCT 39.1 % (34.0-46.0); HGB 13.8 gm/dL (11.4-16.0); Lymphocytes # (A) 1.3 k/uL (1.0-4.8); Lymphocytes % (A) 26 %; MCH 32.9 pg (25.0-35.0); MCHC 35.3 g/dL (31.0-37.0); MCV 93.2 fL (80.0-100.0); Mean Platelet Volume 10.4; Monocytes # (A) 0.3 k/uL (0-1.0); Monocytes % (A) 5 %; Neutrophils # (A) 3.2 k/uL (1.3-7.7); Neutrophils % (A) 66 %; RBC 4.19 m/uL (3.80-5.40); RDW 14.2 % (11.5-15.5); WBC 4.9 k/uL (3.8-10.6)
[2022-06-11 05:53] LABS: AST 256 U/L (14-36); Acetaminophen <10.0 ug/mL; African American GFR (CKD) >90 (>60 ml/min/1.73 sqM); Albumin 4.7 g/dL (3.5-5.0); Alcohol <10 mg/dL; Alkaline Phosphatase 246 U/L (38-126); Anion Gap 16 mmol/L; Blood Urea Nitrogen 8 mg/dL (7-17); Calcium 8.9 mg/dL (8.4-10.2); Carbon Dioxide 29 mmol/L (22-30); Chloride 89 mmol/L (98-107); Glucose 120 mg/dL (74-99); Magnesium 2.1 mg/dL (1.6-2.3); Non-African American GFR(CKD) >90 (>60 ml/min/1.73 sqM); Phosphorus 1.4 mg/dL (2.5-4.5); Salicylate <1.0 mg/dL; Sodium 134 mmol/L (137-145); Total Bilirubin 4.7 mg/dL (0.2-1.3); Total Protein 7.8 g/dL (6.3-8.2)
[2022-06-11 05:54] LABS: Appearance,Urine Cloudy (Clear); Bilirubin,Urine 2+ (Negative); Blood,Urine Negative (Negative); Color,Urine Dark Brown; Glucose,Urine (UA) Negative (Negative); Hyaline Casts,Urine 9 /lpf (0-2); Ketones,Urine 2+ (Negative); Leukocyte Esterase,Urine Small (Negative); Mucus,Urine Rare /hpf; Nitrite,Urine Negative (Negative); Protein,Urine 1+ (Negative); RBC,Urine 5 /hpf (0-5); Specific Gravity,Urine 1.021 (1.001-1.035); Squamous Epithelial Cell,Urine 3 /hpf (0-4); WBC,Urine 31 /hpf (0-5)
[2022-06-11 05:56] LABS: Amphetamine Screen,Urine Not Detected (NotDetected); Barbiturate Screen,Urine Not Detected (NotDetected); Benzodiazepines Screen,Urine Not Detected (NotDetected); Cocaine Screen,Urine Not Detected (NotDetected); Methadone Screen, Urine Not Detected (NotDetected); Opiate Screen,Urine Not Detected (NotDetected); Oxycodone Screen, Urine Not Detected (NotDetected); Phencyclidine Screen,Urine Not Detected (NotDetected); Tricyclic Antidepressant,Urine Not Detected (NotDetected); Urn Cannabinoid Scrn Detected (NotDetected)
[2022-06-11 06:01] LABS: ALT 64 U/L (4-34)
[2022-06-11 06:16] LABS: Platelet Count 61 k/uL (150-450)
[2022-06-11] MEDS ORDERED: POTASSIUM CHLORIDE ER 20 MEQ TAB.ER PO STA (07:02)
[2022-06-11] MEDS ORDERED: POTASSIUM BICARBONATE/CIT AC 20 MEQ TABLET.EFF PO ONE (07:02)
[2022-06-11 07:43] VITALS: BP 131/96; PULSE 88; RESP 17
== END 2022-06-11 07:43 | disposition home or self-care (01) ==
LOC: EC 04:45
DX: G40.409 Other generalized epilepsy and epileptic syndromes, not intractable, without status epilepticus (principal); J45.909 Unspecified asthma, uncomplicated; F41.9 Anxiety disorder, unspecified; F12.90 Cannabis use, unspecified, uncomplicated; Z88.1 Allergy status to other antibiotic agents; Z88.8 Allergy status to other drugs, medicaments and biological substances; Z91.013 Allergy to seafood
CPT/HCPCS: 36415; 93005; 80053; 83735; 84100; 85025; 81001; 80306; 80143; 80179; 99284; 96374; 96375; 96361 ×2; G0480; J2060; J3360; 80320

== ENCOUNTER 2022-07-17 19:25 | Observation (INO) | payer OTHER ==
[2022-07-17] MEDS ORDERED: SODIUM CHLORIDE 0.9% 1,000 ML IV STA (19:48)
--- NOTE | 2022-07-17 20:00 | ED ---
Seizure HPI - General Chief Complaint: Seizure Stated Complaint: Seizure Time Seen by Provider: 07/17/22 19:28 Source: patient, RN notes reviewed, old records reviewed Mode of arrival: EMS - History of Present Illness Initial Comments: This is a 37-year-old female, alert and oriented x4 that presents to the emergency room with a witnessed seizure today. Patient does have a history of seizures. Last seen in the emergency room June 10 amd June 11 for same. She did call her primary care Dr. Bateman after those visits who increased her Lamictal to twice a day last month. She states that she did have an appointment with her neurologist which she missed. She states that she did hit her chin and is unsure of how. Denies any other injuries. MD Complaint: seizure -: hour(s) Description of Episode: loss of consciousness Witnessed: yes - by bystander Trauma: Yes (bruising to chin) Seizure History: known seizure disorder Place: home Treatments Prior to Arrival: none - Related Data Home Medications Medication Instructions Recorded Confirmed Sertraline HCl [Zoloft] 50 mg PO DAILY 06/05/19 05/20/21 LORazepam [Ativan] 0.5 mg PO DAILY PRN 05/20/21 05/20/21 Ondansetron Odt [Zofran Odt] 8 mg PO DAILY PRN 05/20/21 05/20/21 norgestimate-ethinyl estradioL 1 tab PO DAILY 05/20/21 05/20/21 [Nymyo 0.25-0.035 mg (28) Tab] Previous Rx's Medication Instructions Recorded Magnesium Oxide [Mag-Ox] 400 mg PO BID #6 tablet 05/20/21 Ondansetron Odt [Zofran Odt] 4 mg PO Q8HR PRN #10 tab 05/20/21 Potassium Chloride ER [K-Dur 20] 20 meq PO TID #10 tab 05/20/21 lamoTRIgine [LaMICtal] 25 mg PO DAILY #7 tab 05/20/21 Allergies Allergy/AdvReac Type Severity Reaction Status Date / Time cefaclor [From Ceclor] Allergy Rash/Hives Verified 06/11/22 04:51 Iodinated Contrast Media Allergy Anaphylaxis Verified 06/11/22 04:51 [Iodinated Contrast- Oral and IV Dye] shellfish derived [Shellfish] Allergy Anaphylaxis Verified 06/11/22 04:51 Review of Systems ROS Statement: Those systems with pertinent positive or pertinent negative responses have been documented in the HPI. ROS Other: All systems not noted in ROS Statement are negative. Past Medical History Past Medical History: Asthma, Seizure Disorder, Thyroid Disorder Additional Past Medical History / Comment(s): PMDD, CVS (cyclic vomiting disorder), cortisone shots in knee History of Any Multi-Drug Resistant Organisms: None Reported Past Surgical History: Orthopedic Surgery, Tonsillectomy Additional Past Surgical History / Comment(s): ANKLE, ARM, Past Anesthesia/Blood Transfusion Reactions: No Reported Reaction Past Psychological History: Anxiety Smoking Status: Never smoker Past Alcohol Use History: Occasional Past Drug Use History: Marijuana - Past Family History Mother Family Medical History: No Reported History Father Family Medical History: Diabetes Mellitus General Exam General appearance: alert, in no apparent distress Head exam: Present: atraumatic, normocephalic, normal inspection Expanded Head exam: Present: abrasion, contusion (Chin), other (Left subconjunctival hemorrhage lateral) Eye exam: Present: EOMI. Absent: scleral icterus, periorbital swelling, periorbital tenderness ENT exam: Present: normal oropharynx, mucous membranes moist, other (No oral bleeding or tongue lacerations) Neck exam: Present: full ROM. Absent: tenderness, meningismus, lymphadenopathy Respiratory exam: Present: normal lung sounds bilaterally. Absent: respiratory distress, accessory muscle use Cardiovascular Exam: Present: tachycardia GI/Abdominal exam: Present: soft, other (Significant bruising to right flank patient states has been there for one week after a fall, no tenderness to palpation). Absent: distended, tenderness, guarding, rebound, rigid Extremities exam: Present: normal capillary refill. Absent: tenderness, pedal edema Back exam: Absent: rash noted Neurological exam: Present: alert, oriented X3, CN II-XII intact Psychiatric exam: Present: normal affect, normal mood Skin exam: Present: warm, dry, other (Yellow purple bruising to right anterior shoulder patient states from fall last week). Absent: rash, cyanosis, diaphoretic, pallor Course Vital Signs 07/17/22 19:34 Temperature 98.0 F Pulse Rate 116 H Respiratory 16 Rate Blood Pressure 139/94 O2 Sat by Pulse 100 Oximetry Medical Decision Making - Medical Decision Making CT of the brain and C-spine interpreted by me shows no evidence of intracranial hemorrhage, midline shift or skull fracture. Radiologist interpretation no acute intracranial process. No evidence of cervical spine fracture, mild multilevel degenerative disc disease. Old EKG 06/11/2022 Ventricular rate 113, KS interval 0.132, QRS 0.83, QTC 0.427, normal axis, sinus tachycardia Magnesium was 1.0 she was given a replacement. Bilirubin 3.4 down from last month of 4.7. Potassium 3.0 she was given oral supplementation. On physical exam patient has multiple bruises that she states have been present for over a week after fall. Significant bruising to the right flank, right shoulder and subconjunctival hemorrhage to the left eye. Denies any visual disturbance. States that she does bruise easily but denies any trauma or abuse. Patient has no focal neurological deficits. Denies any pain or discomfort. No seizure activity while in the emergency room. Vital signs are stable. She was advised that she should stay in the hospital for electrolyte abnormalities and recurrent seizures and after discussion with family at bedside is agreeable. Case discussed with Dr. Schumacher Was pt. sent in by a medical professional or institution (, PA, DATA SECURITY CONSULTANT, urgent care, hospital, or snf...) When possible be specific @ -no Did you speak to anyone other than the patient for history (EMS, parent, family, police, friend...)? What history was obtained from this source @ -yes Did you review nursing and triage notes (agree or disagree)? Why? @ -yes i agree Were old charts reviewed (outside hosp., previous admission, EMS record, old EKG, old radiological studies, urgent care reports/EKG's, snf records)? Report findings @ previous labs 06/10/22, old EKG as above Differential Diagnosis (chest pain, altered mental status, abdominal pain women, abdominal pain men, vaginal bleeding, weakness, fever, dyspnea, syncope, headache, dizziness, GI bleed, back pain, seizure, CVA, palpatations, mental health, musculoskeletal)? EKG interpreted by me (3pts min.). @ -yes as above X-rays interpreted by me (1pt min.). @ -no CT interpreted by me (1pt min.). @ -yes as above U/S interpreted by me (1pt. min.). @ -[None done] What testing was considered but not performed or refused? (CT, X-rays, U/S, labs)? Why? @ -none What meds were considered but not given or refused? Why? @ considered benzodiazepines however patient has had no seizure activity, is alert and oriented 4, will continue lamictal oral bid Did you discuss the management of the patient with other professionals (professionals i.e. , PA, DATA SECURITY CONSULTANT, lab, RT, psych nurse, social media marketing manager, supervisor process testing, teacher, nursing officer, case management coordinator)? Give summary @ -no Was smoking cessation discussed for >3mins.? @ -no Was critical care preformed (if so, how long)? @ -no Were there social determinants of health that impacted care today? How? (Homelessness, low income, unemployed, alcoholism, drug addiction, transportation, low edu. Level, literacy, decrease access to med. care, intermediate, rehab)? @ -no Was there de-escalation of care discussed even if they declined (Discuss DNR or withdrawal of care, Hospice)? DNR status @ -no What co-morbidities impacted this encounter? (DM, HTN, Smoking, COPD, CAD, Cancer, CVA, ARF, Chemo, Hep., AIDS, mental health diagnosis, sleep apnea, morbid obesity)? @ -seizure, asthma, cyclic vomiting syndrome Was patient admitted / discharged? Hospital course, mention meds given and route, prescriptions, significant lab abnormalities, going to OR and other pe rtinent info. @ -admitted Undiagnosed new problem with uncertain prognosis? @ -[No] Drug Therapy requiring intensive monitoring for toxicity (Heparin, Nitro, Insulin, Cardizem)? @ -no Were any procedures done? @ -none Diagnosis/symptom? @ -Hypomagnesemia, hypokalemia, recurrent seizure Acute, or Chronic, or Acute on Chronic? @ -acute on chronic Uncomplicated (without systemic symptoms) or Complicated (systemic symptoms)? @ -complicated Side effects of treatment? @ -[No] Exacerbation, Progression, or Severe Exacerbation? @ -[No] Poses a threat to life or bodily function? How? (Chest pain, USA, ND, pneumonia, PE, COPD, DKA, ARF, appy, cholecystitis, CVA, Diverticulitis, Homicidal, Suicidal, threat to staff... and all critical care pts) @ -[No] - Lab Data Result diagrams: 07/17/22 20:07 07/17/22 20:07 Lab Results 07/17/22 07/17/22 07/17/22 Range/Units 20:07 20:07 20:07 WBC 5.2 (3.8-10.6) k/uL RBC 3.55 L (3.80-5.40) m/uL Hgb 12.0 (11.4-16.0) gm/dL Hct 33.8 L (34.0-46.0) % MCV 95.4 (80.0-100.0) fL MCH 33.8 (25.0-35.0) pg MCHC 35.4 (31.0-37.0) g/dL RDW 13.7 (11.5-15.5) % Plt Count 81 L (150-450) k/uL MPV 9.9 Neutrophils % 74 % Lymphocytes % 19 % Monocytes % 4 % Eosinophils % 1 % Basophils % 1 % Neutrophils # 3.9 (1.3-7.7) k/uL Lymphocytes # 1.0 (1.0-4.8) k/uL Monocytes # 0.2 (0-1.0) k/uL Eosinophils # 0.1 (0-0.7) k/uL Basophils # 0.0 (0-0.2) k/uL Manual Slide Review Performed RBC Morphology Normal Sodium 129 L (137-145) mmol/L Potassium 3.0 L (3.5-5.1) mmol/L Chloride 88 L (98-107) mmol/L Carbon Dioxide 29 (22-30) mmol/L Anion Gap 12 mmol/L BUN 16 (7-17) mg/dL Creatinine 0.70 (0.52-1.04) mg/dL Est GFR (CKD-EPI)AfAm >90 (>60 ml/min/1.73 sqM) Est GFR (CKD-EPI)NonAf >90 (>60 ml/min/1.73 sqM) Glucose 137 H (74-99) mg/dL Calcium 9.8 (8.4-10.2) mg/dL Magnesium 1.0 L (1.6-2.3) mg/dL Total Bilirubin 3.4 H (0.2-1.3) mg/dL AST 529 H (14-36) U/L ALT 135 H (4-34) U/L Alkaline Phosphatase 132 H (38-126) U/L Total Protein 8.3 H (6.3-8.2) g/dL Albumin 5.1 H (3.5-5.0) g/dL Urine Color Light Brown Urine Appearance Cloudy H (Clear) Urine pH 6.0 (5.0-8.0) Ur Specific Grant 1.028 (1.001-1.035) Urine Protein 2+ H (Negative) Urine Glucose (UA) Negative (Negative) Urine Ketones Trace H (Negative) Urine Blood Trace H (Negative) Urine Nitrite Negative (Negative) Urine Bilirubin 1+ H (Negative) Urine Urobilinogen 8.0 (<2.0) mg/dL Ur Leukocyte Esterase Moderate H (Negative) Urine RBC 2 (0-5) /hpf Urine WBC 14 H (0-5) /hpf Ur Squamous Epith Cells 26 H (0-4) /hpf Urine Mucus Many H (None) /hpf Urine Opiates Screen Not Detected (NotDetected) Ur Oxycodone Screen Not Detected (NotDetected) Urine Methadone Screen Not Detected (NotDetected) Ur Propoxyphene Screen Not Detected (NotDetected) Ur Barbiturates Screen Not Detected (NotDetected) U Tricyclic Antidepress Not Detected (NotDetected) Ur Phencyclidine Scrn Not Detected (NotDetected) Ur Amphetamines Screen Not Detected (NotDetected) U Methamphetamines Scrn Not Detected (NotDetected) U Benzodiazepines Scrn Detected H (NotDetected) Urine Cocaine Screen Not Detected (NotDetected) U Marijuana (THC) Screen Detected H (NotDetected) - EKG Data -: EKG Interpreted by [place] EKG shows normal: sinus rhythm (Ventricular rate 113, KS interval 0.132, QRS 0.83, QTC 0.427, normal axis, sinus tachycardia) Disposition Clinical Impression: Hypomagnesemia, Seizure disorder, Hypokalemia Disposition: ADMITTED IP TO THIS HOSP
[2022-07-17 20:26] LABS: ALT 135 U/L (4-34); AST 529 U/L (14-36); African American GFR (CKD) >90 (>60 ml/min/1.73 sqM); Albumin 5.1 g/dL (3.5-5.0); Alkaline Phosphatase 132 U/L (38-126); Anion Gap 12 mmol/L; Blood Urea Nitrogen 16 mg/dL (7-17); Calcium 9.8 mg/dL (8.4-10.2); Carbon Dioxide 29 mmol/L (22-30); Chloride 88 mmol/L (98-107); Glucose 137 mg/dL (74-99); Non-African American GFR(CKD) >90 (>60 ml/min/1.73 sqM); Sodium 129 mmol/L (137-145); Total Bilirubin 3.4 mg/dL (0.2-1.3); Total Protein 8.3 g/dL (6.3-8.2)
[2022-07-17 20:43] LABS: Basophils % (A) 1 %; Eosinophils # (A) 0.1 k/uL (0-0.7); Eosinophils % (A) 1 %; HCT 33.8 % (34.0-46.0); Lymphocytes % (A) 19 %; MCH 33.8 pg (25.0-35.0); MCHC 35.4 g/dL (31.0-37.0); MCV 95.4 fL (80.0-100.0); Mean Platelet Volume 9.9; Monocytes # (A) 0.2 k/uL (0-1.0); Monocytes % (A) 4 %; Neutrophils # (A) 3.9 k/uL (1.3-7.7); Neutrophils % (A) 74 %; RBC 3.55 m/uL (3.80-5.40); RDW 13.7 % (11.5-15.5); WBC 5.2 k/uL (3.8-10.6)
--- NOTE | 2022-07-17 20:53 | CT ---
EXAMINATION TYPE: CT brain cspine wo con CT DLP: 1428.2 mGycm, Automated exposure control for dose reduction was used. DATE OF EXAM: 07/17/2022 8:30 PM COMPARISON: 05/20/2021 CLINICAL INDICATION:Female, 37 years old with history of pain; Seizure, fell and hit head. TECHNIQUE: Brain: Multiple axial CT images of the brain were obtained without IV contrast. Cspine: Axial CT images from the skull base to the inferior aspect of T2 we obtained without intraven ous contrast. Coronal and sagittal reformatted images were also reviewed. FINDINGS: Brain: Extra-axial spaces: No abnormal extra-axial fluid collections. Ventricular system: Within normal limits Cerebral parenchyma: No acute intraparenchymal hemorrhage or mass effect. The delvalle-white junction is well differentiated. Cerebellum: Unremarkable. Mass effect: No evidence of midline shift. Intracranial vasculature: unremarkable Soft tissues: Normal. Calvarium/osseous structures: No depressed skull fracture. Paranasal sinuses and mastoid air cells: Clear. Visualized orbits: Orbital contents are intact. Cervical spine: Fracture: None. Osseous structures: Multilevel degenerative disc disease changes with endplate spurring and disc oste ophyte complex's. Vertebral alignment: Within normal limits. Spinal canal/Neural Foramina: Disc osteophyte complexes at C6-C7 with at least mild spinal canal sten osis. No evidence for significant neural foraminal stenosis. Neck soft tissues: Prevertebral soft tissues are within normal limits. Other: The airway is patent. The lung apices are clear. IMPRESSION: 1. No acute intracranial process. 2. No evidence of cervical spine fracture. 3. Mild multilevel degenerative disc disease.
[2022-07-17 20:59] LABS: Appearance,Urine Cloudy (Clear); Bilirubin,Urine 1+ (Negative); Blood,Urine Trace (Negative); Color,Urine Light Brown; Glucose,Urine (UA) Negative (Negative); Ketones,Urine Trace (Negative); Leukocyte Esterase,Urine Moderate (Negative); Mucus,Urine Many /hpf; Nitrite,Urine Negative (Negative); Protein,Urine 2+ (Negative); RBC,Urine 2 /hpf (0-5); Specific Gravity,Urine 1.028 (1.001-1.035); Squamous Epithelial Cell,Urine 26 /hpf (0-4); WBC,Urine 14 /hpf (0-5)
[2022-07-17 21:03] LABS: Amphetamine Screen,Urine Not Detected (NotDetected); Barbiturate Screen,Urine Not Detected (NotDetected); Benzodiazepines Screen,Urine Detected (NotDetected); Cocaine Screen,Urine Not Detected (NotDetected); Methadone Screen, Urine Not Detected (NotDetected); Opiate Screen,Urine Not Detected (NotDetected); Oxycodone Screen, Urine Not Detected (NotDetected); Phencyclidine Screen,Urine Not Detected (NotDetected); Tricyclic Antidepressant,Urine Not Detected (NotDetected); Urn Cannabinoid Scrn Detected (NotDetected)
[2022-07-17] MEDS ORDERED: Magnesium Replacement Protocol 1 EACH MISC MISCELLANE PRN (21:04)
[2022-07-17] MEDS ORDERED: SODIUM CHLORIDE 0.9% 500 ML 500 ML IV ONE (21:10)
[2022-07-17] MEDS ORDERED: SODIUM CHLORIDE 0.9% 1,000 ML IV SCH (21:15)
[2022-07-17] MEDS ORDERED: NALOXONE 0.4 MG/ML 1 ML VIAL IV PRN (21:17)
[2022-07-17 21:39] LABS: RBC Morphology Normal
[2022-07-17 21:40] LABS: Platelet Count 81 k/uL (150-450)
[2022-07-17] MEDS ORDERED: Potassium Replacement Protocol 1 EACH MISC MISCELLANE PRN (21:44)
[2022-07-17] MEDS ORDERED: POTASSIUM CHLORIDE ER 20 MEQ TAB.ER PO STA (21:44)
[2022-07-17] MEDS: POTASSIUM CHLORIDE ER 20 MEQ TAB.ER PO SCH ×2 (22:18→23:04)
[2022-07-17] MEDS: MAGNESIUM SULFATE-D5W PMX 1 GM in DEXTROSE/WATER 1 100ML.BAG IVPB SCH ×2 (22:20→23:24)
[2022-07-17] MEDS ORDERED: IBUPROFEN 600 MG TAB PO STA (22:57)
[2022-07-18] MEDS: MAGNESIUM SULFATE-D5W PMX 1 GM in DEXTROSE/WATER 1 100ML.BAG IVPB SCH (00:40)
[2022-07-18] MEDS ORDERED: lamoTRIgine 25 MG TAB PO SCH (09:00)
[2022-07-18] MEDS ORDERED: IBUPROFEN 600 MG TAB PO SCH (09:00)
[2022-07-18 10:05] LABS: African American GFR (CKD) >90 (>60 ml/min/1.73 sqM); Anion Gap 6 mmol/L; Blood Urea Nitrogen 11 mg/dL (7-17); Calcium 8.4 mg/dL (8.4-10.2); Carbon Dioxide 29 mmol/L (22-30); Chloride 99 mmol/L (98-107); Glucose 95 mg/dL (74-99); Non-African American GFR(CKD) >90 (>60 ml/min/1.73 sqM); Potassium 3.5 mmol/L (3.5-5.1); Sodium 134 mmol/L (137-145)
[2022-07-18 10:32] VITALS: BP 115/75; PULSE 92; RESP 19; TEMP 98.1
[2022-07-18 12:20] VITALS: BMI 26.6
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
== END 2022-07-18 12:20 | disposition home or self-care (01) ==
LOC: EC 19:25 → 5NMEDONC 21:18
PROVIDERS: ADMIT Hospitalist; ATTEND Hospitalist
DX: G40.909 Epilepsy, unspecified, not intractable, without status epilepticus (principal); R11.15 Cyclical vomiting syndrome unrelated to migraine; Z91.14 Patient's other noncompliance with medication regimen; E87.6 Hypokalemia; E87.1 Hypo-osmolality and hyponatremia; E83.42 Hypomagnesemia; T50.916A Underdosing of multiple unspecified drugs, medicaments and biological substances, initial encounter; Z91.128 Patient's intentional underdosing of medication regimen for other reason; S00.83XA Contusion of other part of head, initial encounter; F41.9 Anxiety disorder, unspecified; F32.81 Premenstrual dysphoric disorder; E03.9 Hypothyroidism, unspecified; J45.909 Unspecified asthma, uncomplicated; M50.30 Other cervical disc degeneration, unspecified cervical region; S30.1XXA Contusion of abdominal wall, initial encounter; S40.011A Contusion of right shoulder, initial encounter; W19.XXXA Unspecified fall, initial encounter; H11.32 Conjunctival hemorrhage, left eye; W20.8XXA Other cause of strike by thrown, projected or falling object, initial encounter; E66.9 Obesity, unspecified; Z68.26 Body mass index [BMI] 26.0-26.9, adult; Z91.81 History of falling; Z79.890 Hormone replacement therapy; Z79.3 Long term (current) use of hormonal contraceptives; Z79.899 Other long term (current) drug therapy; Z88.1 Allergy status to other antibiotic agents; Z91.041 Radiographic dye allergy status; Z91.013 Allergy to seafood; Z98.890 Other specified postprocedural states; Z83.3 Family history of diabetes mellitus
CPT/HCPCS: 96366 ×2; 96365; 99285; 36415; 93005; 80053; 80048; 83735 ×2; 85025; 81001; 80306; 87086; 72125; 70450; G0378 ×2; J3475 ×2

== ENCOUNTER 2022-09-06 12:56 | Emergency (ER) | payer OTHER ==
[2022-09-06 13:13] VITALS: TEMP 98.1
[2022-09-06] MEDS ORDERED: SODIUM CHLORIDE 0.9% 500 ML 500 ML IV STA (13:35)
[2022-09-06] MEDS ORDERED: LORazepam 2 MG/ML INJ IV STA (14:00)
[2022-09-06] MEDS ORDERED: SODIUM CHLORIDE 0.9% 1,000 ML IV ONE (14:00)
[2022-09-06 14:10] LABS: Basophils % (A) 0 %; Eosinophils # (A) 0.1 k/uL (0-0.7); Eosinophils % (A) 1 %; HCT 40.4 % (34.0-46.0); HGB 14.1 gm/dL (11.4-16.0); Lymphocytes # (A) 0.9 k/uL (1.0-4.8); Lymphocytes % (A) 17 %; MCH 33.2 pg (25.0-35.0); MCHC 34.9 g/dL (31.0-37.0); MCV 95.1 fL (80.0-100.0); Mean Platelet Volume 9.4; Monocytes # (A) 0.1 k/uL (0-1.0); Monocytes % (A) 3 %; Neutrophils # (A) 3.9 k/uL (1.3-7.7); Neutrophils % (A) 78 %; RBC 4.24 m/uL (3.80-5.40); RDW 14.2 % (11.5-15.5)
[2022-09-06 14:22] LABS: ALT 88 U/L (4-34); AST 490 U/L (14-36); African American GFR (CKD) >90 (>60 ml/min/1.73 sqM); Albumin 4.8 g/dL (3.5-5.0); Alkaline Phosphatase 152 U/L (38-126); Anion Gap 12 mmol/L; Blood Urea Nitrogen 12 mg/dL (7-17); Calcium 9.6 mg/dL (8.4-10.2); Carbon Dioxide 30 mmol/L (22-30); Chloride 95 mmol/L (98-107); Glucose 126 mg/dL (74-99); Magnesium 1.6 mg/dL (1.6-2.3); Non-African American GFR(CKD) >90 (>60 ml/min/1.73 sqM); Sodium 137 mmol/L (137-145); Total Bilirubin 2.1 mg/dL (0.2-1.3)
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
[2022-09-06] MEDS ORDERED: POTASSIUM CHLORIDE ER 20 MEQ TAB.ER PO STA (14:40)
[2022-09-06 14:45] LABS: Platelet Count 77 k/uL (150-450); RBC Morphology Normal
[2022-09-06 15:43] VITALS: BP 126/88; PULSE 79; RESP 16
== END 2022-09-06 15:47 | disposition home or self-care (01) ==
LOC: EC 12:56
DX: R56.9 Unspecified convulsions (principal); J45.909 Unspecified asthma, uncomplicated; E07.9 Disorder of thyroid, unspecified; F41.9 Anxiety disorder, unspecified; F12.90 Cannabis use, unspecified, uncomplicated; Z91.041 Radiographic dye allergy status; Z91.013 Allergy to seafood; Z88.1 Allergy status to other antibiotic agents; Z79.890 Hormone replacement therapy; Z79.899 Other long term (current) drug therapy
CPT/HCPCS: 36415; 93005; 80053; 83735; 85025; 99284; 96374; 96361 ×2; J2060

== ENCOUNTER 2022-11-21 20:29 | Observation (INO) | payer OTHER ==
[2022-11-21 20:43] LABS: Glucose,Whole Blood 131 mg/dL (70-110)
[2022-11-21] MEDS ORDERED: LORazepam 2 MG/ML INJ IV PRN ×3 (21:59)
[2022-11-21] MEDS ORDERED: SODIUM CHLORIDE 0.9% 1,000 ML IV ONE (22:00)
[2022-11-21 22:46] LABS: Basophils % (A) 0 %; Eosinophils # (A) 0.1 k/uL (0-0.7); Eosinophils % (A) 2 %; HCT 40.2 % (34.0-46.0); HGB 13.7 gm/dL (11.4-16.0); Lymphocytes # (A) 1.7 k/uL (1.0-4.8); Lymphocytes % (A) 30 %; MCH 31.6 pg (25.0-35.0); Mean Platelet Volume 9.5; Monocytes # (A) 0.1 k/uL (0-1.0); Monocytes % (A) 2 %; Neutrophils # (A) 3.7 k/uL (1.3-7.7); Neutrophils % (A) 66 %; RBC 4.33 m/uL (3.80-5.40); RDW 15.3 % (11.5-15.5); WBC 5.6 k/uL (3.8-10.6)
[2022-11-21 22:52] LABS: ALT 47 U/L (4-34); AST 222 U/L (14-36); African American GFR (CKD) >90 (>60 ml/min/1.73 sqM); Albumin 4.5 g/dL (3.5-5.0); Alkaline Phosphatase 140 U/L (38-126); Anion Gap 17 mmol/L; Blood Urea Nitrogen 13 mg/dL (7-17); Calcium 9.1 mg/dL (8.4-10.2); Carbon Dioxide 22 mmol/L (22-30); Chloride 95 mmol/L (98-107); Glucose 114 mg/dL (74-99); Lipase 86 U/L (23-300); Magnesium 1.1 mg/dL (1.6-2.3); Non-African American GFR(CKD) >90 (>60 ml/min/1.73 sqM); Potassium 2.8 mmol/L (3.5-5.1); Sodium 134 mmol/L (137-145); Total Protein 7.1 g/dL (6.3-8.2)
--- NOTE | 2022-11-21 22:57 | CT ---
EXAM: CT Head Without Intravenous Contrast CLINICAL HISTORY: CT Reason: Trauma TECHNIQUE: Axial computed tomography images of the head/brain without intravenous contrast. CTDI is 45.29 mGy and DLP is 1041 mGy-cm. This CT exam was performed using one or more of the following dose reduction techniques: automated exposure control, adjustment of the mA and/or kV according to patient size, and/or use of iterative reconstruction technique. COMPARISON: July 17, 2022 FINDINGS: Brain: Unremarkable. No hemorrhage. No significant white matter disease. No edema. Ventricles: Unremarkable. No ventriculomegaly. Bones/joints: See below. Soft tissues: Possible small left vertex scalp hematoma. No skull fracture. Sinuses: Unremarkable as visualized. No acute sinusitis. Mastoid air cells: Unremarkable as visualized. No mastoid effusion. IMPRESSION: 1. Possible small left vertex scalp hematoma. No skull fracture. 2. Unremarkable appearance of the brain. No intracranial hemorrhage or infarct is seen. EXAM: CT Cervical Spine Without Intravenous Contrast CLINICAL HISTORY: CT Reason: Trauma TECHNIQUE: Axial computed tomography images of the cervical spine without intravenous contrast. CTDI is 61.6 mGy and DLP is 480.8 mGy-cm. This CT exam was performed using one or more of the following dose reduction techniques: automated exposure control, adjustment of the mA and/or kV according to patient size, and/or use of iterative reconstruction technique. COMPARISON: No relevant prior studies available. FINDINGS: Vertebrae: Unremarkable. No acute fracture. Soft tissues: Unremarkable. DISCS/SPINAL CANAL/NEURAL FORAMINA: C2-C3: Unremarkable. No significant disc disease. No stenosis. C3-C4: Mild degenerative disc disease. Mild spinal stenosis measuring 8 mm. C4-C5: Mild degenerative disc disease. Mild spinal stenosis measuring 8 mm. C5-C6: Mild degenerative disc disease. Mild spinal stenosis measuring 9 mm. C6-C7: Mild degenerative disc disease. Mild spinal stenosis measuring 8 mm. C7-T1: Mild degenerative disc disease. No stenosis. IMPRESSION: Mild degenerative changes throughout the cervical spine. No acute fracture or subluxation is seen.
[2022-11-21 23:16] LABS: Platelet Count 82 k/uL (150-450)
[2022-11-21 23:17] LABS: RBC Morphology Normal
[2022-11-21 23:26] LABS: Appearance,Urine Cloudy (Clear); Bilirubin,Urine Negative (Negative); Blood,Urine Negative (Negative); Color,Urine Orange; Glucose,Urine (UA) Negative (Negative); Hyaline Casts,Urine 11 /lpf (0-2); Ketones,Urine Trace (Negative); Leukocyte Esterase,Urine Moderate (Negative); Mucus,Urine Many /hpf; Nitrite,Urine Negative (Negative); Protein,Urine 1+ (Negative); RBC,Urine 1 /hpf (0-5); Specific Gravity,Urine 1.027 (1.001-1.035); Squamous Epithelial Cell,Urine 22 /hpf (0-4); WBC,Urine 7 /hpf (0-5)
[2022-11-22] MEDS ORDERED: POTASSIUM CHLORIDE ER 20 MEQ TAB.ER PO STA ×2 (01:31→12:05)
[2022-11-22] MEDS: MAGNESIUM SULFATE-D5W PMX 1 GM in DEXTROSE/WATER 1 100ML.BAG IVPB SCH ×7 (01:44→14:55)
[2022-11-22] MEDS ORDERED: NALOXONE 0.4 MG/ML 1 ML VIAL IV PRN (03:42)
--- NOTE | 2022-11-22 03:45 | ED ---
General Adult HPI - General Chief complaint: Seizure Stated complaint: SEIZURE Time Seen by Provider: 11/21/22 21:18 Source: patient Mode of arrival: EMS Limitations: no limitations - History of Present Illness Initial comments: This is a 37-year-old female with a past medical history including cyclic vomiting syndrome and seizure disorder presents emergency department after a seizure. It was reported that the patient's was coming home and he wi tnessed the patient having a seizure and hitting her head. The patient stated that she only remembered speaking about ice cream in the house but does not remember coming out of the house and having the seizure. The patient did state that she woke up in the ambulance and the stated that she was confused initially confirming a previous seizure. The patient stated that she has episodes of cyclic vomiting that is in association when she stops drinking alcohol. The patient stated that she drinks alcohol nearly every day and about a pint per day. The patient's last drink was 3 days ago. The patient stated that she was given Ativan for her cyclic vomiting and stated that this does imp rove her symptoms. The patient stated that she's never had any issues with withdrawing from alcohol but stated that she has not stopped. The patient did state that she would like to stop drinking alcohol at this time. The patient was resting in bed without any acute pain or distress noted. The patient was able to answer all questions appropriately. - Related Data Home Medications Medication Instructions Recorded Confirmed Levothyroxine Sodium [Synthroid] 88 mcg PO DAILY 07/18/22 07/18/22 Potassium Chloride ER [K-Dur 20] 20 meq PO DAILY 07/18/22 07/18/22 lamoTRIgine [LaMICtal] 25 mg PO BID 07/18/22 07/18/22 Previous Rx's Medication Instructions Recorded Ibuprofen [Motrin] 600 mg PO TID tab 07/18/22 Allergies Allergy/AdvReac Type Severity Reaction Status Date / Time cefaclor [From Ceclor] Allergy Rash/Hives Verified 09/06/22 13:14 Iodinated Contrast Media Allergy Anaphylaxis Verified 09/06/22 13:14 [Iodinated Contrast- Oral and IV Dye] shellfish derived [Shellfish] Allergy Anaphylaxis Verified 09/06/22 13:14 Review of Systems ROS Statement: Those systems with pertinent positive or pertinent negative responses have been documented in the HPI. ROS Other: All systems not noted in ROS Statement are negative. Past Medical History Past Medical History: Asthma, Seizure Disorder, Thyroid Disorder Additional Past Medical History / Comment(s): PMDD, CVS (cyclic vomiting disorder), cortisone shots in knee, last seizure 09/06/22 History of Any Multi-Drug Resistant Organisms: None Reported Past Surgical History: Orthopedic Surgery, Tonsillectomy Additional Past Surgical History / Comment(s): ANKLE, ARM, Past Anesthesia/Blood Transfusion Reactions: No Reported Reaction Past Psychological History: Anxiety Smoking Status: Never smoker Past Alcohol Use History: Occasional Past Drug Use History: Marijuana - Past Family History Mother Family Medical History: No Reported History Father Family Medical History: Diabetes Mellitus General Exam Limitations: no limitations General appearance: alert, in no apparent distress Head exam: Present: atraumatic, normocephalic, normal inspection, other (Minor abrasion noted to the left superior scalp) Eye exam: Present: normal appearance, PERRL Pupils: Present: normal accommodation ENT exam: Present: normal exam, normal oropharynx, mucous membranes moist Neck exam: Present: normal inspection, full ROM Respiratory exam: Present: normal lung sounds bilaterally Cardiovascular Exam: Present: regular rate, normal rhythm, normal heart sounds GI/Abdominal exam: Present: soft, normal bowel sounds Extremities exam: Present: normal inspection, full ROM Back exam: Present: normal inspection, full ROM Neurological exam: Present: alert, oriented X3 Psychiatric exam: Present: normal affect, normal mood Skin exam: Present: warm, dry Course Vital Signs 11/21/22 11/22/22 11/22/22 20:34 00:07 02:42 Temperature 98.8 F Pulse Rate 89 71 62 Respiratory 18 18 18 Rate Blood Pressure 125/92 126/91 102/72 O2 Sat by Pulse 98 99 Oximetry 11/22/22 03:31 Temperature Pulse Rate 70 Respiratory 18 Rate Blood Pressure 139/94 O2 Sat by Pulse Oximetry EKG Findings - EKG Comments: EKG Findings:: An EKG was obtained and was interpreted by myself showing a rate of 82, PA interval 116, QRS duration of 85 and QTC of 461. This EKG showed a normal sinus rhythm with no ST segment elevation or depression noted. Medical Decision Making - Medical Decision Making Was pt. sent in by a medical professional or institution (, PA, DAIRY FARM MANAGER, urgent care, hospital, or halfway...) When possible be specific @ -No Did you speak to anyone other than the patient for history (EMS, parent, family, police, friend...)? What history was obtained from this source @ -Yes, patient's was at the bedside and did confirm that the patient had a tonic-clonic seizure that was witnessed. Did you review nursing and triage notes (agree or disagree)? Why? @ -I reviewed and agree with nursing and triage notes Were old charts reviewed (outside hosp., previous admission, EMS record, old EKG, old radiological studies, urgent care reports/EKG's, halfway records)? Report findings @ -No old charts were reviewed Differential Diagnosis (chest pain, altered mental status, abdominal pain women, abdominal pain men, vaginal bleeding, weakness, fever, dyspnea, syncope, headache, dizziness, GI bleed, back pain, seizure, CVA, palpatations, mental health)? @ -EtOH withdrawal seizure, medical noncompliance, electrolyte abnormalities EKG interpreted by me (3pts min.). @ -As above X-rays interpreted by me (1pt min.). @ -None done CT interpreted by me (1pt min.). @ -CT of the head and C-spine were obtained and were interpreted by myself showing no acute process. U/S interpreted by me (1pt. min.). @ -None done What testing was considered but not performed or refused? (CT, X-rays, U/S, labs)? Why? @ -None What meds were considered but not given or refused? Why? @ -None Did you discuss the management of the patient with other professionals (professionals i.e. , PA, DAIRY FARM MANAGER, lab, RT, psych nurse, social sciences lecturer, residential instructor, teacher, employee service officer, lining caser)? Give summary @ -Yes, admitting physician was contacted. Was smoking cessation discussed for >3mins.? @ -No Was critical care preformed (if so, how long)? @ -No Were there social determinants of health that impacted care today? How? (Homelessness, low income, unemployed, alcoholism, drug addiction, lubin sportation, low edu. Level, literacy, decrease access to med. care, senior care, rehab)? @ -No Was there de-escalation of care discussed even if they declined (Discuss DNR or withdrawal of care, Hospice)? DNR status @ -No What co-morbidities impacted this encounter? (DM, HTN, Smoking, COPD, CAD, Cancer, CVA, ARF, Chemo, Hep., AIDS, mental health diagnosis, sleep apnea, morbid obesity)? @ -Cyclic vomiting syndrome, seizure disorder Was patient admitted / discharged? Hospital course, mention meds given and route, prescriptions, significant lab abnormalities, going to OR and other pertinent info. @ -The patient was seen and evaluated in the emergency department. Physical exam, the patient was resting in bed without any acute distress. Vital signs admission were stable. Due to the nature of the patient's seizure and possible EtOH withdrawal, laboratory workup was obtained and the patient was placed on CIWA scale. The patient did continue to remain stable and did have hypomagnesemia and hypokalemia that was corrected in the emergency department. Due to the patient's seizure be possibly secondary to breakthrough seizure versus EtOH withdrawal, the patient will be placed in observation to be seen and evaluated by neurology. The patient was agreeable to this and all of her questions were answered appropriately. The patient was placed observation in stable condition. Undiagnosed new problem with uncertain prognosis? @ -No Drug Therapy requiring intensive monitoring for toxicity (Heparin, Nitro, Insulin, Cardizem)? @ -No Were any procedures done? @ -No Diagnosis/symptom? @ -Seizure, secondary to possible EtOH withdrawal versus breakthrough, hypokalemia and hypomagnesemia Acute, or Chronic, or Acute on Chronic? @ -Acute on chronic Uncomplicated (without systemic symptoms) or Complicated (systemic symptoms)? @ -Complicated Side effects of treatment? @ -No Exacerbation, Progression, or Severe Exacerbation? @ -No Poses a threat to life or bodily function? How? (Chest pain, USA, IA, pneumonia, PE, COPD, DKA, ARF, appy, cholecystitis, CVA, Diverticulitis, Homicidal, Suicidal, threat to staff... and all critical care pts) @ -No - Lab Data Result diagrams: 11/21/22 22:10 11/21/22 22:10 Lab Results 11/21/22 11/21/22 11/21/22 Range/Units 20:39 22:10 22:10 WBC 5.6 (3.8-10.6) k/uL RBC 4.33 (3.80-5.40) m/uL Hgb 13.7 (11.4-16.0) gm/dL Hct 40.2 (34.0-46.0) % MCV 93.0 (80.0-100.0) fL MCH 31.6 (25.0-35.0) pg MCHC 34.0 (31.0-37.0) g/dL RDW 15.3 (11.5-15.5) % Plt Count 82 L (150-450) k/uL MPV 9.5 Neutrophils % 66 % Lymphocytes % 30 % Monocytes % 2 % Eosinophils % 2 % Basophils % 0 % Neutrophils # 3.7 (1.3-7.7) k/uL Lymphocytes # 1.7 (1.0-4.8) k/uL Monocytes # 0.1 (0-1.0) k/uL Eosinophils # 0.1 (0-0.7) k/uL Basophils # 0.0 (0-0.2) k/uL Manual Slide Review Performed RBC Morphology Normal Sodium 134 L (137-145) mmol/L Potassium 2.8 L (3.5-5.1) mmol/L Chloride 95 L (98-107) mmol/L Carbon Dioxide 22 (22-30) mmol/L Anion Gap 17 mmol/L BUN 13 (7-17) mg/dL Creatinine 0.66 (0.52-1.04) mg/dL Est GFR (CKD-EPI)AfAm >90 (>60 ml/min/1.73 sqM) Est GFR (CKD-EPI)NonAf >90 (>60 ml/min/1.73 sqM) Glucose 114 H (74-99) mg/dL POC Glucose (mg/dL) 131 H (70-110) mg/dL POC Glu Sponge Maker ID Rafita Guzman Calcium 9.1 (8.4-10.2) mg/dL Magnesium 1.1 L (1.6-2.3) mg/dL Total Bilirubin 2.0 H (0.2-1.3) mg/dL AST 222 H (14-36) U/L ALT 47 H (4-34) U/L Alkaline Phosphatase 140 H (38-126) U/L Total Protein 7.1 (6.3-8.2) g/dL Albumin 4.5 (3.5-5.0) g/dL Lipase 86 (23-300) U/L Urine Color Urine Appearance (Clear) Urine pH (5.0-8.0) Ur Specific [place] (1.001-1.035) Urine Protein (Negative) Urine Glucose (UA) (Negative) Urine Ketones (Negative) Urine Blood (Negative) Urine Nitrite (Negative) Urine Bilirubin (Negative) Urine Urobilinogen (<2.0) mg/dL Ur Leukocyte Esterase (Negative) Urine RBC (0-5) /hpf Urine WBC (0-5) /hpf Ur Squamous Epith Cells (0-4) /hpf Hyaline Casts (0-2) /lpf Urine Mucus (None) /hpf Urine HCG, Qual (Not Detectd) 11/21/22 11/21/22 Range/Units 23:00 23:00 WBC (3.8-10.6) k/uL RBC (3.80-5.40) m/uL Hgb (11.4-16.0) gm/dL Hct (34.0-46.0) % MCV (80.0-100.0) fL MCH (25.0-35.0) pg MCHC (31.0-37.0) g/dL RDW (11.5-15.5) % Plt Count (150-450) k/uL MPV Neutrophils % % Lymphocytes % % Monocytes % % Eosinophils % % Basophils % % Neutrophils # (1.3-7.7) k/uL Lymphocytes # (1.0-4.8) k/uL Monocytes # (0-1.0) k/uL Eosinophils # (0-0.7) k/uL Basophils # (0-0.2) k/uL Manual Slide Review RBC Morphology Sodium (137-145) mmol/L Potassium (3.5-5.1) mmol/L Chloride (98-107) mmol/L Carbon Dioxide (22-30) mmol/L Anion Gap mmol/L BUN (7-17) mg/dL Creatinine (0.52-1.04) mg/dL Est GFR (CKD-EPI)AfAm (>60 ml/min/1.73 sqM) Est GFR (CKD-EPI)NonAf (>60 ml/min/1.73 sqM) Glucose (74-99) mg/dL POC Glucose (mg/dL) (70-110) mg/dL POC Glu Sponge Maker ID Calcium (8.4-10.2) mg/dL Magnesium (1.6-2.3) mg/dL Total Bilirubin (0.2-1.3) mg/dL AST (14-36) U/L ALT (4-34) U/L Alkaline Phosphatase (38-126) U/L Total Protein (6.3-8.2) g/dL Albumin (3.5-5.0) g/dL Lipase (23-300) U/L Urine Color Tyler Urine Appearance Cloudy H (Clear) Urine pH 8.0 (5.0-8.0) Ur Specific [place] 1.027 (1.001-1.035) Urine Protein 1+ H (Negative) Urine Glucose (UA) Negative (Negative) Urine Ketones Trace H (Negative) Urine Blood Negative (Negative) Urine Nitrite Negative (Negative) Urine Bilirubin Negative (Negative) Urine Urobilinogen 3.0 (<2.0) mg/dL Ur Leukocyte Esterase Moderate H (Negative) Urine RBC 1 (0-5) /hpf Urine WBC 7 H (0-5) /hpf Ur Squamous Epith Cells 22 H (0-4) /hpf Hyaline Casts 11 H (0-2) /lpf Urine Mucus Many H (None) /hpf Urine HCG, Qual Not Detected (Not Detectd) Disposition Clinical Impression: Seizure disorder Disposition: ADMITTED IP TO THIS [facility] Condition: Stable Is patient prescribed a controlled substance at d/c from ED?: No Referrals: Reynaldo Bateman MD [Primary Care Provider] - 1-2 days Time of Disposition: 23:00 Decision to Admit Reason: Admit from EC Decision Date: 11/21/22 Decision Time: 23:00
[2022-11-22] MEDS ORDERED: ACETAMINOPHEN TAB 325 MG TAB PO STA (05:17)
[2022-11-22] MEDS ORDERED: Magnesium Replacement Protocol 1 EACH MISC MISCELLANE PRN (07:30)
[2022-11-22 08:34] VITALS: RESP 18
[2022-11-22] MEDS ORDERED: ALBUTEROL NEBULIZED 2.5 MG/3 ML INHALATION PRN (08:42)
[2022-11-22] MEDS ORDERED: LORATADINE 10 MG TAB PO PRN (08:42)
[2022-11-22] MEDS ORDERED: Potassium Replacement Protocol 1 EACH MISC MISCELLANE PRN (08:44)
[2022-11-22] MEDS ORDERED: LEVOTHYROXINE 88 MCG TAB PO SCH (09:00)
[2022-11-22] MEDS ORDERED: SERTRALINE 50 MG TAB PO SCH (09:00)
[2022-11-22] MEDS ORDERED: lamoTRIgine 25 MG TAB PO SCH ×2 (09:00→21:00)
[2022-11-22] MEDS: POTASSIUM CHLORIDE ER 20 MEQ TAB.ER PO SCH ×2 (09:47→11:49)
--- NOTE | 2022-11-22 12:19 | P.HPIM ---
History of Present Illness 79-year-old female with a history of significant vomiting syndrome came in after an episode of tonic-clonic seizure. Patient is found to be hypomagnesemic and hypokalemic and she believes this is the reason why she had seizure. Patient does use Lamictal at home never missed any doses limited levels are still pending patient was having multiple episodes of nausea vomiting to 3 days ago leading to hypokalemia and hypomagnesemia. Patient is clinically doing well at this time. Neurology evaluated the patient is recommending 50 mg twice a day for a week followed by 75 mg twice a day for week and 100 mg twice a day thereafter of Lamictal. Patient also has a mildly elevated liver enzymes with AST being 222 and mildly elevated bilirubin. REVIEW OF SYSTEMS: CONSTITUTIONAL: No fever, no malaise, no fatigue. HEENT: No recent visual problems or hearing problems. Denied any sore throat. CARDIOVASCULAR: No chest pain, orthopnea, PND, no palpitations, no syncope. PULMONARY: No shortness of breath, no cough, no hemoptysis. GASTROINTESTINAL: No diarrhea, no nausea, no vomiting, no abdominal pain. NEUROLOGICAL: As mentioned in HPI HEMATOLOGICAL: Denies any bleeding or petechiae. GENITOURINARY: Denies any burning micturition, frequency, or urgency. MUSCULOSKELETAL/RHEUMATOLOGICAL: Denies any joint pain, swelling, or any muscle pain. ENDOCRINE: Denies any polyuria or polydipsia. The rest of the 14-point review of systems is negative. PHYSICAL EXAMINATION: GENERAL: The patient is alert and oriented x3, not in any acute distress. Well developed, well nourished. HEENT: Pupils are round and equally reacting to light. EOMI. No scleral icterus. No conjunctival pallor. Normocephalic, atraumatic. No pharyngeal erythema. No thyromegaly. CARDIOVASCULAR: S1 and S2 present. No murmurs, rubs, or gallops. PULMONARY: Chest is clear to auscultation, no wheezing or crackles. ABDOMEN: Soft, nontender, nondistended, normoactive bowel sounds. No palpable organomegaly. MUSCULOSKELETAL: No joint swelling or deformity. EXTREMITIES: No cyanosis, clubbing, or pedal edema. NEUROLOGICAL: Gross neurological examination did not reveal any focal deficits. SKIN: No rashes. Assessment and plan -Breakthrough seizure: Probably secondary to acute distress. Increasing the dose of Lamictal as mentioned above patient will be discharged today. -Electrolyte abnormalities mentioned above including hyponatremia, hypom agnesemia, hypokalemia: Secondary to nausea vomiting. All of these will be replaced patient was on IV fluids overnight. -Mild transaminitis can be related to Lamictal I repeated compressive metabolic profile as an outpatient as long as AST ALT and bilirubin and alkaline phosphatase remained stable or lower than the present numbers no further intervention is needed or as patient need to be further evaluated starting with a heart sound and hepatitis panel and can be drug-induced liver injury. -Asthma without any acute exacerbation -Hypothyroidism: Continue with levothyroxine -Cyclical vomiting syndrome counseling regarding cessation of marijuana was provided to the patient Patient will be discharged today. Past Medical History Past Medical History: Asthma, Seizure Disorder, Thyroid Disorder Additional Past Medical History / Comment(s): PMDD, CVS (cyclic vomiting disorder), cortisone shots in knee, last seizure 09/06/22 History of Any Multi-Drug Resistant Organisms: None Reported Past Surgical History: Orthopedic Surgery, Tonsillectomy Additional Past Surgical History / Comment(s): ANKLE, ARM, Past Anesthesia/Blood Transfusion Reactions: No Reported Reaction Past Psychological History: Anxiety Smoking Status: Never smoker Past Alcohol Use History: Occasional Past Drug Use History: Marijuana - Past Family History Mother Family Medical History: No Reported History Father Family Medical History: Diabetes Mellitus Medications and Allergies Home Medications Medication Instructions Recorded Confirmed Type Levothyroxine Sodium [Synthroid] 88 mcg PO DAILY 07/18/22 11/22/22 History Potassium Chloride ER [K-Dur 20] 20 meq PO BID 07/18/22 11/22/22 History Albuterol Sulfate [Ventolin HFA] 2 puff INHALATION RT-TID PRN 11/22/22 11/22/22 History Fexofenadine HCl [Sadie Allergy] 180 mg PO DAILY PRN 11/22/22 11/22/22 History LORazepam 0.5 mg PO DAILY PRN 11/22/22 11/22/22 History Magnesium Oxide [Mag-Ox] 400 mg PO BID 11/22/22 11/22/22 History Magnesium Oxide [Mag-Ox] 400 mg PO BID #60 tablet 11/22/22 Rx Sertraline HCl [Zoloft] 50 mg PO DAILY 11/22/22 11/22/22 History lamoTRIgine [LaMICtal] 25 mg PO BID #200 tab 11/22/22 Rx Allergies Allergy/AdvReac Type Severity Reaction Status Date / Time cefaclor [From Ceclor] Allergy Rash/Hives Verified 11/22/22 08:16 Iodinated Contrast Media Allergy Anaphylaxis Verified 11/22/22 08:16 [Iodinated Contrast- Oral and IV Dye] shellfish derived [Shellfish] Allergy Anaphylaxis Verified 11/22/22 08:16 Physical Exam Vitals: Vital Signs Temp Pulse Resp BP Pulse Ox 11/22/22 11:37 74 18 128/96 98 11/22/22 08:32 70 18 111/73 11/22/22 07:29 77 20 139/103 99 11/22/22 03:31 70 18 139/94 11/22/22 02:42 62 18 102/72 11/22/22 00:07 71 18 126/91 99 11/21/22 20:34 98.8 F 89 18 125/92 98 Intake and Output 11/21/22 11/22/22 11/22/22 22:59 06:59 14:59 Other: Weight 76.204 kg Results CBC & Chem 7: 11/21/22 22:10 11/22/22 07:49 Labs: Abnormal Lab Results - Last 24 Hours (Table) 11/21/22 11/21/22 11/21/22 Range/Units 20:39 22:10 22:10 Plt Count 82 L (150-450) k/uL Sodium 134 L (137-145) mmol/L Potassium 2.8 L (3.5-5.1) mmol/L Chloride 95 L (98-107) mmol/L Glucose 114 H (74-99) mg/dL POC Glucose (mg/dL) 131 H (70-110) mg/dL Magnesium 1.1 L (1.6-2.3) mg/dL Total Bilirubin 2.0 H (0.2-1.3) mg/dL AST 222 H (14-36) U/L ALT 47 H (4-34) U/L Alkaline Phosphatase 140 H (38-126) U/L Urine Appearance (Clear) Urine Protein (Negative) Urine Ketones (Negative) Ur Leukocyte Esterase (Negative) Urine WBC (0-5) /hpf Ur Squamous Epith Cells (0-4) /hpf Hyaline Casts (0-2) /lpf Urine Mucus (None) /hpf 11/21/22 11/22/22 Range/Units 23:00 07:49 Plt Count (150-450) k/uL Sodium (137-145) mmol/L Potassium 3.1 L (3.5-5.1) mmol/L Chloride (98-107) mmol/L Glucose (74-99) mg/dL POC Glucose (mg/dL) (70-110) mg/dL Magnesium (1.6-2.3) mg/dL Total Bilirubin (0.2-1.3) mg/dL AST (14-36) U/L ALT (4-34) U/L Alkaline Phosphatase (38-126) U/L Urine Appearance Cloudy H (Clear) Urine Protein 1+ H (Negative) Urine Ketones Trace H (Negative) Ur Leukocyte Esterase Moderate H (Negative) Urine WBC 7 H (0-5) /hpf Ur Squamous Epith Cells 22 H (0-4) /hpf Hyaline Casts 11 H (0-2) /lpf Urine Mucus Many H (None) /hpf
--- NOTE | 2022-11-22 12:19 | P.DS ---
Providers Date of admission: 11/22/22 03:43 Attending physician: Albin Lombardi Consults: 11/22/22 03:42 Consult Physician Routine Consulting Provider: Jair Lobo Consult Reason/Comments: Seizures, breakthrough vs etoh withdrawal Do you want consulting provider notified?: Yes, Notify in am Primary care physician: Reynaldo Bateman [facility] Course: 79-year-old female with a history of significant vomiting syndrome came in after an episode of tonic-clonic seizure. Patient is found to be hypomagnesemic and hypokalemic and she believes this is the reason why she had seizure. Patient does use Lamictal at home never missed any doses limited levels are still pending patient was having multiple episodes of nausea vomiting to 3 days ago leading to hypokalemia and hypomagnesemia. Patient is clinically doing well at this time. Neurology evaluated the patient is recommending 50 mg twice a day for a week followed by 75 mg twice a day for week and 100 mg twice a day thereafter of Lamictal. Patient also has a mildly elevated liver enzymes with AST being 222 and mildly elevated bilirubin. REVIEW OF SYSTEMS: CONSTITUTIONAL: No fever, no malaise, no fatigue. HEENT: No recent visual problems or hearing problems. Denied any sore throat. CARDIOVASCULAR: No chest pain, orthopnea, PND, no palpitations, no syncope. PULMONARY: No shortness of breath, no cough, no hemoptysis. GASTROINTESTINAL: No diarrhea, no nausea, no vomiting, no abdominal pain. NEUROLOGICAL: As mentioned in HPI HEMATOLOGICAL: Denies any bleeding or petechiae. GENITOURINARY: Denies any burning micturition, frequency, or urgency. MUSCULOSKELETAL/RHEUMATOLOGICAL: Denies any joint pain, swelling, or any muscle pain. ENDOCRINE: Denies any polyuria or polydipsia. The rest of the 14-point review of systems is negative. PHYSICAL EXAMINATION: GENERAL: The patient is alert and oriented x3, not in any acute distress. Well developed, well nourished. HEENT: Pupils are round and equally reacting to light. EOMI. No scleral icterus. No conjunctival pallor. Normocephalic, atraumatic. No pharyngeal erythema. No thyromegaly. CARDIOVASCULAR: S1 and S2 present. No murmurs, rubs, or gallops. PULMONARY: Chest is clear to auscultation, no wheezing or crackles. ABDOMEN: Soft, nontender, nondistended, normoactive bowel sounds. No palpable organomegaly. MUSCULOSKELETAL: No joint swelling or deformity. EXTREMITIES: No cyanosis, clubbing, or pedal edema. NEUROLOGICAL: Gross neurological examination did not reveal any focal deficits. SKIN: No rashes. Assessment and plan -Breakthrough seizure: Probably secondary to acute distress. Increasing the dose of Lamictal as mentioned above patient will be discharged today. -Electrolyte abnormalities mentioned above including hyponatremia, hypomagnesemia, hypokalemia: Secondary to nausea vomiting. All of these will be replaced patient was on IV fluids overnight. -Mild transaminitis can be related to Lamictal I repeated compressive metabolic profile as an outpatient as long as AST ALT and bilirubin and alkaline phosphatase remained stable or lower than the present numbers no further intervention is needed or as patient need to be further evaluated starting with a heart sound and hepatitis panel and can be drug-induced liver injury. -Asthma without any acute exacerbation -Hypothyroidism: Continue with levothyroxine -Cyclical vomiting syndrome counseling regarding cessation of marijuana was provided to the patient Patient will be discharged today. Patient Condition at Discharge: Stable Plan - Discharge Summary New Discharge Prescriptions: New lamoTRIgine [LaMICtal] 25 mg PO BID #200 tab Magnesium Oxide [Mag-Ox] 400 mg PO BID #60 tablet Discontinued lamoTRIgine [LaMICtal] 25 mg PO HS lamoTRIgine [LaMICtal] 50 mg PO DAILY No Action Albuterol Sulfate [Ventolin HFA] 2 puff INHALATION RT-TID PRN PRN Reason: Shortness Of Breath Sertraline HCl [Zoloft] 50 mg PO DAILY Levothyroxine Sodium [Synthroid] 88 mcg PO DAILY Potassium Chloride ER [K-Dur 20] 20 meq PO BID Fexofenadine HCl [Sadie Allergy] 180 mg PO DAILY PRN PRN Reason: Allergy Symptoms LORazepam 0.5 mg PO DAILY PRN PRN Reason: Anxiety Magnesium Oxide [Mag-Ox] 400 mg PO BID Discharge Medication List Levothyroxine Sodium [Synthroid] 88 mcg PO DAILY 07/18/22 [History] Potassium Chloride ER [K-Dur 20] 20 meq PO BID 07/18/22 [History] Albuterol Sulfate [Ventolin HFA] 2 puff INHALATION RT-TID PRN 11/22/22 [History] Fexofenadine HCl [Sadie Allergy] 180 mg PO DAILY PRN 11/22/22 [History] LORazepam 0.5 mg PO DAILY PRN 11/22/22 [History] Magnesium Oxide [Mag-Ox] 400 mg PO BID 11/22/22 [History] Magnesium Oxide [Mag-Ox] 400 mg PO BID #60 tablet 11/22/22 [Rx] Sertraline HCl [Zoloft] 50 mg PO DAILY 11/22/22 [History] lamoTRIgine [LaMICtal] 25 mg PO BID #200 tab 11/22/22 [Rx] Follow up Appointment(s)/Referral(s): Reynaldo Bateman MD [Primary Care Provider] - 3 Days Mishel Werner MD [REFERRING] - 1 Week Ambulatory/Diagnostic Orders: Comprehensive Metabolic Panel [LAB.AMB] Time Frame: 2 Days, Location: None Selected Discharge Disposition: HOME SELF-CARE
[2022-11-22 15:58] VITALS: BP 137/94; PULSE 76; TEMP 98.1
--- NOTE | 2022-11-22 21:13 | P.CNNES ---
History of Present Illness Consult date: 11/22/22 Requesting physician: Junaid Ruiz Reason for Consult: Seizures, breakthrough vs etoh withdrawal History of Present Illness: Patient is a 37-year-old female with history of seizure disorder and alcoholism, who came to the hospital by ambulance yesterday at 8:29 PM for breakthrough seizure. As per EMS flow sheet, when they arrived, patient was sitting upright on the ground in care of family. Family states that they were alerted by patient's son that patient was having a seizure outside. Patient's father found patient on the ground outside having a seizure with her arms postured up. Patient's seizure lasted about 5 minutes. Patient's seizure has been related to episodes of cyclic vomiting syndrome. Patient states her last episode of cyclic vomiting was 2 days ago. Patient was alert and oriented 3 at the time of EMS arrival. Patient was following commands. No incontinence. Patient has a small abrasion to the top of her head. This happened when patient fell. Patient's vitals at the scene was blood pressure 150/93, pulse rate 105, respirations 16 saturation 99%, blood sugar 128 and temperature 99.1. Blood test shows normal CBC, sodium 134 potassium 2.8, normal renal functions, AST 222, ALT 47, UA shows moderate amount of leukocyte esterase and 7 WBC. EKG shows normal sinus rhythm. CT of the cervical spine showed mild degenerative changes throughout the cervical spine. No acute fracture or subluxation. CT head showed possible small left vertex scalp hematoma. No skull fracture. CT head otherwise normal. Patient had MRI of the brain without contrast on 03/15/2022, which was normal. Patient had a 2-D echo on 07/21/2020 which revealed mild concentric LVH, EF is 55-60%. Mild AR, trace MR. Patient is known to me from previous admission to the hospital in July 2020. It was reported that patient has new onset seizure on 06/10/2020, when she came to [facility] but she signed out AGAINST MEDICAL ADVICE. Patient saw Dr. Werner but was not placed on any seizure medication. Patient had another seizure on 06/30/2020. After the second seizure Dr. Werner placed her on Lamictal 25 mg at bedtime. Patient states that she has been havig seizures about once every 2 months. The last seizure was about 2-1/2 months ago and the one prior was [birth year] her birthday 07/17/2023. Patient states that she has never lost control of urine or suffered from tongue bite. She did at her hips one time before. Patient currently taking Lamictal 25 mg at bedtime, 50 mg in the morning. Also on levothyroxine, potassium, albuterol, sertraline, Sadie, lorazepam 0.5 mg da unique when necessary and magnesium oxide 400 g twice a day. Patient states she drinks a pint of vodka per day. Review of Systems Constitutional: Denies chills, Denies fever Eyes: denies blurred vision, denies diplopia, denies pain Ears, nose, mouth and throat: Denies headache, Denies sore throat Cardiovascular: Denies chest pain, Denies shortness of breath Respiratory: Denies cough, Denies excessive sputum Gastrointestinal: Reports nausea, Reports vomiting, Denies abdominal pain, Denies diarrhea Genitourinary: Denies dysuria, Denies hematuria Musculoskeletal: Denies myalgias, Denies neck pain Integumentary: Denies pruritus, Denies rash Neurological: Reports as per HPI Endocrine: Denies fatigue, Denies weight change Hematologic/Lymphatic: Denies easy bleeding, Denies easy bruising Past Medical History Past Medical History: Asthma, Seizure Disorder, Thyroid Disorder Additional Past Medical History / Comment(s): PMDD, CVS (cyclic vomiting disorder), cortisone shots in knee, last seizure 09/06/22 History of Any Multi-Drug Resistant Organisms: None Reported Past Surgical History: Orthopedic Surgery, Tonsillectomy Additional Past Surgical History / Comment(s): ANKLE, ARM, Past Anesthesia/Blood Transfusion Reactions: No Reported Reaction Past Psychological History: Anxiety Smoking Status: Never smoker Past Alcohol Use History: Occasional Past Drug Use History: Marijuana - Past Family History Mother Family Medical History: No Reported History Father Family Medical History: Diabetes Mellitus Medications and Allergies Home Medications Medication Instructions Recorded Confirmed Type Levothyroxine Sodium [Synthroid] 88 mcg PO DAILY 07/18/22 11/22/22 History Potassium Chloride ER [K-Dur 20] 20 meq PO BID 07/18/22 11/22/22 History Albuterol Sulfate [Ventolin HFA] 2 puff INHALATION RT-TID PRN 11/22/22 11/22/22 History Fexofenadine HCl [Sadie Allergy] 180 mg PO DAILY PRN 11/22/22 11/22/22 History LORazepam 0.5 mg PO DAILY PRN 11/22/22 11/22/22 History Magnesium Oxide [Mag-Ox] 400 mg PO BID 11/22/22 11/22/22 History Magnesium Oxide [Mag-Ox] 400 mg PO BID #60 tablet 11/22/22 Rx Sertraline HCl [Zoloft] 50 mg PO DAILY 11/22/22 11/22/22 History lamoTRIgine [LaMICtal] 25 mg PO BID #200 tab 11/22/22 Rx Allergies Allergy/AdvReac Type Severity Reaction Status Date / Time cefaclor [From Ceclor] Allergy Rash/Hives Verified 11/22/22 08:16 Iodinated Contrast Media Allergy Anaphylaxis Verified 11/22/22 08:16 [Iodinated Contrast- Oral and IV Dye] shellfish derived [Shellfish] Allergy Anaphylaxis Verified 11/22/22 08:16 Physical Examination - Vital Signs Vital Signs: Vital Signs Temp Pulse Resp BP Pulse Ox 11/22/22 08:32 70 18 111/73 11/22/22 07:29 77 20 139/103 99 11/22/22 03:31 70 18 139/94 11/22/22 02:42 62 18 102/72 11/22/22 00:07 71 18 126/91 99 11/21/22 20:34 98.8 F 89 18 125/92 98 Intake and Output 11/21/22 11/22/22 11/22/22 22:59 06:59 14:59 Other: Weight 76.204 kg Patient is a young female, in no acute distress. Patient is alert awake oriented to time place and person. Speech and language functions are normal. Patient can name and repeat very well. No aphasia or dysarthria. Attention, concentration and fund of knowledge is adequate. On cranial nerve examination, pupils are equal, round and reacting to light, visual marc are full on confrontation, with no neglect on double simultaneous depression. Extraocular muscles are intact with no nystagmus. Face is symmetric, tongue protrudes to the midline. Palatal elevation and sensation normal, hearing and shoulder shrug normal, facial sensation normal. On muscle strength testing, there is no pronator drift and the strength is nor mal in arms and legs distally and proximally. Deep tendon reflexes are symmetric 1 in the upper extremities, 1 in the lower limbs and plantars downgoing. Sensory to touch is equal with no neglect on double simultaneous stimulation. Cerebellar function showed no ataxia for [id number] testing. No dysdiadochokinesia. No ataxia for [id number] testing on either side. Tone and bulk of muscles normal. Patient has mild fine tremors of outstretched hands. Gait deferred.. On general examination, there is no carotid bruit or murmur, S1-S2 audible. Chest is clear on consultation. Abdomen is soft nontender. No organomegaly, bowel sounds present. Peripheral pulses are present. No edema. Results - Laboratory Findings CBC and BMP: 11/21/22 22:10 11/22/22 07:49 Abnormal Lab Findings: Abnormal Labs 11/21/22 11/21/22 11/21/22 20:39 22:10 22:10 Plt Count 82 L Sodium 134 L Potassium 2.8 L Chloride 95 L Glucose 114 H POC Glucose (mg/dL) 131 H Magnesium 1.1 L Total Bilirubin 2.0 H AST 222 H ALT 47 H Alkaline Phosphatase 140 H Urine Appearance Urine Protein Urine Ketones Ur Leukocyte Esterase Urine WBC Ur Squamous Epith Cells Hyaline Casts Urine Mucus 11/21/22 11/22/22 23:00 07:49 Plt Count Sodium Potassium 3.1 L Chloride Glucose POC Glucose (mg/dL) Magnesium Total Bilirubin AST ALT Alkaline Phosphatase Urine Appearance Cloudy H Urine Protein 1+ H Urine Ketones Trace H Ur Leukocyte Esterase Moderate H Urine WBC 7 H Ur Squamous Epith Cells 22 H Hyaline Casts 11 H Urine Mucus Many H Assessment and Plan Assessment: * Seizure disorder, came with breakthrough seizure. Patient is on subtherapeutic dose of Lamictal. Also may have some component of alcohol withdrawal. * Chronic alcoholism * Chronically elevated liver function tests. * Hypokalemia Plan: * Patient is a very subtherapeutic dose of Lamictal. Patient's seizures are not controlled, as she is having seizures once every 2 months. Patient is not experiencing any side effects on Lamictal. * Recommend Lamictal 50 mg twice a day for 1 week, then 75 mg twice a day for one week and then 100 mg twice a day and continue. * Recommend patient follow up with her neurologist for further optimizing patient of Lamictal, if needed. * We will check EEG as an outpatient. * Patient informed of [place] state law of no driving unless seizure free for 6 months, climbing ladders, or operating dangerous machinery or unsupervised swimming. * Neurologically clear for discharge. Discussed with primary physician. * Thank you for the consult.
== END 2022-11-22 15:58 | disposition home or self-care (01) ==
LOC: EC 20:29 → 6NMEDSUR 11-22 03:43
PROVIDERS: ADMIT Hospitalist; ATTEND Hospitalist
DX: G40.909 Epilepsy, unspecified, not intractable, without status epilepticus (principal); E83.42 Hypomagnesemia; E87.6 Hypokalemia; E87.1 Hypo-osmolality and hyponatremia; S00.01XA Abrasion of scalp, initial encounter; R11.15 Cyclical vomiting syndrome unrelated to migraine; M50.31 Other cervical disc degeneration, high cervical region; M48.02 Spinal stenosis, cervical region; F32.81 Premenstrual dysphoric disorder; E03.9 Hypothyroidism, unspecified; J45.909 Unspecified asthma, uncomplicated; F41.9 Anxiety disorder, unspecified; F12.90 Cannabis use, unspecified, uncomplicated; Z79.890 Hormone replacement therapy; Z79.899 Other long term (current) drug therapy; Z91.041 Radiographic dye allergy status; Z83.3 Family history of diabetes mellitus; Z32.02 Encounter for pregnancy test, result negative; W18.39XA Other fall on same level, initial encounter
CPT/HCPCS: 96361; 96365 ×2; 96366 ×2; 99285; 36415; 93005; 80053; 80175; 83690; 83735; 84132; 85025; 81001; 81025; 72125; 70450; G0378; J3475

== ENCOUNTER → 2022-11-24 | Outpatient (CLI) | payer OTHER ==
[2022-11-24 13:44] LABS: ALT 85 U/L (8-44); AST 214 U/L (13-35); Albumin 4.8 d/dL (3.8-4.9); Albumin/Globulin Ratio 1.85 Ratio (1.60-3.17); Alkaline Phosphatase 137 U/L (41-126); BUN/Creat Ratio 14.86 Ratio (12.00-20.00); Blood Urea Nitrogen 10.4 mg/dL (9.0-27.0); Calcium 10.3 mg/dL (8.7-10.3); Carbon Dioxide 27.6 mmol/L (21.6-31.8); Chloride 97 mmol/L (96-109); Globulin 2.6 d/dL (1.6-3.3); Glucose 93 mg/dL (70-110); Potassium 4.4 mmol/L (3.5-5.5); Sodium 139 mmol/L (135-145); Total Bilirubin 0.9 mg/dL (0.3-1.2); Total Protein 7.4 d/dL (6.2-8.2)
== END | disposition home or self-care (01) ==
LOC: LABWHC1 08:49
PROVIDERS: ATTEND Internal Medicine
DX: R79.89 Other specified abnormal findings of blood chemistry (principal)
CPT/HCPCS: 36415; 80053

== ENCOUNTER → 2022-11-30 | Outpatient (CLI) | payer OTHER ==
--- NOTE | 2022-12-01 01:01 | EEG ---
ELECTROENCEPHALOGRAM REPORT CLINICAL HISTORY: This is a 37-year-old woman with reported history of seizures who presented to the ED with a breakthrough seizure on 11/22/2022. The video EEG is obtained to evaluate for seizure epileptiform activity. RELEVANT MEDICATION: Lamictal. EEG TYPE: A routine 21-channel EEG is performed with video using the 10/20 electrode placement system. DESCRIPTION: Wakefulness is only obtained. During awake state, the posterior-dominant rhythm consists of low to moderate voltage of 10-11 hertz activity that is well modulated and well sustained. There is no physiological stage 2 sleep architecture. There is no focal slowing. Interictal and ictal is none. ACTIVATION PROCEDURE: Photic stimulation did not evoke a posterior driving response. There is no abnormality during the photic stimulation. Hyperventilation is not performed. CLINICAL INTERPRETATION: This is a normal routine EEG. There is no focal slowing, epileptiform discharge, or seizure on the EEG. Consider sleep-deprived EEG or prolonged EEG as an outpatient as there still continues to be concern for seizures. Clinical correlation is recommended. MMREBEL / JOHN PAULN: [id number] / [id number]
== END ==
LOC: NEUROMAIN 09:14
PROVIDERS: ATTEND Psychiatry & Neurology Neurology
DX: G45.9 Transient cerebral ischemic attack, unspecified (principal); Z91.013 Allergy to seafood; Z91.041 Radiographic dye allergy status; Z88.1 Allergy status to other antibiotic agents
CPT/HCPCS: 95816

== ENCOUNTER → 2022-12-20 | Outpatient (CLI) | payer OTHER | END | disposition home or self-care (01) | LOC: LABWHC1 11:14 | PROVIDERS: ATTEND Family Medicine | DX: E83.42 Hypomagnesemia (principal) ==

== ENCOUNTER 2024-05-22 08:44 | Emergency (ER) | payer OTHER ==
[2024-05-22 08:55] VITALS: RESP 18
--- NOTE | 2024-05-22 09:23 | ED ---
General Adult HPI - General Chief complaint: ENT Stated complaint: 35wks preg/Nose Bleed Time Seen by Provider: 05/22/24 08:57 Source: patient, RN notes reviewed Mode of arrival: ambulatory Limitations: no limitations - History of Present Illness Initial comments: 38-year-old G3, P2 female at 35 weeks gestation presents to the emergency department for evaluation of nosebleed. Patient reports that she has been experiencing frequent nosebleeds since being in the third trimester of . She states that her nose has been bleeding since 2 AM. She does report that she has an appointment with ENT in 2 weeks. 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 - Related Data Home Medications Medication Instructions Recorded Confirmed Levothyroxine Sodium [Synthroid] 88 mcg PO DAILY 07/18/22 11/22/22 Potassium Chloride ER [K-Dur 20] 20 meq PO BID 07/18/22 11/22/22 Albuterol Sulfate [Ventolin HFA] 2 puff INHALATION RT-TID PRN 11/22/22 11/22/22 Fexofenadine HCl [Sadie Allergy] 180 mg PO DAILY PRN 11/22/22 11/22/22 LORazepam 0.5 mg PO DAILY PRN 11/22/22 11/22/22 Magnesium Oxide [Mag-Ox] 400 mg PO BID 11/22/22 11/22/22 Sertraline HCl [Zoloft] 50 mg PO DAILY 11/22/22 11/22/22 Previous Rx's Medication Instructions Recorded Magnesium Oxide [Mag-Ox] 400 mg PO BID #60 tablet 11/22/22 lamoTRIgine [LaMICtal] 25 mg PO BID #200 tab 11/22/22 Allergies Allergy/AdvReac Type Severity Reaction Status Date / Time cefaclor [From Ceclor] Allergy Rash/Hives Verified 05/22/24 08:50 Iodinated Contrast Media Allergy Anaphylaxis Verified 05/22/24 08:50 [Iodinated Contrast- Oral and IV Dye] shellfish derived [Shellfish] Allergy Anaphylaxis Verified 05/22/24 08:50 Review of Systems ROS Statement: Those systems with pertinent positive or pertinent negative responses have been documented in the HPI. ROS Other: All systems not noted in ROS Statement are negative. Past Medical History Past Medical History: Asthma, Seizure Disorder, Thyroid Disorder Additional Past Medical History / Comment(s): PMDD, CVS (cyclic vomiting disorder), cortisone shots in knee, last seizure 09/06/22 History of Any Multi-Drug Resistant Organisms: None Reported Past Surgical History: Orthopedic Surgery, Tonsillectomy Additional Past Surgical History / Comment(s): ANKLE, ARM, Past Anesthesia/Blood Transfusion Reactions: No Reported Reaction Past Psychological History: Anxiety Smoking Status: Never smoker Past Alcohol Use History: None Reported, Occasional Past Drug Use History: None Reported, Marijuana - Past Family History Mother Family Medical History: No Reported History Father Family Medical History: Diabetes Mellitus General Exam Limitations: no limitations General appearance: alert, in no apparent distress Head exam: Present: atraumatic, normocephalic, normal inspection Eye exam: Present: normal appearance, PERRL, EOMI. Absent: scleral icterus, conjunctival injection, periorbital swelling ENT exam: Present: normal oropharynx Respiratory exam: Present: normal lung sounds bilaterally. Absent: respiratory distress, wheezes, rales, rhonchi, stridor Cardiovascular Exam: Present: regular rate, normal rhythm, normal heart sounds. Absent: systolic murmur, diastolic murmur, rubs, gallop, clicks Extremities exam: Present: normal inspection, full ROM, normal capillary refill. Absent: tenderness, pedal edema, joint swelling, calf tenderness Neurological exam: Present: alert, oriented X3 Psychiatric exam: Present: normal affect, normal mood Skin exam: Present: warm, dry, intact, normal color. Absent: rash Course Vital Signs 05/22/24 05/22/24 05/22/24 08:51 09:02 10:00 Temperature 98.2 F 98 F Pulse Rate 105 H 80 Respiratory 18 18 Rate Blood Pressure 142/83 151/92 135/82 O2 Sat by Pulse 97 98 Oximetry 05/22/24 11:54 Temperature 98 F Pulse Rate 82 Respiratory 18 Rate Blood Pressure 120/82 O2 Sat by Pulse 98 Oximetry Medical Decision Making - Medical Decision Making Was pt. sent in by a medical professional or institution (, [facility], [facility], urgent care, hospital, or care home...) When possible be specific @ -[No] Did you speak to anyone other than the patient for history (EMS, parent, family, police, friend...)? What history was obtained from this source @ -[No] Did you review nursing and triage notes (agree or disagree)? Why? @ -[I reviewed and agree with nursing and triage notes] Were old charts reviewed (outside hosp., previous admission, EMS record, old EKG, old radiological studies, urgent care reports/EKG's, care home records)? Report findings @ -[No old charts were reviewed] Differential Diagnosis (chest pain, altered mental status, abdominal pain women, abdominal pain men, vaginal bleeding, weakness, fever, dyspnea, syncope, headache, dizziness, GI bleed, back pain, seizure, CVA, palpatations, mental health, musculoskeletal)? @ -[not applicable] EKG interpreted by me (3pts min.). @ -[none] X-rays interpreted by me (1pt min.). @ -[None done] CT interpreted by me (1pt min.). @ -[None done] U/S interpreted by me (1pt. min.). @ -[None done] What testing was considered but not performed or refused? (CT, X-rays, U/S, labs)? Why? @ -[None] What meds were considered but not given or refused? Why? @ -[None] Did you discuss the management of the patient with other professionals (professionals i.e. , PA, [employer], lab, RT, psych nurse, social media community manager, hematology specialist, teacher, customer service officer, case planner)? Give summary @ -[No] Was smoking cessation discussed for >3mins.? @ -[No] Was critical care preformed (if so, how long)? @ -[No] Were there social determinants of health that impacted care today? How? (Homelessness, low income, unemployed, alcoholism, drug addiction, transportation, low edu. Level, literacy, decrease access to med. care, senior care, rehab)? @ -[No] Was there de-escalation of care discussed even if they declined (Discuss DNR or withdrawal of care, Hospice)? DNR status @ -[No] What co-morbidities impacted this encounter? (DM, HTN, Smoking, COPD, CAD, Cancer, CVA, ARF, Chemo, Hep., AIDS, mental health diagnosis, sleep apnea, morbid obesity)? @ -[None] Was patient admitted / discharged? Hospital course, mention meds given and route, prescriptions, significant lab abnormalities, going to OR and other pertinent info. @ -[hospital course] Undiagnosed new problem with uncertain prognosis? @ -[No] Drug Therapy requiring intensive monitoring for toxicity (Heparin, Nitro, Insulin, Cardizem)? @ -[No] Were any procedures done? @ -[No] Diagnosis/symptom? @ -[default] Acute, or Chronic, or Acute on Chronic? @ -[default] Uncomplicated (without systemic symptoms) or Complicated (systemic symptoms)? @ -[default] Side effects of treatment? @ -[No] Exacerbation, Progression, or Severe Exacerbation? @ -[No] Poses a threat to life or bodily function? How? (Chest pain, USA, CO, pneumonia, PE, COPD, DKA, ARF, appy, cholecystitis, CVA, Diverticulitis, Homicidal, Suicidal, threat to staff... and all critical care pts) @ -[No] - Lab Data Result diagrams: 05/22/24 09:20 05/22/24 09:20 Lab Results 05/22/24 05/22/24 05/22/24 Range/Units 09:20 09:20 09:20 WBC 9.1 (3.8-10.6) k/uL RBC 4.36 (3.80-5.40) m/uL Hgb 12.5 (11.4-16.0) gm/dL Hct 38.1 (34.0-46.0) % MCV 87.3 (80.0-100.0) fL MCH 28.7 (25.0-35.0) pg MCHC 32.9 (31.0-37.0) g/dL RDW 13.6 (11.5-15.5) % Plt Count 239 (150-450) k/uL MPV 7.7 Neutrophils % 68 % Lymphocytes % 26 % Monocytes % 3 % Eosinophils % 1 % Basophils % 0 % Neutrophils # 6.2 (1.3-7.7) k/uL Lymphocytes # 2.3 (1.0-4.8) k/uL Monocytes # 0.3 (0-1.0) k/uL Eosinophils # 0.1 (0-0.7) k/uL Basophils # 0.0 (0-0.2) k/uL Sodium 136 L (137-145) mmol/L Potassium 3.9 (3.5-5.1) mmol/L Chloride 107 (98-107) mmol/L Carbon Dioxide 21 L (22-30) mmol/L Anion Gap 8 mmol/L BUN 7 (7-17) mg/dL Creatinine 0.54 (0.52-1.04) mg/dL Est GFR (CKD-EPI)AfAm >90 (>60 ml/min/1.73 sqM) Est GFR (CKD-EPI)NonAf >90 (>60 ml/min/1.73 sqM) Glucose 111 H (74-99) mg/dL Uric Acid 4.5 (3.7-7.4) mg/dL Calcium 9.1 (8.4-10.2) mg/dL Magnesium 1.6 (1.6-2.3) mg/dL Total Bilirubin 0.4 (0.2-1.3) mg/dL AST 26 (14-36) U/L ALT 17 (4-34) U/L Alkaline Phosphatase 125 (38-126) U/L Lactate Dehydrogenase 156 (120-246) U/L Total Protein 6.1 L (6.3-8.2) g/dL Albumin 3.4 L (3.5-5.0) g/dL Urine Color Colorless Urine Appearance Cloudy H (Clear) Urine pH 6.0 (5.0-8.0) Ur Specific [place] 1.003 (1.001-1.035) Urine Protein Negative (Negative) Urine Glucose (UA) Negative (Negative) Urine Ketones Negative (Negative) Urine Blood Negative (Negative) Urine Nitrite Negative (Negative) Urine Bilirubin Negative (Negative) Urine Urobilinogen <2.0 (<2.0) mg/dL Ur Leukocyte Esterase Trace H (Negative) Urine RBC 1 (0-5) /hpf Urine WBC 2 (0-5) /hpf Ur Squamous Epith Cells 13 H (0-4) /hpf Amorphous Sediment Rare H (None) /hpf Urine Bacteria Rare H (None) /hpf Disposition Clinical Impression: Epistaxis Disposition: HOME SELF-CARE Condition: Stable Instructions (If sedation given, give patient instructions): Nosebleed (ED) Additional Instructions: Please follow up with your LAUNDRY HOUSEKEEPING AIDE. Return to the emergency department for new or worsening symptoms. Is patient prescribed a controlled substance at d/c from ED?: No Referrals: René Esparza MD [Primary Care Provider] - 1-2 days
[2024-05-22] MEDS: OXYMETAZOLINE 0.05% NASL SPRAY 1 SPRAY BOTTLE NASAL STA (09:28)
[2024-05-22 09:41] LABS: Amorphous Sediment,Urine Rare /hpf; Appearance,Urine Cloudy (Clear); Bacteria,Urine Rare /hpf; Bilirubin,Urine Negative (Negative); Blood,Urine Negative (Negative); Color,Urine Colorless; Glucose,Urine (UA) Negative (Negative); Ketones,Urine Negative (Negative); Leukocyte Esterase,Urine Trace (Negative); Nitrite,Urine Negative (Negative); Protein,Urine Negative (Negative); RBC,Urine 1 /hpf (0-5); Specific Gravity,Urine 1.003 (1.001-1.035); Squamous Epithelial Cell,Urine 13 /hpf (0-4); Urobilinogen,Urine <2.0 mg/dL (<2.0); WBC,Urine 2 /hpf (0-5)
[2024-05-22 09:43] LABS: ALT 17 U/L (4-34); AST 26 U/L (14-36); African American GFR (CKD) >90 (>60 ml/min/1.73 sqM); Albumin 3.4 g/dL (3.5-5.0); Alkaline Phosphatase 125 U/L (38-126); Anion Gap 8 mmol/L; Basophils % (A) 0 %; Blood Urea Nitrogen 7 mg/dL (7-17); Calcium 9.1 mg/dL (8.4-10.2); Carbon Dioxide 21 mmol/L (22-30); Chloride 107 mmol/L (98-107); Eosinophils # (A) 0.1 k/uL (0-0.7); Eosinophils % (A) 1 %; Glucose 111 mg/dL (74-99); HCT 38.1 % (34.0-46.0); HGB 12.5 gm/dL (11.4-16.0); LDH 156 U/L (120-246); Lymphocytes # (A) 2.3 k/uL (1.0-4.8); Lymphocytes % (A) 26 %; MCH 28.7 pg (25.0-35.0); MCHC 32.9 g/dL (31.0-37.0); MCV 87.3 fL (80.0-100.0); Magnesium 1.6 mg/dL (1.6-2.3); Mean Platelet Volume 7.7; Monocytes # (A) 0.3 k/uL (0-1.0); Monocytes % (A) 3 %; Neutrophils # (A) 6.2 k/uL (1.3-7.7); Neutrophils % (A) 68 %; Non-African American GFR(CKD) >90 (>60 ml/min/1.73 sqM); Platelet Count 239 k/uL (150-450); Potassium 3.9 mmol/L (3.5-5.1); RBC 4.36 m/uL (3.80-5.40); RDW 13.6 % (11.5-15.5); Sodium 136 mmol/L (137-145); Total Bilirubin 0.4 mg/dL (0.2-1.3); Total Protein 6.1 g/dL (6.3-8.2); Uric Acid 4.5 mg/dL (3.7-7.4); WBC 9.1 k/uL (3.8-10.6)
[2024-05-22 10:09] VITALS: TEMP 98
[2024-05-22 11:56] VITALS: BP 120/82; PULSE 82
== END 2024-05-22 12:17 | disposition home or self-care (01) ==
LOC: EC 08:44
DX: O99.513 Diseases of the respiratory system complicating pregnancy, third trimester (principal); R04.0 Epistaxis; Z91.041 Radiographic dye allergy status; Z88.1 Allergy status to other antibiotic agents; Z91.013 Allergy to seafood; Z3A.35 35 weeks gestation of pregnancy
CPT/HCPCS: 36415; 80053; 81001; 83615; 83735; 84550; 85025; 99283

== ENCOUNTER 2024-06-12 23:11 | Inpatient (IN) | payer OTHER ==
[2024-06-12] MEDS ORDERED: miSOPROStoL 200 MCG TAB PO PRN (23:46)
[2024-06-12] MEDS ORDERED: LIDOCAINE 0.5% (PF) 5 MG/ML (50 ML SDV) SQ PRN (23:46)
[2024-06-12] MEDS ORDERED: CARBOPROST TROMETHAMINE 250 MCG/ML 1 ML AMP IM PRN (23:46)
[2024-06-12] MEDS ORDERED: OXYTOCIN 10 UNIT/ML 1 ML VIAL IM PRN (23:46)
[2024-06-12] MEDS ORDERED: METHYLERGONOVINE 0.2 MG/ML 1 ML AMP IM PRN (23:46)
[2024-06-12] MEDS ORDERED: TERBUTALINE 1 MG/ML VIAL SQ PRN (23:46)
[2024-06-12] MEDS ORDERED: TRANEXAMIC 1,000 MG/100ML-NACL 1,000 MG in EMPTY BAG 1 BAG IV PRN (23:46)
[2024-06-12] MEDS ORDERED: miSOPROStoL 200 MCG TAB RECTAL PRN (23:46)
[2024-06-12] MEDS: AMPICILLIN 2,000 MG in SODIUM CHLORIDE 0.9% 100 ML IVPB ONE (23:56)
[2024-06-12] MEDS: LACTATED RINGERS 1,000 ML IV SCH (23:59)
[2024-06-13 00:25] LABS: Basophils # (A) 0.1 k/uL (0-0.2); Basophils % (A) 1 %; Eosinophils # (A) 0.1 k/uL (0-0.7); Eosinophils % (A) 1 %; HCT 36.7 % (34.0-46.0); HGB 12.5 gm/dL (11.4-16.0); Lymphocytes # (A) 3.3 k/uL (1.0-4.8); Lymphocytes % (A) 31 %; MCH 29.6 pg (25.0-35.0); MCHC 34.1 g/dL (31.0-37.0); MCV 86.8 fL (80.0-100.0); Mean Platelet Volume 7.9; Monocytes # (A) 0.4 k/uL (0-1.0); Monocytes % (A) 4 %; Neutrophils # (A) 6.6 k/uL (1.3-7.7); Neutrophils % (A) 63 %; Platelet Count 270 k/uL (150-450); RBC 4.23 m/uL (3.80-5.40); RDW 13.8 % (11.5-15.5); WBC 10.5 k/uL (3.8-10.6)
[2024-06-13] MEDS: OXYTOCIN 30 UNITS/500 ML NS 30 UNIT in SALINE 1 500ML.BAG IV SCH (03:31)
[2024-06-13] MEDS: AMPICILLIN 1,000 MG in SODIUM CHLORIDE 0.9% 50 ML IVPB SCH (03:31)
[2024-06-13] MEDS ORDERED: SODIUM CHLORIDE 0.9% 250 ML BAG ONE (06:19)
[2024-06-13] MEDS ORDERED: ROPIVACAINE 5 MG/ML 30 ML VIAL ONE (06:19)
[2024-06-13] MEDS ORDERED: fentaNYL (PF) 50 MCG/ML 5 ML AMP ONE (06:19)
--- NOTE | 2024-06-13 10:33 | P.HPOB ---
History of Present Illness H&P Date: 06/13/24 Chief Complaint: Term , labor 38-year-old 3 para 2 at 38+ weeks presents with complaints of spontaneous rupture of membranes at 2245, clear in nature , noted to be 2 cm upon admission. Patient has been receiving routine care which has been essentially uncomplicated. Patient does have a history of epilepsy, hypothyroidism, asthma, and she did break her tailbone with her first delivery, second delivery was precipitous, gestational hypertension. blood work this patient is a blood type of O+, rubella status immune, hepatitis B surface engine negative, HIV negative, RPR is nonreactive, grew beta strep culture is positive. Review of Systems Constitutional: Denies chills, Denies fatigue, Denies fever Ears, nose, mouth and throat: Denies headache Cardiovascular: Reports leg edema Respiratory: Denies dyspnea Gastrointestinal: Denies constipation, Denies diarrhea Genitourinary: Reports Past Medical History Past Medical History: Asthma, Seizure Disorder, Thyroid Disorder Additional Past Medical History / Comment(s): PMDD, CVS (cyclic vomiting disorder), cortisone shots in knee, last seizure 09/06/22, GHTN History of Any Multi-Drug Resistant Organisms: None Reported Past Surgical History: Orthopedic Surgery, Tonsillectomy Additional Past Surgical History / Comment(s): ANKLE, ARM, nose surgery - pyogenic granuloma Past Anesthesia/Blood Transfusion Reactions: No Reported Reaction Past Psychological History: Anxiety Smoking Status: Never smoker Past Alcohol Use History: None Reported Past Drug Use History: None Reported - Past Family History Mother Family Medical History: No Reported History Father Family Medical History: Diabetes Mellitus Medications and Allergies Home Medications Medication Instructions Recorded Confirmed Type Levothyroxine Sodium [Synthroid] 50 mcg PO DAILY 07/18/22 06/12/24 History Potassium Chloride ER [K-Dur 20] 20 meq PO BID 07/18/22 06/12/24 History Magnesium Oxide [Mag-Ox] 400 mg PO BID 11/22/22 06/12/24 History Magnesium Oxide [Mag-Ox] 400 mg PO BID #60 tablet 11/22/22 06/12/24 Rx Vit No.179/Iron/Folic 1 tab PO DAILY 06/12/24 06/12/24 History [ Tablet] Allergies Allergy/AdvReac Type Severity Reaction Status Date / Time cefaclor [From [facility]] Allergy Rash/Hives Verified 06/12/24 23:14 Iodinated Contrast Media Allergy Anaphylaxis Verified 06/12/24 23:14 [Iodinated Contrast- Oral and IV Dye] shellfish derived [Shellfish] Allergy Anaphylaxis Verified 06/12/24 23:14 Exam Osteopathic Statement: *. No significant issues noted on an osteopathic structural exam other than those noted in the History and Physical/Consult. Vital Signs Temp Pulse Resp BP Pulse Ox 06/12/24 23:46 96.9 F L 81 18 138/89 99 06/12/24 23:30 96.9 F L 81 18 139/89 99 Intake and Output 06/12/24 06/13/24 06/13/24 22:59 06:59 14:59 Other: # Voids 5 Weight 102.058 kg Targeted physical exam is performed this date General Is well-nourished well- developed female in active labor, patient is comfortable with epidural which she received through the night. Patient is currently 9 cm. heart tones noted to be category 2, david every 2 to 3 minutes. Pitocin augmentation of labor was begun through the night. Results Result Diagrams: 06/12/24 23:45 Assessment and Plan (1) Term Current Visit: Yes Status: Acute Code(s): Z34.90 - ENCNTR FOR SUPRVSN OF NORMAL , UNSP, UNSP TRIMESTER SNOMED Code(s): 52785600 (2) SROM (spontaneous rupture of membranes) Current Visit: Yes Status: Acute Code(s): CDB4005 - SNOMED Code(s): 247469273 Plan: 38-year-old G3, P2, presented last evening with complaints of spontaneous ruptures. Patient was admitted to labor and delivery, Pitocin augmentation of labor was begun through the night. IV antibiotics were begun on admission secondary to positive group beta strep rectovaginal culture. Patient did reques t epidural through the night. anticipate spontaneous vaginal delivery.
[2024-06-13] MEDS ORDERED: ZOLPIDEM 5 MG TAB PO PRN (10:35)
[2024-06-13] MEDS ORDERED: HYDROCORTISONE 2.5% RECTAL CREAM 30 GM TUBE RECTAL PRN (10:35)
[2024-06-13] MEDS ORDERED: diphenhydrAMINE 50 MG/ML 1 ML VIAL IVP PRN ×2 (10:35)
[2024-06-13] MEDS ORDERED: SIMETHICONE 80 MG CHEWABLE PO PRN (10:35)
[2024-06-13] MEDS ORDERED: LANOLIN CREAM 1 GM TUBE TOPICAL PRN (10:35)
[2024-06-13] MEDS ORDERED: diphenhydrAMINE 25 MG CAP PO PRN (10:35)
[2024-06-13] MEDS ORDERED: BENZOCAINE/MENTHOL SPRAY 1 GM/SPRAY AEROSOL TOPICAL PRN (10:35)
[2024-06-13] MEDS ORDERED: diphenhydrAMINE 50 MG CAP PO PRN (10:35)
--- NOTE | 2024-06-13 10:35 | P.PROBDLV ---
Vaginal Delivery Note - . Vaginal Delivery Note: 38-year-old 3 para 2-0-0-2 at 30-3/7 weeks presents to labor and delivery last evening with complaints of spontaneous rupture of membranes at 2245, clear in nature. Patient was admitted to labor and delivery and IV antibiotics were begun secondary to positive group beta strep culture. Patient did undergo Pitocin augmentation of labor. Patient did request epidural for analgesia. Patient made good progress toward complete dilation. Once completely dilated patient was placed in a modified lithotomy position and through category 2 heart tones had a normal spontaneous vaginal delivery of a viable male infant, weight of 7 pounds 9 ounces, Apgars of 8 and 9 at 1 and 5 minutes respectively. was delivered at 1011. After 2-minute delay the umbilical cord was doubly clamped and cut and the placenta was delivered spontaneously intact with a three-vessel cord being noted. Uterus was noted to be firm below the umbilicus at this time. On inspection the patient's vaginal vault a right labial and second-degree midline vaginal laceration was apprec iated. The labial laceration was repaired with 4-0 chromic in a running locked fashion. The vaginal laceration was repaired with 3-0 Rapide in the usual fashion. Patient was comfortable with epidural and no lidocaine was needed for analgesia during the repair. Patient and infant tolerated delivery well, spontaneous cry was noted at . All counts were noted be correct x 2. Estimated blood loss 200 cc.
[2024-06-13] MEDS: IBUPROFEN 800 MG TAB PO SCH (13:58)
[2024-06-13] MEDS: ACETAMINOPHEN TAB 500 MG TAB PO SCH (18:03)
[2024-06-13] MEDS: SENNOSIDES-DOCUSATE SODIUM 1 EACH TAB PO SCH (21:44)
[2024-06-14] MEDS: LEVOTHYROXINE 50 MCG TAB PO SCH (06:22)
[2024-06-14] MEDS ORDERED: PRENATAL VIT-IRON-FOLIC ACID 1 EACH TABLET PO SCH (09:00)
--- NOTE | 2024-06-14 09:32 | P.DS ---
Providers Date of admission: 06/12/24 23:29 Expected date of discharge: 06/14/24 Attending physician: Lita Armas MD Primary care physician: Stated None - Discharge Diagnosis(es) (1) Term Current Visit: Yes Status: Acute (2) SROM (spontaneous rupture of membranes) Current Visit: Yes Status: Acute (3) Status post normal vaginal delivery Current Visit: Yes Status: Acute (4) Obstetrical laceration, second degree Current Visit: Yes Status: Acute (5) Obstetric labial laceration, delivered, current hospitalization Current Visit: Yes Status: Acute Hospital Course: This is a 38-year-old 3 para 2-0-0-2 that presented to labor and delivery at 30-3/7 weeks with complaints of spontaneous rupture of membranes. Patient has been receiving routine care which has been essentially uncomplicated. For full details in this patient please see the dictated history and physical. Patient was admitted to labor and delivery. Pitocin augmentation of labor was eventually begun. Patient did request epidural for analgesia. Epidural was placed without difficulty by the anesthesia department. Patient made good progress toward complete dilation. Once completely dilated she began pushing and had a normal spontaneous vaginal delivery of a viable male infant, 1011, weight of 7 pounds 9 ounces, Apgars of 8 and 9 at 1 and 5 minutes respectively. Patient did sustain a second-degree midline laceration along with a right labial laceration. These were repaired in the usual fashion. Patient's course has been uneventful. In this day #1 she is ambulating and voiding without difficulty. She is tolerating a regular diet without nausea or vomiting. She states her pain is well-controlled. She would like discharge home at 24 hours of possible. Patient Condition at Discharge: Good Plan - Discharge Summary New Discharge Prescriptions: No Action Vit No.179/Iron/Folic [ Tablet] 1 tab PO DAILY Levothyroxine Sodium [Synthroid] 50 mcg PO DAILY Potassium Chloride ER [K-Dur 20] 20 meq PO BID Magnesium Oxide [Mag-Ox] 400 mg PO BID Magnesium Oxide [Mag-Ox] 400 mg PO BID #60 tablet Discharge Medication List Levothyroxine Sodium [Synthroid] 50 mcg PO DAILY 07/18/22 [History] Potassium Chloride ER [K-Dur 20] 20 meq PO BID 07/18/22 [History] Magnesium Oxide [Mag-Ox] 400 mg PO BID 11/22/22 [History] Magnesium Oxide [Mag-Ox] 400 mg PO BID #60 tablet 11/22/22 [Rx] Vit No.179/Iron/Folic [ Tablet] 1 tab PO DAILY 06/12/24 [History] Follow up Appointment(s)/Referral(s): Lita Armas MD [STAFF PHYSICIAN] - 6 Weeks Patient Instructions/Handouts: Vaginal Delivery (DC), Vaginal Delivery (GEN) Activity/Diet/Wound Care/Special Instructions: No tub baths or intercourse until 6 weeks . [id number] ibuprofen 600 mg or 3 tablets every 6 hours as needed for pain. Patient is to make a routine check at 6 weeks. Should she have any concerns prior to this visit regarding breast-feeding, or PP bleeding she is urged to call the office. Discharge Disposition: HOME SELF-CARE
[2024-06-14 09:33] VITALS: BP 131/87; PULSE 94; RESP 15; TEMP 97.6
== END 2024-06-14 12:15 | disposition home or self-care (01) | DRG 560 ==
LOC: FBPOP 23:11 → 4FBP 23:29
PROVIDERS: ADMIT Obstetrics & Gynecology Obstetrics; ATTEND Obstetrics & Gynecology
PROC: 10E0XZZ Delivery of Products of Conception, External Approach (ICD-10-PCS; principal; 2024-06-13)
PROC: 0KQM0ZZ Repair Perineum Muscle, Open Approach (ICD-10-PCS; principal; 2024-06-13)
DX: O99.284 Endocrine, nutritional and metabolic diseases complicating childbirth (principal); E03.9 Hypothyroidism, unspecified; O70.1 Second degree perineal laceration during delivery; Z37.0 Single live birth; O80 Encounter for full-term uncomplicated delivery; O70.0 First degree perineal laceration during delivery; O71.89 Other specified obstetric trauma; Z79.890 Hormone replacement therapy; Z3A.39 39 weeks gestation of pregnancy; Z28.310 Unvaccinated for COVID-19; Z79.899 Other long term (current) drug therapy; Z88.1 Allergy status to other antibiotic agents; Z91.041 Radiographic dye allergy status; Z91.013 Allergy to seafood
CPT/HCPCS: 59025; 84112; 85025; 86850; 86900; 86901; 99213

== ENCOUNTER → 2024-10-07 | Outpatient (CLI) | payer OTHER ==
--- NOTE | 2024-10-07 14:42 | MM ---
Reason for Exam: Screening (asymptomatic). Patient History: Menarche at age 15. First Full-Term at age 24. Premenopausal. Patient has history of breast feeding. Maternal grandmother had breast cancer, age 55. Risk Values: Glory 5 year model risk: 0.6%. NCI Lifetime model risk: 10.2%. Tissue Density: The breasts are heterogeneously dense, which may obscure small masses. Findings: Analyzed By CAD. There are 2 benign-appearing adjacent linear calcifications in the left breast. Benign-appearing bilateral axillary lymph nodes are seen. There is no suspicious group of microcalcifications or new suspicious mass in either breast. Overall Assessment: Negative, BI-RAD 1 Management: Screening Mammogram of both breasts in 1 year. . Patient should continue monthly self-breast exams. A clinical breast exam by your physician is recommended on an annual basis. This exam should not preclude additional follow-up of suspicious palpable abnormalities. Note on Glory scores and lifetime risk: 1. A Glory score greater than 3% is considered moderate risk. If this is the case, consider specialist referral to assess eligibility for a risk reducing agent. 2. If overall lifetime risk for the development of breast cancer is 20% or higher, the patient may qualify for future screening with alternating mammogram and breast MRI. [facility], , 10/07/2024 2:38 PM. Electronically signed and approved by: Tony Willett M.D.
== END | disposition home or self-care (01) ==
LOC: RADMAMWWP 13:39
PROVIDERS: ATTEND Family Medicine
DX: Z12.31 Encounter for screening mammogram for malignant neoplasm of breast (principal); R92.333 Mammographic heterogeneous density, bilateral breasts; R92.1 Mammographic calcification found on diagnostic imaging of breast; Z80.3 Family history of malignant neoplasm of breast
CPT/HCPCS: 77067